=== PATIENT | male | born 1995 | race African-American/Black ===

== ENCOUNTER 2019-03-02 04:22 | Emergency (ER) | payer MEDICAID ==
[2019-03-02 04:35] VITALS: BP 138/88
== END 2019-03-02 07:02 | disposition left against medical advice (07) ==
LOC: ER 04:22
DX: Z53.21 Procedure and treatment not carried out due to patient leaving prior to being seen by health care provider (principal)

== ENCOUNTER 2019-03-05 04:46 | Emergency (ER) | payer MEDICAID ==
--- NOTE | 2019-03-05 05:30 | ER Document Report ---
ED General - General Stated Complaint: CHEST PAIN Time Seen by Provider: 03/05/19 05:11 Primary Care Provider: KAREEM MAYNARD MD [EMERITUS] - Follow up as needed Notes: 24-year-old male presents the emergency department complaining of a sudden onset of a squeezing pressure around his heart while laying on the ground outside. Patient states it started just prior to arrival and was associated with a small amount of shortness of breath and a cough. States the pain is improving since he has been here. Denies any radiation, denies any diaphoresis, denies any associated nausea or vomiting. Patient states he was laying on the ground outside because he has nowhere else to sleep. Has not had a place to sleep since the beginning of the month. Denies any history of cardiac disease himself, denies any history of cocaine use, denies any history of cardiac disease in his family members. - Related Data Allergies/Adverse Reactions: No Known Allergies Allergy (Verified 03/05/19 05:33) Past Medical History - General Information source: Patient - Social History Smoking Status: Current Every Day Smoker Frequency of alcohol use: None Drug Abuse: None Family History: Reviewed & Not Pertinent. denies: CAD Review of Systems - Review of Systems Constitutional: No symptoms reported Cardiovascular: See HPI, Chest pain Respiratory: See HPI, Cough, Short of breath -: Yes All other systems reviewed and negative Physical Exam - Vital signs Vitals: Temp Pulse Resp BP Pulse Ox 98.6 F 61 16 135/90 H 100 03/05/19 04:56 03/05/19 04:56 03/05/19 04:56 03/05/19 04:56 03/05/19 04:56 Interpretation: Normal - Notes Notes: GENERAL: Alert, interacts well. No acute distress. HEAD: Normocephalic, atraumatic EYES: Pupils equal, round and reactive to light, extraocular movements intact. ENT: Oral mucosa moist, tongue midline. NECK: Full range of motion, supple, trachea midline. LUNGS: Clear to auscultation bilaterally, no wheezes, rales or rhonchi, no respiratory distress. HEART: Regular rate and rhythm, no murmurs, gallops, rubs. Palpation of the chest does not reveal any tenderness. ABDOMEN: Soft, nontender, nondistended, bowel sounds present in all 4 quadrants. EXTREMITIES: Moves all 4 extremities spontaneously, no edema, radial and dorsalis pedis pulses 2/4 bilaterally. No cyanosis. NEUROLOGICAL: Alert and oriented x3, normal speech. PSYCH: Normal mood, normal affect. SKIN: Warm, Dry, normal turgor, no rashes or lesions noted. Course - Re-evaluation Re-evalutation: 03/05/19 06:31 CBC unremarkable, CMP unremarkable, CK mildly elevated, troponin negative, chest x-ray does not show any acute process per my interpretation. Uncertain etio logy of this patient's chest pain however it is very unlikely to be cardiac. Patient will be discharged home, recommended to try [id number] antacids. - Vital Signs Vital signs: Temp Pulse Resp BP Pulse Ox 97.9 F 63 19 123/94 H 100 03/05/19 05:19 03/05/19 05:19 03/05/19 05:19 03/05/19 05:19 03/05/19 05:19 - Laboratory Result Diagrams: 03/05/19 05:18 03/05/19 05:18 Laboratory results interpreted by me: 03/05/19 03/05/19 05:18 05:18 RDW 14.3 H Creatine Kinase 665 H - EKG Interpretation by Me Additional EKG results interpreted by me: 03/05/19 05:30 EKG shows sinus rhythm at a rate of 62, normal axis, normal intervals, no ST segment elevations or depressions, no T wave inversions, there is rapid R wave progression per my interpretation. Discharge - Discharge Clinical Impression: Chest pain with low risk for cardiac etiology Condition: Stable Disposition: HOME, SELF-CARE Instructions: Chest Pain of Unclear Cause ([facility]) Prescriptions: Ranitidine HCl 75 mg PO BID #30 tablet Referrals: KAREEM MAYNARD MD [EMERITUS] - Follow up as needed
[2019-03-05 05:57] LABS: ABSOLUTE BASOPHILS # (AUTO) 0.1 10^3/uL (0.0-0.2); ABSOLUTE EOSINOPHILS # (AUTO) 0.3 10^3/uL (0.0-0.6); ABSOLUTE LYMPHOCYTES (AUTO) 2.9 10^3/uL (0.5-4.7); ABSOLUTE MONOCYTES (AUTO) 0.5 10^3/uL (0.1-1.4); BASOPHILS % (AUTO) 0.7 % (0-2); EOSINOPHILS % (AUTO) 3.5 % (0-6); HEMOGLOBIN 14.8 g/dL (13.5-17.0); LYMPHOCYTES % (AUTO) 37.6 % (13-45); MEAN CORPUSCULAR HEMOGLOBIN 27.5 pg (27.0-33.4); MEAN CORPUSCULAR HGB CONC 33.6 g/dL (32.0-36.0); MEAN CORPUSCULAR VOLUME 82 fl (80-97); PLATELET COUNT 237 10^3/uL (150-450); RED BLOOD COUNT 5.37 10^6/uL (4.35-5.55); RED CELL DISTRIBUTION WIDTH 14.3 % (11.5-14.0); SEGMENTED NEUTROPHILS % (AUTO) 51.2 % (42-78); TOTAL CELLS COUNTED % (AUTO) 100 %; WHITE BLOOD COUNT 7.8 10^3/uL (4.0-10.5)
[2019-03-05 06:15] LABS: ALBUMIN 4.3 g/dL (3.5-5.0); ALKALINE PHOSPHATASE 50 U/L (38-126); ANION GAP 9 (5-19); ASPARTATE AMINO TRANSFERASE 25 U/L (17-59); BILIRUBIN,DIRECT 0.3 mg/dL (0.0-0.4); BILIRUBIN,TOTAL 0.5 mg/dL (0.2-1.3); BLOOD UREA NITROGEN 15 mg/dL (7-20); CALCIUM 9.6 mg/dL (8.4-10.2); CARBON DIOXIDE 28 mmol/L (22-30); CHLORIDE 103 mmol/L (98-107); CREATINE KINASE 665 U/L (55-170); GLUCOSE 94 mg/dL (75-110); POTASSIUM 4.3 mmol/L (3.6-5.0); TOTAL PROTEIN 7.2 g/dL (6.3-8.2)
[2019-03-05 06:29] LABS: CREATINE KINASE MB 3.68 ng/mL (<4.55); TROPONIN I < 0.012 ng/mL
[2019-03-05 06:43] VITALS: BP 126/80
--- NOTE | 2019-03-05 07:07 | RADIOLOGY REPORT (SQ) ---
EXAM DESCRIPTION: XR CHEST 1 VIEW COMPLETED DATE/TME: 03/05/2019 05:16 CLINICAL HISTORY: 24 years Male, left sided chest pain COMPARISON: None. NUMBER OF VIEWS/TECHNIQUE: 1/AP FINDINGS: Adequate lung volume, clear parenchyma, normal cardiac silhouette, and intact bony thorax. IMPRESSION: No acute cardiopulmonary findings.
--- NOTE | 2019-03-05 19:27 | EKG REPORT ---
SEVERITY:- NORMAL ECG - SINUS RHYTHM : Confirmed by: Janneth Hunter MD 05-Mar-2019 19:26:54
== END 2019-03-05 06:41 | disposition home or self-care (01) ==
LOC: ER 04:46
DX: R07.9 Chest pain, unspecified (principal); R05 Cough; R06.02 Shortness of breath; F17.200 Nicotine dependence, unspecified, uncomplicated
CPT/HCPCS: 36415; 71045; 80053; 82550; 82553; 83690; 84484; 85025; 93005; 93010; 99285

== ENCOUNTER 2019-03-06 21:23 | Emergency (ER) | payer MEDICAID ==
[2019-03-06] MEDS ORDERED: ONDANSETRON 4 MG TAB.RAPDIS PO ONE (21:39)
--- NOTE | 2019-03-06 21:42 | ER Document Report ---
ED Medical Screen (RME) - General Chief Complaint: Abdominal Pain Stated Complaint: NAUSEA,ABDOMINAL PAIN Time Seen by Provider: 03/06/19 21:37 TRAVEL OUTSIDE OF THE [place] IN LAST 30 DAYS: No - HPI Notes: 03/06/19 21:40 Patient is a 24-year-old male no significant past medical history presents complaining of upper and lower abdominal pain that is been present today with associated nausea. He is not vomiting or having any diarrhea. Pain is relatively constant and is described as mild. Pain does not radiate. No fever. I have treated and performed a rapid initial assessment of this patient. A [facility] prehensive ED assessment and evaluation of the patient, analysis of test results and completion of medical decision making process will be conducted by additional ED providers. PHYSICAL EXAMINATION: GENERAL: Well-appearing, well-nourished and in no acute distress. A&Ox4. Answers questions appropriately. Abdomen: Limited exam in triage, mild tenderness lower abdomen and his epigastrum. - Related Data Allergies/Adverse Reactions: No Known Allergies Allergy (Verified 03/05/19 05:33) Past Medical History Pulmonary Medical History: Reports: Hx Asthma Physical Exam - Vital signs Vitals: Temp Pulse Resp BP Pulse Ox 98.6 F 112 H 16 145/83 H 100 03/06/19 21:27 03/06/19 21:27 03/06/19 21:27 03/06/19 21:27 03/06/19 21:27 Course - Vital Signs Vital signs: Temp Pulse Resp BP Pulse Ox 98.6 F 112 H 16 145/83 H 100 03/06/19 21:27 03/06/19 21:27 03/06/19 21:27 03/06/19 21:27 03/06/19 21:27
[2019-03-06 22:08] LABS: ABSOLUTE EOSINOPHILS # (AUTO) 0.2 10^3/uL (0.0-0.6); ABSOLUTE LYMPHOCYTES (AUTO) 2.5 10^3/uL (0.5-4.7); ABSOLUTE MONOCYTES (AUTO) 0.4 10^3/uL (0.1-1.4); ABSOLUTE NEUT (AUTO) 2.9 10^3/uL (1.7-8.2); BASOPHILS % (AUTO) 0.7 % (0-2); EOSINOPHILS % (AUTO) 3.4 % (0-6); LYMPHOCYTES % (AUTO) 41.4 % (13-45); MEAN CORPUSCULAR HEMOGLOBIN 27.8 pg (27.0-33.4); MEAN CORPUSCULAR VOLUME 82 fl (80-97); PLATELET COUNT 237 10^3/uL (150-450); RED BLOOD COUNT 5.02 10^6/uL (4.35-5.55); RED CELL DISTRIBUTION WIDTH 14.2 % (11.5-14.0); SEGMENTED NEUTROPHILS % (AUTO) 47.5 % (42-78); TOTAL CELLS COUNTED % (AUTO) 100 %; WHITE BLOOD COUNT 6.1 10^3/uL (4.0-10.5)
[2019-03-06 22:19] LABS: APPEARANCE,URINE CLEAR; BILIRUBIN,URINE NEGATIVE (NEGATIVE); COLOR,URINE YELLOW; GLUCOSE, URINE NEGATIVE (NEGATIVE); KETONES,URINE NEGATIVE (NEGATIVE); PROTEIN,URINE NEGATIVE (NEGATIVE)
[2019-03-06 22:27] LABS: ALBUMIN 4.3 g/dL (3.5-5.0); ALKALINE PHOSPHATASE 54 U/L (38-126); ANION GAP 9 (5-19); ASPARTATE AMINO TRANSFERASE 30 U/L (17-59); BILIRUBIN,DIRECT 0.2 mg/dL (0.0-0.4); BILIRUBIN,TOTAL 0.5 mg/dL (0.2-1.3); BLOOD UREA NITROGEN 15 mg/dL (7-20); CALCIUM 9.5 mg/dL (8.4-10.2); CARBON DIOXIDE 27 mmol/L (22-30); CHLORIDE 104 mmol/L (98-107); GLUCOSE 110 mg/dL (75-110); POTASSIUM 3.9 mmol/L (3.6-5.0); TOTAL PROTEIN 7.3 g/dL (6.3-8.2)
[2019-03-06] MEDS ORDERED: ONDANSETRON 4 MG TAB.RAPDIS ONE (23:46)
[2019-03-07] MEDS ORDERED: ONDANSETRON ODT 4 MG TAB (6 TAB/ER DISP) PO PRN (02:09)
--- NOTE | 2019-03-07 02:20 | ER Document Report ---
ED GI/ - General Chief Complaint: Abdominal Pain Stated Complaint: NAUSEA,ABDOMINAL PAIN Time Seen by Provider: 03/06/19 21:37 Notes: Patient is a 24-year-old male that comes emergency department for chief complaint of generalized abdominal pain. He states he had pain mainly in the lower abdomen that was sharp and cramping, he felt nauseated with it as well. However after receiving Zofran in triage his symptoms completely resolved. He s tates he has not had a bowel movement in over a day which is abnormal for him but he states his previous bowel movement was normal. He denies vomiting, fever, flank pain. He has not had any abdominal surgeries, he denies any medical history or daily medications. He has no current complaints. TRAVEL OUTSIDE OF THE [place] IN LAST 30 DAYS: No - Related Data Allergies/Adverse Reactions: No Known Allergies Allergy (Verified 03/05/19 05:33) Past Medical History - General Information source: Patient - Social History Smoking Status: Current Every Day Smoker Frequency of alcohol use: None Drug Abuse: None Lives with: Family Family History: Reviewed & Not Pertinent. denies: CAD Patient has suicidal ideation: No Patient has homicidal ideation: No Pulmonary Medical History: Reports: Hx Asthma - Immunizations Immunizations up to date: Yes Hx Diphtheria, Pertussis, Tetanus Vaccination: Yes Review of Systems - Review of Systems Constitutional: No symptoms reported EENT: No symptoms reported Cardiovascular: No symptoms reported Respiratory: No symptoms reported Gastrointestinal: See HPI Genitourinary: No symptoms reported Male Genitourinary: No symptoms reported Musculoskeletal: No symptoms reported Skin: No symptoms reported Hematologic/Lymphatic: No symptoms reported Neurological/Psychological: No symptoms reported Physical Exam - Vital signs Vitals: Temp Pulse Resp BP Pulse Ox 98.6 F 112 H 16 145/83 H 100 03/06/19 21:27 03/06/19 21:27 03/06/19 21:27 03/06/19 21:27 03/06/19 21:27 - Notes Notes: GENERAL: Sleeping and easily aroused HEAD: Normocephalic, atraumatic. EYES: Pupils equal, round, and reactive to light. Extraocular movements intact. ENT: Oral mucosa moist, tongue midline. Oropharynx unremarkable. Airway patent. LUNGS: Clear to auscultation bilaterally, no wheezes, rales, or rhonchi. No respiratory distress. HEART: Regular rate and rhythm. No murmur ABDOMEN: Soft, non-tender. Non-distended. Bowel sounds present in all 4 quadrants. GENITOURINARY: Deferred EXTREMITIES: Moves all 4 extremities spontaneously. No edema, normal radial and dorsalis pedis pulses bilaterally. No cyanosis. BACK: no cervical, thoracic, lumbar midline tenderness. No saddle anesthesia, normal distal neurovascular exam. Moves all extremities in full range of motion. NEUROLOGICAL: Alert and oriented x3. Normal speech. Cranial nerves II through XII grossly intact. PSYCH: Normal affect, normal mood. SKIN: Warm, dry, normal turgor. No rashes or lesions noted. Course - Re-evaluation Re-evalutation: On my evaluation patient sleeping and easily aroused. He states that after Zofran in triage his symptoms completely resolved, he has no current complaints. His abdomen is completely nontender on my exam. I did review work-up from triage including CBC, chemistry, urinalysis, lipase. This is unremarkable other than elevated specific gravity. Discussed options with patient including rehydration with IV fluids or x-ray of the abdomen but this was declined. Patient alludes to some constipation. He will be provided with stool softeners, symptom management, nausea medication. Low suspicion of acute abdomen or concerning infection based on his presentation and evaluation. Discussed follow-up and return precautions. Patient states appreciation and agreement. Stable at time of discharge. - Vital Signs Vital signs: Temp Pulse Resp BP Pulse Ox 97.9 F 79 16 128/72 H 100 03/07/19 02:47 03/07/19 02:47 03/07/19 02:47 03/07/19 02:47 03/07/19 02:47 - Laboratory Result Diagrams: 03/06/19 21:55 03/06/19 21:55 Laboratory results interpreted by me: 03/06/19 03/06/19 21:55 21:55 RDW 14.2 H Urine Urobilinogen 4.0 H Discharge - Discharge Clinical Impression: Nausea Abdominal pain Qualifiers: Abdominal location: generalized Qualified Code(s): R10.84 - Generalized abdominal pain Condition: Stable Disposition: HOME, SELF-CARE Additional Instructions: Your evaluation and testing are reassuring. This is most likely pain coming from your bowel. I recommend that you take the Bentyl if needed for cramping, Phenergan if needed for nausea/stomach upset, and the Colace stool softener for the next several days. Drink plenty of fluids, you are somewhat dehydrated now. Return if you worsen including returned or worsening pain, vomiting, fever, or any other concerning or worsening symptoms. Prescriptions: Dicyclomine HCl [Bentyl 20 mg Tablet] 20 mg PO QID PRN #20 tablet PRN Reason: Docusate Sodium [Colace 100 mg Capsule] 100 mg PO ASDIR PRN #30 capsule PRN Reason: Promethazine HCl [Phenergan 25 mg Tablet] 25 mg PO Q6H PRN #15 tablet PRN Reason:
[2019-03-07 02:48] VITALS: BP 128/72
== END 2019-03-07 02:49 | disposition home or self-care (01) ==
LOC: ER 21:23
DX: R10.84 Generalized abdominal pain (principal); R11.0 Nausea; F17.200 Nicotine dependence, unspecified, uncomplicated
CPT/HCPCS: 99284; 36415; 83690; 85025; 80053; 81001; S0119

== ENCOUNTER 2019-03-07 23:11 | Emergency (ER) | payer SELFPAY ==
[2019-03-08 00:27] LABS: ABSOLUTE BASOPHILS # (AUTO) 0.1 10^3/uL (0.0-0.2); ABSOLUTE EOSINOPHILS # (AUTO) 0.3 10^3/uL (0.0-0.6); ABSOLUTE LYMPHOCYTES (AUTO) 2.7 10^3/uL (0.5-4.7); ABSOLUTE MONOCYTES (AUTO) 0.6 10^3/uL (0.1-1.4); ABSOLUTE NEUT (AUTO) 3.2 10^3/uL (1.7-8.2); EOSINOPHILS % (AUTO) 3.9 % (0-6); HEMATOCRIT 41.7 % (37.9-51.0); HEMOGLOBIN 14.2 g/dL (13.5-17.0); LYMPHOCYTES % (AUTO) 39.9 % (13-45); MEAN CORPUSCULAR HEMOGLOBIN 27.9 pg (27.0-33.4); MEAN CORPUSCULAR HGB CONC 34.1 g/dL (32.0-36.0); MEAN CORPUSCULAR VOLUME 82 fl (80-97); MONOCYTES % (AUTO) 8.7 % (3-13); PLATELET COUNT 241 10^3/uL (150-450); RED CELL DISTRIBUTION WIDTH 14.2 % (11.5-14.0); SEGMENTED NEUTROPHILS % (AUTO) 46.5 % (42-78); TOTAL CELLS COUNTED % (AUTO) 100 %; WHITE BLOOD COUNT 6.9 10^3/uL (4.0-10.5)
[2019-03-08 00:41] LABS: ALBUMIN 4.6 g/dL (3.5-5.0); ALKALINE PHOSPHATASE 50 U/L (38-126); ANION GAP 8 (5-19); ASPARTATE AMINO TRANSFERASE 32 U/L (17-59); BILIRUBIN,TOTAL 0.5 mg/dL (0.2-1.3); BLOOD UREA NITROGEN 15 mg/dL (7-20); CALCIUM 10.3 mg/dL (8.4-10.2); CARBON DIOXIDE 29 mmol/L (22-30); CHLORIDE 104 mmol/L (98-107); CREATINE KINASE 884 U/L (55-170); GLUCOSE 83 mg/dL (75-110); POTASSIUM 4.3 mmol/L (3.6-5.0); TOTAL PROTEIN 7.4 g/dL (6.3-8.2)
[2019-03-08 00:55] LABS: CREATINE KINASE MB 5.17 ng/mL (<4.55)
[2019-03-08 00:59] LABS: TROPONIN I < 0.012 ng/mL
[2019-03-08] MEDS ORDERED: SUCRALFATE 1 GM TABLET PO ONE (05:31)
[2019-03-08] MEDS ORDERED: FAMOTIDINE 20 MG TABLET PO ONE (05:31)
--- NOTE | 2019-03-08 05:32 | ER Document Report ---
ED General - General Chief Complaint: Chest Pain Stated Complaint: CHEST PAIN Time Seen by Provider: 03/08/19 04:35 Notes: Patient is a 24-year-old male that comes emergency department for chief complaint of an episode earlier where he felt a sharp pain in his upper abdomen and chest and felt nauseated. He states this resolved on its own after a while. He denies any current complaints on my evaluation. I saw this patient yesterday for lower abdominal pain and he was prescribed medications for this. He had a negative work-up at that time. He was also seen several days ago for chest pain and had a negative work-up then as well. Patient denies daily medications, surgeries, or any past medical history. TRAVEL OUTSIDE OF THE [place] IN LAST 30 DAYS: No - Related Data Allergies/Adverse Reactions: No Known Allergies Allergy (Verified 03/05/19 05:33) Past Medical History - General Information source: Patient - Social History Smoking Status: Current Every Day Smoker Frequency of alcohol use: None Drug Abuse: None Lives with: Alone Family History: Reviewed & Not Pertinent. denies: CAD Patient has suicidal ideation: No Patient has homicidal ideation: No Pulmonary Medical History: Reports: Hx Asthma - Immunizations Immunizations up to date: Yes Hx Diphtheria, Pertussis, Tetanus Vaccination: Yes Review of Systems - Review of Systems Constitutional: No symptoms reported EENT: No symptoms reported Cardiovascular: See HPI Respiratory: No symptoms reported Gastrointestinal: See HPI Genitourinary: No symptoms reported Male Genitourinary: No symptoms reported Musculoskeletal: No symptoms reported Skin: No symptoms reported Hematologic/Lymphatic: No symptoms reported Neurological/Psychological: No symptoms reported Physical Exam - Vital signs Vitals: Temp Pulse Resp BP Pulse Ox 98.5 F 71 22 H 136/94 H 100 03/07/19 23:56 03/07/19 23:56 03/07/19 23:56 03/07/19 23:56 03/07/19 23:56 - Notes Notes: GENERAL: sleeping but easily aroused, no signs of distress HEAD: Normocephalic, atraumatic. EYES: Pupils equal, round, and reactive to light. Extraocular movements intact. ENT: Oral mucosa moist, tongue midline. Oropharynx unremarkable. Airway patent. LUNGS: Clear to auscultation bilaterally, no wheezes, rales, or rhonchi. No respiratory distress. HEART: Regular rate and rhythm. No murmur ABDOMEN: Soft, non-tender. Non-distended. Bowel sounds present in all 4 qu adrants. GENITOURINARY: Deferred EXTREMITIES: Moves all 4 extremities spontaneously. No edema, normal radial and dorsalis pedis pulses bilaterally. No cyanosis. BACK: no cervical, thoracic, lumbar midline tenderness. No saddle anesthesia, normal distal neurovascular exam. Moves all extremities in full range of motion. NEUROLOGICAL: Alert and oriented x3. Normal speech. Cranial nerves II through XI I grossly intact. PSYCH: Normal affect, normal mood. SKIN: Warm, dry, normal turgor. No rashes or lesions noted. Course - Re-evaluation Re-evalutation: Patient was also somewhat dismissive of his symptoms and nods agreement with his work-up but does not appear to be overly concerned about his symptoms. His physical exam is completely unremarkable. His work-up again is unremarkable. Because of patient's repeated visits I had a long conversation with him. He states he just came to this town by bus after breaking up with his girlfriend, he states he is homeless, has no job, and he wants both a job and home. He denies SI or HI. He states he is just trying to get through this time. I discussed options, decision was made to place continuous pillowcase cutter consult. Patient just obtained phone and will be able to be contacted, patient states appreciation with this and states he is ready to go. Stable at time of discharge. - Vital Signs Vital signs: Temp Pulse Resp BP Pulse Ox 97.7 F 63 15 108/61 100 03/08/19 05:54 03/08/19 05:54 03/08/19 05:54 03/08/19 05:54 03/08/19 05:54 - Laboratory Result Diagrams: 03/08/19 00:10 03/08/19 00:10 Laboratory results interpreted by me: 03/08/19 03/08/19 03/08/19 00:10 00:10 00:10 RDW 14.2 H Calcium 10.3 H Creatine Kinase 884 H CK-MB (CK-2) 5.17 H Discharge - Discharge Clinical Impression: Chest pain with low risk for cardiac etiology, Homeless Condition: Stable Disposition: HOME, SELF-CARE Additional Instructions: Your workup today did not show any concerning findings. You will be contacted by phone by our continuous pillowcase cutter to see if we can assist with your current situation. Return if you worsen including fever, vomiting, severe worsening pain, or any other concerning symptoms.
[2019-03-08 05:58] VITALS: BP 108/61
--- NOTE | 2019-03-08 07:31 | EKG REPORT ---
SEVERITY:- NORMAL ECG - SINUS RHYTHM : Confirmed by: Jaden Martinez MD 08-Mar-2019 07:30:24
== END 2019-03-08 05:54 | disposition home or self-care (01) ==
LOC: ER 23:11
DX: R07.9 Chest pain, unspecified (principal); R10.10 Upper abdominal pain, unspecified; R11.0 Nausea; F17.200 Nicotine dependence, unspecified, uncomplicated; Z59.0 Homelessness
CPT/HCPCS: 36415; 80053; 82550; 82553; 84484; 85025; 93005; 93010; 99285

== ENCOUNTER 2019-03-08 22:54 | Emergency (ER) | payer SELFPAY ==
--- NOTE | 2019-03-09 00:13 | ER Document Report ---
ED Cardiac - General Chief Complaint: Chest Pain Stated Complaint: CHEST PAIN SORE THROAT Time Seen by Provider: 03/09/19 00:13 Mode of Arrival: Ambulatory Information source: Patient TRAVEL OUTSIDE OF THE [place] IN LAST 30 DAYS: No - HPI Patient complains to provider of: Chest pain Use of: Other - Denies all use Was the onset of pain: Gradual When did pain begin: Episodic Is the pain a: New problem Chest pain location: Other - Left-sided chest wall Quality of pain: Intermittent, Mild, Sharp Chest pain radiation location: None Severity now: Mild Severity at worst: Mild Pain level currently: 1 Chest pain precipitating factors: Movement of chest wall such as breathing deep or turning torso. Cardiac risk factors: None Positive cardiac history: No Associated symptoms: None Exacerbated by: Coughing, Torso movement, Other - Breathing Relieved by: Other - Patient does not have any chest pain while at rest. Similar symptoms previously: Yes Recently seen / treated by doctor: Yes Notes: Patient has been in the emergency department about 4 times this year. Similar complaints of chest pain with the same presentation as of noé. Thus far cardiac work-up is negative. No acute EKG changes normal laboratories normal troponins. - Related Data Allergies/Adverse Reactions: No Known Allergies Allergy (Verified 03/05/19 05:33) Past Medical History - Social History Smoking Status: Former Smoker Chew tobacco use (# tins/day): No Frequency of alcohol use: None Drug Abuse: None Occupation: Unemployed Lives with: Homeless Family History: Reviewed & Not Pertinent. denies: CAD Patient has suicidal ideation: No Patient has homicidal ideation: No - Medical History Medical History: Negative - Past Medical History Cardiac Medical History: Reports: None Pulmonary Medical History: Reports: Hx Asthma EENT Medical History: Reports: Other - Has glasses Neurological Medical History: Reports: None Endocrine Medical History: Reports: None Renal/ Medical History: Reports: None Malignancy Medical History: Reports None Skin Medical History: Reports None Psychiatric Medical History: Reports: None Traumatic Medical History: Reports: None Infectious Medical History: Reports: None Surgical Hx: Negative Past Surgical History: Reports: None - Immunizations Immunizations up to date: Yes Hx Diphtheria, Pertussis, Tetanus Vaccination: Yes Review of Systems - Review of Systems Constitutional: No symptoms reported EENT: No symptoms reported Cardiovascular: Chest pain Respiratory: No symptoms reported Gastrointestinal: Abdominal pain, Constipation Genitourinary: No symptoms reported Male Genitourinary: No symptoms reported Musculoskeletal: No symptoms reported Skin: No symptoms reported Hematologic/Lymphatic: No symptoms reported Neurological/Psychological: No symptoms reported Physical Exam - Vital signs Vitals: Temp Pulse Resp BP Pulse Ox 98.5 F 80 20 137/72 H 100 03/08/19 23:30 03/08/19 23:30 03/08/19 23:30 03/08/19 23:30 03/08/19 23:30 Interpretation: Normal - General General appearance: Appears well, Alert - HEENT Head: Normocephalic, Atraumatic Eyes: Normal Pupils: PERRL - Respiratory Respiratory status: No respiratory distress Chest status: Nontender Breath sounds: Normal Chest palpation: Normal - Cardiovascular Rhythm: Regular Heart sounds: Normal auscultation Murmur: No Notes: Reproducible chest wall pain palpable on left chest wall. No crepitus noted no deformity lungs are clear equal breath sounds. Symptoms are exacerbated with turning torso or taking deep breaths. - Abdominal Inspection: Normal Distension: No distension Bowel sounds: Normal Tenderness: Nontender Organomegaly: No organomegaly - Back Back: Normal, Nontender - Extremities General upper extremity: Normal inspection, Nontender, Normal color, Normal ROM, Normal temperature General lower extremity: Normal inspection, Nontender, Normal color, Normal ROM, Normal temperature, Normal weight bearing. No: Dotty's sign - Neurological Neuro grossly intact: Yes Cognition: Normal Orientation: AAOx4 [place] Coma Scale Eye Opening: Spontaneous [place] Coma Scale Verbal: Oriented [place] Coma Scale Motor: Obeys Commands [place] Coma Scale Total: 15 Speech: Normal Motor strength normal: LUE, RUE, LLE, RLE Sensory: Normal - Psychological Associated symptoms: Normal affect, Normal mood - Skin Skin Temperature: Warm Skin Moisture: Dry Skin Color: Normal Course - Re-evaluation Re-evalutation: 03/09/19 01:21 Patient is resting comfortably without any signs of distress. Sats are 100% with no tachypnea or air hunger. Heart rate is not tachycardic. Doubt that patient has pulmonary embolus - Vital Signs Vital signs: Temp Pulse Resp BP Pulse Ox 98.5 F 80 20 137/72 H 100 03/08/19 23:30 03/08/19 23:30 03/08/19 23:30 03/08/19 23:30 03/08/19 23:30 Discharge - Discharge Clinical Impression: Chest wall pain, Homeless Condition: Stable Disposition: HOME, SELF-CARE Instructions: Anti-Inflammatory Medication ([facility]), Chest Wall Pain ([facility]) Prescriptions: Ibuprofen [Ibu] 800 mg PO TID PRN #30 tablet PRN Reason: pain
[2019-03-09] MEDS ORDERED: IBUPROFEN 800 MG TABLET PO ONE (01:29)
[2019-03-09 01:55] VITALS: BP 134/61
--- NOTE | 2019-03-09 07:51 | EKG REPORT ---
SEVERITY:- NORMAL ECG - SINUS RHYTHM : Confirmed by: Jaden Martinez MD 09-Mar-2019 07:49:52
== END 2019-03-09 01:56 | disposition home or self-care (01) ==
LOC: ER 22:54
DX: R07.9 Chest pain, unspecified (principal); R10.10 Upper abdominal pain, unspecified; R11.0 Nausea; R10.30 Lower abdominal pain, unspecified; F17.200 Nicotine dependence, unspecified, uncomplicated
CPT/HCPCS: 93005; 93010; 99284

== ENCOUNTER 2019-03-10 23:14 | Emergency (ER) | payer SELFPAY ==
[2019-03-11] MEDS ORDERED: ONDANSETRON 4 MG TAB.RAPDIS PO ONE (00:25)
--- NOTE | 2019-03-11 00:25 | ER Document Report ---
ED Medical Screen (RME) - General Chief Complaint: Nausea/Vomiting Stated Complaint: NAUSEA Time Seen by Provider: 03/11/19 00:24 Notes: 24-year-old male presents with nausea/vomiting and upper abdominal pain that started this morning. Patient denies any fever or chills. Abdomen soft nontender. I have greeted and performed a rapid initial assessment of this patient. A comprehensive ED assessment and evaluation of the patient, analysis of test results and completion of the medical decision making process with be conducted by additional ED providers. TRAVEL OUTSIDE OF THE [place] IN LAST 30 DAYS: No - Related Data Allergies/Adverse Reactions: No Known Allergies Allergy (Verified 03/05/19 05:33) Past Medical History Pulmonary Medical History: Reports: Hx Asthma - Immunizations Immunizations up to date: Yes Hx Diphtheria, Pertussis, Tetanus Vaccination: Yes Physical Exam - Vital signs Vitals: Temp Pulse Resp BP Pulse Ox 98.0 F 106 H 20 149/82 H 100 03/10/19 23:18 03/10/19 23:18 03/10/19 23:18 03/10/19 23:18 03/10/19 23:18 Course - Vital Signs Vital signs: Temp Pulse Resp BP Pulse Ox 98.0 F 106 H 20 149/82 H 100 03/10/19 23:18 03/10/19 23:18 03/10/19 23:18 03/10/19 23:18 03/10/19 23:18
[2019-03-11 00:50] LABS: ABSOLUTE BASOPHILS # (AUTO) 0.1 10^3/uL (0.0-0.2); ABSOLUTE EOSINOPHILS # (AUTO) 0.2 10^3/uL (0.0-0.6); ABSOLUTE LYMPHOCYTES (AUTO) 2.7 10^3/uL (0.5-4.7); ABSOLUTE MONOCYTES (AUTO) 0.6 10^3/uL (0.1-1.4); ABSOLUTE NEUT (AUTO) 4.7 10^3/uL (1.7-8.2); BASOPHILS % (AUTO) 0.9 % (0-2); HEMATOCRIT 42.4 % (37.9-51.0); HEMOGLOBIN 14.3 g/dL (13.5-17.0); LYMPHOCYTES % (AUTO) 32.2 % (13-45); MEAN CORPUSCULAR HEMOGLOBIN 27.5 pg (27.0-33.4); MEAN CORPUSCULAR HGB CONC 33.6 g/dL (32.0-36.0); MEAN CORPUSCULAR VOLUME 82 fl (80-97); MONOCYTES % (AUTO) 6.8 % (3-13); PLATELET COUNT 249 10^3/uL (150-450); RED BLOOD COUNT 5.19 10^6/uL (4.35-5.55); RED CELL DISTRIBUTION WIDTH 14.3 % (11.5-14.0); SEGMENTED NEUTROPHILS % (AUTO) 57.1 % (42-78); TOTAL CELLS COUNTED % (AUTO) 100 %; WHITE BLOOD COUNT 8.2 10^3/uL (4.0-10.5)
[2019-03-11 01:05] LABS: APPEARANCE,URINE CLEAR; BILIRUBIN,URINE NEGATIVE (NEGATIVE); COLOR,URINE YELLOW; GLUCOSE, URINE NEGATIVE (NEGATIVE); KETONES,URINE NEGATIVE (NEGATIVE); PROTEIN,URINE NEGATIVE (NEGATIVE); URINE SPECIFIC GRAVITY 1.023; UROBILINOGEN,URINE NEGATIVE mg/dL (<2.0)
[2019-03-11 01:14] LABS: ALBUMIN 4.6 g/dL (3.5-5.0); ALKALINE PHOSPHATASE 49 U/L (38-126); ANION GAP 10 (5-19); ASPARTATE AMINO TRANSFERASE 33 U/L (17-59); BILIRUBIN,TOTAL 0.4 mg/dL (0.2-1.3); BLOOD UREA NITROGEN 14 mg/dL (7-20); CARBON DIOXIDE 27 mmol/L (22-30); CHLORIDE 104 mmol/L (98-107); GLUCOSE 98 mg/dL (75-110); POTASSIUM 4.1 mmol/L (3.6-5.0); TOTAL PROTEIN 7.4 g/dL (6.3-8.2)
[2019-03-11 01:49] LABS: URINE AMPHETAMINES SCREEN NEGATIVE; URINE BARBITURATES SCREEN NEGATIVE; URINE BENZODIAZEPINES SCREEN NEGATIVE; URINE COCAINE SCREEN NEGATIVE; URINE MARIJUANA (THC) SCREEN NEGATIVE; URINE METHADONE SCREEN NEGATIVE; URINE PHENCYCLIDINE SCREEN NEGATIVE
--- NOTE | 2019-03-11 05:51 | ER Document Report ---
ED General - General Chief Complaint: Abdominal Pain Stated Complaint: NAUSEA Time Seen by Provider: 03/11/19 00:24 TRAVEL OUTSIDE OF THE [place] IN LAST 30 DAYS: No - HPI Notes: Mr. Corrales is a 24-year-old homeless male with a chief complaint of abdominal pain when he came to triage. When I entered the room he was sleeping and told me that he basically needed somewhere to get out of the cold and that his abdomen had been hurting earlier but was no longer bothering him and he had no other specific complaint. - Related Data Allergies/Adverse Reactions: No Known Allergies Allergy (Verified 03/05/19 05:33) Past Medical History - General Information source: Patient - Social History Smoking Status: Current Every Day Smoker Family History: Reviewed & Not Pertinent. denies: CAD Patient has suicidal ideation: No Patient has homicidal ideation: No Pulmonary Medical History: Reports: Hx Asthma - Immunizations Immunizations up to date: Yes Hx Diphtheria, Pertussis, Tetanus Vaccination: Yes Review of Systems - Review of Systems Notes: Constitutional: Negative for fever. HENT: Negative for sore throat. Eyes: Negative for visual changes. Cardiovascular: Negative for chest pain. Respiratory: Negative for shortness of breath. Gastrointestinal: As per HPI. Genitourinary: Negative for dysuria. Musculoskeletal: Negative for back pain. Skin: Negative for rash. Neurological: Negative for headaches, weakness or numbness. 10 point ROS negative except as marked above and in HPI. Physical Exam - Vital signs Vitals: Temp Pulse Resp BP Pulse Ox 98.0 F 106 H 20 149/82 H 100 03/10/19 23:18 03/10/19 23:18 03/10/19 23:18 03/10/19 23:18 03/10/19 23:18 - Notes Notes: GENERAL: Slightly disheveled male approximately stated age appearing in no acute distress. SKIN: Good turgor no rashes. HEAD: Normocephalic atraumatic. EYES: PERRLA. EOMI. Conjunctivae and sclerae clear. NECK: Supple. No masses or thyromegaly. No adenopathy. Carotids 2+ without bruits. No JVD. BACK: Symmetrical without tenderness. CHEST: Respirations unlabored. Breath sounds clear and symmetrical. HEART: Regular rhythm. No murmur gallop or rub. ABDOMEN: Soft nontender without masses, organomegaly or rebound. Bowel sounds normally active. No bruits. EXTREMITIES: No edema. No calf tenderness. Cap refill less than 1.5 seconds. Dorsalis pedis and posterior tibial pulses 3+ and symmetrical. NEUROLOGICAL: Alert and oriented x3. Nonfocal. PSYCHIATRIC: Appropriate affect. Course - Re-evaluation Re-evalutation: 03/11/19 05:49 I think the patient was primarily seeking a warm place to spend the evening. I have offered him resources regarding local homeless shelters. - Vital Signs Vital signs: Temp Pulse Resp BP Pulse Ox 98.4 F 86 16 146/72 H 100 03/11/19 04:58 03/11/19 04:58 03/11/19 04:58 03/11/19 04:58 03/11/19 04:58 - Laboratory Result Diagrams: 03/11/19 00:42 03/11/19 00:42 Laboratory results interpreted by me: 03/11/19 00:42 RDW 14.3 H Discharge - Discharge Clinical Impression: Resolved abdominal pain, Undomiciled Condition: Stable Disposition: HOME, SELF-CARE Additional Instructions: Seek housing in a homeless long-term. Return here as needed for new or worsening symptoms. Clinic referral provided. Referrals: [facility] [Provider Group] - Follow up as needed
[2019-03-11 06:00] VITALS: BP 148/72
== END 2019-03-11 05:59 | disposition home or self-care (01) ==
LOC: ER 23:14
DX: R10.9 Unspecified abdominal pain (principal); Z59.0 Homelessness; F17.200 Nicotine dependence, unspecified, uncomplicated; J45.909 Unspecified asthma, uncomplicated
CPT/HCPCS: 99284; 36415; 83690; 85025; 80053; 81001; 80307; S0119

== ENCOUNTER 2019-03-11 23:25 | Emergency (ER) | payer SELFPAY ==
[2019-03-11] MEDS ORDERED: LIDOCAINE 2% VISCOUS SOLN 15 ML UDCUP PO ONE (23:41)
[2019-03-11] MEDS ORDERED: MAG HYDROX/AL HYDROX/SIMETH SUSP 30 ML UDCUP PO ONE (23:41)
[2019-03-11] MEDS ORDERED: METOCLOPRAMIDE HCL ORAL SOLN 10 MG/10 ML UDCUP PO ONE (23:41)
--- NOTE | 2019-03-11 23:42 | ER Document Report ---
ED Medical Screen (RME) - General Chief Complaint: Abdominal Pain Stated Complaint: ABDOMINAL PAIN Time Seen by Provider: 03/11/19 23:39 Mode of Arrival: Ambulatory Information source: Patient Notes: 24-year-old male presents today with complaints of epigastric pain. Reports he had vomiting and diarrhea yesterday none today. Denies fevers. Patient looks nontoxic. Respiratory rate even unlabored I have greeted and performed a rapid initial assessment of this patient. A comprehensive ED assessment and evaluation of the patient, analysis of test results and completion of the medical decision making process will be conducted by additional ED providers. TRAVEL OUTSIDE OF THE [place] IN LAST 30 DAYS: No - Related Data Allergies/Adverse Reactions: No Known Allergies Allergy (Verified 03/05/19 05:33) Past Medical History Pulmonary Medical History: Reports: Hx Asthma - Immunizations Immunizations up to date: Yes Hx Diphtheria, Pertussis, Tetanus Vaccination: Yes Physical Exam - Vital signs Vitals: Temp Pulse Resp BP Pulse Ox 98.3 F 100 20 129/73 H 99 03/11/19 23:29 03/11/19 23:29 03/11/19 23:29 03/11/19 23:29 03/11/19 23:29 Course - Vital Signs Vital signs: Temp Pulse Resp BP Pulse Ox 98.3 F 100 20 129/73 H 99 03/11/19 23:29 03/11/19 23:29 03/11/19 23:29 03/11/19 23:29 03/11/19 23:29
[2019-03-12 01:17] LABS: HEMATOCRIT 40.8 % (37.9-51.0); HEMOGLOBIN 13.5 g/dL (13.5-17.0); MEAN CORPUSCULAR HEMOGLOBIN 27.1 pg (27.0-33.4); MEAN CORPUSCULAR HGB CONC 33.2 g/dL (32.0-36.0); MEAN CORPUSCULAR VOLUME 82 fl (80-97); PLATELET COUNT 247 10^3/uL (150-450); RED BLOOD COUNT 4.99 10^6/uL (4.35-5.55); RED CELL DISTRIBUTION WIDTH 14.7 % (11.5-14.0); WHITE BLOOD COUNT 8.2 10^3/uL (4.0-10.5)
[2019-03-12 01:21] LABS: APPEARANCE,URINE CLEAR; BILIRUBIN,URINE NEGATIVE (NEGATIVE); COLOR,URINE YELLOW; GLUCOSE, URINE NEGATIVE (NEGATIVE); KETONES,URINE NEGATIVE (NEGATIVE); LEUKOCYTE ESTERASE,URINE NEGATIVE (NEGATIVE); NITRITE,URINE NEGATIVE (NEGATIVE); PROTEIN,URINE NEGATIVE (NEGATIVE); URINE SPECIFIC GRAVITY 1.024; UROBILINOGEN,URINE NEGATIVE mg/dL (<2.0)
[2019-03-12 01:35] LABS: ALBUMIN 4.4 g/dL (3.5-5.0); ALKALINE PHOSPHATASE 48 U/L (38-126); ANION GAP 10 (5-19); ASPARTATE AMINO TRANSFERASE 36 U/L (17-59); BILIRUBIN,TOTAL 0.5 mg/dL (0.2-1.3); BLOOD UREA NITROGEN 14 mg/dL (7-20); CALCIUM 10.1 mg/dL (8.4-10.2); CARBON DIOXIDE 27 mmol/L (22-30); CHLORIDE 102 mmol/L (98-107); GLUCOSE 97 mg/dL (75-110); POTASSIUM 4.4 mmol/L (3.6-5.0); TOTAL PROTEIN 7.2 g/dL (6.3-8.2)
[2019-03-12 01:39] LABS: ABSOLUTE MONOCYTES # (MANUAL) 0.7 10^3/uL (0.1-1.4); ANISOCYTOSIS 1+; BAND NEUTROPHILS % (MANUAL) 4 % (3-5); BASOPHILS % (MANUAL) 1 % (0-2); EOSINOPHILS % (MANUAL) 3 % (0-6); LYMPHOCYTES % (MANUAL) 36 % (13-45); MONOCYTES % (MANUAL) 8 % (3-13); PLATELET COMMENT ADEQUATE; POLYCHROMASIA 1+; SEGMENTED NEUTROPHILS % (MAN) 48 % (42-78); TOTAL CELLS COUNTED 100
[2019-03-12] MEDS ORDERED: FAMOTIDINE 20 MG TABLET PO ONE (05:12)
[2019-03-12] MEDS ORDERED: SUCRALFATE 1 GM TABLET PO ONE (05:12)
--- NOTE | 2019-03-12 05:16 | ER Document Report ---
HPI - HPI Time Seen by Provider: 03/11/19 23:39 Pain Level: 3 Context: Patient is a 24-year-old male that comes emergency department for chief complaint of upper abdominal pain. He has been seen almost every day this week for similar complaints. Patient denies vomiting, he has not had any fevers, he has not had any surgeries, he takes daily prescribed medications. Patient is homeless and states that his primary problem is that he is looking for a job and a place to stay. He states he has been in contact with case management after I consulted them but this has not progressed any further yet. - REPRODUCTIVE Reproductive: DENIES: : Past Medical History - General Information source: Patient - Social History Smoking Status: Current Every Day Smoker Frequency of alcohol use: None Drug Abuse: None Lives with: Alone Family History: Reviewed & Not Pertinent. denies: CAD Patient has suicidal ideation: No Patient has homicidal ideation: No Pulmonary Medical History: Reports: Hx Asthma - Immunizations Immunizations up to date: Yes Hx Diphtheria, Pertussis, Tetanus Vaccination: Yes Vertical Provider Document - CONSTITUTIONAL General Appearance: WD/WN, No Apparent Distress - Sleeping but easily aroused - INFECTION CONTROL TRAVEL OUTSIDE OF THE [place] IN LAST 30 DAYS: No - HEENT HEENT: Atraumatic, Normocephalic - NECK Neck: Normal Inspection - RESPIRATORY Respiratory: Breath Sounds Normal, No Respiratory Distress, Chest Non-Tender - CARDIOVASCULAR Cardiovascular: Regular Rate, Regular Rhythm. negative: Tachycardia - GI/ABDOMEN Gastrointestinal: Abdomen Soft, Abdomen Non-Tender. negative: Abdomen Tender - BACK Back: Normal Inspection - MUSCULOSKELETAL/EXTREMETIES Musculoskeletal/Extremeties: MAEW, FROM, Non-Tender - NEURO Level of Consciousness: Awake, Alert, Appropriate Motor/Sensory: No Motor Deficit, No Sensory Deficit - DERM Integumentary: Warm, Dry, No Rash Course - Re-evaluation Re-evalutation: Patient sleeping but easily aroused. Abdomen is unremarkable on exam. Patient has no complaints on my exam. Vital signs unremarkable, work-up unremarkable, patient has been here several days in a row. Patient admits to homelessness and needing a place to stay. He has already consulted case management and is working with them to try to find a place. No additional complaints. Patient will be discharged with return precautions. He states understanding and agreement. - Vital Signs Vital signs: Temp Pulse Resp BP Pulse Ox 98.3 F 100 20 129/73 H 99 03/11/19 23:29 03/11/19 23:29 03/11/19 23:29 03/11/19 23:29 03/11/19 23:29 - Laboratory Result Diagrams: 03/12/19 01:03 03/12/19 01:03 Laboratory results interpreted by me: 03/12/19 01:03 RDW 14.7 H Discharge - Discharge Clinical Impression: Homeless Abdominal pain Qualifiers: Abdominal location: generalized Qualified Code(s): R10.84 - Generalized abdo helena pain Condition: Stable Disposition: HOME, SELF-CARE Additional Instructions: Your evaluation is reassuring. Please follow-up with case management in your search for a good location and employment. Follow-up with the primary care referral listed below for additional management. Return for any concerning symptoms including severe pain, vomiting, fever, or any other concerning symptoms. Referrals: [facility] [Provider Group] - Follow up as needed
[2019-03-12 05:39] VITALS: BP 128/69
== END 2019-03-12 05:25 | disposition home or self-care (01) ==
LOC: ER 23:25
DX: R10.84 Generalized abdominal pain (principal); R10.10 Upper abdominal pain, unspecified; Z59.0 Homelessness; F17.200 Nicotine dependence, unspecified, uncomplicated; J45.909 Unspecified asthma, uncomplicated
CPT/HCPCS: 36415; 81001; 87070; 99284

== ENCOUNTER 2019-03-13 23:01 | Emergency (ER) | payer SELFPAY ==
--- NOTE | 2019-03-13 23:34 | ER Document Report ---
ED Medical Screen (RME) - General Chief Complaint: Rectal Bleeding Stated Complaint: RECTAL BLEEDING Time Seen by Provider: 03/13/19 23:31 Mode of Arrival: Ambulatory Information source: Patient Notes: 24-year-old male with history of asthma presents emergency department with complaints of blood in his stool for the past month. Denies fever vomiting diarrhea. Denies abdominal pain. I have greeted and performed a rapid initial assessment of this patient. A comprehensive ED assessment and evaluation of the patient, analysis of test results and completion of the medical decision making process will be conducted by additional ED providers. TRAVEL OUTSIDE OF THE [place] IN LAST 30 DAYS: No - Related Data Allergies/Adverse Reactions: No Known Allergies Allergy (Verified 03/05/19 05:33) Past Medical History Pulmonary Medical History: Reports: Hx Asthma - Immunizations Immunizations up to date: Yes Hx Diphtheria, Pertussis, Tetanus Vaccination: Yes Physical Exam - Vital signs Vitals: Temp Pulse Resp BP Pulse Ox 98.9 F 110 H 20 153/91 H 100 03/13/19 23:08 03/13/19 23:08 03/13/19 23:08 03/13/19 23:08 03/13/19 23:08 Course - Vital Signs Vital signs: Temp Pulse Resp BP Pulse Ox 98.9 F 110 H 20 153/91 H 100 03/13/19 23:08 03/13/19 23:08 03/13/19 23:08 03/13/19 23:08 03/13/19 23:08
--- NOTE | 2019-03-14 01:43 | ER Document Report ---
HPI - HPI Time Seen by Provider: 03/13/19 23:31 Pain Level: 3 Context: Patient is a 24-year-old male who presents emergency department with a chief complaint of blood in his stool. Patient states that he has had on and off for the past month. Patient is homeless. He denies any abdominal pain. - CONSTITUTIONAL Constitutional: DENIES: Fever, Chills - EENT EENT: DENIES: Sore Throat, Ear Pain - NEURO Neurology: DENIES: Headache - CARDIOVASCULAR Cardiovascular: DENIES: Chest pain - RESPIRATORY Respiratory: DENIES: Trouble Breathing, Coughing - GASTROINTESTINAL Gastrointestinal: REPORTS: Black / Bloody Stools. DENIES: Abdominal Pain, Nausea, Patient vomiting - REPRODUCTIVE Reproductive: DENIES: : - MUSCULOSKELETAL Musculoskeletal: DENIES: Extremity pain - DERM Skin Color: Normal Skin Problems: None Past Medical History - General Information source: Patient - Social History Smoking Status: Current Every Day Smoker Family History: Reviewed & Not Pertinent. denies: CAD Patient has suicidal ideation: No Patient has homicidal ideation: No Pulmonary Medical History: Reports: Hx Asthma - Immunizations Immunizations up to date: Yes Hx Diphtheria, Pertussis, Tetanus Vaccination: Yes Vertical Provider Document - CONSTITUTIONAL Agree With Documented VS: Yes Exam Limitations: No Limitations General Appearance: No Apparent Distress - INFECTION CONTROL TRAVEL OUTSIDE OF THE [place] IN LAST 30 DAYS: No - HEENT HEENT: Atraumatic, Normocephalic, PERRLA - RESPIRATORY Respiratory: Breath Sounds Normal, No Respiratory Distress - CARDIOVASCULAR Cardiovascular: Regular Rate, Regular Rhythm Pulses: Normal: Radial - GI/ABDOMEN Gastrointestinal: Abdomen Soft, Abdomen Non-Tender - MUSCULOSKELETAL/EXTREMETIES Musculoskeletal/Extremeties: FROM - NEURO Level of Consciousness: Awake, Alert, Appropriate - DERM Integumentary: Warm, Dry, No Rash Course - Re-evaluation Re-evalutation: 03/14/19 01:41 Patient was seen here on the and of this month with a stable hemoglobin hematocrit. If he truly had rectal bleeding, his hemoglobin would have been lower on those days, since he says he has had bleeding for the past month. Occult stool done by KISHOR Carlson is negative for any blood. Patient is homeless. I have advised him that he can follow-up with GI if needed. I have a very low suspicion for GI bleed, or any life-threatening etiology at this time. Follow-up precautions were given. Verbal discharge instructions were given to the patient. They verbalized understanding. They are stable for discharge. - Vital Signs Vital signs: Temp Pulse Resp BP Pulse Ox 98.9 F 110 H 20 153/91 H 100 03/13/19 23:08 03/13/19 23:08 03/13/19 23:08 03/13/19 23:08 03/13/19 23:08 Discharge - Discharge Clinical Impression: Homeless, Blood in stool Condition: Stable Disposition: HOME, SELF-CARE Additional Instructions: You were seen today in the emergency department for blood in your stool. The rectal exam done showed that you did not have blood in your stool. If you continue to have these problems, please follow-up with gastroenterology. Referrals: JR DECKER MD [ACTIVE STAFF] - Follow up as needed
[2019-03-14 01:51] VITALS: BP 131/69
== END 2019-03-14 01:50 | disposition home or self-care (01) ==
LOC: ER 23:01
DX: K92.1 Melena (principal); Z59.0 Homelessness; F17.200 Nicotine dependence, unspecified, uncomplicated; J45.909 Unspecified asthma, uncomplicated
CPT/HCPCS: 99283

== ENCOUNTER 2019-03-14 23:24 | Emergency (ER) | payer SELFPAY ==
[2019-03-15] MEDS ORDERED: ACETAMINOPHEN 325 MG TABLET PO ONE (03:28)
--- NOTE | 2019-03-15 04:14 | ER Document Report ---
ED General - General Chief Complaint: Headache Stated Complaint: HEADACHE Time Seen by Provider: 03/15/19 03:10 TRAVEL OUTSIDE OF THE [place] IN LAST 30 DAYS: No - HPI Notes: Patient is a 24-year-old male who presents to the emergency department for evaluation. He states he was at [employer], felt a sudden "pop" in the back of his head, and developed a headache. He states that his headaches improved sig nificantly. He states that after that he thinks he "passed out" but believes he may have just been sleeping. He states this is what was going on for about 2 hours. He denies any visual changes. No difficulty speaking or swallowing. Moving his arms and legs without difficulty. He comes in here for further evaluation. It was not a thunderclap onset, it is not the worst headache of his life. - Related Data Allergies/Adverse Reactions: No Known Allergies Allergy (Verified 03/05/19 05:33) Home Medications: None Past Medical History - General Information source: Patient - Social History Smoking Status: Current Every Day Smoker Family History: Reviewed & Not Pertinent. denies: CAD Patient has suicidal ideation: No Patient has homicidal ideation: No Pulmonary Medical History: Reports: Hx Asthma - Immunizations Immunizations up to date: Yes Hx Diphtheria, Pertussis, Tetanus Vaccination: Yes Review of Systems - Review of Systems Constitutional: No symptoms reported EENT: No symptoms reported Cardiovascular: No symptoms reported Respiratory: No symptoms reported Gastrointestinal: No symptoms reported Genitourinary: No symptoms reported Musculoskeletal: No symptoms reported Skin: No symptoms reported Neurological/Psychological: See HPI Physical Exam - Vital signs Vitals: Temp Pulse Resp BP Pulse Ox 98.7 F 125 H 16 140/80 H 100 03/14/19 23:27 03/14/19 23:27 03/14/19 23:27 03/14/19 23:27 03/14/19 23:27 - Notes Notes: Vital signs reviewed, please refer to chart. Head is normocephalic, atraumatic. Pupils equal round, reactive to light. Neck is supple without meningismus. He does have some tenderness to palpation at the base of the right occiput. Heart is regular rate and rhythm. Lungs are clear to auscultation bilaterally. Abdomen is soft, nontender, normoactive bowel sounds throughout. Extremities without cyanosis, clubbing. Posterior calves are nontender. Peripheral pulses are equal. Skin is warm and dry. Patient is awake, alert, oriented x3. Cranial nerves II - XII are grossly intact without focal neurological deficits. Strength is plus 5 out of 5 bilateral upper and lower extremities. Sensation is intact. Reflexes symmetrical. Intact [id number], rapid alternating movements, [id number]. Course - Re-evaluation Re-evalutation: 03/15/19 04:14 Patient presents to the emergency department for evaluation. He complains of a headache. He has a completely normal neurological exam. His pain is minimal at this time. My suspicion is that this is a muscle tension headache. Patient was given Tylenol here. He will be discharged with close follow-up. He is to return to the ED with worsening. 03/15/19 05:24 Patient remained stable, is amenable to discharge. - Vital Signs Vital signs: Temp Pulse Resp BP Pulse Ox 97.8 F 106 H 20 124/68 100 03/15/19 05:02 03/15/19 05:02 03/15/19 05:02 03/15/19 05:02 03/14/19 23:27 - EKG Interpretation by Me Additional EKG results interpreted by me: 03/15/19 05:26 Sinus mechanism with a rate of 80 bpm. Normal axis and intervals, no acute ST changes concerning for ischemia or infarction. Discharge - Discharge Clinical Impression: Homeless, Tension headache Condition: Stable Disposition: HOME, SELF-CARE Instructions: Headache ([facility]) Additional Instructions: Tylenol or ibuprofen as needed for pain. Moist heat to the painful area. Return to the emergency department with worsening or new concerning symptoms of any sort.
[2019-03-15 06:31] VITALS: BP 119/72
--- NOTE | 2019-03-15 09:51 | EKG REPORT ---
SEVERITY:- NORMAL ECG - SINUS RHYTHM : Confirmed by: Ina Min 15-Mar-2019 09:50:37
== END 2019-03-15 06:31 | disposition home or self-care (01) ==
LOC: ER 23:24
DX: G44.209 Tension-type headache, unspecified, not intractable (principal); Z59.0 Homelessness; F17.200 Nicotine dependence, unspecified, uncomplicated
CPT/HCPCS: 93005; 93010; 99284

== ENCOUNTER 2019-03-16 03:21 | Emergency (ER) | payer SELFPAY ==
[2019-03-16] MEDS ORDERED: ONDANSETRON 4 MG TAB.RAPDIS PO ONE (05:15)
--- NOTE | 2019-03-16 05:44 | ER Document Report ---
ED General - General Chief Complaint: Nausea Stated Complaint: NAUSEA Time Seen by Provider: 03/16/19 05:14 Notes: 24-year-old male presents with nausea that started a few hours ago. Patient denies any vomiting, abdominal pain, fever, chills. TRAVEL OUTSIDE OF THE [place] IN LAST 30 DAYS: No - Related Data Allergies/Adverse Reactions: No Known Allergies Allergy (Verified 03/16/19 03:29) Past Medical History - Social History Smoking Status: Current Every Day Smoker Family History: Reviewed & Not Pertinent. denies: CAD Patient has suicidal ideation: No Patient has homicidal ideation: No Pulmonary Medical History: Reports: Hx Asthma - Immunizations Immunizations up to date: Yes Hx Diphtheria, Pertussis, Tetanus Vaccination: Yes Review of Systems - Review of Systems Notes: Constitutional: Negative for fever. HENT: Negative for sore throat. Eyes: Negative for visual changes. Cardiovascular: Negative for chest pain. Respiratory: Negative for shortness of breath. Gastrointestinal: Positive for nausea. Negative for abdominal pain, vomiting or diarrhea. Genitourinary: Negative for dysuria. Musculoskeletal: Negative for back pain. Skin: Negative for rash. Neurological: Negative for headaches, weakness or numbness. 10 point ROS negative except as marked above and in HPI. Physical Exam - Vital signs Vitals: Temp Pulse Resp BP 97.6 F 96 16 133/87 H 03/16/19 03:21 03/16/19 03:21 03/16/19 03:21 03/16/19 03:21 - Notes Notes: GENERAL: Well-appearing, well-nourished and in no acute distress. HEAD: Atraumatic, normocephalic. EYES: Extraocular movements intact, sclera anicteric, conjunctiva are normal. NECK: Normal range of motion, supple without lymphadenopathy or JVD. ABDOMEN: Soft, nontender. No guarding, no rebound. No masses appreciated. EXTREMITIES: Normal range of motion, no pitting or edema. No clubbing or cyanosis. NEUROLOGICAL: Cranial nerves II through XII grossly intact. Normal speech, normal gait. PSYCH: Normal mood, normal affect. SKIN: Warm, Dry, normal turgor, no rashes or lesions noted. Course - Re-evaluation Re-evalutation: 03/16/19 nontoxic, well-appearing 24-year-old male presents with complaint of nausea without vomiting. Patient is afebrile. Patient is non-tachycardic. Zofran ordered. Patient will be p.o. challenge. 03/16/19 06:10 PO tolerant. Pt given zofran to go pack. Strict return precautions given. Pt given follow up with PCP. All questions/concerns addressed prior to discharge. - Vital Signs Vital signs: Temp Pulse Resp BP Pulse Ox 97.6 F 96 16 133/87 H 03/16/19 03:21 03/16/19 03:21 03/16/19 03:21 03/16/19 03:21 Discharge - Discharge Clinical Impression: Nausea Condition: Stable Disposition: HOME, SELF-CARE Instructions: Nausea or Vomiting, Nonspecific ([facility]) Additional Instructions: Please take medication as prescribed. Please follow-up with 1 of the clinics listed in 3 to 5 days. Return to the ER for any worsening symptoms, including vomiting not controlled by medication, abdominal pain, fever, diarrhea, constipation, or any other symptoms that are concerning to you. Prescriptions: Ondansetron [Zofran Odt 4 mg Tablet] 1 - 2 tab PO Q4H PRN #15 tab.rapdis PRN Reason: For Nausea/Vomiting Referrals: CLAYTON THOMPSON MD [COMMUNITY BASED STAFF] - Follow up in 3-5 days [facility] [Provider Group] - Follow up in 3-5 days
[2019-03-16] MEDS ORDERED: ONDANSETRON ODT 4 MG TAB (6 TAB/ER DISP) PO PRN (06:11)
[2019-03-16 06:27] VITALS: BP 123/62
== END 2019-03-16 06:31 | disposition home or self-care (01) ==
LOC: ER 03:21
DX: R11.0 Nausea (principal); F17.200 Nicotine dependence, unspecified, uncomplicated; J45.909 Unspecified asthma, uncomplicated
CPT/HCPCS: 99283; S0119

== ENCOUNTER 2019-03-17 22:39 | Emergency (ER) | payer SELFPAY ==
[2019-03-18 01:54] LABS: ABSOLUTE EOSINOPHILS # (AUTO) 0.2 10^3/uL (0.0-0.6); ABSOLUTE LYMPHOCYTES (AUTO) 3.1 10^3/uL (0.5-4.7); ABSOLUTE MONOCYTES (AUTO) 0.4 10^3/uL (0.1-1.4); ABSOLUTE NEUT (AUTO) 3.6 10^3/uL (1.7-8.2); BASOPHILS % (AUTO) 0.5 % (0-2); EOSINOPHILS % (AUTO) 3.2 % (0-6); HEMATOCRIT 45.2 % (37.9-51.0); HEMOGLOBIN 15.3 g/dL (13.5-17.0); LYMPHOCYTES % (AUTO) 42.4 % (13-45); MEAN CORPUSCULAR HEMOGLOBIN 27.9 pg (27.0-33.4); MEAN CORPUSCULAR VOLUME 82 fl (80-97); MONOCYTES % (AUTO) 5.4 % (3-13); PLATELET COUNT 265 10^3/uL (150-450); RED BLOOD COUNT 5.51 10^6/uL (4.35-5.55); RED CELL DISTRIBUTION WIDTH 14.2 % (11.5-14.0); SEGMENTED NEUTROPHILS % (AUTO) 48.5 % (42-78); TOTAL CELLS COUNTED % (AUTO) 100 %; WHITE BLOOD COUNT 7.4 10^3/uL (4.0-10.5)
[2019-03-18 02:11] LABS: ALBUMIN 4.6 g/dL (3.5-5.0); ALKALINE PHOSPHATASE 57 U/L (38-126); ANION GAP 11 (5-19); ASPARTATE AMINO TRANSFERASE 43 U/L (17-59); BILIRUBIN,DIRECT 0.1 mg/dL (0.0-0.4); BILIRUBIN,TOTAL 0.6 mg/dL (0.2-1.3); BLOOD UREA NITROGEN 12 mg/dL (7-20); CALCIUM 10.2 mg/dL (8.4-10.2); CARBON DIOXIDE 27 mmol/L (22-30); CHLORIDE 101 mmol/L (98-107); GLUCOSE 94 mg/dL (75-110); POTASSIUM 4.5 mmol/L (3.6-5.0); TOTAL PROTEIN 7.6 g/dL (6.3-8.2)
--- NOTE | 2019-03-18 05:12 | ER Document Report ---
ED General - General Chief Complaint: Bloody Stools Stated Complaint: BLOODY STOOL Time Seen by Provider: 03/18/19 04:10 TRAVEL OUTSIDE OF THE [place] IN LAST 30 DAYS: No - HPI Onset: Other - weeks Severity: None Pain Level: Denies Context: Pleasant unfortunate 24 year old male is here with reports of blood in stool. He is homeless and with it cold outside it appears this is the major issue. No abd pain when I see him. I wake him. Actually he is hungry. No fever and no nausea or vomiting. No chest pain and no sob. Blood work has already been done when I see him. Exacerbated by: Denies Relieved by: Denies - Related Data Allergies/Adverse Reactions: No Known Allergies Allergy (Verified 03/16/19 03:29) Past Medical History - Social History Smoking Status: Former Smoker Frequency of alcohol use: None Drug Abuse: None Family History: Reviewed & Not Pertinent. denies: CAD Patient has suicidal ideation: No Patient has homicidal ideation: No Pulmonary Medical History: Reports: Hx Asthma - Immunizations Immunizations up to date: Yes Hx Diphtheria, Pertussis, Tetanus Vaccination: Yes Review of Systems - Review of Systems Constitutional: No symptoms reported EENT: No symptoms reported Cardiovascular: No symptoms reported Respiratory: No symptoms reported Gastrointestinal: Blood streaked bowels Genitourinary: No symptoms reported Male Genitourinary: No symptoms reported Musculoskeletal: No symptoms reported Skin: No symptoms reported Hematologic/Lymphatic: No symptoms reported Neurological/Psychological: No symptoms reported Physical Exam - Vital signs Vitals: Temp Pulse Resp BP Pulse Ox 98.7 F 84 18 131/77 H 100 03/17/19 23:35 03/17/19 23:35 03/17/19 23:35 03/17/19 23:35 03/17/19 23:35 Interpretation: Normal - General General appearance: Appears well, Alert - HEENT Head: Normocephalic, Atraumatic Eyes: Normal Extraocular movements intact: Yes Nerve palsy: No Ears: Normal External canal: Normal Nasal: Normal Mouth/Lips: Normal - Respiratory Respiratory status: No respiratory distress Chest status: Nontender Breath sounds: Normal Chest palpation: Normal - Cardiovascular Rhythm: Regular Heart sounds: Normal auscultation Murmur: No - Abdominal Inspection: Normal Distension: No distension Bowel sounds: Normal Tenderness: Nontender Organomegaly: No organomegaly - Back Back: Normal, Nontender - Extremities General upper extremity: Normal inspection, Nontender, Normal color, Normal ROM, Normal temperature General lower extremity: Normal inspection, Nontender, Normal color, Normal ROM, Normal temperature, Normal weight bearing. No: Dotty's sign - Neurological Neuro grossly intact: Yes Cognition: Normal Orientation: AAOx4 [place] Coma Scale Eye Opening: Spontaneous [place] Coma Scale Verbal: Oriented [place] Coma Scale Motor: Obeys Commands [place] Coma Scale Total: 15 Speech: Normal Sensory: Normal - Psychological Associated symptoms: Normal affect, Normal mood - Skin Skin Temperature: Warm Skin Moisture: Dry Skin Color: Normal Course - Re-evaluation Re-evalutation: 03/18/19 05:09 MDM 24 year old with blood in stool reportedly. No fever. Soft abd with benign exam. May be malingering. Multiple recent visits for same. Inflamatory bowel disease is possible and he should follow up regarding this. May take maalox or cimetidine in the interim. - Vital Signs Vital signs: Temp Pulse Resp BP Pulse Ox 97.7 F 86 16 119/74 99 03/18/19 04:09 03/18/19 04:09 03/18/19 04:09 03/18/19 04:09 03/18/19 04:09 - Laboratory Result Diagrams: 03/18/19 01:35 03/18/19 01:35 Laboratory results interpreted by me: 03/18/19 01:35 RDW 14.2 H Discharge - Discharge Clinical Impression: Blood in stool, Homelessness Condition: Good Disposition: HOME, SELF-CARE Instructions: Family Physicians / Practices Additional Instructions: Return here for any problems or any concerns. Take your medicine as directed. You may take maalox or cimetidine - these are both over the counter at the store.
[2019-03-18 05:21] LABS: APPEARANCE,URINE SLIGHTLY-CLOUDY; BILIRUBIN,URINE NEGATIVE (NEGATIVE); COLOR,URINE YELLOW; GLUCOSE, URINE NEGATIVE (NEGATIVE); KETONES,URINE NEGATIVE (NEGATIVE); LEUKOCYTE ESTERASE,URINE NEGATIVE (NEGATIVE); NITRITE,URINE NEGATIVE (NEGATIVE); PROTEIN,URINE NEGATIVE (NEGATIVE); URINE SPECIFIC GRAVITY 1.029; UROBILINOGEN,URINE NEGATIVE mg/dL (<2.0)
[2019-03-18 09:54] VITALS: BP 135/86
== END 2019-03-18 09:56 | disposition home or self-care (01) ==
LOC: ER 22:39
DX: K92.1 Melena (principal); Z59.0 Homelessness
CPT/HCPCS: 36415; 80053; 81001; 83690; 85025; 99283

== ENCOUNTER 2019-03-18 23:41 | Emergency (ER) | payer SELFPAY ==
[2019-03-19 07:54] VITALS: BP 102/53
--- NOTE | 2019-03-19 08:14 | ER Document Report ---
HPI - HPI Time Seen by Provider: 03/19/19 08:09 Pain Level: 1 Context: Patient is a 24-year-old homeless male who presents to the emergency department with a chief complaint of vomiting x1. He was sent home with [place] the other day, but he is only taking "1 tablet a week." Patient was seen in the emergency department yesterday. He was discharged. It is cold outside and he continues to come here to the emergency department. - CONSTITUTIONAL Constitutional: DENIES: Fever, Chills - EENT EENT: DENIES: Sore Throat, Ear Pain, Nasal Drainage-Clear, Nasal Drainage- Purulent, Congestion, Eye problems - NEURO Neurology: DENIES: Headache, Weakness - GASTROINTESTINAL Gastrointestinal: REPORTS: Abdominal Pain, Nausea, Patient vomiting. DENIES: Diarrhea - REPRODUCTIVE Reproductive: DENIES: : - MUSCULOSKELETAL Musculoskeletal: DENIES: Extremity pain - DERM Skin Color: Normal Skin Problems: None Past Medical History - Social History Smoking Status: Current Some Day Smoker Frequency of alcohol use: None Drug Abuse: None Family History: Reviewed & Not Pertinent. denies: CAD Patient has suicidal ideation: No Patient has homicidal ideation: No Pulmonary Medical History: Reports: Hx Asthma - Immunizations Immunizations up to date: Yes Hx Diphtheria, Pertussis, Tetanus Vaccination: Yes Vertical Provider Document - CONSTITUTIONAL Agree With Documented VS: Yes Exam Limitations: No Limitations General Appearance: No Apparent Distress - INFECTION CONTROL TRAVEL OUTSIDE OF THE [place] IN LAST 30 DAYS: No - HEENT HEENT: Atraumatic, Normocephalic, PERRLA - NECK Neck: Normal Inspection - RESPIRATORY Respiratory: Breath Sounds Normal, No Respiratory Distress - CARDIOVASCULAR Cardiovascular: Regular Rate, Regular Rhythm Pulses: Normal: Radial - GI/ABDOMEN Gastrointestinal: Abdomen Soft, Abdomen Non-Tender - MUSCULOSKELETAL/EXTREMETIES Musculoskeletal/Extremeties: FROM - NEURO Level of Consciousness: Awake, Alert, Appropriate Motor/Sensory: No Motor Deficit, No Sensory Deficit - DERM Integumentary: Warm, Dry, No Rash Course - Re-evaluation Re-evalutation: 03/19/19 08:21 I explained to him that he can take 1 tablet every 4-6 hours. This is most likely why he continues to have nausea and vomiting. Patient was already seen by social services designee yesterday. He was given information on different clinics that he can go to. He is in agreement with this plan. I have a very low suspicion for appendicitis, bowel obstruction, or any life-threatening etiology at this time. Follow-up precautions were given. Verbal discharge instructions were given to the patient. They verbalized understanding. They are stable for discharge. - Vital Signs Vital signs: Temp Pulse Resp BP Pulse Ox 97.9 F 86 18 102/53 L 98 03/19/19 07:53 03/19/19 07:53 03/19/19 07:53 03/19/19 07:53 03/19/19 07:53 Discharge - Discharge Clinical Impression: Nausea, Homelessness Vomiting Qualifiers: Vomiting type: unspecified Vomiting Intractability: non-intractable Nausea presence: with nausea Qualified Code(s): R11.2 - Nausea with vomiting, unspecified Condition: Stable Disposition: HOME, SELF-CARE Instructions: Antinausea Medication ([facility]), Vomiting ([facility]) Additional Instructions: You are seen today in the emergency department for vomiting. You had labs drawn yesterday and they were normal. You can take your Zofran every 4-6 hours as needed for nausea and vomiting. Please follow-up with 1 of the clinics below. Referrals: [facility] [Provider Group] - Follow up in 3-5 days [facility] [Provider Group] - Follow up in 3-5 days
[2019-03-19] MEDS ORDERED: ONDANSETRON ODT 4 MG TAB (6 TAB/ER DISP) PO PRN (08:19)
== END 2019-03-19 08:32 | disposition home or self-care (01) ==
LOC: ER 23:41
DX: R11.2 Nausea with vomiting, unspecified (principal); T45.0X6A Underdosing of antiallergic and antiemetic drugs, initial encounter; Z91.14 Patient's other noncompliance with medication regimen; Z59.0 Homelessness; R10.9 Unspecified abdominal pain; F17.200 Nicotine dependence, unspecified, uncomplicated; J45.909 Unspecified asthma, uncomplicated
CPT/HCPCS: 99283

== ENCOUNTER 2019-03-24 22:32 | Emergency (ER) | payer SELFPAY ==
--- NOTE | 2019-03-25 03:03 | ER Document Report ---
Entered by CAROLINA SALCIDO SCRIBE 03/25/19 0247 Acting as scribe for:BRUNILDA HARPER IV, MD ED General - General Chief Complaint: Chest Pain Stated Complaint: CHEST PAIN Mode of Arrival: Ambulatory Information source: Patient Notes: This 24-year-old male patient presents to the emergency department today with complaints of chest pain for the last week and a half. Patient is new to the area and is homeless, he has been seen here in this emergency department x13 times in the last 3 weeks for varying complaints, multiple visits have been for chest pain. Patient has no cardiac history or cardiac family history. TRAVEL OUTSIDE OF THE [place] IN LAST 30 DAYS: No - Related Data Allergies/Adverse Reactions: No Known Allergies Allergy (Verified 03/25/19 01:25) Past Medical History - General Information source: Patient - Social History Smoking Status: Never Smoker Cigarette use (# per day): No Frequency of alcohol use: None Drug Abuse: None Lives with: Homeless Family History: Reviewed & Not Pertinent Patient has suicidal ideation: No Patient has homicidal ideation: No Pulmonary Medical History: Reports: Hx Asthma - Immunizations Immunizations up to date: Yes Hx Diphtheria, Pertussis, Tetanus Vaccination: Yes Review of Systems - Review of Systems Constitutional: No symptoms reported EENT: No symptoms reported Cardiovascular: See HPI, Chest pain Respiratory: No symptoms reported Gastrointestinal: No symptoms reported Genitourinary: No symptoms reported Male Genitourinary: No symptoms reported Musculoskeletal: No symptoms reported Skin: No symptoms reported Hematologic/Lymphatic: No symptoms reported Neurological/Psychological: No symptoms reported -: Yes All other systems reviewed and negative Physical Exam - Vital signs Vitals: Temp Pulse Resp BP Pulse Ox 99.5 F 95 18 144/78 H 97 03/24/19 22:38 03/24/19 22:38 03/24/19 22:38 03/24/19 22:38 03/24/19 22:38 - Notes Notes: Physical Exam: General: Alert, appears well. HEENT: Normocephalic. Atraumatic. PERRL. Extraocular movements intact. Oropharynx clear. Neck: Supple. Non-tender. Respiratory: No respiratory distress. Clear and equal breath sounds bilaterally. Cardiovascular: Regular rate and rhythm. Abdominal: Normal Inspection. Non-tender. No distension. Normal Bowel Sounds. Back: No gross abnormalities. Extremities: Moves all four extremities. Upper extremities: Normal inspection. Normal ROM. Lower extremities: Normal inspection. No edema. Normal ROM. Neurological: Normal cognition. AAOx4. Normal speech. Psychological: Normal affect. Normal Mood. Skin: Warm. Dry. Normal color. Course - Re-evaluation Re-evalutation: 03/25/19 03:03 Results of ED MSE discussed with patient. All questions were answered prior to discharge. Emergency signs and symptoms, reasons to return to the emergency department discussed with patient. - Vital Signs Vital signs: Temp Pulse Resp BP Pulse Ox 99.5 F 95 18 144/78 H 97 03/24/19 22:38 03/24/19 22:38 03/24/19 22:38 03/24/19 22:38 03/24/19 22:38 - EKG Interpretation by Me Additional EKG results interpreted by me: 03/25/19 03:03 EKG obtained on 03/24/2019 at 2251 hrs. was interpreted by this MD. Findings: Normal sinus rhythm, rate 89, normal axis, P waves proceed QRS complexes, QRS complexes appear narrow, there are no obvious patterns of ST segment elevation or depression present to suggest acute myocardial ischemia or infarction. Impression normal sinus rhythm with nonspecific ST segments. Discharge - Discharge Clinical Impression: Chest pain Condition: Good Disposition: HOME, SELF-CARE Instructions: Chest Pain of Unclear Cause ([facility]) Additional Instructions: Return to the Emergency Department without delay if any worse. HOME CARE INSTRUCTIONS & INFORMATION: Thank you for choosing us for your medical needs. We hope you're satisfied with the care you received. After you leave, you must properly care for your problem and, at the same time, observe its progress. Any condition can change. Some illnesses can change rapidly over hours or days. If your condition worsens, return to the Emergency Department or see your physician promptly. ABOUT YOUR X-RAYS AND EKG'S: If you had an EKG or X-rays taken, they have been read by the Emergency Physician. The X-rays and EKG's will also be read by a Radiologist or Animal Technician within 24 hours. If discrepancies are noted, you will be notified by telephone. Please be certain the ED has a correct telephone number & address where you can be reached. Also, realize that some fractures or abnormalities do not show up on initial X-rays. If your symptoms continue, see your physician. ABOUT YOUR LABORATORY TEST: If you had laboratory tests, the results have been reviewed by the Emergency Physician. Some test results (for example cultures) may not be available for several days. You will be contacted if any test result shows you need additional treatment. Please be certain the ED has a correct telephone number and address where you can be reached. ABOUT YOUR MEDICATIONS: You will receive instructions on how to take your medicine on the prescription label you receive. Additional information may be p rovided by the Pharmacy. If you have questions afterwards, call the ED for clarification or further instructions. Some prescribed medications may cause drowsiness. Do not perform tasks such as driving a car or operating machinery without consulting your Pharmacist. If you feel you need a refill of pain medication, your condition will need re-evaluation. Please do not call for a refill of any medication. ABOUT YOUR SIGNATURE: Signature of this document acknowledges to followin. Understanding that you received emergency treatment and that you may be released before al medical problems are known or treated. Please be certain the ED has a correct phone number & address where you can be reached. 2. Acknowledgement that you will arrange for follow-up care as recommended. 3. Authorization for the Emergency Physician to provide information to your follow-up Physician in order to maximize your care. AT ANY TIME, IF YOUR SYMPTOMS CHANGE SIGNIFICANTLY OR WORSEN OR YOU DEVELOP NEW SYMPTOMS, RETURN TO THE EMERGENCY DEPARTMENT IMMEDIATELY FOR RE-EVALUATION. OUR GOAL IS TO PROVIDE EXCELLENT MEDICAL CARE! WE HOPE THAT WE HAVE MET YOUR EXPECTATIONS DURING YOUR EMERGENCY DEPARTMENT VISIT AND THAT YOU FEEL YOU HAVE RECEIVED EXCELLENT CARE! I personally performed the services described in the documentation, reviewed and edited the documentation which was dictated to the scribe in my presence, and it accurately records my words and actions.
[2019-03-25 03:44] VITALS: BP 122/67
--- NOTE | 2019-03-25 14:54 | EKG REPORT ---
SEVERITY:- NORMAL ECG - SINUS RHYTHM : Confirmed by: Janneth Hunter MD 25-Mar-2019 14:52:33
== END 2019-03-25 03:42 | disposition home or self-care (01) ==
LOC: ER 22:32
DX: R07.9 Chest pain, unspecified (principal); Z59.0 Homelessness; J45.909 Unspecified asthma, uncomplicated
CPT/HCPCS: 93005; 93010; 99284

== ENCOUNTER 2019-03-26 23:58 | Emergency (ER) | payer SELFPAY ==
--- NOTE | 2019-03-27 00:33 | ER Document Report ---
ED Medical Screen (RME) - General Chief Complaint: Abdominal Pain Stated Complaint: ABDOMINAL PAIN Time Seen by Provider: 03/27/19 00:29 Mode of Arrival: Ambulatory Information source: Patient Notes: 24-year-old male presents emergency department with reports that the medicine we gave him is not working. He reports he was given Zofran. He reports he still has abdominal pain. He reports he has not been vomiting. I have greeted and performed a rapid initial assessment of this patient. A comprehensive ED assessment and evaluation of the patient, analysis of test results and completion of the medical decision making process will be conducted by additional ED providers. TRAVEL OUTSIDE OF THE [place] IN LAST 30 DAYS: No - Related Data Allergies/Adverse Reactions: No Known Allergies Allergy (Verified 03/25/19 01:25) Past Medical History - Social History Chew tobacco use (# tins/day): No Frequency of alcohol use: None Drug Abuse: None Pulmonary Medical History: Reports: Hx Asthma - Immunizations Immunizations up to date: Yes Hx Diphtheria, Pertussis, Tetanus Vaccination: Yes Physical Exam - Vital signs Vitals: Temp Pulse Resp BP Pulse Ox 98.4 F 89 18 143/85 H 100 03/27/19 00:11 03/27/19 00:11 03/27/19 00:11 03/27/19 00:11 03/27/19 00:11 Course - Vital Signs Vital signs: Temp Pulse Resp BP Pulse Ox 98.4 F 89 18 143/85 H 100 03/27/19 00:11 03/27/19 00:11 03/27/19 00:11 03/27/19 00:11 03/27/19 00:11
[2019-03-27 00:58] LABS: APPEARANCE,URINE CLEAR; BILIRUBIN,URINE NEGATIVE (NEGATIVE); COLOR,URINE YELLOW; GLUCOSE, URINE NEGATIVE (NEGATIVE); KETONES,URINE NEGATIVE (NEGATIVE); LEUKOCYTE ESTERASE,URINE NEGATIVE (NEGATIVE); NITRITE,URINE NEGATIVE (NEGATIVE); PROTEIN,URINE NEGATIVE (NEGATIVE); URINE SPECIFIC GRAVITY 1.019
[2019-03-27 01:01] LABS: ABSOLUTE BASOPHILS # (AUTO) 0.1 10^3/uL (0.0-0.2); ABSOLUTE EOSINOPHILS # (AUTO) 0.3 10^3/uL (0.0-0.6); ABSOLUTE LYMPHOCYTES (AUTO) 2.6 10^3/uL (0.5-4.7); ABSOLUTE MONOCYTES (AUTO) 0.5 10^3/uL (0.1-1.4); ABSOLUTE NEUT (AUTO) 3.5 10^3/uL (1.7-8.2); BASOPHILS % (AUTO) 1.1 % (0-2); EOSINOPHILS % (AUTO) 3.6 % (0-6); LYMPHOCYTES % (AUTO) 37.2 % (13-45); MEAN CORPUSCULAR HEMOGLOBIN 27.8 pg (27.0-33.4); MEAN CORPUSCULAR VOLUME 82 fl (80-97); MONOCYTES % (AUTO) 7.2 % (3-13); PLATELET COUNT 237 10^3/uL (150-450); RED BLOOD COUNT 5.02 10^6/uL (4.35-5.55); RED CELL DISTRIBUTION WIDTH 14.5 % (11.5-14.0); SEGMENTED NEUTROPHILS % (AUTO) 50.9 % (42-78); TOTAL CELLS COUNTED % (AUTO) 100 %; WHITE BLOOD COUNT 6.9 10^3/uL (4.0-10.5)
[2019-03-27 01:26] LABS: ALBUMIN 4.3 g/dL (3.5-5.0); ALKALINE PHOSPHATASE 54 U/L (38-126); ANION GAP 8 (5-19); ASPARTATE AMINO TRANSFERASE 46 U/L (17-59); BILIRUBIN,TOTAL 0.4 mg/dL (0.2-1.3); BLOOD UREA NITROGEN 12 mg/dL (7-20); CALCIUM 9.8 mg/dL (8.4-10.2); CARBON DIOXIDE 27 mmol/L (22-30); CHLORIDE 104 mmol/L (98-107); GLUCOSE 100 mg/dL (75-110); POTASSIUM 4.1 mmol/L (3.6-5.0); TOTAL PROTEIN 6.8 g/dL (6.3-8.2)
--- NOTE | 2019-03-27 02:44 | ER Document Report ---
ED General - General Chief Complaint: Abdominal Pain Stated Complaint: ABDOMINAL PAIN Time Seen by Provider: 03/27/19 00:29 Mode of Arrival: Ambulatory TRAVEL OUTSIDE OF THE [place] IN LAST 30 DAYS: No - HPI Notes: Patient is a 24-year-old male who is currently homeless and has had recent frequent visits emergency department presents complaining of right upper quadrant pain that began today. Patient states that on occasion food will make his symptoms worse. The pain does not radiate. He is otherwise tolerating p.o. without difficulty. He is urinating normally and having normal bowel movements. Denies drug allergies. No other concerns or complaints. No surgical history to his abdomen. Denies any headache, fever, neck pain, URI, sore throat, chest pain, palpitations, syncope, cough, shortness of breath, wheeze, dyspnea, nausea/vomiting/diarrhea, urinary retention, dysuria, hematuria, back pain, or rash. - Related Data Allergies/Adverse Reactions: No Known Allergies Allergy (Verified 03/25/19 01:25) Past Medical History - General Information source: Patient - Social History Smoking Status: Current Every Day Smoker Chew tobacco use (# tins/day): No Frequency of alcohol use: None Drug Abuse: None Family History: Reviewed & Not Pertinent Patient has suicidal ideation: No Patient has homicidal ideation: No Pulmonary Medical History: Reports: Hx Asthma - Immunizations Immunizations up to date: Yes Hx Diphtheria, Pertussis, Tetanus Vaccination: Yes Review of Systems - Review of Systems -: Yes All other systems reviewed and negative Physical Exam - Vital signs Vitals: Temp Pulse Resp BP Pulse Ox 98.4 F 89 18 143/85 H 100 03/27/19 00:11 03/27/19 00:11 03/27/19 00:11 03/27/19 00:11 03/27/19 00:11 - Notes Notes: PHYSICAL EXAMINATION: GENERAL: Well-appearing, well-nourished and in no acute distress. HEAD: Atraumatic, normocephalic. EYES: Pupils equal round and reactive to light, extraocular movements intact, sclera anicteric, conjunctiva are normal. ENT: Nares patent and without discharge. oropharynx clear without exudates. No tonsilar hypertrophy or erythema. Moist mucous membranes. NECK: Normal range of motion, supple without lymphadenopathy LUNGS: Breath sounds clear to auscultation bilaterally and equal. No wheezes rales or rhonchi. HEART: Regular rate and rhythm without murmurs, rubs, gallops. ABDOMEN: Soft, nontender, nondistended abdomen. No guarding, no rebound. Normal bowel sounds present. No CVA tenderness bilaterally. Ybarra neg. No tenderness at McBurney Poin.t Musculoskeletal: FROM to passive/active. Strength 5+/5. Extremities: No cyanosis, clubbing, or edema b/l. Peripheral pulses 2+. Capillary refill less than 3 seconds. NEUROLOGICAL: Cranial nerves grossly intact. Normal speech, normal gait. PSYCH: Normal mood, normal affect. SKIN: Warm, Dry, normal turgor, no rashes or lesions noted. Course - Re-evaluation Re-evalutation: 03/27/19 03:55 Patient is an afebrile, well-hydrated, 24-year-old male who presents to the ED with RUQ abdominal pain, suspect benign. Vitals are acceptable without any significant tachycardia, tachypnea, or hypoxia. PE is otherwise unremarkable. CBC, CMP, lipase, RUQ US unremarkable for any acute pathology. No other labs or imaging warranted at this time based on H&P. Patient is tolerating p.o. without difficulties and is nontoxic-appearing. Low suspicion/risk for acute appendicitis, bowel obstruction, acute cholecystitis, perforated diverticulitis, incarcerated hernia, pancreatitis, perforated ulcer, peritonitis, sepsis, testicular torsion, or other systemic emergent condition at this time. Patient is aware that his condition can change from initial presentation and he needs to monitor symptoms closely and seek medical attention if any acute changes. I will send him home with a prescription for omeprazole. Conservative measures otherwise for symptoms. Recheck with PCM in 2-3 days. Consider consult with a lime hide inspector. Return to the ED with any worsening/concerning symptoms otherwise as reviewed in discharge. Patient is in agreement. - Vital Signs Vital signs: Temp Pulse Resp BP Pulse Ox 98.3 F 79 20 148/77 H 99 03/27/19 02:26 03/27/19 02:26 03/27/19 02:26 03/27/19 02:26 03/27/19 02:26 - Laboratory Result Diagrams: 03/27/19 00:42 03/27/19 00:42 Laboratory results interpreted by me: 03/27/19 03/27/19 00:42 00:42 RDW 14.5 H Urine Urobilinogen 2.0 H Discharge - Discharge Clinical Impression: RUQ pain Condition: Stable Disposition: HOME, SELF-CARE Instructions: Evaluation of Upper Abdominal Pain ([facility]) Additional Instructions: Maintain adequate fluid and food intake Healthy diet tylenol if needed Monitor for any worsening symptoms Make sure you are staying hydrated enough to urinate and have normal BM's Recheck with your PCM in 2-3 days Consider consult with Gastroenterology for ongoing/worsening symptoms Return to the ED with any worsening symptoms and/or development of fever, headache, chest pain, palpitations, syncope, shortness of breath, trouble breathing, abdominal pain, n/v/d, blood in stool/urine, weakness, or other worse kirit symptoms that are concerning to you. Prescriptions: Omeprazole 20 mg PO DAILY #30 tablet.dr Forms: Elevated Blood Pressure, Smoking Cessation Education Referrals: JR DECKER MD [ACTIVE STAFF] - Follow up as needed [facility] [Provider Group] - Follow up as needed
--- NOTE | 2019-03-27 03:33 | RADIOLOGY REPORT (SQ) ---
US ABDOMEN LIMITED HISTORY: RUQ abdominal pain COMPARISON: none FINDINGS: Transabdominal sonographic images through the right upper quadrant were performed at 0310 hours on 03/27/2019 with grayscale, color and Doppler evaluation. The liver demonstrates increased echogenicity and measures 16.2 cm in length. Imaged hepatic and portal veins are patent with normal directional flow. No intrahepatic or extrahepatic biliary ductal dilatation. 3.0-mm common hepatic duct. The gallbladder is contracted despite prolonged fasting since early a.m. 03/26/2019. No shadowing calculi or pericholecystic fluid is seen. The wall thickness is normal given the contracted state. Unremarkable pancreas. The right kidney measures 9.8 cm in length. No shadowing calculi or right-sided hydronephrosis. No free fluid in Morison's pouch. The abdominal aorta is unremarkable. IMPRESSION: No cholelithiasis, evidence of acute cholecystitis, or evidence of biliary obstruction.
[2019-03-27 04:23] VITALS: BP 132/67
== END 2019-03-27 04:39 | disposition home or self-care (01) ==
LOC: ER 23:58
DX: R10.11 Right upper quadrant pain (principal); F17.200 Nicotine dependence, unspecified, uncomplicated; J45.909 Unspecified asthma, uncomplicated
CPT/HCPCS: 36415; 76705; 80053; 81001; 83690; 85025; 99284

== ENCOUNTER 2019-04-01 00:25 | Emergency (ER) | payer SELFPAY ==
[2019-04-01] MEDS ORDERED: DEXAMETHASONE SOD PHOS INJ 10 MG/1 ML VIAL IM ONE (09:42)
[2019-04-01] MEDS ORDERED: KETOROLAC TROMETHAMINE 60 MG/2 ML SDV IM ONE (09:42)
--- NOTE | 2019-04-01 09:42 | ER Document Report ---
HPI - HPI Time Seen by Provider: 04/01/19 08:50 Pain Level: 3 Context: Patient is a 24-year-old homeless male who presents emergency department with a chief complaint of right upper back pain medial to his right shoulder blade. Patient states that he has had these symptoms for the past 3 weeks. Patient has not taken any medications to help with the pain. Denies any past medical history. States it hurts when he takes a good deep breath in. Denies any history of asthma. - CONSTITUTIONAL Constitutional: DENIES: Fever, Chills - EENT EENT: DENIES: Sore Throat, Ear Pain, Nasal Drainage-Clear - NEURO Neurology: DENIES: Headache, Weakness - CARDIOVASCULAR Cardiovascular: DENIES: Chest pain - RESPIRATORY Respiratory: DENIES: Trouble Breathing, Coughing - GASTROINTESTINAL Gastrointestinal: DENIES: Abdominal Pain, Nausea, Patient vomiting - REPRODUCTIVE Reproductive: DENIES: : - MUSCULOSKELETAL Musculoskeletal: REPORTS: Back Pain - Right upper. DENIES: Swelling - DERM Skin Color: Normal Skin Problems: None Past Medical History - General Information source: Patient - Social History Smoking Status: Current Every Day Smoker Frequency of alcohol use: None Drug Abuse: None Family History: Reviewed & Not Pertinent Patient has suicidal ideation: No Patient has homicidal ideation: No Pulmonary Medical History: Reports: Hx Asthma - Immunizations Immunizations up to date: Yes Hx Diphtheria, Pertussis, Tetanus Vaccination: Yes Vertical Provider Document - CONSTITUTIONAL Agree With Documented VS: Yes Exam Limitations: No Limitations General Appearance: No Apparent Distress - INFECTION CONTROL TRAVEL OUTSIDE OF THE [place] IN LAST 30 DAYS: No - HEENT HEENT: Atraumatic, Normocephalic, PERRLA - NECK Neck: Normal Inspection, Supple - RESPIRATORY Respiratory: No Respiratory Distress - CARDIOVASCULAR Cardiovascular: Regular Rate, Regular Rhythm Pulses: Normal: Radial - MUSCULOSKELETAL/EXTREMETIES Musculoskeletal/Extremeties: FROM, Tender - Right upper back - NEURO Level of Consciousness: Awake, Alert, Appropriate Motor/Sensory: No Motor Deficit, No Sensory Deficit - DERM Integumentary: Warm, Dry, No Rash Course - Re-evaluation Re-evalutation: 04/01/19 09:46 Physical exam reveals that patient has tenderness upon palpation to the paraspinal muscles of his right upper back between his spine and his shoulder blades. A very low suspicion for epidural hematoma, or any life-threatening etiology at this time. Vital signs are stable. Patient is resting comfortably in bed. He will be sent with Robaxin and he will follow-up with his primary care provider. He is in agreement with this plan. Follow-up precautions were given. Verbal discharge instructions were given to the patient. They verbalized understanding. They are stable for discharge. - Vital Signs Vital signs: Temp Pulse Resp BP Pulse Ox 97.3 F 80 18 132/74 H 98 04/01/19 08:26 04/01/19 08:26 04/01/19 08:26 04/01/19 08:26 04/01/19 08:26 Discharge - Discharge Clinical Impression: Back pain Qualifiers: Back pain location: thoracic back pain Chronicity: acute Back pain laterality: right Qualified Code(s): M54.6 - Pain in thoracic spine Condition: Stable Disposition: HOME, SELF-CARE Additional Instructions: You are seen today in the emergency department for back pain. Your pain is due to tender back muscles. Please follow-up with a primary care provider regards to this visit. You are being prescribed a muscle relaxer to help with the pain. Please take this at night, as it may make you sleepy. Prescriptions: Methocarbamol [Robaxin 500 mg Tablet] 500 mg PO QHS PRN #12 tablet PRN Reason:
[2019-04-01 09:51] VITALS: BP 126/68
== END 2019-04-01 09:52 | disposition home or self-care (01) ==
LOC: ER 00:25
DX: M54.6 Pain in thoracic spine (principal); F17.200 Nicotine dependence, unspecified, uncomplicated; Z59.0 Homelessness
CPT/HCPCS: 99284; 96372; J1885; J1100

== ENCOUNTER 2019-04-03 00:51 | Emergency (ER) | payer SELFPAY ==
[2019-04-03 02:13] LABS: ABSOLUTE BASOPHILS # (AUTO) 0.1 10^3/uL (0.0-0.2); ABSOLUTE EOSINOPHILS # (AUTO) 0.1 10^3/uL (0.0-0.6); ABSOLUTE MONOCYTES (AUTO) 0.6 10^3/uL (0.1-1.4); ABSOLUTE NEUT (AUTO) 4.3 10^3/uL (1.7-8.2); BASOPHILS % (AUTO) 0.8 % (0-2); EOSINOPHILS % (AUTO) 1.2 % (0-6); HEMATOCRIT 40.8 % (37.9-51.0); HEMOGLOBIN 13.6 g/dL (13.5-17.0); LYMPHOCYTES % (AUTO) 44.4 % (13-45); MEAN CORPUSCULAR HEMOGLOBIN 27.6 pg (27.0-33.4); MEAN CORPUSCULAR HGB CONC 33.4 g/dL (32.0-36.0); MEAN CORPUSCULAR VOLUME 82 fl (80-97); MONOCYTES % (AUTO) 6.1 % (3-13); PLATELET COUNT 223 10^3/uL (150-450); RED BLOOD COUNT 4.95 10^6/uL (4.35-5.55); RED CELL DISTRIBUTION WIDTH 14.7 % (11.5-14.0); SEGMENTED NEUTROPHILS % (AUTO) 47.5 % (42-78); TOTAL CELLS COUNTED % (AUTO) 100 %
[2019-04-03 02:29] LABS: ALBUMIN 4.1 g/dL (3.5-5.0); ALKALINE PHOSPHATASE 48 U/L (38-126); ANION GAP 7 (5-19); ASPARTATE AMINO TRANSFERASE 51 U/L (17-59); BILIRUBIN,DIRECT 0.3 mg/dL (0.0-0.4); BILIRUBIN,TOTAL 0.4 mg/dL (0.2-1.3); BLOOD UREA NITROGEN 16 mg/dL (7-20); CARBON DIOXIDE 28 mmol/L (22-30); CHLORIDE 107 mmol/L (98-107); GLUCOSE 85 mg/dL (75-110); POTASSIUM 3.8 mmol/L (3.6-5.0); TOTAL PROTEIN 7.1 g/dL (6.3-8.2)
[2019-04-03] MEDS ORDERED: KETOROLAC TROMETHAMINE INJ/PF 30 MG/1 ML SDV IV ONE (04:22)
[2019-04-03] MEDS ORDERED: NORMAL SALINE 1000 ML 1,000 ML IV ONE (04:22)
[2019-04-03] MEDS ORDERED: ONDANSETRON HCL INJ/PF 4 MG/2 ML SDV IV ONE (04:22)
--- NOTE | 2019-04-03 04:45 | ER Document Report ---
Entered by MASSIEL RUSHING SCRIBE 04/03/19 0412 Acting as scribe for:BRUNILDA HARPER IV, MD ED Headache - General Chief Complaint: Headache Stated Complaint: SEVERE HEADACHE Time Seen by Provider: 04/03/19 04:08 Primary Care Provider: MALI REED MD [HONORARY] - Follow up as needed Mode of Arrival: Ambulatory Information source: Patient Notes: This 24 year old male patient presents to the ED today with complaints of left- sided headache for the past x2-3 days. 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 Patient denies injury or trauma. Patient had a couple of boxes from [employer] at bedside. TRAVEL OUTSIDE OF THE [place] IN LAST 30 DAYS: No - Related Data Allergies/Adverse Reactions: No Known Allergies Allergy (Verified 03/25/19 01:25) Past Medical History - General Information source: Patient, [facility] Records - Social History Smoking Status: Current Every Day Smoker Cigarette use (# per day): Yes Chew tobacco use (# tins/day): No Smoking Education Provided: No Frequency of alcohol use: None Drug Abuse: None Family History: Reviewed & Not Pertinent Patient has suicidal ideation: No Patient has homicidal ideation: No Pulmonary Medical History: Reports: Hx Asthma - Immunizations Immunizations up to date: Yes Hx Diphtheria, Pertussis, Tetanus Vaccination: Yes Review of Systems - Review of Systems Constitutional: No symptoms reported EENT: No symptoms reported Cardiovascular: See HPI, Dizziness, Lightheaded Respiratory: No symptoms reported Gastrointestinal: No symptoms reported Genitourinary: No symptoms reported Male Genitourinary: No symptoms reported Musculoskeletal: No symptoms reported Skin: No symptoms reported Hematologic/Lymphatic: No symptoms reported Neurological/Psychological: See HPI, Headaches -: Yes All other systems reviewed and negative Physical Exam - Vital signs Vitals: Temp Pulse Resp BP Pulse Ox 98.1 F 92 18 148/89 H 99 04/03/19 01:16 04/03/19 01:16 04/03/19 01:16 04/03/19 01:16 04/03/19 01:16 - General General appearance: Alert - HEENT Head: Normocephalic, Atraumatic Eyes: Normal Pupils: PERRL - Respiratory Respiratory status: No respiratory distress Chest status: Nontender Breath sounds: Normal Chest palpation: Normal - Cardiovascular Rhythm: Regular Heart sounds: Normal auscultation Murmur: No - Abdominal Inspection: Normal Distension: No distension Bowel sounds: Normal Tenderness: Nontender Organomegaly: No organomegaly - Back Back: Normal, Nontender - Extremities General upper extremity: Normal inspection General lower extremity: Normal inspection - Neurological Neuro grossly intact: Yes - Psychological Associated symptoms: Normal affect, Normal mood - Skin Skin Temperature: Warm Skin Moisture: Dry Skin Color: Normal Course - Re-evaluation Re-evalutation: 04/03/19 05:28 Patient states he is feeling better after fluids and medications. Results of ED MSE discussed with patient. All questions were answered prior to discharge. Emergency signs and symptoms, reasons to return to the emergency department discussed with patient. - Vital Signs Vital signs: Temp Pulse Resp BP Pulse Ox 98.0 F 86 16 115/58 L 95 04/03/19 05:11 04/03/19 05:11 04/03/19 05:11 04/03/19 05:11 04/03/19 05:11 - Laboratory Result Diagrams: 04/03/19 02:02 04/03/19 02:02 Laboratory results interpreted by me: 04/03/19 04/03/19 02:02 02:02 RDW 14.7 H Creatinine 1.33 H Discharge - Discharge Clinical Impression: Acute headache Qualifiers: Headache type: unspecified Intractability: not intractable Qualified Code(s): R51 - Headache Condition: Good Disposition: HOME, SELF-CARE Instructions: Headache ([facility]) Additional Instructions: Return to the Emergency Department without delay if any worse. HOME CARE INSTRUCTIONS & INFORMATION: Thank you for choosing us for your medical needs. We hope you're satisfied with the care you received. After you leave, you must properly care for your problem and, at the same time, observe its progress. Any condition can change. Some illnesses can change rapidly over hours or days. If your condition worsens, return to the Emergency Department or see your physician promptly. ABOUT YOUR X-RAYS AND EKG'S: If you had an EKG or X-rays taken, they have been read by the Emergency Physician. The X-rays and EKG's will also be read by a Radiologist or [employer] Design Engineer within 24 hours. If discrepancies are noted, you will be notified by telephone. Please be certain the ED has a correct telephone number & address where you can be reached. Also, realize that some fractures or abnormalities do not show up on initial X-rays. If your symptoms continue, see your physician. ABOUT YOUR LABORATORY TEST: If you had laboratory tests, the results have been reviewed by the Emergency Physician. Some test results (for example cultures) may not be available for several days. You will be contacted if any test result shows you need additional treatment. Please be certain the ED has a correct telephone number and address where you can be reached. ABOUT YOUR MEDICATIONS: You will receive instructions on how to take your medicine on the prescription label you receive. Additional information may be provided by the Pharmacy. If you have questions afterwards, call the ED for clarification or further instructions. Some prescribed medications may cause drowsiness. Do not perform tasks such as driving a car or operating machinery without consulting your Pharmacist. If you feel you need a refill of pain medication, your condition will need re-evaluation. Please do not call for a refill of any medication. ABOUT YOUR SIGNATURE: Signature of this document acknowledges to followin. Understanding that you received emergency treatment and that you may be released before al medical problems are known or treated. Please be certain the ED has a correct phone number & address where you can be reached. 2. Acknowledgement that you will arrange for follow-up care as recommended. 3. Authorization for the Emergency Physician to provide information to your follow-up Physician in order to maximize your care. AT ANY TIME, IF YOUR SYMPTOMS CHANGE SIGNIFICANTLY OR WORSEN OR YOU DEVELOP NEW SYMPTOMS, RETURN TO THE EMERGENCY DEPARTMENT IMMEDIATELY FOR RE-EVALUATION. OUR GOAL IS TO PROVIDE EXCELLENT MEDICAL CARE! WE HOPE THAT WE HAVE MET YOUR EXPECTATIONS DURING YOUR EMERGENCY DEPARTMENT VISIT AND THAT YOU FEEL YOU HAVE RECEIVED EXCELLENT CARE! Referrals: MALI REED MD [HONORARY] - Follow up as needed I personally performed the services described in the documentation, reviewed and edited the documentation which was dictated to the scribe in my presence, and it accurately records my words and actions.
[2019-04-03 05:49] VITALS: BP 114/53
== END 2019-04-03 05:53 | disposition home or self-care (01) ==
LOC: ER 00:51
DX: R51 Headache (principal); R42 Dizziness and giddiness; F17.210 Nicotine dependence, cigarettes, uncomplicated
CPT/HCPCS: 99284; 96361; 96374; 96375; 36415; 85025; 80053; J1885; J2405; J7030

== ENCOUNTER 2019-04-03 22:37 | Emergency (ER) | payer SELFPAY ==
[2019-04-03] MEDS ORDERED: BUTALB/ACETAMINOPHEN/CAFFEINE 1 TAB EACH PO ONE (22:52)
--- NOTE | 2019-04-03 22:55 | ER Document Report ---
ED Medical Screen (RME) - General Stated Complaint: HEADACHE Notes: Patient is a 24-year-old -Fij[place] male who was seen here earlier today for complaints of headache. He states he was told that the headache returned to return to the emergency department. He states he is never had any imaging of his head. He states his headaches are unusual. He reports on his previous visit it was a very severe headache and he states it started to come back and does not want to get to that point again. He does not take any medications outpatient. He denies any fever, visual disturbances, dizziness, neck pain or vomiting. Admits to some mild nausea. I have treated and performed a rapid initial assessment of this patient. A comprehensive ED assessment and evaluation of the patient, analysis of test results and completion of medical decision making process will be conducted by additional ED providers. PHYSICAL EXAMINATION: GENERAL: Well-appearing, well-nourished and in no acute distress. A&Ox4. Answers questions appropriately. TRAVEL OUTSIDE OF THE [place] IN LAST 30 DAYS: No - Related Data Allergies/Adverse Reactions: No Known Allergies Allergy (Verified 03/25/19 01:25) Past Medical History Pulmonary Medical History: Reports: Hx Asthma - Immunizations Immunizations up to date: Yes Hx Diphtheria, Pertussis, Tetanus Vaccination: Yes Physical Exam - Vital signs Vitals: Temp Pulse Resp BP Pulse Ox 98.4 F 76 16 135/85 H 100 04/03/19 22:41 04/03/19 22:41 04/03/19 22:41 04/03/19 22:41 04/03/19 22:41 Course - Vital Signs Vital signs: Temp Pulse Resp BP Pulse Ox 98.4 F 76 16 135/85 H 100 04/03/19 22:41 04/03/19 22:41 04/03/19 22:41 04/03/19 22:41 04/03/19 22:41
--- NOTE | 2019-04-03 23:21 | ER Document Report ---
Entered by MASSIEL RUSHING SCRIBE 04/03/19 2308 Acting as scribe for:BRUNILDA HARPER IV, MD ED Headache - General Chief Complaint: Headache Stated Complaint: HEADACHE Time Seen by Provider: 04/03/19 23:00 Mode of Arrival: Ambulatory Information source: Patient Notes: This 24 year old male patient with a history of homelessness presents to the ED today with complaints of a headache with associated mild nausea. Patient was seen here earlier today for the same symptoms, but states that they were more severe earlier. Patient states that he returned to the ED tonight because he didn't want to wait for the headache to increase in severity. Patient states that the medications he received for his headache provided mild relief. Patient denies fever, dizziness, neck pain, or vomiting. TRAVEL OUTSIDE OF THE [place] IN LAST 30 DAYS: No - Related Data Allergies/Adverse Reactions: No Known Allergies Allergy (Verified 03/25/19 01:25) Past Medical History - General Information source: Patient - Social History Smoking Status: Unknown if Ever Smoked Cigarette use (# per day): No Chew tobacco use (# tins/day): No Smoking Education Provided: No Family History: Reviewed & Not Pertinent Patient has suicidal ideation: No Patient has homicidal ideation: No Pulmonary Medical History: Reports: Hx Asthma - Immunizations Immunizations up to date: Yes Hx Diphtheria, Pertussis, Tetanus Vaccination: Yes Review of Systems - Review of Systems Constitutional: See HPI. denies: Fever EENT: No symptoms reported Cardiovascular: See HPI. denies: Dizziness Respiratory: No symptoms reported Gastrointestinal: See HPI, Nausea. denies: Vomiting Genitourinary: No symptoms reported Male Genitourinary: No symptoms reported Musculoskeletal: See HPI. denies: Neck pain Skin: No symptoms reported Hematologic/Lymphatic: No symptoms reported Neurological/Psychological: See HPI, Headaches -: Yes All other systems reviewed and negative Physical Exam - Vital signs Vitals: Temp Pulse Resp BP Pulse Ox 98.4 F 76 16 135/85 H 100 04/03/19 22:41 04/03/19 22:41 04/03/19 22:41 04/03/19 22:41 04/03/19 22:41 - General General appearance: Alert - HEENT Head: Normocephalic, Atraumatic Eyes: Normal Pupils: PERRL - Respiratory Respiratory status: No respiratory distress Chest status: Nontender Breath sounds: Normal Chest palpation: Normal - Cardiovascular Rhythm: Regular Heart sounds: Normal auscultation Murmur: No Friction rub: No Gallop: None auscultated - Abdominal Inspection: Normal Distension: No distension Bowel sounds: Normal Tenderness: Nontender - Abdomen soft Organomegaly: No organomegaly - Back Back: Normal, Nontender - Extremities General upper extremity: Normal inspection General lower extremity: Normal inspection - Neurological Neuro grossly intact: Yes - Psychological Associated symptoms: Normal affect, Normal mood - Skin Skin Temperature: Warm Skin Moisture: Dry Skin Color: Normal Course - Re-evaluation Re-evalutation: 04/04/19 00:17 Patient states his head is feeling better after the Fioricet. Results of ED MSE discussed with the patient. All questions were answered prior to discharge. Emergency signs and symptoms, reasons to return to the emergency department discussed with patient. - Vital Signs Vital signs: Temp Pulse Resp BP Pulse Ox 98.4 F 76 16 135/85 H 100 04/03/19 22:41 04/03/19 22:41 04/03/19 22:41 04/03/19 22:41 04/03/19 22:41 - Diagnostic Test Radiology reviewed: Reports reviewed Discharge - Discharge Clinical Impression: Acute headache Qualifiers: Headache type: unspecified Intractability: not intractable Qualified Code(s): R51 - Headache Condition: Good Disposition: HOME, SELF-CARE Instructions: Headache ([facility]) Additional Instructions: Return to the Emergency Department without delay if any worse. HOME CARE INSTRUCTIONS & INFORMATION: Thank you for choosing us for your medical needs. We hope you're satisfied with the care you received. After you leave, you must properly care for your problem and, at the same time, observe its progress. Any condition can change. Some illnesses can change rapidly over hours or days. If your condition worsens, return to the Emergency Department or see your physician promptly. ABOUT YOUR X-RAYS AND EKG'S: If you had an EKG or X-rays taken, they have been read by the Emergency Physician. The X-rays and EKG's will also be read by a Radiologist or Hydrology Professor within 24 hours. If discrepancies are noted, you will be notified by telephone. Please be certain the ED has a correct telephone number & address where you can be reached. Also, realize that some fractures or abnormalities do not show up on initial X-rays. If your symptoms continue, see your physician. ABOUT YOUR LABORATORY TEST: If you had laboratory tests, the results have been reviewed by the Emergency Physician. Some test results (for example cultures) may not be available for several days. You will be contacted if any test result shows you need additional treatment. Please be certain the ED has a correct telephone number and address where you can be reached. ABOUT YOUR MEDICATIONS: You will receive instructions on how to take your medicine on the prescription label you receive. Additional information may be provided by the Pharmacy. If you have questions afterwards, call the ED for clarification or further instructions. Some prescribed medications may cause drowsiness. Do not perform tasks such as driving a car or operating machinery without consulting your Pharmacist. If you feel you need a refill of pain medication, your condition will need re-evaluation. Please do not call for a refill of any medication. ABOUT YOUR SIGNATURE: Signature of this document acknowledges to followin. Understanding that you received emergency treatment and that you may be released before al medical problems are known or treated. Please be certain the ED has a correct phone number & address where you can be reached. 2. Acknowledgement that you will arrange for follow-up care as recommended. 3. Authorization for the Emergency Physician to provide information to your follow-up Physician in order to maximize your care. AT ANY TIME, IF YOUR SYMPTOMS CHANGE SIGNIFICANTLY OR WORSEN OR YOU DEVELOP NEW SYMPTOMS, RETURN TO THE EMERGENCY DEPARTMENT IMMEDIATELY FOR RE-EVALUATION. OUR GOAL IS TO PROVIDE EXCELLENT MEDICAL CARE! WE HOPE THAT WE HAVE MET YOUR EXPECTATIONS DURING YOUR EMERGENCY DEPARTMENT VISIT AND THAT YOU FEEL YOU HAVE RECEIVED EXCELLENT CARE! Prescriptions: Butalb/Acetaminophen/Caffeine [Fioricet (50-325-40 mg) Tablet] 1 tab PO Q4HP PRN #10 tab PRN Reason: Referrals: MALI REED MD [HONORARY] - Follow up as needed I personally performed the services described in the documentation, reviewed and edited the documentation which was dictated to the scribe in my presence, and it accurately records my words and actions.
--- NOTE | 2019-04-03 23:34 | RADIOLOGY REPORT (SQ) ---
EXAM DESCRIPTION: CT HEAD WITHOUT IV CONTRAST COMPLETED DATE/TME: 04/03/2019 22:52 CLINICAL HISTORY: 24 years, Male, pain COMPARISON: None. TECHNIQUE: Images stored on PACS. All CT scanners at this facility use dose modulation, iterative reconstruction, and/or weight based dosing when appropriate to reduce radiation dose to as low as reasonably achievable (ALARA). [facility]: Dose Right [facility]: CareDose [facility]: Dose Right [facility]: Teradose 4D [facility]: [employer] LIMITATIONS: None. FINDINGS: Taveras-white differentiation is normal. No evidence of mass lesion, positive mass effect or intracranial hemorrhage. Paranasal sinuses are clear. Mastoid air cells are clear. Orbits and eyeballs are unremarkable. IMPRESSION: No acute intracranial process is identified TECHNICAL DOCUMENTATION: Quality ID # [id number]: Final reports with documentation of one or more dose reduction techniques (e.g., Automated exposure control, adjustment of the mA and/or kV according to patient size, use of iterative reconstruction technique) copyright 2011 [employer]- All Rights Reserved
[2019-04-04 00:32] VITALS: BP 155/87
== END 2019-04-04 00:31 | disposition home or self-care (01) ==
LOC: ER 22:37
DX: R51 Headache (principal); R11.0 Nausea; Z59.0 Homelessness
CPT/HCPCS: 70450; J3490; 99283

== ENCOUNTER 2019-04-06 22:46 | Emergency (ER) | payer SELFPAY ==
[2019-04-07] MEDS ORDERED: ONDANSETRON 4 MG TAB.RAPDIS PO ONE (05:58)
--- NOTE | 2019-04-07 05:59 | ER Document Report ---
ED General - General Chief Complaint: Nausea Stated Complaint: NAUSEA Time Seen by Provider: 04/07/19 05:58 Notes: 24-year-old male presents with slated nausea. No vomiting no diarrhea no fever no belly pain. No viral symptoms. Patient is homeless. He is asking for something for nausea. TRAVEL OUTSIDE OF THE [place] IN LAST 30 DAYS: No - Related Data Allergies/Adverse Reactions: No Known Allergies Allergy (Verified 03/25/19 01:25) Past Medical History - Social History Smoking Status: Current Some Day Smoker Family History: Reviewed & Not Pertinent Patient has suicidal ideation: No Patient has homicidal ideation: No Pulmonary Medical History: Reports: Hx Asthma - Immunizations Immunizations up to date: Yes Hx Diphtheria, Pertussis, Tetanus Vaccination: Yes Review of Systems - Review of Systems Notes: REVIEW OF SYSTEMS GEN: Denies fever, chills, weight loss ENT: Denies sore throat, nasal discharge, ear pain EYES: Denies blurry vision, eye pain, discharge CV: Denies chest pain, palpitations, edema RESP: Denies cough, shortness of breath, wheezing GI: Nausea only MSK: Denies joint pain/swelling, edema, SKIN: Denies rash, skin lesions LYMPH: Denies swollen glands/lymph nodes NEURO: Denies headache, focal weakness or numbness, dizziness PSYCH: Denies depression, suicidal or homicidal ideation PHYSICAL EXAMINATION General: No acute distress, well-nourished Head: Atraumatic, normocephalic ENT: Mouth normal, oropharynx moist, no exudates or tonsillar enlargement Eyes: Conjunctiva normal, pupils equal, lids normal Neck: No JVD, supple, no guarding CVS: Normal rate, regular rhythm, no murmurs Resp: No resp distress, equal and normal breath sounds bilaterally GI: Nondistended, soft, no tenderness to palpation, no rebound or guarding Ext: No deformities, no edema, normal range of motion in upper and lower ext Back: No CVA or midline TTP Skin: No rash, warm Lymphatic: No lymphadeopathy noted Neuro: Awake, alert. Face symmetric. GCS 15. Physical Exam - Vital signs Vitals: Temp Pulse Resp BP Pulse Ox 98.1 F 79 18 140/84 H 100 04/06/19 23:14 04/06/19 23:14 04/06/19 23:14 04/06/19 23:14 04/06/19 23:14 Course - Re-evaluation Re-evalutation: 04/07/19 09:17 Isolated nausea, normal vital signs no belly tenderness or pain Given Zofrantolerated p.o. Viral versus food poisoning. No work-up indicated. Stable for discharge to self-care I have discussed with the patient there likely diagnosis, aftercare plan, follow-up plans and my usual and customary return precautions. They verbalized understanding of this. - Vital Signs Vital signs: Temp Pulse Resp BP Pulse Ox 98.1 F 80 18 132/80 H 100 04/07/19 06:08 04/07/19 06:08 04/07/19 06:08 04/07/19 06:08 04/07/19 06:08 Discharge - Discharge Clinical Impression: Nausea alone Condition: Good Disposition: HOME, SELF-CARE Instructions: Nausea or Vomiting, Nonspecific ([facility])
[2019-04-07 06:09] VITALS: BP 132/80
== END 2019-04-07 06:08 | disposition home or self-care (01) ==
LOC: ER 22:46
DX: R11.0 Nausea (principal); F17.200 Nicotine dependence, unspecified, uncomplicated; J45.909 Unspecified asthma, uncomplicated; Z59.0 Homelessness
CPT/HCPCS: S0119

== ENCOUNTER 2019-04-07 23:42 | Emergency (ER) | payer MEDICAID | END 2019-04-08 02:23 | disposition other institution (70) | LOC: ER 23:42 | DX: Z53.21 Procedure and treatment not carried out due to patient leaving prior to being seen by health care provider (principal); R07.9 Chest pain, unspecified ==

== ENCOUNTER 2019-04-14 01:38 | Emergency (ER) | payer SELFPAY ==
--- NOTE | 2019-04-14 03:29 | RADIOLOGY REPORT (SQ) ---
EXAM DESCRIPTION: XR FOOT 3 OR MORE VIEWS COMPLETED DATE/TME: 04/14/2019 00:00 CLINICAL HISTORY: 24 years, Male, pain COMPARISON: None. NUMBER OF VIEWS: 3 TECHNIQUE: Right LIMITATIONS: None. FINDINGS: No acute displaced foot fracture is identified. Alignment is anatomic. Mild soft tissue swelling. Joint space is unremarkable. Presumed calcification within the interosseous ligament of the distal leg IMPRESSION: No acute bony injury is seen to the foot copyright 2011 [employer]- All Rights Reserved
--- NOTE | 2019-04-14 08:12 | ER Document Report ---
HPI - HPI Patient complains to provider of: Right foot pain Time Seen by Provider: 04/14/19 08:00 Onset: Other - Days Onset/Duration: Persistent Pain Level: 5 Context: 24-year-old male presents emergency department with complaints of right foot pain for the past 4 days. Denies trauma. Denies past medical history of injury to the foot. Reports the bottom of his right foot started hurting. Patient is wearing wet shoes. He is homeless. No other complaints such as fever vomiting diarrhea. Associated Symptoms: None Exacerbated by: Walking Relieved by: Denies Similar symptoms previously: No Recently seen / treated by doctor: No - CONSTITUTIONAL Constitutional: DENIES: Fever, Chills - REPRODUCTIVE Reproductive: DENIES: : - MUSCULOSKELETAL Musculoskeletal: REPORTS: Extremity pain - DERM Skin Color: Normal Past Medical History - General Information source: Patient - Social History Smoking Status: Never Smoker Frequency of alcohol use: None Drug Abuse: None Lives with: Homeless Family History: Reviewed & Not Pertinent Patient has suicidal ideation: No Patient has homicidal ideation: No Pulmonary Medical History: Reports: Hx Asthma Surgical Hx: Negative - Immunizations Immunizations up to date: Yes Hx Diphtheria, Pertussis, Tetanus Vaccination: Yes Vertical Provider Document - CONSTITUTIONAL Agree With Documented VS: Yes Exam Limitations: No Limitations General Appearance: WD/WN, No Apparent Distress - Patient sleeping arouses easily - INFECTION CONTROL TRAVEL OUTSIDE OF THE [place] IN LAST 30 DAYS: No - HEENT HEENT: Atraumatic, Normocephalic - NECK Neck: Supple - RESPIRATORY Respiratory: No Respiratory Distress - CARDIOVASCULAR Cardiovascular: Regular Rate - MUSCULOSKELETAL/EXTREMETIES Musculoskeletal/Extremeties: MAEW, FROM, Non-Tender - Bilateral feet nontender to touch no obvious deformities, no open wounds no vesicles no blisters. trench feet bilateral noted, good pedal pulse - NEURO Level of Consciousness: Awake, Alert, Appropriate Course - Re-evaluation Re-evalutation: 04/14/19 17:26 Patient presents with complaints of right foot pain. X-ray negative for acute fracture. Patient's shoes were removed which were very wet with wet socks. Bilateral trench feet noted. Patient was instructed on the importance of drying his shoes out. He was provided with dry socks and flip-flops. We also contacted security see if any size 13 shoes were in the loss been found without success. Patient was instructed to keep his feet dry. Upon discharge I noticed patient putting his wet shoes back on. Maddy IVERSON reports patient did put on the dry socks. She reports he left his flip-flops here and she chased him down and gave them to him.. 04/14/19 17:30 Foot X-Ray 04/14/19 00:00 IMPRESSION: No acute bony injury is seen to the foot copyright 2011 [employer]- All Rights Reserved - Vital Signs Vital signs: Temp Pulse Resp BP Pulse Ox 98 F 88 20 139/72 H 99 04/14/19 06:45 04/14/19 06:45 04/14/19 06:45 04/14/19 06:45 04/14/19 06:45 - Diagnostic Test Radiology reviewed: Reports reviewed Discharge - Discharge Clinical Impression: Right foot pain Condition: Stable Disposition: HOME, SELF-CARE Instructions: [facility], Exercises for the Foot Muscles ([facility]), Use of [id number] Ibuprofen ([facility]) Additional Instructions: *You have been evaluated for right foot pain *wear good supporting dry shoes *Rest/Ice packs as indicated, foot exercises *Follow up with the [facility] *Take ibuprofen as indicated *Return to ED for worsening condition, changes, needs Monitor your blood pressure. Your blood pressure was elevated today. This may be because you were anxious, in pain or because you need medication. It is important to follow up with your primary care provider for full evaluation. Forms: Elevated Blood Pressure
[2019-04-14 08:33] VITALS: BP 126/75
== END 2019-04-14 08:25 | disposition home or self-care (01) ==
LOC: ER 01:38
DX: T69.022A Immersion foot, left foot, initial encounter (principal); T69.021A Immersion foot, right foot, initial encounter; X58.XXXA Exposure to other specified factors, initial encounter; M79.671 Pain in right foot; J45.909 Unspecified asthma, uncomplicated; Z59.0 Homelessness
CPT/HCPCS: 99283

== ENCOUNTER 2019-04-15 00:30 | Emergency (ER) | payer SELFPAY ==
[2019-04-15] MEDS ORDERED: ACETAMINOPHEN 325 MG TABLET PO ONE (03:40)
--- NOTE | 2019-04-15 03:42 | ER Document Report ---
HPI - HPI Patient complains to provider of: Injury Time Seen by Provider: 04/15/19 03:26 Onset: Yesterday Onset/Duration: Sudden Quality of pain: Achy Pain Level: 2 Context: Patient states that he was walking, tripped and fell hitting his head on the ground. Patient denies any loss of consciousness nausea or vomiting. Patient complains of headache pain this evening. Patient has not taken anything [id number] for his headache. Associated Symptoms: Headache. denies: Vomiting Exacerbated by: Denies Relieved by: Denies Similar symptoms previously: Yes Recently seen / treated by doctor: Yes - ROS ROS below otherwise negative: Yes Systems Reviewed and Negative: Yes All other systems reviewed and negative - CONSTITUTIONAL Constitutional: DENIES: Fever, Chills - NEURO Neurology: REPORTS: Headache. DENIES: Weakness, Dizzinesss / Vertigo - GASTROINTESTINAL Gastrointestinal: DENIES: Nausea, Patient vomiting - MUSCULOSKELETAL Musculoskeletal: DENIES: Extremity pain, Back Pain, Neck Pain - DERM Skin Color: Normal Skin Problems: None Past Medical History - General Information source: Patient - Social History Smoking Status: Current Some Day Smoker Chew tobacco use (# tins/day): No Frequency of alcohol use: None Drug Abuse: None Lives with: Homeless Family History: Reviewed & Not Pertinent Patient has suicidal ideation: No Patient has homicidal ideation: No Pulmonary Medical History: Reports: Hx Asthma Surgical Hx: Negative - Immunizations Immunizations up to date: Yes Hx Diphtheria, Pertussis, Tetanus Vaccination: Yes Vertical Provider Document - CONSTITUTIONAL Agree With Documented VS: Yes Exam Limitations: No Limitations General Appearance: WD/WN, No Apparent Distress - INFECTION CONTROL TRAVEL OUTSIDE OF THE [place] IN LAST 30 DAYS: No - HEENT HEENT: Atraumatic, Normal ENT Exam, Normocephalic, PERRLA - NECK Neck: Normal Inspection, Supple. negative: Lymphadenopathy-Left, Lymphadenopathy-Right - RESPIRATORY Respiratory: Breath Sounds Normal, No Respiratory Distress - CARDIOVASCULAR Cardiovascular: Regular Rate, Regular Rhythm, No Murmur - GI/ABDOMEN Gastrointestinal: Abdomen Soft - BACK Back: Normal Inspection. negative: Abnormal Inspection Notes: No spinal midline tenderness step-off or deformity - MUSCULOSKELETAL/EXTREMETIES Musculoskeletal/Extremeties: MAEW, FROM - NEURO Level of Consciousness: Awake, Alert, Appropriate Motor/Sensory: No Motor Deficit, No Sensory Deficit - DERM Integumentary: Warm, Dry, No Rash Course - Re-evaluation Re-evalutation: 04/15/19 06:05 Patient well-known to the emergency department as he is homeless and will have frequent visits when weather turns cold. Patient without any objective evidence of injury. The patient presents with headache without signs of [employer] bleed, stroke, infection, or other serious etiology. The patient is neurologically intact. Given the extremely low risk of these diagnoses further testing and evaluation for these possibilities does not appear to be indicated at this time. The patient has been instructed to return if the symptoms worsen or change in any way. 04/15/19 07:43 - Vital Signs Vital signs: Temp Pulse Resp BP Pulse Ox 98.1 F 80 20 131/78 H 98 04/15/19 01:46 04/15/19 01:46 04/15/19 01:46 04/15/19 01:46 04/15/19 01:46 Discharge - Discharge Clinical Impression: Head injury Qualifiers: Encounter type: initial encounter Qualified Code(s): S09.90XA - Unspecified injury of head, initial encounter Condition: Stable Disposition: HOME, SELF-CARE Instructions: Acetaminophen, Head Injury Precautions ([facility]) Additional Instructions: Return immediately for any new or worsening symptoms Followup with your primary care provider, call tomorrow to make a followup appointment Take Tylenol [id number] as needed for pain relief Referrals: [facility] [Provider Group] - Follow up as needed
[2019-04-15 07:40] VITALS: BP 151/70
== END 2019-04-15 07:41 | disposition home or self-care (01) ==
LOC: ER 00:30
DX: S09.90XA Unspecified injury of head, initial encounter (principal); F17.200 Nicotine dependence, unspecified, uncomplicated; W01.0XXA Fall on same level from slipping, tripping and stumbling without subsequent striking against object, initial encounter; Z59.0 Homelessness
CPT/HCPCS: 99283

== ENCOUNTER 2019-04-16 01:25 | Emergency (ER) | payer SELFPAY ==
--- NOTE | 2019-04-16 09:50 | ER Document Report ---
ED General - General Chief Complaint: Passed Out Prior to Arrival Stated Complaint: PASSED OUT/DIZZINESS Time Seen by Provider: 04/16/19 08:13 Notes: 24 y/o male presents for dizziness and syncope that occurred while at work. 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 States he still feels dizzy. It is worse when he stands and moves head. Pt denies any chest pain or dyspnea. TRAVEL OUTSIDE OF THE [place] IN LAST 30 DAYS: No - Related Data Allergies/Adverse Reactions: No Known Allergies Allergy (Verified 03/25/19 01:25) Past Medical History - Social History Smoking Status: Never Smoker Family History: Reviewed & Not Pertinent Patient has suicidal ideation: No Patient has homicidal ideation: No Pulmonary Medical History: Reports: Hx Asthma - Immunizations Immunizations up to date: Yes Hx Diphtheria, Pertussis, Tetanus Vaccination: Yes Review of Systems - Review of Systems Notes: Constitutional: Negative for fever. HENT: Negative for sore throat. Eyes: Negative for visual changes. Cardiovascular: Negative for chest pain. Respiratory: Negative for shortness of breath. Gastrointestinal: Negative for abdominal pain, vomiting or diarrhea. Genitourinary: Negative for dysuria. Musculoskeletal: Negative for back pain. Skin: Negative for rash. Neurological: Positive for dizziness and syncope. Negative for headaches, weakness or numbness. 10 point ROS negative except as marked above and in HPI. Physical Exam - Vital signs Vitals: Temp Pulse Resp BP Pulse Ox 98 F 97 16 148/81 H 100 04/16/19 01:53 04/16/19 01:53 04/16/19 01:53 04/16/19 01:53 04/16/19 01:53 - Notes Notes: GENERAL: Well-appearing, well-nourished and in no acute distress. HEAD: Atraumatic, normocephalic. EYES: Pupils equal round and reactive to light, extraocular movements intact, sclera anicteric, conjunctiva are normal. NECK: Normal range of motion, supple without lymphadenopathy or JVD. EXTREMITIES: Normal range of motion, no pitting or edema. No clubbing or cyanos is. NEUROLOGICAL: Cranial nerves II through XII grossly intact. Normal speech, normal gait. PSYCH: Normal mood, normal affect. SKIN: Warm, Dry, normal turgor, no rashes or lesions noted. Course - Re-evaluation Re-evalutation: 04/16/19 Nontoxic well appearing 24 y/o male presents for syncope and dizziness. 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 States he still feels dizzy and states it is worse with movement and standing. Neuro grossly intact. PE is otherwise unremarkable. EKG is unremarkable and shows no ST elevation. Orthostatic vitals ordered. 04/16/19 10:06 Pt is nonhypoxic. 04/16/19 10:20 Pt is mildly orthostatic +. Lying down 120/74, HR 93. Sitting 132/67 and HR 94. Standing 125/66 and HR 118. 04/16/19 11:11 Pt feeling better. Resting comfortably. Pt given strict return precautions. Pt given close follow up with PCP. All questions/concerns addressed prior to discharge. - Vital Signs Vital signs: Temp Pulse Resp BP Pulse Ox 98 F 118 H 16 125/66 100 04/16/19 01:53 04/16/19 10:13 04/16/19 01:53 04/16/19 10:13 04/16/19 01:53 Discharge - Discharge Clinical Impression: Vasovagal syncope Condition: Stable Disposition: HOME, SELF-CARE Instructions: Vasovagal Symptoms ([facility]) Additional Instructions: Please drink fluids. Please follow up with your primary care doctor or any of the other clinics listed in 2-3 days. Return immediately to ER for any worsening symptoms, including passing out, feeling like you're going to pass out, confusion, weakness, numbness, chest pain, shortness of breath, fever, nausea/vomiting, or any other symptoms that are concerning to you. Forms: Return to Work Referrals: JOANNE CALZADA MD [COMMUNITY BASED STAFF] - Follow up in 3-[address] [facility] [Provider Group] - Follow up in 3-5 days
[2019-04-16 10:13] VITALS: BP 125/66
--- NOTE | 2019-04-16 17:33 | EKG REPORT ---
SEVERITY:- NORMAL ECG - SINUS RHYTHM : Confirmed by: Janneth Hunter MD 16-Apr-2019 17:32:16
== END 2019-04-16 12:13 | disposition home or self-care (01) ==
LOC: ER 01:25
DX: R55 Syncope and collapse (principal); R42 Dizziness and giddiness; J45.909 Unspecified asthma, uncomplicated
CPT/HCPCS: 93005; 93010; 99284

== ENCOUNTER 2019-04-17 00:12 | Emergency (ER) | payer SELFPAY ==
[2019-04-17] MEDS ORDERED: ONDANSETRON 4 MG TAB.RAPDIS PO ONE (01:01)
--- NOTE | 2019-04-17 04:11 | ER Document Report ---
HPI - HPI Patient complains to provider of: nausea, vomiting Time Seen by Provider: 04/17/19 03:30 Onset: Yesterday Quality of pain: No pain Pain Level: Denies Context: Patient states that he ate at [employer] for lunch yesterday and shortly thereafter vomited x1 episode. Patient states he did not have any additional emesis throughout the day. Patient later went to [facility] around 11 PM and was able to eat without any emesis. Patient without any diarrhea or fever. Associated Symptoms: Vomiting. denies: Fever Exacerbated by: Denies Relieved by: Denies Similar symptoms previously: Yes Recently seen / treated by doctor: Yes - ROS ROS below otherwise negative: Yes Systems Reviewed and Negative: Yes All other systems reviewed and negative - CONSTITUTIONAL Constitutional: DENIES: Fever, Chills - GASTROINTESTINAL Gastrointestinal: REPORTS: Patient vomiting. DENIES: Abdominal Pain, Diarrhea - DERM Skin Color: Normal Skin Problems: None Past Medical History - General Information source: Patient - Social History Smoking Status: Current Every Day Smoker Frequency of alcohol use: None Drug Abuse: None Lives with: Homeless Family History: Reviewed & Not Pertinent Patient has suicidal ideation: No Patient has homicidal ideation: No Pulmonary Medical History: Reports: Hx Asthma Surgical Hx: Negative - Immunizations Immunizations up to date: Yes Hx Diphtheria, Pertussis, Tetanus Vaccination: Yes Vertical Provider Document - CONSTITUTIONAL Agree With Documented VS: Yes Exam Limitations: No Limitations General Appearance: WD/WN, No Apparent Distress Notes: Patient sleeping, arouses easily to voice and tactile stimulation - INFECTION CONTROL TRAVEL OUTSIDE OF THE [place] IN LAST 30 DAYS: No - HEENT HEENT: Atraumatic, Normocephalic - NECK Neck: Normal Inspection, Supple - RESPIRATORY Respiratory: Breath Sounds Normal, No Respiratory Distress - CARDIOVASCULAR Cardiovascular: Regular Rate, Regular Rhythm - GI/ABDOMEN Gastrointestinal: Abdomen Soft, Abdomen Non-Tender - BACK Back: Normal Inspection - MUSCULOSKELETAL/EXTREMETIES Musculoskeletal/Extremeties: MAEW - NEURO Level of Consciousness: Alert, Appropriate - DERM Integumentary: Warm, Dry Course - Re-evaluation Re-evalutation: 04/17/19 04:18 Patient's abdomen soft, no guarding. No additional emesis. Patient has tolerat ed food since vomiting around lunchtime yesterday. Patient very well-known to the emergency department and frequently will present when the weather is adverse due to his homelessness. - Vital Signs Vital signs: Temp Pulse Resp BP Pulse Ox 98.6 F 98 16 142/86 H 98 04/17/19 00:33 04/17/19 00:33 04/17/19 00:33 04/17/19 00:33 04/17/19 00:33 Discharge - Discharge Clinical Impression: Nausea and vomiting Qualifiers: Vomiting type: unspecified Vomiting Intractability: non-intractable Qualified Code(s): R11.2 - Nausea with vomiting, unspecified Condition: Stable Disposition: HOME, SELF-CARE Instructions: Antinausea Medication ([facility]), Vomiting ([facility]) Additional Instructions: Return immediately for any new or worsening symptoms Followup with your primary care provider, call tomorrow to make a followup appointment Prescriptions: Ondansetron [Zofran Odt 4 mg Tablet] 1 tab PO Q6H #15 tab.rapdis Referrals: [facility] [Provider Group] - Follow up as needed
[2019-04-17 04:30] VITALS: BP 129/70
== END 2019-04-17 04:29 | disposition home or self-care (01) ==
LOC: ER 00:12
DX: R11.2 Nausea with vomiting, unspecified (principal); F17.200 Nicotine dependence, unspecified, uncomplicated; J45.909 Unspecified asthma, uncomplicated
CPT/HCPCS: 99283; S0119

== ENCOUNTER 2019-04-17 23:13 | Emergency (ER) | payer SELFPAY ==
[2019-04-18] MEDS ORDERED: IPRATROPIUM/ALBUTEROL 0.5-2.5 MG/3 ML AMPUL NEB ONE (02:49)
--- NOTE | 2019-04-18 02:52 | ER Document Report ---
ED General - General Chief Complaint: Congestion Stated Complaint: SHORTNESS OF BREATH Time Seen by Provider: 04/18/19 02:45 Mode of Arrival: Ambulatory Information source: Patient TRAVEL OUTSIDE OF THE [place] IN LAST 30 DAYS: No - HPI Onset: Yesterday Onset/Duration: Gradual Quality of pain: No pain Severity: Mild Pain Level: Denies Associated symptoms: Nonproductive cough, Other - wheezing, congestion Exacerbated by: Denies Relieved by: Denies Similar symptoms previously: Yes - patient has asthma and he smokes Recently seen / treated by doctor: Yes - patient was see on 04/17/19 in the ER for nonemergent issues Notes: 24 year old homeless male smoker here for congestion and wheezing. The patient was sleeping on my arrival to his ER bed. WHen asked why he was in the ER he did not respond right away. When I asked him if it was for congestion and wheezing like the triage note said, he said "yeah for that." The patient is a high utilizer of this ER and he is in his normal state of health per nursing staff. The patient denies fevers, chills, sweats, nausea, vomiting, chest pain, trouble breathing. - Related Data Allergies/Adverse Reactions: No Known Allergies Allergy (Verified 03/25/19 01:25) Past Medical History - Social History Smoking Status: Current Every Day Smoker Frequency of alcohol use: Occasional Drug Abuse: None Lives with: Alone Family History: Reviewed & Not Pertinent Patient has suicidal ideation: No Patient has homicidal ideation: No Pulmonary Medical History: Reports: Hx Asthma - Immunizations Immunizations up to date: Yes Hx Diphtheria, Pertussis, Tetanus Vaccination: Yes Review of Systems - Review of Systems Constitutional: No symptoms reported EENT: No symptoms reported Cardiovascular: No symptoms reported Respiratory: Cough, Wheezing Gastrointestinal: No symptoms reported Genitourinary: No symptoms reported Male Genitourinary: No symptoms reported Musculoskeletal: No symptoms reported Skin: No symptoms reported Hematologic/Lymphatic: No symptoms reported Neurological/Psychological: No symptoms reported -: Yes All other systems reviewed and negative Physical Exam - Vital signs Vitals: Temp Pulse Resp BP Pulse Ox 98.4 F 104 H 18 152/83 H 100 04/17/19 23:18 04/17/19 23:18 04/17/19 23:18 04/17/19 23:18 03/01/20 23:18 - Notes Notes: GENERAL: Poorly groomed and smells but overall well-appearing, well-nourished and in no acute distress. HEAD: Atraumatic, normocephalic. EYES: Pupils equal round and reactive to light, extraocular movements intact, sclera anicteric, conjunctiva are normal. ENT: Nares patent, oropharynx clear without exudates. Moist mucous membranes. NECK: Normal range of motion, supple without lymphadenopathy or JVD. LUNGS: Breath sounds clear to auscultation bilaterally and equal with very mild end expiratory wheezing. HEART: Regular rate and rhythm without murmurs, rubs or gallops. ABDOMEN: Soft, nontender, normoactive bowel sounds. No guarding, no rebound. No masses appreciated. EXTREMITIES: Normal range of motion, no pitting or edema. No clubbing or cyanosis. NEUROLOGICAL: Cranial nerves II through XII grossly intact. Normal speech, normal gait. PSYCH: Normal mood, normal affect. SKIN: Warm, Dry, normal turgor, no rashes or lesions noted. Course - Re-evaluation Re-evalutation: 04/18/19 02:55 The patient is homeless and likely looking for a place to sleep. The patient was sleeping on my arrival to his ER room. The patient had no real complaints when I woke him up. When I told him the nursing triage note said he had congestion he said "oh yeah, I have that." Patient has mild wheezing on exam and he is an active smoke. He was given one neb in the ER and discharged with an albuterol inhaler. Patient told to stop smoking. - Vital Signs Vital signs: Temp Pulse Resp BP Pulse Ox 98.4 F 104 H 18 152/83 H 100 04/17/19 23:18 04/17/19 23:18 04/17/19 23:18 04/17/19 23:18 04/17/19 23:18 Discharge - Discharge Clinical Impression: Cough, Wheezing Condition: Stable Disposition: HOME, SELF-CARE Instructions: Bronchitis With Bronchospasm (Wheezing) ([facility]) Additional Instructions: Use the prescribed albuterol inhaler as needed for for wheezing and shortness of breath. Stop smoking as this will only make your respiratorty symptoms worse. Follow up with one of the primary care clinics listed in your discharge paperwork. Prescriptions: Albuterol Sulfate [Proair HFA Inhalation Aerosol 8.5 gm MDI] 2 puff IH Q4H PRN #1 mdi PRN Reason:
[2019-04-18 03:21] VITALS: BP 112/68
== END 2019-04-18 03:20 | disposition home or self-care (01) ==
LOC: ER 23:13
DX: J45.909 Unspecified asthma, uncomplicated (principal); R05 Cough; F17.200 Nicotine dependence, unspecified, uncomplicated; Z59.0 Homelessness
CPT/HCPCS: 94640; 99284; J7620

== ENCOUNTER 2019-04-18 23:12 | Emergency (ER) | payer SELFPAY ==
[2019-04-19] MEDS ORDERED: METOCLOPRAMIDE HCL ORAL SOLN 10 MG/10 ML UDCUP PO ONE (00:32)
[2019-04-19] MEDS ORDERED: MAG HYDROX/AL HYDROX/SIMETH SUSP 30 ML UDCUP PO ONE (00:32)
[2019-04-19] MEDS ORDERED: LIDOCAINE 2% VISCOUS SOLN 15 ML UDCUP PO ONE (00:32)
--- NOTE | 2019-04-19 00:36 | ER Document Report ---
ED Medical Screen (RME) - General Chief Complaint: Chest Pain Stated Complaint: CHEST PAIN Time Seen by Provider: 04/19/19 00:30 Mode of Arrival: Ambulatory Information source: Patient Notes: Patient is an otherwise healthy 24-year-old male presenting to the emergency department chief complaint of chest pain. Patient reports chest pain started at approximately 7 PM. He states that she felt like a sharp stabbing pain that radiated up into his esophagus. He has no cardiac history. He has been seen at this facility multiple times of late and has had normal work-ups for various complaints. His EKG was reviewed by me, shows in sinus tachycardia, normal axis, no ectopy, no ST segment elevations or depressions to suggest ischemia. Patient will be given a GI cocktail and seen in the back. He did have a heart rate of 112 on his EKG however upon review of patient's numerous visits patient's heart rate typically runs between 90 and 120. I have greeted and performed a rapid initial assessment of this patient. A comprehensive ED assessment and evaluation of the patient, analysis of test results and completion of the medical decision making process will be conducted by additional ED providers. I have specifically instructed the patient or family members with the patient to immediately return to any nursing staff should anything change in the patient's condition or with their chief complaint. TRAVEL OUTSIDE OF THE [place] IN LAST 30 DAYS: No - Related Data Allergies/Adverse Reactions: No Known Allergies Allergy (Verified 04/19/19 00:26) Past Medical History - Social History Chew tobacco use (# tins/day): No Frequency of alcohol use: None Drug Abuse: None Pulmonary Medical History: Reports: Hx Asthma - Immunizations Immunizations up to date: Yes Hx Diphtheria, Pertussis, Tetanus Vaccination: Yes Physical Exam - Vital signs Vitals: Temp Pulse Resp BP Pulse Ox 99.0 F 121 H 20 150/80 H 98 04/18/19 23:17 04/18/19 23:17 04/18/19 23:17 04/18/19 23:17 04/18/19 23:17 Course - Vital Signs Vital signs: Temp Pulse Resp BP Pulse Ox 99.0 F 121 H 20 150/80 H 98 04/18/19 23:17 04/18/19 23:17 04/18/19 23:17 04/18/19 23:17 04/18/19 23:17
--- NOTE | 2019-04-19 01:55 | ER Document Report ---
Entered by MATTY DUVALL SCRIBE 04/19/19 0119 Acting as scribe for:BHAVYA SMITH DO ED General - General Chief Complaint: Chest Pain Stated Complaint: CHEST PAIN Time Seen by Provider: 04/19/19 00:30 Mode of Arrival: Ambulatory Information source: Patient Notes: 24-year-old homeless male presents to the emergency department via EMS complaining of chest pain that began today on the bus. Patient reports that he is feeling better now. Patient states that he spent 3 months in the retirement and has to wait four month to go back. Patient has plan to return to retirement this July. TRAVEL OUTSIDE OF THE [place] IN LAST 30 DAYS: No - Related Data Allergies/Adverse Reactions: No Known Allergies Allergy (Verified 04/19/19 00:26) Past Medical History - General Information source: Patient - Social History Smoking Status: Current Some Day Smoker Cigarette use (# per day): Yes Chew tobacco use (# tins/day): No Frequency of alcohol use: None Drug Abuse: None Lives with: Homeless Family History: Reviewed & Not Pertinent Patient has suicidal ideation: No Patient has homicidal ideation: No Pulmonary Medical History: Reports: Hx Asthma Surgical Hx: Negative - Immunizations Immunizations up to date: Yes Hx Diphtheria, Pertussis, Tetanus Vaccination: Yes Review of Systems - Review of Systems Constitutional: No symptoms reported EENT: No symptoms reported Cardiovascular: See HPI, Chest pain Respiratory: No symptoms reported Gastrointestinal: No symptoms reported Genitourinary: No symptoms reported Male Genitourinary: No symptoms reported Musculoskeletal: No symptoms reported Skin: No symptoms reported Hematologic/Lymphatic: No symptoms reported Neurological/Psychological: denies: Suicidal ideation -: Yes All other systems reviewed and negative Physical Exam - Vital signs Vitals: Temp Pulse Resp BP Pulse Ox 99.0 F 121 H 20 150/80 H 98 04/18/19 23:17 04/18/19 23:17 04/18/19 23:17 04/18/19 23:17 04/18/19 23:17 - Notes Notes: General: Alert, appears unkempt and disheveled. HEENT: Normocephalic. Atraumatic. PERRL. Extraocular movements intact. Oropharynx clear. Neck: Supple. Non-tender. Respiratory: No respiratory distress. Clear and equal breath sounds bilaterally. Cardiovascular: Regular rate and rhythm. Abdominal: Normal Inspection. Non-tender. No distension. Normal Bowel Sounds. Back: No gross abnormalities. Extremities: Moves all four extremities. Upper extremities: Normal inspection. Normal ROM. Lower extremities: Normal inspection. No edema. Normal ROM. Neurological: Normal cognition. AAOx4. Normal speech. Psychological: Normal affect. Normal Mood. Skin: Warm. Dry. Normal color. Course - Re-evaluation Re-evalutation: 04/19/19 01:51 MDM 24 year old male arrives via EMS due to chest pain. Sleeping when I see him and heart rate in 80's when I see him. Nontoxic. No pain. Ancillary studies here are unremarkable. - Vital Signs Vital signs: Temp Pulse Resp BP Pulse Ox 99.0 F 121 H 20 150/80 H 98 04/18/19 23:17 04/18/19 23:17 04/18/19 23:17 04/18/19 23:17 04/18/19 23:17 - EKG Interpretation by Me EKG shows normal: Sinus rhythm Rate: Tachycardia Rhythm: NSR - Sinus Tachy 128 BPM normal axis nl st elevation or depression my interpretation. Discharge - Discharge Clinical Impression: Chest pain Qualifiers: Chest pain type: unspecified Qualified Code(s): R07.9 - Chest pain, unspecified Condition: Good Disposition: HOME, SELF-CARE Instructions: Chest Pain of Unclear Cause ([facility]) Additional Instructions: Stop smoking. Please return here for chest pain, shortness of breath or other problems or concerns. Forms: Smoking Cessation Education I personally performed the services described in the documentation, reviewed and edited the documentation which was dictated to the scribe in my presence, and it accurately records my words and actions.
--- NOTE | 2019-04-19 02:30 | RADIOLOGY REPORT (SQ) ---
CLINICAL HISTORY: chest pain COMPARISON: 03/05/2019. 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 Lungs are clear without consolidation, atelectasis, mass or edema. There is no pleural effusion. There is no pneumothorax. There are no acute osseous findings. IMPRESSION: Clear lungs.
[2019-04-19 04:46] VITALS: BP 114/82
--- NOTE | 2019-04-19 06:54 | EKG REPORT ---
SEVERITY:- OTHERWISE NORMAL ECG - SINUS TACHYCARDIA : Confirmed by: Jaden Martinez MD 19-Apr-2019 06:53:26
== END 2019-04-19 04:53 | disposition home or self-care (01) ==
LOC: ER 23:12
DX: R07.9 Chest pain, unspecified (principal); F17.210 Nicotine dependence, cigarettes, uncomplicated
CPT/HCPCS: 93005; 99285; 71045; 93010; J3490

== ENCOUNTER 2019-04-19 23:49 | Emergency (ER) | payer SELFPAY ==
[2019-04-20] MEDS ORDERED: IBUPROFEN 600 MG TABLET PO ONE (00:20)
--- NOTE | 2019-04-20 00:22 | ER Document Report ---
ED Medical Screen (RME) - General Chief Complaint: Leg Pain Stated Complaint: RIGHT LEG PAIN Time Seen by Provider: 04/20/19 00:18 Notes: Patient is a 24-year-old male, well-known to this emergency department who presents with right foot pain. Patient was working and had a trash can fall on his foot. Patient states it hurts to walk. Exam: Tenderness noted to mid dorsal foot. I have greeted and performed a rapid initial assessment of this patient. A comprehensive ED assessment and evaluation of the patient, analysis of test results and completion of medical decision making process will be conducted by an additional ED providers. TRAVEL OUTSIDE OF THE [place] IN LAST 30 DAYS: No - Related Data Allergies/Adverse Reactions: No Known Allergies Allergy (Verified 04/20/19 00:10) Past Medical History - Social History Frequency of alcohol use: None Drug Abuse: None Pulmonary Medical History: Reports: Hx Asthma - Immunizations Immunizations up to date: Yes Hx Diphtheria, Pertussis, Tetanus Vaccination: Yes Physical Exam - Vital signs Vitals: Temp Pulse BP Pulse Ox 97.4 F 99 145/79 H 98 04/20/19 00:09 04/20/19 00:09 04/20/19 00:09 04/20/19 00:09 Course - Vital Signs Vital signs: Temp Pulse Resp BP Pulse Ox 97.4 F 99 145/79 H 98 04/20/19 00:09 04/20/19 00:09 04/20/19 00:09 04/20/19 00:09
--- NOTE | 2019-04-20 01:32 | ER Document Report ---
HPI - HPI Patient complains to provider of: right foot pain Time Seen by Provider: 04/20/19 00:18 Onset: This morning Onset/Duration: Sudden Quality of pain: Achy Pain Level: 3 Context: This 24-year-old male frequent visitor to the emergency department presents today with complaints of right foot pain. Reports a trash can landed on his foot. Denies other symptoms such as fever vomiting diarrhea. Patient is wearing a pair of wet saturated tennis shoes. Socks are soaking wet. Patient has bilateral trench foot. No open wounds or sores. He denies fever vomiting diarrhea. Associated Symptoms: None Exacerbated by: Walking Relieved by: Denies Similar symptoms previously: Yes Recently seen / treated by doctor: Yes - REPRODUCTIVE Reproductive: DENIES: : Past Medical History - General Information source: Patient - Social History Smoking Status: Former Smoker Frequency of alcohol use: None Drug Abuse: None Lives with: Homeless Family History: Reviewed & Not Pertinent Patient has suicidal ideation: No Patient has homicidal ideation: No Pulmonary Medical History: Reports: Hx Asthma Surgical Hx: Negative - Immunizations Immunizations up to date: Yes Hx Diphtheria, Pertussis, Tetanus Vaccination: Yes Vertical Provider Document - CONSTITUTIONAL Agree With Documented VS: Yes Exam Limitations: No Limitations General Appearance: WD/WN, No Apparent Distress - sleeping, arouses easily - INFECTION CONTROL TRAVEL OUTSIDE OF THE [place] IN LAST 30 DAYS: No - HEENT HEENT: Atraumatic, Normocephalic - RESPIRATORY Respiratory: No Respiratory Distress - CARDIOVASCULAR Cardiovascular: Regular Rate - MUSCULOSKELETAL/EXTREMETIES Musculoskeletal/Extremeties: MAEW, FROM, Tender - bilateral trench feet, +3 pedal pulse - NEURO Level of Consciousness: Awake, Alert, Appropriate Motor/Sensory: No Motor Deficit - DERM Integumentary: Warm, Dry Course - Re-evaluation Re-evalutation: 04/20/19 02:29 Patient has bilateral trench feet. His shoes are soaking wet with a foul odor. His socks are soaking wet. Patient reports he has no other shoes. He was provided with a pair of flip-flops a few days ago here in the emergency department but does not wear them. He was also provided with several pairs of dry socks. His shoes were placed up on the counter to hopefully dry out. Foot x-ray is negative Foot X-Ray 04/20/19 00:20 IMPRESSION: Soft tissue swelling. No fracture. - Vital Signs Vital signs: Temp Pulse Resp BP Pulse Ox 97.4 F 99 145/79 H 98 04/20/19 00:09 04/20/19 00:09 04/20/19 00:09 04/20/19 00:09 - Diagnostic Test Radiology reviewed: Image reviewed, Reports reviewed Discharge - Discharge Clinical Impression: Right foot pain Trench feet Qualifiers: Encounter type: subsequent encounter Laterality: unspecified laterality Qualified Code(s): T69.029D - Immersion foot, unspecified foot, subsequent encounter Condition: Stable Disposition: HOME, SELF-CARE Instructions: [facility] Additional Instructions: *You have been evaluated for right foot pain, trench feet *Your xray was negative for an acute injury *Wear dry good supporting shoes with dry socks, monitor your feet for signs of open wounds or infection (such as redness, warmth, discharge) *Follow up with the [facility] within a week for recheck *Take Tylenol as indicated for pain *Return to ED for worsening condition, changes, needs Monitor your blood pressure. Your blood pressure was elevated today. This may be because you were anxious, in pain or because you need medication. It is important to follow up with your primary care provider for full evaluation. Forms: Elevated Blood Pressure
--- NOTE | 2019-04-20 01:57 | RADIOLOGY REPORT (SQ) ---
EXAM DESCRIPTION: Three views of the right foot CLINICAL HISTORY: 24 years Male, right foot pain; trash can fell on foot COMPARISON: None. FINDINGS: Soft tissue swelling is identified. Alignment of the foot is anatomic. Bone mineralization is normal. No erosions or periostitis. No fracture is seen. There appears to be heterotopic ossification at the interosseous area between the distal tibia and fibula. IMPRESSION: Soft tissue swelling. No fracture.
[2019-04-20 03:34] VITALS: BP 133/65
== END 2019-04-20 03:34 | disposition home or self-care (01) ==
LOC: ER 23:49
DX: T69.022A Immersion foot, left foot, initial encounter (principal); T69.021A Immersion foot, right foot, initial encounter; X31.XXXA Exposure to excessive natural cold, initial encounter; M79.604 Pain in right leg; Z59.0 Homelessness
CPT/HCPCS: 99283

== ENCOUNTER 2019-04-21 23:42 | Emergency (ER) | payer SELFPAY ==
[2019-04-22] MEDS ORDERED: CEPHALEXIN 500 MG CAPSULE PO ONE (00:02)
--- NOTE | 2019-04-22 00:08 | ER Document Report ---
HPI - HPI Time Seen by Provider: 04/21/19 23:54 Pain Level: 3 Notes: Patient is a 24-year-old male well-known emergency department, currently homeless, who presents complaining of continued bilateral feet pain. Patient was seen a couple days ago diagnosed with trench feet. Patient states that he has not been able to stay out of water and his socks and shoes are still soaking wet. Denies drug allergies. He has not noticed any purulent discharge or redness. Denies any headache, fever, neck pain, changes in vision/speech/mentation/hearing, URI, sore throat, chest pain, palpitations, syncope, cough, shortness of breath, wheeze, dyspnea, abdominal pain, nausea/ vomiting/diarrhea, urinary retention, dysuria, hematuria, loss of control of bowel or bladder, numbness/tingling, saddle anesthesia, muscle paralysis/weakness, or rash. - ROS Systems Reviewed and Negative: Yes All other systems reviewed and negative - REPRODUCTIVE Reproductive: DENIES: : Past Medical History - Social History Smoking Status: Former Smoker Frequency of alcohol use: None Drug Abuse: None Family History: Reviewed & Not Pertinent Patient has suicidal ideation: No Patient has homicidal ideation: No Pulmonary Medical History: Reports: Hx Asthma - Immunizations Immunizations up to date: Yes Hx Diphtheria, Pertussis, Tetanus Vaccination: Yes Vertical Provider Document - CONSTITUTIONAL Agree With Documented VS: Yes Notes: PHYSICAL EXAMINATION: GENERAL: Well-appearing, well-nourished and in no acute distress. LUNGS: Breath sounds clear to auscultation bilaterally and equal. No wheezes rales or rhonchi. HEART: Regular rate and rhythm without murmurs, rubs, gallops. Musculoskeletal: Lt/Rt feet: + wrinkles white appearing feet primarily to the plantar surfaces consistent with trench feet. No sloughing of tissue. No erythema/warmth/purulence. No ecchymosis or deformity. FROM to passive/active. Strength 5+/5. N/V intact distal. No bony tenderness of the foot. Achilles intact. Lis Franc maneuver neg. Anterior drawer neg. Extremities: No cyanosis, clubbing, or edema b/l. Peripheral pulses 2+. Capillary refill less than 3 seconds. NEUROLOGICAL: Normal speech, normal gait. Normal sensory, motor exams PSYCH: Normal mood, normal affect. SKIN: see above - INFECTION CONTROL TRAVEL OUTSIDE OF THE [place] IN LAST 30 DAYS: No Course - Re-evaluation Re-evalutation: 04/22/19 00:[address] Yuan. Patient is an afebrile, well-hydrated 24-year-old male who presents with trench feet bilaterally. Vitals acceptable. PE is otherwise unremarkable. Patient was given supplies 2 days ago. His socks and shoes are soaked today. Patient needs to stay out of the water. New socks given today. I feel the patient needs to stay for a social consult in the morning. Dose of Keflex given today. I will write a prescription for Keflex as well. Precautions reviewed. Information for wound clinic provided. Low suspicion for any other systemic or emergent condition at this time. Patient is nontoxic-appearing and is tolerating p.o. without difficulty. Patient to return to the ED with any other worsening/concerning symptoms. Patient is in agreement. - Vital Signs Vital signs: Temp Pulse Resp BP Pulse Ox 98.8 F 94 20 137/85 H 100 04/21/19 23:49 04/21/19 23:49 04/21/19 23:49 04/21/19 23:49 04/21/19 23:49 Discharge - Discharge Clinical Impression: Trench feet Qualifiers: Encounter type: subsequent encounter Laterality: unspecified laterality Qualified Code(s): T69.029D - Immersion foot, unspecified foot, subsequent encounter Condition: Stable Disposition: OTHER Additional Instructions: If you are able to stay in our waiting room until morning to speak with mental health social worker that would be most beneficial for you. Keep the skin clean and dry Wash with soap and water Tylenol/ibuprofen if needed Take medication as directed Monitor for any worsening symptoms Recheck with your PCM in 2-3 days Return to the ED with any worsening symptoms and/or development of fever, headache, chest pain, palpitations, syncope, shortness of breath, trouble breathing, abdominal pain, n/v/d, abscess, purulent discharge, red streaks, worsening swelling, or other worsening symptoms that are concerning to you. Prescriptions: Cephalexin Monohydrate [Keflex 500 mg Capsule] 500 mg PO QID #40 capsule Forms: Elevated Blood Pressure Referrals: Wound Care [Provider Group] - Follow up in 3-5 days
[2019-04-22 08:58] VITALS: BP 136/78
== END 2019-04-22 08:59 | disposition other institution (70) ==
LOC: ER 23:42
DX: T69.022A Immersion foot, left foot, initial encounter (principal); T69.021A Immersion foot, right foot, initial encounter; X58.XXXA Exposure to other specified factors, initial encounter; J45.909 Unspecified asthma, uncomplicated; Z59.0 Homelessness; Z87.891 Personal history of nicotine dependence
CPT/HCPCS: 99283

== ENCOUNTER 2019-04-23 00:53 | Emergency (ER) | payer SELFPAY ==
[2019-04-23 03:51] VITALS: BP 141/80
--- NOTE | 2019-04-25 05:54 | ER Document Report ---
Entered by CAROLINA SALCIDO SCRIBE 04/23/19 0330 Acting as scribe for:BRUNILDA HARPER IV, MD ED General - General Chief Complaint: Dizziness Stated Complaint: DIZZINESS Primary Care Provider: MALI REED MD [HONORARY] - 04/25/19 Mode of Arrival: Ambulatory Information source: Patient, [facility] Records Cannot obtain history due to: Uncooperative Notes: This homeless 24 year old male patient presents to the emergency department today for the 26th time in less than two months with multiple complaints according to nursing notes from triage. Patient is sleeping comfortably and does not wake up for exam. Patient was told he was going to be discharged and he replied "okay", but does not say anything else during the entire interaction. Patient reported to the triage nurse that he was here for dizziness, sore throat, abdominal pain, and nausea. TRAVEL OUTSIDE OF THE [place] IN LAST 30 DAYS: No - Related Data Allergies/Adverse Reactions: No Known Allergies Allergy (Verified 04/22/19 00:00) Past Medical History - General Information source: [facility] Records Cannot obtain history due to: Uncooperative - Social History Smoking Status: Never Smoker Cigarette use (# per day): No Occupation: [employer] Lives with: [employer] Family History: Reviewed & Not Pertinent Patient has suicidal ideation: No Patient has homicidal ideation: No Pulmonary Medical History: Reports: Hx Asthma - Immunizations Immunizations up to date: Yes Hx Diphtheria, Pertussis, Tetanus Vaccination: Yes Review of Systems - Review of Systems -: Yes ROS unobtainable due to patient's medical condition - sleeping, uncooperative Physical Exam - Vital signs Vitals: Temp Pulse Resp BP Pulse Ox 97.6 F 98 15 151/91 H 100 04/23/19 01:05 04/23/19 01:05 04/23/19 01:05 04/23/19 01:05 04/23/19 01:05 - Notes Notes: Physical Exam: General: Sleeping soundly, snoring, does not wake up for exam, disheveled, malodorous. HEENT: Normocephalic. Atraumatic. PERRL. Extraocular movements intact. Oropharynx clear. Neck: Supple. Non-tender. Respiratory: No respiratory distress. Clear and equal breath sounds bilaterally. Cardiovascular: Regular rate and rhythm. Abdominal: Normal Inspection. Non-tender. No distension. Normal Bowel Sounds. Back: No gross abnormalities. Extremities: Moves all four extremities Skin: Warm. Dry. Normal color. Course - Vital Signs Vital signs: Temp Pulse Resp BP Pulse Ox 98.1 F 78 20 141/80 H 98 04/23/19 03:48 04/23/19 03:48 04/23/19 03:48 04/23/19 03:48 04/23/19 03:48 Discharge - Discharge Clinical Impression: Encounter for general adult medical examination w/o abnormal findings Disposition: HOME, SELF-CARE Additional Instructions: Return to the Emergency Department without delay if any worse. HOME CARE INSTRUCTIONS & INFORMATION: Thank you for choosing us for your medical needs. We hope you're satisfied with the care you received. After you leave, you must properly care for your problem and, at the same time, observe its progress. Any condition can change. Some illnesses can change rapidly over hours or days. If your condition worsens, return to the Emergency Department or see your physician promptly. ABOUT YOUR X-RAYS AND EKG'S: If you had an EKG or X-rays taken, they have been read by the Emergency Physician. The X-rays and EKG's will also be read by a Radiologist or Member Of [employer] within 24 hours. If discrepancies are noted, you will be notified by telephone. Please be certain the ED has a correct telephone number & address where you can be reached. Also, realize that some fractures or abnormalities do not show up on initial X-rays. If your symptoms continue, see your physician. ABOUT YOUR LABORATORY TEST: If you had laboratory tests, the results have been reviewed by the Emergency Physician. Some test results (for example cultures) may not be available for several days. You will be contacted if any test result shows you need additional treatment. Please be certain the ED has a correct telephone number and address where you can be reached. ABOUT YOUR MEDICATIONS: You will receive instructions on how to take your medi cine on the prescription label you receive. Additional information may be provided by the Pharmacy. If you have questions afterwards, call the ED for clarification or further instructions. Some prescribed medications may cause drowsiness. Do not perform tasks such as driving a car or operating machinery without consulting your Pharmacist. If you feel you need a refill of pain medication, your condition will need re-evaluation. Please do not call for a refill of any medication. ABOUT YOUR SIGNATURE: Signature of this document acknowledges to followin. Understanding that you received emergency treatment and that you may be released before al medical problems are known or treated. Please be certain the ED has a correct phone number & address where you can be reached. 2. Acknowledgement that you will arrange for follow-up care as recommended. 3. Authorization for the Emergency Physician to provide information to your follow-up Physician in order to maximize your care. AT ANY TIME, IF YOUR SYMPTOMS CHANGE SIGNIFICANTLY OR WORSEN OR YOU DEVELOP NEW SYMPTOMS, RETURN TO THE EMERGENCY DEPARTMENT IMMEDIATELY FOR RE-EVALUATION. OUR GOAL IS TO PROVIDE EXCELLENT MEDICAL CARE! WE HOPE THAT WE HAVE MET YOUR EXPECTATIONS DURING YOUR EMERGENCY DEPARTMENT VISIT AND THAT YOU FEEL YOU HAVE RECEIVED EXCELLENT CARE! Referrals: MALI REED MD [HONORARY] - 04/25/19 I personally performed the services described in the documentation, reviewed and edited the documentation which was dictated to the scribe in my presence, and it accurately records my words and actions.
== END 2019-04-23 03:48 | disposition home or self-care (01) ==
LOC: ER 00:53
DX: Z00.00 Encounter for general adult medical examination without abnormal findings (principal); R42 Dizziness and giddiness; J02.9 Acute pharyngitis, unspecified; R10.9 Unspecified abdominal pain; R11.0 Nausea
CPT/HCPCS: 99283

== ENCOUNTER 2019-04-23 23:50 | Emergency (ER) | payer SELFPAY ==
[2019-04-24] MEDS ORDERED: IBUPROFEN 600 MG TABLET PO ONE (00:20)
[2019-04-24] MEDS ORDERED: ACETAMINOPHEN 325 MG TABLET PO ONE (00:21)
[2019-04-24 00:22] VITALS: BP 147/78
--- NOTE | 2019-04-24 00:22 | ER Document Report ---
HPI - HPI Time Seen by Provider: 04/24/19 00:17 Pain Level: 3 Notes: Otherwise healthy 24-year-old male presents to the emergency department chief complaint of headache. Patient reports frontal headache that has been intermittent over the last week. He denies any associated symptoms. Denies history of headaches. Denies any trauma to his head or loss of consciousness. - REPRODUCTIVE Reproductive: DENIES: : Past Medical History - General Information source: Patient - Social History Smoking Status: Unknown if Ever Smoked Frequency of alcohol use: None Drug Abuse: None Family History: Reviewed & Not Pertinent Patient has suicidal ideation: No Patient has homicidal ideation: No Pulmonary Medical History: Reports: Hx Asthma - Immunizations Immunizations up to date: Yes Hx Diphtheria, Pertussis, Tetanus Vaccination: Yes Vertical Provider Document - CONSTITUTIONAL Notes: PHYSICAL EXAMINATION: GENERAL: Well-appearing, well-nourished and in no acute distress. HEAD: Atraumatic, normocephalic. EYES: Pupils equal round extraocular movements intact, conjunctiva are normal. ENT: Nares patent NECK: Normal range of motion LUNGS: No respiratory distress Musculoskeletal: Normal range of motion NEUROLOGICAL: Face symmetric. Tongue protrudes midline. Extraocular motions intact. Pupils are 2 mm and equally reactive. Normal speech, normal gait. 5 out of 5 strength in both the distal and proximal upper and lower extremities bilaterally. Sensation is grossly intact throughout. Finger to nose testing normal. Pronator drift normal.. PSYCH: Normal mood, normal affect. SKIN: Warm, Dry, normal turgor, no rashes or lesions noted. - INFECTION CONTROL TRAVEL OUTSIDE OF THE [place] IN LAST 30 DAYS: No Course - Re-evaluation Re-evalutation: Patient appears well, nontoxic, no neurological deficits noted. He will be medicated with Tylenol and ibuprofen for his headache and discharged home. Patient is in agreements with this plan. Discharge - Discharge Clinical Impression: Headache Qualifiers: Headache type: unspecified Headache chronicity pattern: unspecified pattern Intractability: not intractable Qualified Code(s): R51 - Headache Condition: Stable Disposition: HOME, SELF-CARE Additional Instructions: I do not believe your headache is being caused by anything life-threatening at this time. You were given a dose of Tylenol and ibuprofen here in the emergency department. Please try to keep hydrated as this should help with any headaches.
== END 2019-04-24 00:27 | disposition home or self-care (01) ==
LOC: ER 23:50
DX: R51 Headache (principal); J45.909 Unspecified asthma, uncomplicated
CPT/HCPCS: 99283

== ENCOUNTER 2019-05-01 23:37 | Emergency (ER) | payer SELFPAY ==
--- NOTE | 2019-05-01 23:47 | ER Document Report ---
ED Medical Screen (RME) - General Chief Complaint: Chest Pain Stated Complaint: CHEST PAIN Notes: Patient is a 24-year-old -[place] male with no significant past medical history who is well-known to this department who presents to the emergency department today with a chief complaint of chest pain that began earlier today. 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 States the pain has eased off some but he still has some mild underlying pain. He denies any known history of cardiovascular disease or lung disease. Denies any recent travel, recent surgery, hemoptysis, lower extremity pain or swelling, hormone replacement therapies, history of cancer, recent immobilization or history of DVT or PE. States he does have a mild associated cough as well. Denies any fever chills or night sweats. I have treated and performed a rapid initial assessment of this patient. A comprehensive ED assessment and evaluation of the patient, analysis of test results and completion of medical decision making process will be conducted by additional ED providers. PHYSICAL EXAMINATION: GENERAL: Well-appearing, well-nourished and in no acute distress. A&Ox4. Answers questions appropriately. Tachycardic on intake. TRAVEL OUTSIDE OF THE [place] IN LAST 30 DAYS: No - Related Data Allergies/Adverse Reactions: No Known Allergies Allergy (Verified 04/22/19 00:00) Past Medical History Pulmonary Medical History: Reports: Hx Asthma - Immunizations Immunizations up to date: Yes Hx Diphtheria, Pertussis, Tetanus Vaccination: Yes
[2019-05-02] MEDS ORDERED: IBUPROFEN 600 MG TABLET PO ONE (00:01)
--- NOTE | 2019-05-02 00:16 | ER Document Report ---
Entered by MATTY DUVALL SCRIBE 05/02/19 0001 Acting as scribe for:BHAVYA SMITH DO ED General - General Chief Complaint: Cough Stated Complaint: CHEST PAIN Time Seen by Provider: 05/01/19 23:52 Information source: Patient Notes: This 24-year-old homeless male presents to the emergency department complaining of left-sided chest pain that began today at work. Patient says "my heart hurts" when asked about the pain in his chest. Patient reports a mild cough and a headache. Patient states that he has had a headache for the past two days. Patient denies shortness of breath, fever, chills and diaphoresis. TRAVEL OUTSIDE OF THE [place] IN LAST 30 DAYS: No - Related Data Allergies/Adverse Reactions: No Known Allergies Allergy (Verified 04/22/19 00:00) Past Medical History - General Information source: Patient - Social History Smoking Status: Current Some Day Smoker Cigarette use (# per day): Yes Chew tobacco use (# tins/day): No Lives with: Homeless Family History: Reviewed & Not Pertinent Patient has suicidal ideation: No Patient has homicidal ideation: No Pulmonary Medical History: Reports: Hx Asthma Surgical Hx: Negative - Immunizations Immunizations up to date: Yes Hx Diphtheria, Pertussis, Tetanus Vaccination: Yes Review of Systems - Review of Systems Constitutional: See HPI. denies: Chills, Diaphoresis, Fever EENT: No symptoms reported Cardiovascular: See HPI, Chest pain Respiratory: See HPI, Cough. denies: Short of breath Gastrointestinal: No symptoms reported Genitourinary: No symptoms reported Male Genitourinary: No symptoms reported Musculoskeletal: No symptoms reported Skin: No symptoms reported Hematologic/Lymphatic: No symptoms reported Neurological/Psychological: See HPI, Headaches -: Yes All other systems reviewed and negative Physical Exam - Vital signs Vitals: Temp Pulse Resp BP Pulse Ox 98.8 F 111 H 20 129/80 H 100 05/02/19 00:12 05/02/19 00:12 05/02/19 00:12 05/02/19 00:12 05/02/19 00:12 - Notes Notes: Physical Exam: General: Alert, appears well. HEENT: Normocephalic. Atraumatic. PERRL. Extraocular movements intact. O ropharynx clear. Neck: Supple. Non-tender. Respiratory: No respiratory distress. Clear and equal breath sounds bilaterally. Reproducible sternum and left-sided chest wall tenderness to palpation. Cardiovascular: Regular rate and rhythm. Abdominal: Non-tender. No distension. Normal Bowel Sounds. Obese. Back: No gross abnormalities. Extremities: Moves all four extremities. Upper extremities: Normal inspection. Normal ROM. Lower extremities: Normal inspection. No edema. Normal ROM. Neurological: Normal cognition. AAOx4. Normal speech. Psychological: Normal affect. Normal Mood. Skin: Warm. Dry. Normal color. Course - Re-evaluation Re-evalutation: 05/02/19 00:39 MDM 24 year old male with chest wall pain. No fever and no illness. EKG is reassuring and cxr is normal. Feel the likelihood of infectious disease is low. Will dc with symptomatic treatment for chest wall pain. It is noted he is mildly tachycardic here, however when I auscultate his heart rate is approximately 90. He understands follow up. - Vital Signs Vital signs: Temp Pulse Resp BP Pulse Ox 98.8 F 111 H 20 129/80 H 100 05/02/19 00:12 05/02/19 00:12 05/02/19 00:12 05/02/19 00:12 05/02/19 00:12 - Diagnostic Test Radiology reviewed: Image reviewed, Reports reviewed - EKG Interpretation by Me EKG shows normal: Sinus rhythm - NSR Nl [place] [address] elevation or depression my interpretation. Rate: Normal Rhythm: NSR Discharge - Discharge Clinical Impression: Chest wall pain Condition: Good Disposition: HOME, SELF-CARE Instructions: Chest Wall Pain ([facility]), Family Physicians / Practices Additional Instructions: Take the medicine as directed. See your doctor or the referral doctor in follow up. Please return here for any problems or any concerns. Prescriptions: Ibuprofen [Motrin 600 mg Tablet] 600 mg PO TID #30 tablet Forms: Elevated Blood Pressure I personally performed the services described in the documentation, reviewed and edited the documentation which was dictated to the scribe in my presence, and it accurately records my words and actions.
--- NOTE | 2019-05-02 00:25 | RADIOLOGY REPORT (SQ) ---
EXAM DESCRIPTION: XR CHEST 2 VIEWS COMPLETED DATE/TME: 05/01/2019 23:45 CLINICAL HISTORY: 24 years, Male, cp COMPARISON: April 19, 2019 NUMBER OF VIEWS: 2 TECHNIQUE: LIMITATIONS: None. FINDINGS: Cardiomediastinal silhouette is normal. The lungs are clear. No effusion. No pneumothorax IMPRESSION: No active intrathoracic disease copyright 2011 [employer]- All Rights Reserved
[2019-05-02 01:31] VITALS: BP 128/78
--- NOTE | 2019-05-02 15:38 | EKG REPORT ---
SEVERITY:- NORMAL ECG - SINUS RHYTHM : Confirmed by: Janneth Hunter MD 02-May-2019 15:38:05
== END 2019-05-02 00:55 | disposition home or self-care (01) ==
LOC: ER 23:37
DX: R07.89 Other chest pain (principal); R05 Cough; R51 Headache; F17.210 Nicotine dependence, cigarettes, uncomplicated
CPT/HCPCS: 71046; 93005; 93010; 99284

== ENCOUNTER 2019-05-02 20:00 | Emergency (ER) | payer SELFPAY | END 2019-05-02 20:18 | disposition left against medical advice (07) | LOC: ER 20:00 | DX: Z53.21 Procedure and treatment not carried out due to patient leaving prior to being seen by health care provider (principal); M79.671 Pain in right foot; M79.672 Pain in left foot ==

== ENCOUNTER 2019-05-02 20:55 | Emergency (ER) | payer SELFPAY ==
--- NOTE | 2019-05-02 21:34 | ER Document Report ---
ED Medical Screen (RME) - General Chief Complaint: Foot Pain Stated Complaint: FEET PAIN Notes: Patient is a 24-year-old -[place] male who was seen here recently for trench feet given Keflex and instructed how to care for his feet. Patient arrives with boots and no socks. He was given socks and Keflex on his last visit. States he did not take the antibiotics and does not know what happened to the socks. States the feet burn have a foul odor and drainage. Denies any fever chills or night sweats. TRAVEL OUTSIDE OF THE [place] IN LAST 30 DAYS: No - Related Data Allergies/Adverse Reactions: No Known Allergies Allergy (Verified 05/02/19 21:28) Past Medical History Pulmonary Medical History: Reports: Hx Asthma - Immunizations Immunizations up to date: Yes Hx Diphtheria, Pertussis, Tetanus Vaccination: Yes Physical Exam - Vital signs Vitals: Temp Pulse Resp BP Pulse Ox 98.8 F 113 H 20 142/75 H 99 05/02/19 21:05/02/19 21:05/02/19 21:05/02/19 21:05/02/19 21:09 Course - Vital Signs Vital signs: Temp Pulse Resp BP Pulse Ox 98.8 F 113 H 20 142/75 H 99 05/02/19 21:05/02/19 21:05/02/19 21:09 05/02/19 21:05/02/19 21:09
[2019-05-02 22:20] LABS: ABSOLUTE EOSINOPHILS # (AUTO) 0.2 10^3/uL (0.0-0.6); ABSOLUTE LYMPHOCYTES (AUTO) 2.2 10^3/uL (0.5-4.7); ABSOLUTE MONOCYTES (AUTO) 0.6 10^3/uL (0.1-1.4); ABSOLUTE NEUT (AUTO) 3.2 10^3/uL (1.7-8.2); BASOPHILS % (AUTO) 0.7 % (0-2); EOSINOPHILS % (AUTO) 3.3 % (0-6); HEMATOCRIT 43.1 % (37.9-51.0); HEMOGLOBIN 14.2 g/dL (13.5-17.0); LYMPHOCYTES % (AUTO) 35.8 % (13-45); MEAN CORPUSCULAR HEMOGLOBIN 27.2 pg (27.0-33.4); MEAN CORPUSCULAR VOLUME 82 fl (80-97); MONOCYTES % (AUTO) 9.1 % (3-13); PLATELET COUNT 214 10^3/uL (150-450); RED BLOOD COUNT 5.24 10^6/uL (4.35-5.55); RED CELL DISTRIBUTION WIDTH 14.5 % (11.5-14.0); SEGMENTED NEUTROPHILS % (AUTO) 51.1 % (42-78); TOTAL CELLS COUNTED % (AUTO) 100 %; WHITE BLOOD COUNT 6.2 10^3/uL (4.0-10.5)
[2019-05-02] MEDS ORDERED: IBUPROFEN 800 MG TABLET PO ONE (23:38)
--- NOTE | 2019-05-03 00:02 | ER Document Report ---
Entered by MATTY DUVALL SCRIBE 05/02/19 [id number] Acting as scribe for:BHAVYA SMITH DO ED General - General Chief Complaint: Feet Swelling Stated Complaint: FEET PAIN Time Seen by Provider: 05/02/19 23:11 Information source: Patient Notes: This 24-year-old male presents to the emergency department complaining of bilateral feet swelling. Patient is homeless and was seen for [facility] feet recently. Patient states that he works at [employer]. No fever or chills or respiratory complaints. No recent injury. TRAVEL OUTSIDE OF THE [place] IN LAST 30 DAYS: No - Related Data Allergies/Adverse Reactions: No Known Allergies Allergy (Verified 05/02/19 21:28) Home Medications: DOES NOT KNOW WHERE MEDS ARE Past Medical History - General Information source: Patient - Social History Smoking Status: Current Every Day Smoker Cigarette use (# per day): Yes Chew tobacco use (# tins/day): No Family History: Reviewed & Not Pertinent Patient has suicidal ideation: No Patient has homicidal ideation: No Pulmonary Medical History: Reports: Hx Asthma Surgical Hx: Negative - Immunizations Immunizations up to date: Yes Hx Diphtheria, Pertussis, Tetanus Vaccination: Yes Review of Systems - Review of Systems Constitutional: No symptoms reported EENT: No symptoms reported Cardiovascular: No symptoms reported Respiratory: No symptoms reported Gastrointestinal: No symptoms reported Genitourinary: No symptoms reported Male Genitourinary: No symptoms reported Musculoskeletal: See HPI, Other - Feet swelling Skin: Change in color Hematologic/Lymphatic: No symptoms reported Neurological/Psychological: No symptoms reported -: Yes All other systems reviewed and negative Physical Exam - Vital signs Vitals: Temp Pulse Resp BP Pulse Ox 98.8 F 113 H 20 142/75 H 99 05/02/19 21:09 05/02/19 21:09 05/02/19 21:09 05/02/19 21:09 05/02/19 21:09 - Notes Notes: Physical Exam: General: Alert, appears well. HEENT: Normocephalic. Atraumatic. PERRL. Extraocular movements intact. Orop harynx clear. Neck: Supple. Non-tender. Respiratory: No respiratory distress. Clear and equal breath sounds bilaterally. Cardiovascular: Regular rate and rhythm. Abdominal: Normal Inspection. Non-tender. No distension. Normal Bowel Sounds. Back: No gross abnormalities. Extremities: Moves all four extremities. Upper extremities: Normal inspection. Normal ROM. Lower extremities: No edema. Normal ROM. Right and Left foot have blistering on the tarsal phalangeal joints. Janice change of all digits with left foot worse than right. Neurological: Normal cognition. AAOx4. Normal speech. Psychological: Normal affect. Normal Mood. Skin: Warm. Dry. Normal color. Course - Re-evaluation Re-evalutation: 05/03/19 00:03 MDM unfortunate 24 year old homeless male has chronic wet feet and janice infection. I have discussed with him previously and again today the importance of keeping the feet dry. He expressed understanding regarding this. - Vital Signs Vital signs: Temp Pulse Resp BP Pulse Ox 98.8 F 113 H 20 142/75 H 99 05/02/19 21:09 05/02/19 21:09 05/02/19 21:09 05/02/19 21:09 05/02/19 21:09 - Laboratory Result Diagrams: 05/02/19 22:00 Laboratory results interpreted by me: 05/02/19 22:00 RDW 14.5 H Discharge - Discharge Clinical Impression: Tinea pedis, recurrent, Medically noncompliant, Foot pain, bilateral Condition: Good Disposition: HOME, SELF-CARE Instructions: Ringworm (Tinea Corporis) ([facility]), Athletes Foot ([facility]), Family Physicians / Practices Additional Instructions: You must keep your feet dry. Take tylenol or motrin as needed for pain. Use 1 % clotrimazole cream twice a day. Please return here for increasing pain or redness or other problems or other concerns. Forms: Elevated Blood Pressure I personally performed the services described in the documentation, reviewed and edited the documentation which was dictated to the scribe in my presence, and it accurately records my words and actions.
[2019-05-03 00:51] VITALS: BP 122/58
== END 2019-05-03 00:50 | disposition home or self-care (01) ==
LOC: ER 20:55
DX: B35.3 Tinea pedis (principal); M79.671 Pain in right foot; M79.672 Pain in left foot; Z91.14 Patient's other noncompliance with medication regimen; M79.89 Other specified soft tissue disorders; F17.210 Nicotine dependence, cigarettes, uncomplicated; Z79.899 Other long term (current) drug therapy
CPT/HCPCS: 36415; 85025; 99283

== ENCOUNTER 2019-05-03 19:39 | Emergency (ER) | payer SELFPAY ==
[2019-05-03] MEDS ORDERED: ONDANSETRON 4 MG TAB.RAPDIS PO ONE (20:16)
--- NOTE | 2019-05-03 20:16 | ER Document Report ---
ED Medical Screen (RME) - General Chief Complaint: Vomiting Stated Complaint: VOMITING Time Seen by Provider: 05/03/19 20:14 Mode of Arrival: Ambulatory Information source: Patient Notes: 24-year-old male presented to ED for complaint of abdominal pain nausea vomiting and diarrhea. He states he went to eat [employer] earlier and then about an hour later he became nauseated and vomited and has had diarrhea. Patient states he ate [employer] and then about an hour later he started having nausea vomiting diarrhea and abdominal pain. He states he has vomited twice. He is alert oriented respirations regular nonlabored speaking in full sentences. I have greeted and performed a rapid initial assessment of this patient. A comprehensive ED assessment and evaluation of the patient, analysis of test results and completion of medical decision making process will be conducted by an additional ED providers. TRAVEL OUTSIDE OF THE [place] IN LAST 30 DAYS: No - Related Data Allergies/Adverse Reactions: No Known Allergies Allergy (Verified 05/02/19 21:28) Past Medical History Pulmonary Medical History: Reports: Hx Asthma - Immunizations Immunizations up to date: Yes Hx Diphtheria, Pertussis, Tetanus Vaccination: Yes Physical Exam - Vital signs Vitals: Temp Pulse Resp BP Pulse Ox 98.3 F 89 18 147/77 H 98 05/03/19 19:57 05/03/19 19:57 05/03/19 19:57 05/03/19 19:57 05/03/19 19:57 Course - Vital Signs Vital signs: Temp Pulse Resp BP Pulse Ox 98.3 F 89 18 147/77 H 98 05/03/19 19:57 05/03/19 19:57 05/03/19 19:57 05/03/19 19:57 05/03/19 19:57
[2019-05-03 20:55] LABS: APPEARANCE,URINE CLEAR; BILIRUBIN,URINE NEGATIVE (NEGATIVE); COLOR,URINE YELLOW; GLUCOSE, URINE NEGATIVE (NEGATIVE); KETONES,URINE NEGATIVE (NEGATIVE); PROTEIN,URINE NEGATIVE (NEGATIVE); URINE SPECIFIC GRAVITY 1.021; UROBILINOGEN,URINE NEGATIVE mg/dL (<2.0)
[2019-05-03 21:03] LABS: ALBUMIN 4.4 g/dL (3.5-5.0); ALKALINE PHOSPHATASE 45 U/L (38-126); ANION GAP 8 (5-19); ASPARTATE AMINO TRANSFERASE 45 U/L (17-59); BILIRUBIN,DIRECT 0.3 mg/dL (0.0-0.4); BILIRUBIN,TOTAL 0.8 mg/dL (0.2-1.3); BLOOD UREA NITROGEN 16 mg/dL (7-20); CALCIUM 9.7 mg/dL (8.4-10.2); CARBON DIOXIDE 29 mmol/L (22-30); CHLORIDE 102 mmol/L (98-107); GLUCOSE 86 mg/dL (75-110); POTASSIUM 4.2 mmol/L (3.6-5.0); TOTAL PROTEIN 7.7 g/dL (6.3-8.2)
[2019-05-03 21:05] LABS: ABSOLUTE EOSINOPHILS # (AUTO) 0.2 10^3/uL (0.0-0.6); ABSOLUTE LYMPHOCYTES (AUTO) 2.8 10^3/uL (0.5-4.7); ABSOLUTE MONOCYTES (AUTO) 0.6 10^3/uL (0.1-1.4); ABSOLUTE NEUT (AUTO) 2.6 10^3/uL (1.7-8.2); BASOPHILS % (AUTO) 0.6 % (0-2); EOSINOPHILS % (AUTO) 3.8 % (0-6); HEMATOCRIT 43.5 % (37.9-51.0); HEMOGLOBIN 14.4 g/dL (13.5-17.0); LYMPHOCYTES % (AUTO) 45.4 % (13-45); MEAN CORPUSCULAR HEMOGLOBIN 27.3 pg (27.0-33.4); MEAN CORPUSCULAR VOLUME 83 fl (80-97); MONOCYTES % (AUTO) 8.9 % (3-13); PLATELET COUNT 224 10^3/uL (150-450); RED BLOOD COUNT 5.26 10^6/uL (4.35-5.55); RED CELL DISTRIBUTION WIDTH 14.3 % (11.5-14.0); SEGMENTED NEUTROPHILS % (AUTO) 41.3 % (42-78); TOTAL CELLS COUNTED % (AUTO) 100 %; WHITE BLOOD COUNT 6.3 10^3/uL (4.0-10.5)
[2019-05-03 21:13] LABS: URINE AMPHETAMINES SCREEN NEGATIVE; URINE BARBITURATES SCREEN NEGATIVE; URINE BENZODIAZEPINES SCREEN NEGATIVE; URINE COCAINE SCREEN NEGATIVE; URINE MARIJUANA (THC) SCREEN NEGATIVE; URINE METHADONE SCREEN NEGATIVE; URINE PHENCYCLIDINE SCREEN NEGATIVE
[2019-05-03] MEDS ORDERED: ONDANSETRON ODT 4 MG TAB (6 TAB/ER DISP) PO PRN (22:26)
--- NOTE | 2019-05-03 22:32 | ER Document Report ---
ED General - General Chief Complaint: Abdominal Pain Stated Complaint: VOMITING Time Seen by Provider: 05/03/19 20:14 Primary Care Provider: JR DECKER MD [ACTIVE STAFF] - Follow up as needed Mode of Arrival: Ambulatory TRAVEL OUTSIDE OF THE [place] IN LAST 30 DAYS: No - HPI Notes: Patient is a 24-year-old male well-known emergency department who presents complaining of nauseous, vomiting, and diarrhea after eating [employer] this afternoon. He does have occasional cramping. There has not been any hematemesis, melena, or hematochezia. Patient states that the pain does not radiate. He is urinating normally. No recent illness. Denies drug allergies. Patient states that he did receive medicine at triage and is feeling better. Denies any headache, fever, neck pain, URI, sore throat, chest pain, palpitations, syncope, cough, shortness of breath, wheeze, dyspnea, abdominal pain, urinary retention, dysuria, hematuria, or rash. - Related Data Allergies/Adverse Reactions: No Known Allergies Allergy (Verified 05/02/19 21:28) Past Medical History - General Information source: Patient - Social History Smoking Status: Never Smoker Family History: Reviewed & Not Pertinent Patient has suicidal ideation: No Patient has homicidal ideation: No Pulmonary Medical History: Reports: Hx Asthma - Immunizations Immunizations up to date: Yes Hx Diphtheria, Pertussis, Tetanus Vaccination: Yes Review of Systems - Review of Systems -: Yes All other systems reviewed and negative Physical Exam - Vital signs Vitals: Temp Pulse Resp BP Pulse Ox 98.3 F 89 18 147/77 H 98 05/03/19 19:57 05/03/19 19:57 05/03/19 19:57 05/03/19 19:57 05/03/19 19:57 - Notes Notes: PHYSICAL EXAMINATION: GENERAL: Well-appearing, well-nourished and in no acute distress. HEAD: Atraumatic, normocephalic. EYES: Pupils equal round and reactive to light, extraocular movements intact, sclera anicteric, conjunctiva are normal. ENT: Nares patent and without discharge. oropharynx clear without exudates. No tonsilar hypertrophy or erythema. Moist mucous membranes. NECK: Normal range of motion, supple without lymphadenopathy LUNGS: Breath sounds clear to auscultation bilaterally and equal. No wheezes rales or rhonchi. HEART: Regular rate and rhythm without murmurs, rubs, gallops. ABDOMEN: Soft, nontender, nondistended abdomen. No guarding, no rebound. Normal bowel sounds present. No CVA tenderness bilaterally. Ybarra negative. No tenderness at McBurney point. Musculoskeletal: FROM to passive/active. Strength 5+/5. Extremities: No cyanosis, clubbing, or edema b/l. Peripheral pulses 2+. Capillary refill less than 3 seconds. NEUROLOGICAL: Cranial nerves grossly intact. Normal speech, normal gait. PSYCH: Normal mood, normal affect. SKIN: Warm, Dry, normal turgor, no rashes or lesions noted. Course - Re-evaluation Re-evalutation: 05/03/19 Patient is an afebrile, well-hydrated, 24-year-old male who presents to the ED with nausea, vomiting, diarrhea, suspect viral. Vitals are acceptable without any significant tachycardia, tachypnea, or hypoxia. PE is otherwise unremarkable. CBC, CMP, lipase, UA, drug screen unremarkable for any acute pathology. No other labs or imaging warranted at this time based on H&P. Patient is tolerating p.o. without difficulties and is nontoxic-appearing. Dispensed zofran for him. Low suspicion/risk for acute appendicitis, bowel obstruction, acute cholecystitis, perforated diverticulitis, incarcerated hernia, pancreatitis, perforated ulcer, peritonitis, sepsis, testicular torsion, or other systemic emergent condition at this time. Patient is aware that his condition can change from initial presentation and he needs to monitor symptoms closely and seek medical attention if any acute changes. Conservative measures otherwise for symptoms. Recheck with PCM in 2-3 days. Consider consult with a felt hat pouncing operator hand. Return to the ED with any worsening/concerning symptoms otherwise as reviewed in discharge. Patient is in agreement. - Vital Signs Vital signs: Temp Pulse Resp BP Pulse Ox 98.3 F 89 18 147/77 H 98 05/03/19 19:57 05/03/19 19:57 05/03/19 19:57 05/03/19 19:57 05/03/19 19:57 - Laboratory Result Diagrams: 05/03/19 20:25 05/03/19 20:25 Laboratory results interpreted by me: 05/03/19 05/03/19 20:25 20:25 RDW 14.3 H Lymph % (Auto) 45.4 H Seg Neutrophils % 41.3 L ALT 54 H Discharge - Discharge Clinical Impression: Nausea vomiting and diarrhea Condition: Stable Disposition: HOME, SELF-CARE Additional Instructions: Maintain adequate fluid and food intake [place] diet ([employer] Bananas, rice, apples, toast, etc Zofran as needed tylenol if needed Monitor for any worsening symptoms Make sure you are staying hydrated enough to urinate and have normal BM's Recheck with your PCM in 2-3 days Consider consult with Gastroenterology for ongoing/worsening symptoms Return to the ED with any worsening symptoms and/or development of fever, headache, chest pain, palpitations, syncope, shortness of breath, trouble breathing, abdominal pain, n/v/d, blood in stool/urine, weakness, or other worsening symptoms that are concerning to you. Forms: Elevated Blood Pressure, Return to Work Referrals: JR DECKER MD [ACTIVE STAFF] - Follow up as needed
[2019-05-03 23:33] VITALS: BP 142/72
== END 2019-05-03 23:33 | disposition home or self-care (01) ==
LOC: ER 19:39
DX: R11.2 Nausea with vomiting, unspecified (principal); R19.7 Diarrhea, unspecified; R10.9 Unspecified abdominal pain; J45.909 Unspecified asthma, uncomplicated
CPT/HCPCS: 99284; 36415; 83690; 85025; 80053; 81001; 80307; S0119

== ENCOUNTER 2019-05-05 00:15 | Emergency (ER) | payer SELFPAY ==
--- NOTE | 2019-05-05 00:27 | ER Document Report ---
ED General - General Chief Complaint: Chest Pain Stated Complaint: CHEST PAIN/ANKLE PAIN Notes: 24-year-old male history of homelessness multiple ED visits for chest pain and extremity complaints complains of right ankle pain worse than usual in the setting of being on his feet outside homeless. No injuries minimal swelling able to ambulate. Sharp chest pain intermittent same as prior no history of coronary disease multiple rule outs TRAVEL OUTSIDE OF THE [place] IN LAST 30 DAYS: No - Related Data Allergies/Adverse Reactions: No Known Allergies Allergy (Verified 05/02/19 21:28) Past Medical History - Social History Smoking Status: Former Smoker Family History: Reviewed & Not Pertinent Pulmonary Medical History: Reports: Hx Asthma - Immunizations Immunizations up to date: Yes Hx Diphtheria, Pertussis, Tetanus Vaccination: Yes Review of Systems - Review of Systems Notes: REVIEW OF SYSTEMS GEN: Denies fever, chills, weight loss ENT: Denies sore throat, nasal discharge, ear pain EYES: Denies blurry vision, eye pain, discharge CV: Chest pain RESP: Denies cough, shortness of breath, wheezing GI: Denies abdominal pain, nausea, vomiting, diarrhea MSK: Denies joint pain/swelling, edema, SKIN: Denies rash, skin lesions LYMPH: Denies swollen glands/lymph nodes NEURO: Denies headache, focal weakness or numbness, dizziness PSYCH: Denies depression, suicidal or homicidal ideation PHYSICAL EXAMINATION General: No acute distress, well-nourished Head: Atraumatic, normocephalic ENT: Mouth normal, oropharynx moist, no exudates or tonsillar enlargement Eyes: Conjunctiva normal, pupils equal, lids normal Neck: No JVD, supple, no guarding CVS: Normal rate, regular rhythm, no murmurs Resp: No resp distress, equal and normal breath sounds bilaterally GI: Nondistended, soft, no tenderness to palpation, no rebound or guarding Ext: No deformities, no edema, normal range of motion in upper and lower ext Back: No CVA or midline TTP Skin: No rash, warm Lymphatic: No lymphadeopathy noted Neuro: Awake, alert. Face symmetric. GCS 15. Course - Re-evaluation Re-evalutation: 05/05/19 00:30 No evidence of injury no indication for imaging no signs of infection Atypical chest pain normal EKG multiple negative work-ups Stable for discharge Please note that clinical decision making for this patient was made during the 2019 pandemic of novel coronavirus which caused a significant strain on the healthcare system including at this particular facility. Criteria for admissio n, discharge and level of care decisions as well as treatment decisions have necessarily changed. Discharge - Discharge Clinical Impression: Chest wall pain Condition: Good Disposition: HOME, SELF-CARE Instructions: Chest Wall Pain ([facility])
[2019-05-05 00:41] VITALS: BP 156/78
== END 2019-05-05 00:38 | disposition home or self-care (01) ==
LOC: ER 00:15
DX: R07.89 Other chest pain (principal); R07.9 Chest pain, unspecified; M25.571 Pain in right ankle and joints of right foot; Z59.0 Homelessness; Z87.891 Personal history of nicotine dependence; J45.909 Unspecified asthma, uncomplicated
CPT/HCPCS: 99284

== ENCOUNTER 2019-05-05 07:00 | Emergency (ER) | payer SELFPAY ==
--- NOTE | 2019-05-05 09:19 | ER Document Report ---
HPI - HPI Time Seen by Provider: 05/05/19 08:15 Pain Level: 2 Context: Patient is a 24-year-old homeless male who presents the emergency department with bilateral feet pain and itchiness. Patient states that he wears socks and changes out his socks. States that he has been walking a lot. - CONSTITUTIONAL Constitutional: DENIES: Fever, Chills - EENT EENT: DENIES: Sore Throat - NEURO Neurology: DENIES: Headache, Weakness - RESPIRATORY Respiratory: DENIES: Trouble Breathing, Coughing - REPRODUCTIVE Reproductive: DENIES: : - MUSCULOSKELETAL Musculoskeletal: REPORTS: Extremity pain - Bilateral feet - DERM Skin Color: Normal Past Medical History - Social History Smoking Status: Never Smoker Family History: Reviewed & Not Pertinent Patient has suicidal ideation: No Patient has homicidal ideation: No Pulmonary Medical History: Reports: Hx Asthma - Immunizations Immunizations up to date: Yes Hx Diphtheria, Pertussis, Tetanus Vaccination: Yes Vertical Provider Document - CONSTITUTIONAL Agree With Documented VS: Yes Exam Limitations: No Limitations General Appearance: No Apparent Distress - INFECTION CONTROL TRAVEL OUTSIDE OF THE [place] IN LAST 30 DAYS: No - HEENT HEENT: Atraumatic, Normocephalic, PERRLA - NECK Neck: Normal Inspection - RESPIRATORY Respiratory: No Respiratory Distress - CARDIOVASCULAR Cardiovascular: Regular Rhythm Pulses: Normal: Posterior tibial, Dorsalis pedis - MUSCULOSKELETAL/EXTREMETIES Musculoskeletal/Extremeties: FROM Notes: Foul odor coming from patient's bilateral feet. - NEURO Level of Consciousness: Awake, Alert, Appropriate Motor/Sensory: No Motor Deficit, No Sensory Deficit - DERM Integumentary: Warm, Dry, No Rash Course - Re-evaluation Re-evalutation: 05/05/19 09:45 Patient has recurrent tinea he does. Patient will be given a prescription for Lotrimin and instructed to buy [id number] [employer]. He is in agreement with this plan. Follow-up precautions were given. Verbal discharge instructions were given to the patient. They verbalized understanding. They are stable for discharge. - Vital Signs Vital signs: Temp Pulse Resp BP Pulse Ox 97.3 F 73 16 132/86 H 100 05/05/19 07:17 05/05/19 07:17 05/05/19 07:17 05/05/19 07:17 05/05/19 07:17 Discharge - Discharge Clinical Impression: Foot pain, bilateral, Tinea pedis, recurrent Condition: Stable Disposition: HOME, SELF-CARE Additional Instructions: You are seen today in the emergency department for bilateral feet pain in itchiness. Please use the medicated powder and [id number] [employer]. Prescriptions: Miconazole Nitrate [Lotrimin Af] 133 gm TP ASDIR PRN #1 aero.powd PRN Reason:
[2019-05-05 11:34] VITALS: BP 105/78
== END 2019-05-05 11:34 | disposition home or self-care (01) ==
LOC: ER 07:00
DX: B35.3 Tinea pedis (principal); M79.671 Pain in right foot; M79.672 Pain in left foot; J45.909 Unspecified asthma, uncomplicated
CPT/HCPCS: 99283

== ENCOUNTER 2019-05-05 23:38 | Emergency (ER) | payer SELFPAY ==
[2019-05-05 23:45] VITALS: BP 141/79
--- NOTE | 2019-05-06 00:07 | ER Document Report ---
ED Respiratory Problem - General Chief Complaint: Shortness Of Breath Stated Complaint: DIFFICULTY BREATHING Time Seen by Provider: 05/06/19 00:03 Notes: CHIEF COMPLAINT: Hyperventilating HPI: 24-year-old male presenting to the emergency department stating that he believes he hyperventilated earlier today. Patient states that his symptoms have resolved at this time but he wanted to come get evaluated. ROS: See HPI - all other systems were reviewed and are otherwise negative Constitutional: no fever Eyes: no drainage, no blurred vision ENT: no runny nose, no sore throat Cardiovascular: no chest pain Resp: no SOB currently, no cough GI: no vomiting, no diarrhea, no abdominal pain : no dysuria Integumentary: no rash Allergy: no hives Musculoskeletal: no extremity pain or swelling Neurological: no numbness/tingling, no weakness MEDICATIONS: I agree with the patient medications as charted by the RN. ALLERGIES: I agree with the allergies as charted by the RN. PAST MEDICAL HISTORY/PAST SURGICAL HISTORY: Reviewed and agree as charted by RN. SOCIAL HISTORY: Reviewed and agree as charted by RN. FAMILY HISTORY: No significant familial comorbid conditions directly related to patient complaint EXAM: Reviewed vital signs as charted by RN. CONSTITUTIONAL: Alert and oriented and responds appropriately to questions. Well-appearing; well-nourished HEAD: Normocephalic; atraumatic EYES: PERRL; Conjunctivae clear, sclerae non-icteric ENT: normal nose; no rhinorrhea; moist mucous membranes; pharynx without lesions noted, no uvula edema or deviation, no tonsillar hypertrophy, phonation normal NECK: Supple without meningismus; non-tender; no cervical lymphadenopathy, no masses CARD: RRR; no murmurs, no clicks, no rubs, no gallops; symmetric distal pulses RESP: Normal chest excursion without splinting or tachypnea; breath sounds clear and equal bilaterally; no wheezes, no rhonchi, no rales, pulse oximetry 100% on room air not hypoxic. Patient is not hyperventilating ABD/GI: Normal bowel sounds; non-distended; soft, non-tender, no rebound, no guarding; no palpable organomegaly or masses. BACK: The back appears normal and is non-tender to palpation, there is no CVA tenderness EXT: Normal ROM in all joints; non-tender to palpation; no cyanosis, no effusions, no edema SKIN: Normal color for age and race; warm; dry; good turgor; no acute lesions noted NEURO: Moves all extremities equally; Motor and sensory function intact PSYCH: The patient's mood and manner are appropriate. Grooming and personal hygiene are appropriate. MDM: 24-year-old homeless male presenting for evaluation of hyperventilation that occurred earlier today. He is not hyperventilating currently. He is playing on a phone. This is his third visit today to the emergency department for evaluation of a complaint. Chest x-ray was done 4 days ago on this patient and was normal. Do not feel that patient needs further work-up or evaluation of this at this time. Will discharge home I will refer him to the health department for further evaluation and management TRAVEL OUTSIDE OF THE [place] IN LAST 30 DAYS: No - Related Data Allergies/Adverse Reactions: No Known Allergies Allergy (Verified 05/02/19 21:28) Past Medical History - Social History Smoking Status: Never Smoker Family History: Reviewed & Not Pertinent Patient has suicidal ideation: No Patient has homicidal ideation: No Pulmonary Medical History: Reports: Hx Asthma - Immunizations Immunizations up to date: Yes Hx Diphtheria, Pertussis, Tetanus Vaccination: Yes Physical Exam - Vital signs Vitals: Temp Pulse Resp BP Pulse Ox 98.7 F 91 20 141/79 H 100 05/05/19 23:43 05/05/19 23:43 05/05/19 23:43 05/05/19 23:43 05/05/19 23:43 Course - Vital Signs Vital signs: Temp Pulse Resp BP Pulse Ox 98.7 F 91 20 141/79 H 100 05/05/19 23:43 05/05/19 23:43 05/05/19 23:43 05/05/19 23:43 05/05/19 23:43 Discharge - Discharge Clinical Impression: Hyperventilation Condition: Stable Disposition: HOME, SELF-CARE Additional Instructions: Follow-up with a primary care provider for further evaluation of your symptoms Referrals: BERT GUTIERRES MD [ACTIVE STAFF] - Follow up as needed
== END 2019-05-06 00:10 | disposition home or self-care (01) ==
LOC: ER 23:38
DX: R06.4 Hyperventilation (principal); R06.02 Shortness of breath; J45.909 Unspecified asthma, uncomplicated
CPT/HCPCS: 99283

== ENCOUNTER 2019-05-13 00:38 | Emergency (ER) | payer SELFPAY ==
[2019-05-13] MEDS ORDERED: KETOROLAC TROMETHAMINE 60 MG/2 ML SDV IM ONE (02:07)
--- NOTE | 2019-05-13 02:17 | ER Document Report ---
HPI - HPI Time Seen by Provider: 05/13/19 02:00 Pain Level: 4 Context: Patient is a 24-year-old male that comes emergency department for chief complaint of pain across his chest, this starts in the center and goes towards the left side of his chest. 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 He denies shortness of breath, dizziness, cough, fever, body aches, abdominal pain, nausea, vomiting, or any other complaints. He denies any daily medications or diagnosed medical history. He denies smoking, alcohol, recreational drugs, or family history other than diabetes. - REPRODUCTIVE Reproductive: DENIES: : Past Medical History - General Information source: Patient - Social History Smoking Status: Former Smoker Frequency of alcohol use: None Drug Abuse: None Lives with: Alone Family History: Reviewed & Not Pertinent Patient has suicidal ideation: No Patient has homicidal ideation: No Pulmonary Medical History: Reports: Hx Asthma Surgical Hx: Negative - Immunizations Immunizations up to date: Yes Hx Diphtheria, Pertussis, Tetanus Vaccination: Yes Vertical Provider Document - CONSTITUTIONAL General Appearance: WD/WN, No Apparent Distress - INFECTION CONTROL TRAVEL OUTSIDE OF THE [place] IN LAST 30 DAYS: No - HEENT HEENT: Atraumatic, Normal ENT Exam, Normocephalic - RESPIRATORY Respiratory: Breath Sounds Normal, No Respiratory Distress. negative: Chest Non-Tender - There is very specific tenderness over the mid chest along the sternal border especially on the left and extending into the pectoral muscle. There is no severe tenderness, erythema, swelling, crepitus, or signs of trauma. Clear lungs, unremarkable chest exam otherwise. - CARDIOVASCULAR Cardiovascular: Regular Rate, Regular Rhythm - GI/ABDOMEN Gastrointestinal: Abdomen Soft, Abdomen Non-Tender. negative: Abdomen Tender - BACK Back: Normal Inspection - MUSCULOSKELETAL/EXTREMETIES Musculoskeletal/Extremeties: MAEW, FROM, Non-Tender - NEURO Level of Consciousness: Awake, Alert, Appropriate Motor/Sensory: No Motor Deficit, No Sensory Deficit - DERM Integumentary: Warm, Dry, No Rash Course - Re-evaluation Re-evalutation: Patient is conversational, alert, well-appearing. He has respiratory chest wall tenderness which developed while he was washing dishes at work. No signs of trauma, no severe tenderness, clear lungs, unremarkable vital signs. EKG is normal, chest x-ray is normal. Very low suspicion of any acute intrathoracic etiology. Patient denies IV drug abuse. Patient will be treated for chest wall pain, provided with Toradol here, afterwards symptoms resolved, patient comfortable and with no complaints. Patient declines a work note. Treating with muscle relaxer. Discussed follow-up and return precautions. Patient states appreciation and agreement. Stable and well-appearing at time of discharge. - Vital Signs Vital signs: Temp Pulse Resp BP Pulse Ox 98.2 F 84 20 131/74 H 99 05/13/19 00:44 05/13/19 00:44 05/13/19 00:44 05/13/19 00:44 05/13/19 00:44 - EKG Interpretation by Me Additional EKG results interpreted by me: EKG shows sinus rhythm at a rate of 81, QTC of 423, normal axis, no T wave inversions or ST segment changes in consecutive leads. Discharge - Discharge Clinical Impression: Chest wall pain Condition: Stable Disposition: HOME, SELF-CARE Additional Instructions: Your chest x-ray and EKG are normal. Your exam indicates pain across her chest wall in the muscles. This should resolve with time. Apply heat to the area, rest the muscles, take the muscle relaxer especially at night to help you sleep, continue your ibuprofen during the day. Follow-up with primary care. Return for any concerning symptoms including spiking fever, difficulty breathing, passing out, severe worsening pain, or any other concerning for symptoms. Prescriptions: Cyclobenzaprine HCl 1 - 2 tab PO Q8H PRN #15 tablet PRN Reason:
--- NOTE | 2019-05-13 03:09 | RADIOLOGY REPORT (SQ) ---
EXAM CLINICAL INDICATION: chest pain. TECHNIQUE: A single portable AP view was obtained of the chest at 0231 hours. COMPARISON: April 19, 2019. FINDINGS: The cardiomediastinal silhouette is normal. The lungs are grossly clear. No evidence of effusion or pneumothorax. The visualized bones are unremarkable. IMPRESSION: No evidence of active intrathoracic disease.
[2019-05-13 03:59] VITALS: BP 140/65
--- NOTE | 2019-05-13 11:30 | EKG REPORT ---
SEVERITY:- NORMAL ECG - SINUS RHYTHM : Confirmed by: Jaden Martniez MD 13-May-2019 11:29:14
== END 2019-05-13 03:40 | disposition home or self-care (01) ==
LOC: ER 00:38
DX: R07.89 Other chest pain (principal)
CPT/HCPCS: 93005; 99284; 96372; 71045; 93010; J1885

== ENCOUNTER 2019-05-16 18:53 | Emergency (ER) | payer SELFPAY ==
--- NOTE | 2019-05-16 19:12 | ER Document Report ---
ED Medical Screen (RME) - General Chief Complaint: Headache Stated Complaint: HEADACHE Time Seen by Provider: 05/16/19 19:05 Mode of Arrival: Ambulatory Information source: Patient Notes: Patient presents reporting headache that resolved and chest pain that had initially resolved. During interview patient states that chest pain is starting to return. Patient denies any cough cold symptoms or shortness of breath. Patient denies any significant medical history. Patient well-known to the emergency department as he is homeless. I have greeted and performed a rapid initial assessment of this patient. A comprehensive ED assessment and evaluation of the patient, analysis of test results and completion of the medical decision making process will be conducted by additional ED providers. TRAVEL OUTSIDE OF THE [place] IN LAST 30 DAYS: No - Related Data Allergies/Adverse Reactions: No Known Allergies Allergy (Verified 05/13/19 00:43) Past Medical History Pulmonary Medical History: Reports: Hx Asthma - Immunizations Immunizations up to date: Yes Hx Diphtheria, Pertussis, Tetanus Vaccination: Yes Physical Exam - Vital signs Vitals: Temp Pulse Resp BP Pulse Ox 98.9 F 102 H 19 148/80 H 97 05/16/19 18:57 05/16/19 18:57 05/16/19 18:57 05/16/19 18:57 05/16/19 18:57 - Respiratory Respiratory status: No respiratory distress Breath sounds: Normal - Cardiovascular Rhythm: Regular Heart sounds: S1 appreciated, S2 appreciated Course - Vital Signs Vital signs: Temp Pulse Resp BP Pulse Ox 98.9 F 102 H 19 148/80 H 97 05/16/19 18:57 05/16/19 18:57 05/16/19 18:57 05/16/19 18:57 05/16/19 18:57
--- NOTE | 2019-05-16 20:12 | ER Document Report ---
ED General - General Chief Complaint: Headache Stated Complaint: HEADACHE Time Seen by Provider: 05/16/19 19:05 Mode of Arrival: Ambulatory TRAVEL OUTSIDE OF THE [place] IN LAST 30 DAYS: No - HPI Notes: Chief complaint: Headache 24-year-old male well-known to this ED and to me personally from numerous prior encounters now presenting with a headache. He describes it as a dull bifrontal headache not associated with trauma, fever chills or rash. Is not taking anything for his pain. This is similar to multiple headaches he has had in the past. Patient is homeless. 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 He is not on any regular medications and has no known allergies. Denies smoking cigarettes. Currently denies abuse of drugs or alcohol. - Related Data Allergies/Adverse Reactions: No Known Allergies Allergy (Verified 05/13/19 00:43) Past Medical History - General Information source: Patient - Social History Smoking Status: Never Smoker Family History: Reviewed & Not Pertinent Patient has suicidal ideation: No Patient has homicidal ideation: No Pulmonary Medical History: Reports: Hx Asthma - Immunizations Immunizations up to date: Yes Hx Diphtheria, Pertussis, Tetanus Vaccination: Yes Review of Systems - Review of Systems Notes: Constitutional: Negative for fever. HENT: Negative for sore throat. Eyes: Negative for visual changes. Cardiovascular: Patient says he "sometimes has chest pain" but denies any active chest pain at this time. Respiratory: Negative for shortness of breath. Gastrointestinal: Negative for abdominal pain, vomiting or diarrhea. Genitourinary: Negative for dysuria. Musculoskeletal: Negative for back pain. Skin: Negative for rash. Neurological: As per HPI. No focal weakness or numbness. 10 point ROS negative except as marked above and in HPI. Physical Exam - Vital signs Vitals: Temp Pulse Resp BP Pulse Ox 98.9 F 102 H 19 148/80 H 97 05/16/19 18:57 05/16/19 18:57 05/16/19 18:57 05/16/19 18:57 05/16/19 18:57 - Notes Notes: GENERAL: Well-developed well-nourished appearing in no acute distress. Very poor personal hygiene. SKIN: Good turgor no rashes. HEAD: Normocephalic atraumatic. EYES: PERRLA. EOMI. Conjunctivae and sclerae clear. EARS: CANALS AND TMS CLEAR. NOSE: CLEAR. MOUTH: Moist mucosa. Good dentition. No stridor or edema. No drooling. NECK: Supple. No masses or thyromegaly. No adenopathy. Carotids 2+ without bruits. No JVD. BACK: Symmetrical without tenderness. CHEST: Respirations unlabored. Breath sounds clear and symmetrical. HEART: Regular rhythm. No murmur gallop or rub. ABDOMEN: Soft nontender without masses, organomegaly or rebound. Bowel sounds normally active. No bruits. GENITALIA: Deferred. EXTREMITIES: No edema. No calf tenderness. Cap refill less than 1.5 seconds. Dorsalis pedis and posterior tibial pulses 3+ and symmetrical. NEUROLOGICAL: GCS 15. Alert and oriented x3. Normal gait. Fluent speech. Cranial nerves II through XII intact. Sensorimotor and cerebellar normal. Normal tone. PSYCHIATRIC: Appropriate affect. Course - Re-evaluation Re-evalutation: 05/16/19 20:11 There are no red flag findings. I am going to treat him symptomatically with naproxen and refer him to a community clinic for follow-up. - Vital Signs Vital signs: Temp Pulse Resp BP Pulse Ox 98.9 F 102 H 19 148/80 H 97 05/16/19 18:57 05/16/19 18:57 05/16/19 18:57 05/16/19 18:57 05/16/19 18:57 Discharge - Discharge Clinical Impression: Headache Condition: Stable Disposition: HOME, SELF-CARE Instructions: Headache ([facility]) Prescriptions: Naproxen 500 mg PO BID PRN 7 Days #14 tablet PRN Reason: Referrals: [facility] [Provider Group] - Follow up as needed
[2019-05-16 20:32] VITALS: BP 139/86
--- NOTE | 2019-05-17 09:26 | EKG REPORT ---
SEVERITY:- OTHERWISE NORMAL ECG - SINUS ARRHYTHMIA, RATE 61-97 : Confirmed by: Ina Min 17-May-2019 09:25:52
== END 2019-05-16 20:32 | disposition home or self-care (01) ==
LOC: ER 18:53
DX: R51 Headache (principal); R07.9 Chest pain, unspecified
CPT/HCPCS: 93005; 93010; 99284

== ENCOUNTER 2019-05-19 02:53 | Emergency (ER) | payer SELFPAY ==
--- NOTE | 2019-05-19 03:25 | ER Document Report ---
HPI - HPI Time Seen by Provider: 05/19/19 03:08 Pain Level: Denies Context: Patient is a 24-year-old male that comes emergency department with chief complaints of intermittent sore throat and a developing cough over the past several days. No reported fevers. He denies chest pain but states sometimes he feels a "tightening" in the chest. He denies nausea or vomiting, abdominal pain, headaches, or any other complaints at this time. He denies any diagnosed medical history. He denies smoking cigarettes or recreational drugs. - REPRODUCTIVE Reproductive: DENIES: : Past Medical History - Social History Smoking Status: Current Every Day Smoker Chew tobacco use (# tins/day): No Frequency of alcohol use: None Family History: Reviewed & Not Pertinent Patient has suicidal ideation: No Patient has homicidal ideation: No Pulmonary Medical History: Reports: Hx Asthma - Immunizations Immunizations up to date: Yes Hx Diphtheria, Pertussis, Tetanus Vaccination: Yes Vertical Provider Document - CONSTITUTIONAL General Appearance: WD/WN, No Apparent Distress - Somewhat disheveled but in no distress - INFECTION CONTROL TRAVEL OUTSIDE OF THE [place] IN LAST 30 DAYS: No - HEENT HEENT: Atraumatic, Normal ENT Exam - Unremarkable oral pharyngeal exam, ear exam, eye exam, Normocephalic - NECK Neck: Normal Inspection - RESPIRATORY Respiratory: Breath Sounds Normal, No Respiratory Distress, Chest Non-Tender. negative: Wheezing - Occasional nonproductive coughing episodes, otherwise unremarkable, no respiratory distress, clear lung sounds - CARDIOVASCULAR Cardiovascular: Regular Rate, Regular Rhythm - GI/ABDOMEN Gastrointestinal: Abdomen Soft, Abdomen Non-Tender. negative: Abdomen Tender - BACK Back: Normal Inspection - MUSCULOSKELETAL/EXTREMETIES Musculoskeletal/Extremeties: MAEW, FROM, Non-Tender - NEURO Level of Consciousness: Awake, Alert, Appropriate Motor/Sensory: No Motor Deficit, No Sensory Deficit - DERM Integumentary: Warm, Dry, No Rash Course - Re-evaluation Re-evalutation: Patient does report he has employment but he also has a history of homelessness and visits to this emergency department frequently. Patient with coughing episodes, reported sore throat, otherwise unremarkable evaluation. Chest x-ray is negative. Initial pulse ox was documented incorrectly, this was rechecked and was 100%. Because patient is homeless and because he visits his department frequently I do feel there is utility in testing him for the coronavirus which he is asking about. This was performed, given isolation precautions/recommendations, discussed return precautions. Patient states understanding and agreement. Stable and well-appearing at time of discharge. - Vital Signs Vital signs: Temp Pulse Resp BP Pulse Ox 98.4 F 77 18 149/85 H 77 L 05/19/19 03:13 05/19/19 03:13 05/19/19 03:13 05/19/19 03:13 05/19/19 03:13 Discharge - Discharge Clinical Impression: Cough, Sore throat Condition: Stable Disposition: HOME, SELF-CARE Additional Instructions: Your influenza test is negative, your chest x-ray does not show any concerning findings, your evaluation is reassuring. You have been tested for the coronavirus, you will be contacted with the results of this. It is important that you isolate from other people while this is pending, if it is positive you need to complete 2 weeks of isolation to avoid spreading this to other people. Return if you worsen including spiking fever, developing severe pain, difficulty breathing, or any other concerning symptoms.
[2019-05-19 04:17] LABS: A TYPE INFLUENZA AG NEGATIVE (NEGATIVE); B INFLUENZA AG NEGATIVE (NEGATIVE)
--- NOTE | 2019-05-19 05:49 | RADIOLOGY REPORT (SQ) ---
EXAM DESCRIPTION: XR CHEST 1 VIEW COMPLETED DATE/TME: 05/19/2019, 3:53 AM CLINICAL HISTORY: 24 years, Male, chest tightness sob COMPARISON: 05/13/2019 chest NUMBER OF VIEWS: 1 TECHNIQUE: Portable chest LIMITATIONS: None. FINDINGS: The heart size is normal. Lungs are clear. No pneumothorax IMPRESSION: Negative chest copyright 2011 [employer]- All Rights Reserved
[2019-05-19 06:08] VITALS: BP 117/70
== END 2019-05-19 06:17 | disposition home or self-care (01) ==
LOC: ER 02:53
DX: J02.9 Acute pharyngitis, unspecified (principal); R05 Cough; R07.89 Other chest pain; J45.909 Unspecified asthma, uncomplicated; F17.200 Nicotine dependence, unspecified, uncomplicated; Z59.0 Homelessness
CPT/HCPCS: 71045; 87635; 87804; 99283

== ENCOUNTER 2019-05-19 23:50 | Emergency (ER) | payer SELFPAY ==
--- NOTE | 2019-05-20 00:26 | ER Document Report ---
HPI - HPI Time Seen by Provider: 05/20/19 00:13 Pain Level: 4 Context: Patient is a 24-year-old male that comes emergency department for chief complaint of coughing. He states the cough that started over the past couple of days worsened today so he came in for recheck. He was seen yesterday by me, because he is in this emergency department frequently and because he is frequently homeless, decision was made to do testing for the coronavirus, this is still pending. He was negative for influenza and had a negative chest x-ray. He denies any fevers, he denies having a sore throat at this time. He states he was an asthmatic as a child, has not had any trouble in a long time. He takes no daily medications. He denies medical history otherwise. He denies any other complaints. - CARDIOVASCULAR Cardiovascular: REPORTS: Chest pain - RESPIRATORY Respiratory: REPORTS: Coughing - REPRODUCTIVE Reproductive: DENIES: : Past Medical History - General Information source: Patient - Social History Smoking Status: Never Smoker Frequency of alcohol use: None Drug Abuse: None Lives with: Family Family History: Reviewed & Not Pertinent Patient has suicidal ideation: No Patient has homicidal ideation: No Pulmonary Medical History: Reports: Hx Asthma Surgical Hx: Negative - Immunizations Immunizations up to date: Yes Hx Diphtheria, Pertussis, Tetanus Vaccination: Yes Vertical Provider Document - CONSTITUTIONAL General Appearance: WD/WN, No Apparent Distress - Sleeping but easily aroused - INFECTION CONTROL TRAVEL OUTSIDE OF THE [place] IN LAST 30 DAYS: No - HEENT HEENT: Atraumatic, Normal ENT Exam - Unremarkable oropharyngeal exam, ear exam, ENT exam otherwise, Normocephalic - NECK Neck: Normal Inspection - RESPIRATORY Respiratory: Breath Sounds Normal, No Respiratory Distress. negative: Wheezing - No wheezing, tachypnea, cough, or signs of distress. Normal exam - CARDIOVASCULAR Cardiovascular: Regular Rate, Regular Rhythm. negative: Tachycardia - GI/ABDOMEN Gastrointestinal: Abdomen Soft, Abdomen Non-Tender. negative: Abdomen Tender - BACK Back: Normal Inspection - MUSCULOSKELETAL/EXTREMETIES Musculoskeletal/Extremeties: MAEW, FROM, Non-Tender - NEURO Level of Consciousness: Awake, Alert, Appropriate Motor/Sensory: No Motor Deficit, No Sensory Deficit - DERM Integumentary: Warm, Dry, No Rash Course - Re-evaluation Re-evalutation: Patient is cooperative, polite, well-appearing. No coughing on my exam. Clear lungs. No hypoxia, no fever. Unremarkable ENT exam. Negative work-up yesterday, pending coronavirus testing. Discussed exam, recommendations, social isolation, and how this is very likely allergic symptoms. Discussed return precautions. Patient states understanding and agreement. I asked patient about his homelessness and current status in general and he states that he is doing well and he is getting a place tomorrow. - Vital Signs Vital signs: Temp Pulse Resp BP Pulse Ox 98.2 F 88 16 143/73 H 100 05/19/19 23:58 05/19/19 23:58 05/19/19 23:58 05/19/19 23:58 05/19/19 23:58 Discharge - Discharge Clinical Impression: Cough Condition: Stable Disposition: HOME, SELF-CARE Additional Instructions: Your evaluation at this time is reassuring. You have been tested for the coronavirus, you will be contacted with the results of this but this can take around a week. It is important that you isolate from other people while this is pending, if it is positive you need to complete 2 weeks of isolation to avoid spreading this to other people. It is quite possible that your symptoms are from environmental allergies, [id number] medications such as cetirizine daily can help reduce this. Return if you worsen including spiking fever, developing severe pain, difficulty breathing, or any other concerning symptoms.
[2019-05-20 00:41] VITALS: BP 121/65
== END 2019-05-20 00:41 | disposition home or self-care (01) ==
LOC: ER 23:50
DX: R05 Cough (principal); R07.9 Chest pain, unspecified; J45.909 Unspecified asthma, uncomplicated
CPT/HCPCS: 99283

== ENCOUNTER 2019-05-28 00:07 | Emergency (ER) | payer SELFPAY ==
[2019-05-28 01:44] LABS: APPEARANCE,URINE CLEAR; BILIRUBIN,URINE NEGATIVE (NEGATIVE); COLOR,URINE YELLOW; GLUCOSE, URINE NEGATIVE (NEGATIVE); KETONES,URINE NEGATIVE (NEGATIVE); LEUKOCYTE ESTERASE,URINE NEGATIVE (NEGATIVE); NITRITE,URINE NEGATIVE (NEGATIVE); PROTEIN,URINE NEGATIVE (NEGATIVE); URINE SPECIFIC GRAVITY 1.028
[2019-05-28] MEDS ORDERED: FAMOTIDINE 20 MG TABLET PO ONE (03:37)
[2019-05-28] MEDS ORDERED: ONDANSETRON ODT 4 MG TAB (6 TAB/ER DISP) PO PRN (03:37)
[2019-05-28] MEDS ORDERED: SUCRALFATE 1 GM TABLET PO ONE (03:37)
[2019-05-28] MEDS ORDERED: ONDANSETRON 4 MG TAB.RAPDIS PO ONE (03:37)
--- NOTE | 2019-05-28 03:38 | ER Document Report ---
ED GI/ - General Chief Complaint: Vomiting Stated Complaint: VOMITING,STOMACH PAIN Time Seen by Provider: 05/28/19 01:25 Primary Care Provider: [facility] [Provider Group] - Follow up as needed [facility] [place] [Provider Group] - Follow up as needed Notes: Patient is a 24-year-old male, well-known to this emergency department who presents emergency department with abdominal pain and one episode of vomiting. Patient ended up having abdominal pain yesterday that has gone on today. He states that it is not severe and it only hurts a little bit. He has not tried to take any medication to help with his symptoms. TRAVEL OUTSIDE OF THE [place] IN LAST 30 DAYS: No - Related Data Allergies/Adverse Reactions: No Known Allergies Allergy (Verified 05/28/19 00:13) Past Medical History - Social History Smoking Status: Current Every Day Smoker Frequency of alcohol use: None Drug Abuse: None Family History: Reviewed & Not Pertinent Patient has suicidal ideation: No Patient has homicidal ideation: No Pulmonary Medical History: Reports: Hx Asthma - Immunizations Immunizations up to date: Yes Hx Diphtheria, Pertussis, Tetanus Vaccination: Yes Review of Systems - Review of Systems Notes: REVIEW OF SYSTEMS: CONSTITUTIONAL : Denies recent illness. Denies recent unintentional weight loss. Denies fever, chills, or sweats. EENT: Denies eye, ear, throat, or mouth pain, discharge, or symptoms. Denies nasal or sinus congestion. CARDIOVASCULAR: Denies chest pain. RESPIRATORY: Denies shortness of breath, cough, congestion, difficulty breathing, or wheezing. GASTROINTESTINAL: See HPI. GENITOURINARY: Denies difficulty urinating, burning, blood in urine, urgency or frequency. MUSCULOSKELETAL: Denies neck and back pain. Denies joint pain or swelling. SKIN: Denies rash, itchiness, or lesions HEMATOLOGIC : Denies easy bruising or bleeding. LYMPHATIC: Denies swollen, painful, enlarged glands. NEUROLOGICAL: Denies no numbness or tingling denies weakness. Denies headache. Denies altered mental status. Denies alteration in speech. PSYCHIATRIC: Denies stress, anxiety, alteration in sleep patterns, or depression. All other systems reviewed and negative. Physical Exam - Vital signs Vitals: Temp Pulse Resp BP Pulse Ox 98.2 F 88 16 143/89 H 100 05/28/19 00:12 05/28/19 00:12 05/28/19 00:12 05/28/19 00:12 05/28/19 00:12 - Notes Notes: PHYSICAL EXAMINATION: GENERAL: Appears well, healthy, well-nourished, no acute distress. Resting peacefully and snoring. HEAD: Normocephalic, atraumatic. EYES: PERRL, conjunctiva normal, all extraocular movements intact, sclera nonicteric ENT: Moist mucous membranes. ABDOMEN: Normoactive bowel sounds. Soft, mildly tender left upper abdomen, no guarding, no rebound tenderness, and no masses palpated. EXTREMITIES: Normal strength and range of motion, no pitting or edema. No cyanosis. NEUROLOGICAL: Moves all extremities upon command. Strength 5/5 in all extremities. PSYCH: Normal mood, normal affect. SKIN: Warm, dry. No rash, lesions, ulcerations noted. Normal skin turgor. Course - Re-evaluation Re-evalutation: 05/28/19 03:51 Patient's abdominal pain is consistent with gastritis. He will be sent home with Zofran. States that he feels better after receiving Zofran, Pepcid, and Carafate. 05/28/19 04:53 I have reevaluated the patient. Patient states that he feels better after receiving Zofran, Pepcid, and Carafate. I have very low suspicion for acute appendicitis, mesenteric ischemia, bowel obstruction, or any life-threatening etiology at this time. Follow-up precautions were given. Verbal discharge instructions were given to the patient. They verbalized understanding. They are stable for discharge. - Vital Signs Vital signs: Temp Pulse Resp BP Pulse Ox 98.2 F 88 16 143/89 H 100 05/28/19 00:12 05/28/19 00:12 05/28/19 00:12 05/28/19 00:12 05/28/19 00:12 - Laboratory Laboratory results interpreted by me: 05/28/19 00:20 Urine Urobilinogen 4.0 H Discharge - Discharge Clinical Impression: Abdominal pain Qualifiers: Abdominal location: left upper quadrant Qualified Code(s): R10.12 - Left upper quadrant pain Vomiting Qualifiers: Vomiting type: unspecified Vomiting Intractability: unspecified Nausea presence: with nausea Qualified Code(s): R11.2 - Nausea with vomiting, unspecified Condition: Stable Disposition: HOME, SELF-CARE Instructions: Antinausea Medication ([facility]), Vomiting ([facility]) Additional Instructions: You were seen today in the emergency department for abdominal pain and vomiting. Take [id number] Pepcid daily to help with your symptoms. You are being sent home with Zofran, medication to help with nausea. Follow-up with 1 of the clinics below. Referrals: [facility] [Provider Group] - Follow up as needed [facility] [Provider Group] - Follow up as needed
[2019-05-28 05:04] VITALS: BP 140/73
== END 2019-05-28 05:00 | disposition home or self-care (01) ==
LOC: ER 00:07
DX: R11.2 Nausea with vomiting, unspecified (principal); R10.12 Left upper quadrant pain; J45.909 Unspecified asthma, uncomplicated; F17.200 Nicotine dependence, unspecified, uncomplicated
CPT/HCPCS: 99284; 81001; S0119

== ENCOUNTER 2019-05-29 01:36 | Emergency (ER) | payer SELFPAY ==
[2019-05-29] MEDS ORDERED: IBUPROFEN 600 MG TABLET PO ONE (03:50)
--- NOTE | 2019-05-29 04:46 | ER Document Report ---
ED General - General Chief Complaint: Chest Pain Stated Complaint: BACK PAIN Time Seen by Provider: 05/29/19 03:18 Primary Care Provider: [facility] [Provider Group] - Follow up as needed [facility] [Provider Group] - Follow up as needed Notes: Patient is a 24-year-old male, well-known to this emergency department who presents the emergency department with a chief complaint of back pain and chest pain. Patient states that the pain is in the left side of his chest. Patient works that [employer]. 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 He does lots of bending, lifting, and arm movements, which exacerbate the pain. Denies any past medical history. He does not take any medications on a normal basis. He has a history of GERD. Patient is currently homeless. TRAVEL OUTSIDE OF THE [place] IN LAST 30 DAYS: No - Related Data Allergies/Adverse Reactions: No Known Allergies Allergy (Verified 05/28/19 00:13) Past Medical History - Social History Smoking Status: Current Every Day Smoker Chew tobacco use (# tins/day): No Frequency of alcohol use: None Drug Abuse: None Family History: Reviewed & Not Pertinent Patient has suicidal ideation: No Patient has homicidal ideation: No Pulmonary Medical History: Reports: Hx Asthma - Immunizations Immunizations up to date: Yes Hx Diphtheria, Pertussis, Tetanus Vaccination: Yes Review of Systems - Review of Systems Notes: REVIEW OF SYSTEMS: CONSTITUTIONAL : Denies recent illness. Denies recent unintentional weight loss. Denies fever, chills, or sweats. EENT: Denies eye, ear, throat, or mouth pain, discharge, or symptoms. Denies nasal or sinus congestion. CARDIOVASCULAR: See HPI. RESPIRATORY: Denies shortness of breath, cough, congestion, difficulty breathing, or wheezing. GASTROINTESTINAL: See HPI. GENITOURINARY: Denies difficulty urinating, burning, blood in urine, urgency or frequency. MUSCULOSKELETAL: See HPI. Denies joint pain or swelling. SKIN: Denies rash, itchiness, or lesions HEMATOLOGIC : Denies easy bruising or bleeding. LYMPHATIC: Denies swollen, painful, enlarged glands. NEUROLOGICAL: Denies no numbness or tingling denies weakness. Denies headache. Denies altered mental status. Denies alteration in speech. PSYCHIATRIC: Denies stress, anxiety, alteration in sleep patterns, or depression. All other systems reviewed and negative. Physical Exam - Vital signs Vitals: Temp Pulse Resp BP Pulse Ox 98.9 F 86 16 153/89 H 99 05/29/19 01:41 05/29/19 01:41 05/29/19 01:41 05/29/19 01:41 05/29/19 01:41 - Notes Notes: PHYSICAL EXAMINATION: GENERAL: Appears well, healthy, well-nourished, no acute distress. HEAD: Normocephalic, atraumatic. EYES: PERRL, conjunctiva normal, all extraocular movements intact, sclera nonicteric ENT: Moist mucous membranes. NECK: Supple, no noticeable swelling, redness, rash. Normal range of motion. LUNGS: Equal breath sounds bilaterally and clear to auscultation. No wheezes rales or rhonchi. CARDIOVASCULAR: S1-S2, regular rate, regular rhythm. Radial pulses 2+, normal. ABDOMEN: Normoactive bowel sounds. Soft, nontender, no guarding, no rebound tenderness, and no masses palpated. EXTREMITIES: Normal strength and range of motion, no pitting or edema. No cyanosis. NEUROLOGICAL: Moves all extremities upon command. Strength 5/5 in all extremities. PSYCH: Normal mood, normal affect. SKIN: Warm, dry. No rash, lesions, ulcerations noted. Normal skin turgor. CHEST: Tenderness upon palpation of left anterior chest. Course - Re-evaluation Re-evalutation: 05/29/19 04:56 Patient's chest pain is present upon palpation. He was given ibuprofen to help with the pain, but he states that it made the pain worse. Patient will be given Pepcid and Carafate, as he most likely also has gastritis. He was seen in the emergency department by myself with abdominal pain. Yesterday when I gave him Pepcid and Carafate, his symptoms went away. Will reassess. 05/29/19 06:03 Patient states he feels better after receiving pepcid and carafate. Will write him a prescription for pepcid. He will follow up with the [facility] or [facility] in regards to this visit. Follow-up precautions were given. Verbal discharge instructions were given to the patient. They verbalized understanding. They are stable for discharge. - Vital Signs Vital signs: Temp Pulse Resp BP Pulse Ox 97.3 F 89 16 122/74 99 05/29/19 06:15 05/29/19 06:15 05/29/19 06:15 05/29/19 06:15 05/29/19 06:15 Discharge - Discharge Clinical Impression: Costochondritis, Chest wall pain Back pain Qualifiers: Back pain location: thoracic back pain Chronicity: acute Back pain laterality: left Qualified Code(s): M54.6 - Pain in thoracic spine Gastritis Qualifiers: Gastritis type: unspecified gastritis Chronicity: unspecified Gastritis bleeding: without bleeding Qualified Code(s): K29.70 - Gastritis, unspecified, without bleeding Condition: Stable Disposition: HOME, SELF-CARE Additional Instructions: You are seen today in the emergency department for chest pain and back pain. Your pain is caused by gastritis. Please take pepcid daily to help with your symptoms. You can use the prescription or buy it over the counter. Prescriptions: Famotidine [Pepcid 20 mg Tablet] 20 mg PO BID #60 tablet Referrals: [facility] [Provider Group] - Follow up as needed [facility] [Provider Group] - Follow up as needed
[2019-05-29] MEDS ORDERED: FAMOTIDINE 20 MG TABLET PO ONE (04:50)
[2019-05-29] MEDS ORDERED: SUCRALFATE 1 GM TABLET PO ONE (04:50)
[2019-05-29 06:21] VITALS: BP 122/74
--- NOTE | 2019-05-29 09:09 | EKG REPORT ---
SEVERITY:- NORMAL ECG - SINUS RHYTHM : Confirmed by: Janneth Hunter MD 29-May-2019 09:08:01
== END 2019-05-29 06:15 | disposition home or self-care (01) ==
LOC: ER 01:36
DX: M94.0 Chondrocostal junction syndrome [Tietze] (principal); K29.70 Gastritis, unspecified, without bleeding; R07.89 Other chest pain; M54.6 Pain in thoracic spine; F17.200 Nicotine dependence, unspecified, uncomplicated; J45.909 Unspecified asthma, uncomplicated; Z59.0 Homelessness
CPT/HCPCS: 93005; 93010; 99284

== ENCOUNTER 2019-05-29 22:53 | Emergency (ER) | payer SELFPAY ==
[2019-05-29 23:02] VITALS: BP 140/80
[2019-05-29] MEDS ORDERED: IBUPROFEN 600 MG TABLET PO ONE (23:30)
--- NOTE | 2019-05-29 23:31 | ER Document Report ---
HPI - HPI Time Seen by Provider: 05/29/19 23:30 Pain Level: Denies Notes: CHIEF COMPLAINT: Continuing chest pain HPI: 24-year-old male presenting again to the emergency department for chest pain he states is been ongoing for 4 days. Pain is in the left chest, hurts to move hurts to palpate. He has taken no medications for his symptoms. Patient was here less than 24 hours ago for same complaint. Patient states it has not changed. He denies fever. He denies cough. He denies shortness of breath. He denies drug use including methamphetamine and cocaine. He denies alcohol use. ROS: See HPI - all other systems were reviewed and are otherwise negative Constitutional: no fever Eyes: no drainage, no blurred vision ENT: no runny nose, no sore throat Cardiovascular: + chest wall pain Resp: no SOB, no cough GI: no vomiting, no diarrhea, no abdominal pain : no dysuria Integumentary: no rash Allergy: no hives Musculoskeletal: no extremity pain or swelling Neurological: no numbness/tingling, no weakness MEDICATIONS: I agree with the patient medications as charted by the RN. ALLERGIES: I agree with the allergies as charted by the RN. PAST MEDICAL HISTORY/PAST SURGICAL HISTORY: Reviewed and agree as charted by RN. SOCIAL HISTORY: Reviewed and agree as charted by RN. FAMILY HISTORY: No significant familial comorbid conditions directly related to patient complaint EXAM: Reviewed vital signs as charted by RN. CONSTITUTIONAL: Alert and oriented and responds appropriately to questions. Well-appearing; well-nourished, no acute distress. Patient is playing on his phone and eating during his evaluation HEAD: Normocephalic; atraumatic EYES: PERRL; Conjunctivae clear, sclerae non-icteric ENT: normal nose; no rhinorrhea; moist mucous membranes; pharynx without lesions noted, no uvula edema or deviation, no tonsillar hypertrophy, phonation normal NECK: Supple without meningismus; non-tender; no cervical lymphadenopathy, no masses CARD: RRR; no murmurs, no clicks, no rubs, no gallops; symmetric distal pulses. There is reproducible discomfort on palpation of the left anterior chest wall RESP: Normal chest excursion without splinting or tachypnea; breath sounds clear and equal bilaterally; no wheezes, no rhonchi, no rales, pulse oximetry 98% on room air not hypoxic ABD/GI: Normal bowel sounds; non-distended; soft, non-tender, no rebound, no guarding; no palpable organomegaly or masses. BACK: The back appears normal and is non-tender to palpation, there is no CVA tenderness EXT: Normal ROM in all joints; non-tender to palpation; no cyanosis, no effusions, no edema SKIN: Normal color for age and race; warm; dry; good turgor; no acute lesions noted NEURO: Moves all extremities equally; Motor and sensory function intact PSYCH: The patient's mood and manner are appropriate. Grooming and personal hygiene are appropriate. MDM: 24-year-old male who is homeless presenting for chest wall pain. States it is been going on for 4 days. He has 43 visits to the emergency department in 3 months. Was seen here less than 24 hours for same complaint. On review of his records all of his drug screens have been negative in the past and he denies cocaine or amphetamine use. He has otherwise no known risk factors for ACS. As his pain is completely reproducible and has been ongoing and constant for 4 days I suspect this is malingering and chest wall pain. Will give patient Motrin here he was given strict instruction to follow-up with a primary care provider for evaluation and management. - REPRODUCTIVE Reproductive: DENIES: : Past Medical History - Social History Smoking Status: Current Some Day Smoker Chew tobacco use (# tins/day): No Frequency of alcohol use: None Drug Abuse: None Family History: Reviewed & Not Pertinent Patient has suicidal ideation: No Patient has homicidal ideation: No Pulmonary Medical History: Reports: Hx Asthma - Immunizations Immunizations up to date: Yes Hx Diphtheria, Pertussis, Tetanus Vaccination: Yes Vertical Provider Document - INFECTION CONTROL TRAVEL OUTSIDE OF THE [place] IN LAST 30 DAYS: No Course - Vital Signs Vital signs: Temp Pulse Resp BP Pulse Ox 98.9 F 103 H 16 140/80 H 100 05/29/19 23:01 05/29/19 23:01 05/29/19 23:01 05/29/19 23:01 05/29/19 23:01 Discharge - Discharge Clinical Impression: Chest wall pain, Malingering Condition: Stable Disposition: HOME, SELF-CARE Additional Instructions: Your pain is reproducible in nature, you have indicated you do not do drugs like cocaine and methamphetamines which would put you at risk for a heart issue. You have no known history of heart disease. You need to follow this complaint up with a primary care provider for further evaluation and management. You need to take ibuprofen or Tylenol consistently for the discomfort. It is very important that you obtain a primary care provider as you have had 43 visits to the emergency department within a 3-month span.
--- NOTE | 2019-05-30 01:59 | EKG REPORT ---
SEVERITY:- OTHERWISE NORMAL ECG - SINUS TACHYCARDIA : Confirmed by: Janneth Hunter MD 30-May-2019 01:59:09
== END 2019-05-29 23:37 | disposition home or self-care (01) ==
LOC: ER 22:53
DX: R07.89 Other chest pain (principal); F17.200 Nicotine dependence, unspecified, uncomplicated; J45.909 Unspecified asthma, uncomplicated; Z76.5 Malingerer [conscious simulation]
CPT/HCPCS: 93005; 93010; 99284

== ENCOUNTER 2019-06-02 23:55 | Emergency (ER) | payer SELFPAY ==
--- NOTE | 2019-06-03 00:10 | ER Document Report ---
ED Medical Screen (RME) - General Chief Complaint: Shortness Of Breath Stated Complaint: SHORTNESS OF BREATH AND WHEEZING Notes: Patient is a 24-year-old -[place]ish male with a reported past medical history of pneumonia who presents emergency department today with a chief complaint of suspected pneumonia. States that for the past 2 days he has had shortness of breath, dry cough and pain in the left anterior lateral chest with deep inspiration. Denies any fever or recent travel. Works 2 jobs at a [employer] and has had multiple close contacts, no known sick contacts however. Denies any vomiting or diarrhea. No chest pain at rest. No sore throat, chills or night sweats. No abdominal pain. I have treated and performed a rapid initial assessment of this patient. A comprehensive ED assessment and evaluation of the patient, analysis of test results and completion of medical decision making process will be conducted by additional ED providers. PHYSICAL EXAMINATION: GENERAL: Well-appearing, well-nourished and in no acute distress. A&Ox4. Answers questions appropriately. TRAVEL OUTSIDE OF THE [place] IN LAST 30 DAYS: No - Related Data Allergies/Adverse Reactions: No Known Allergies Allergy (Verified 05/28/19 00:13) Past Medical History Pulmonary Medical History: Reports: Hx Asthma - Immunizations Immunizations up to date: Yes Hx Diphtheria, Pertussis, Tetanus Vaccination: Yes Physical Exam - Vital signs Vitals: Pulse Resp BP Pulse Ox 89 16 139/96 H 100 06/03/19 00:01 06/03/19 00:01 06/03/19 00:01 06/03/19 00:01 Course - Vital Signs Vital signs: Temp Pulse Resp BP Pulse Ox 89 16 139/96 H 100 06/03/19 00:01 06/03/19 00:01 06/03/19 00:01 06/03/19 00:01
--- NOTE | 2019-06-03 01:33 | ER Document Report ---
ED General - General Chief Complaint: Shortness Of Breath Stated Complaint: SHORTNESS OF BREATH AND WHEEZING Time Seen by Provider: 06/03/19 01:31 Mode of Arrival: Ambulatory Information source: Patient Notes: [place] Patient is a 24-year-old -[place] male with a reported past medical history of pneumonia who presents emergency department today with a chief complaint of suspected pneumonia. States that for the past 2 days he has had shortness of breath, dry cough and pain in the left anterior lateral chest with deep inspiration. Denies any fever or recent travel. Works 2 jobs at a [employer] and has had multiple close contacts, no known sick contacts however. Denies any vomiting or diarrhea. No chest pain at rest. No sore throat, chills or night sweats. No abdominal pain. my notes; 25-year-old black male arrives with chief complaint of 2-day history of nonproductive cough and wheezing and pain in his left chest upon deep breathing. Patient has been seen here recently and had a negative COVID 19 test as well as screening for other diseases. His chest x-ray today was interstitial pattern but no pneumonia. Patient has a history of being homeless and we suspect secondary gain from coming to the ER so frequently. TRAVEL OUTSIDE OF THE [place] IN LAST 30 DAYS: No - Related Data Allergies/Adverse Reactions: No Known Allergies Allergy (Verified 05/28/19 00:13) Past Medical History - General Information source: Patient - Social History Smoking Status: Current Some Day Smoker Cigarette use (# per day): Yes Chew tobacco use (# tins/day): No Smoking Education Provided: Yes Frequency of alcohol use: Occasional Drug Abuse: Other - pt denies Lives with: Homeless Family History: Reviewed & Not Pertinent Patient has suicidal ideation: No Patient has homicidal ideation: No Pulmonary Medical History: Reports: Hx Asthma - Immunizations Immunizations up to date: Yes Hx Diphtheria, Pertussis, Tetanus Vaccination: Yes Review of Systems - Review of Systems Constitutional: See HPI, Recent illness EENT: No symptoms reported Cardiovascular: See HPI, Chest pain Respiratory: See HPI, Cough, Wheezing Gastrointestinal: No symptoms reported Genitourinary: No symptoms reported Male Genitourinary: No symptoms reported Musculoskeletal: No symptoms reported Skin: No symptoms reported Hematologic/Lymphatic: No symptoms reported Neurological/Psychological: No symptoms reported Physical Exam - Vital signs Vitals: Pulse Resp BP Pulse Ox 89 16 139/96 H 100 06/03/19 00:01 06/03/19 00:01 06/03/19 00:01 06/03/19 00:01 Interpretation: Normal - General General appearance: Alert - HEENT Head: Normocephalic, Atraumatic Eyes: Normal Conjunctiva: Normal Pupils: PERRL Sinus: Normal Nasal: Normal Pharynx: Normal Neck: Normal - Respiratory Respiratory status: No respiratory distress Chest status: Nontender Breath sounds: Normal Chest palpation: Normal - Cardiovascular Rhythm: Regular Heart sounds: Normal auscultation Murmur: No - Abdominal Inspection: Normal Distension: No distension Bowel sounds: Normal Tenderness: Nontender Organomegaly: No organomegaly - Back Back: Normal - Extremities General upper extremity: Normal inspection General lower extremity: Normal inspection - Neurological Neuro grossly intact: Yes Cognition: Normal Lucy Coma Scale Eye Opening: Spontaneous Theresa Coma Scale Verbal: Oriented Theresa Coma Scale Motor: Obeys Commands Lucy Coma Scale Total: 15 Speech: Normal Cranial nerves: Normal Cerebellar coordination: Normal Motor strength normal: LUE, RUE, LLE, RLE - Psychological Associated symptoms: Normal affect - Skin Skin Temperature: Warm Skin Moisture: Dry Course - Vital Signs Vital signs: Temp Pulse Resp BP Pulse Ox 98.4 F 82 20 136/89 H 99 06/03/19 02:00 06/03/19 02:00 06/03/19 02:00 06/03/19 02:00 06/03/19 02:00 - Diagnostic Test Radiology reviewed: Reports reviewed Critical Care Note - Critical Care Note Total time excluding time spent on procedures (mins): 60 Discharge - Discharge Clinical Impression: Bronchitis Disposition: HOME, SELF-CARE Additional Instructions: follow with personal doctor this week; return to er as needed ;take medicines as directed Prescriptions: Doxycycline Monohydrate 100 mg PO BID #14 capsule Benzonatate [Tessalon Perles 100 mg Capsule] 100 mg PO BID #20 capsule
[2019-06-03 02:05] VITALS: BP 136/89
--- NOTE | 2019-06-03 02:19 | RADIOLOGY REPORT (SQ) ---
CLINICAL HISTORY: sob, cough COMPARISON: 05/19/2019 TECHNIQUE: XR CHEST 2 VIEWS 06/03/2019 12:08 AM CDT FINDINGS: Cardiac silhouette is normal in size. Lungs are clear without consolidation, atelectasis, mass or edema. There is no pleural effusion. There is no pneumothorax. There are no acute osseous findings. IMPRESSION: Clear lungs.
[2019-06-03] MEDS ORDERED: DEXAMETHASONE 4 MG TABLET PO ONE (02:21)
[2019-06-03] MEDS ORDERED: AZITHROMYCIN 250 MG TABLET PO ONE (02:21)
== END 2019-06-03 02:53 | disposition home or self-care (01) ==
LOC: ER 23:55
DX: J40 Bronchitis, not specified as acute or chronic (principal); R06.02 Shortness of breath; R05 Cough; R07.9 Chest pain, unspecified; R06.2 Wheezing; F17.210 Nicotine dependence, cigarettes, uncomplicated
CPT/HCPCS: 99285; 71046; J8540

== ENCOUNTER 2019-06-09 03:51 | Emergency (ER) | payer SELFPAY ==
[2019-06-09] MEDS ORDERED: IBUPROFEN 600 MG TABLET PO ONE (04:45)
[2019-06-09] MEDS ORDERED: ACETAMINOPHEN 325 MG TABLET PO ONE (04:45)
--- NOTE | 2019-06-09 04:49 | ER Document Report ---
HPI - HPI Patient complains to provider of: head injury Time Seen by Provider: 06/09/19 04:33 Context: Well-appearing 24-year-old male presents to the emergency department for evaluation. Patient states he was walking, tripped, and fell backwards and hit his head on the sidewalk. No loss of consciousness, no vomiting, no altered mental status. Patient does complain of some mild photophobia and some dizziness. Patient is not on anticoagulation. - REPRODUCTIVE Reproductive: DENIES: : Past Medical History - Social History Smoking Status: Unknown if Ever Smoked Family History: Reviewed & Not Pertinent Pulmonary Medical History: Reports: Hx Asthma - Immunizations Immunizations up to date: Yes Hx Diphtheria, Pertussis, Tetanus Vaccination: Yes Vertical Provider Document - CONSTITUTIONAL Notes: PHYSICAL EXAMINATION: Reviewed vital signs and charting by RN GENERAL: Alert, interacts well. No acute distress. HEAD: Normocephalic, atraumatic. No evidence of hematoma or abrasions on the occiput EYES: Pupils equal and round. Extraocular movements intact. ENT: Oral mucosa moist, tongue midline. NECK: Full range of motion. Trachea midline. LUNGS: Clear to auscultation bilaterally, no wheezes, rales, or rhonchi. No respiratory distress. HEART: Regular rate and rhythm. No murmur ABDOMEN: soft, non-tender. No distention. Bowel sounds present EXTREMITIES: Moves all 4 extremities spontaneously. No edema, No cyanosis. NEURO: A &O X 3, normal speech, PERRL, EOMI, SILT, follows commands in all 4 extremities, no gross abnormalities of cranial nerves, no focal neuro deficits, no pronator drift, [id number] testing normal, rapid alternating hand movements normal, [id number] normal, loom setter fourdrinier strength 5/5 bilateral, 5/5 strength in both proximal and distal upper and lower extremities PSYCH: Normal affect, normal mood. SKIN: Warm, dry, normal turgor. No rashes or lesions noted. - INFECTION CONTROL TRAVEL OUTSIDE OF THE [place] IN LAST 30 DAYS: No Course - Re-evaluation Re-evalutation: 06/09/19 04:50 Presentation of head trauma in an otherwise well-appearing patient. No focal neurologic deficits on exam, no evidence of basilar skull fracture on exam without evidence of hemotympanum, raccoon eyes, or periauricular hematoma. Patient is not on anticoagulation. GCS is 15. No loss of consciousness. No episodes of vomiting. Patient is therefore negative via [place] head CT criteria and CT imaging will not be obtained at this time. Patient was given ibuprofen and Tylenol for headache. Patient most likely suffered a mild TBI and is otherwise neurologically intact. At this time a period of observation is not necessary and patient can be safely discharged home with strict return precautions. - Vital Signs Vital signs: Temp Pulse Resp BP Pulse Ox 97.4 F 84 20 139/85 H 100 06/09/19 03:55 06/09/19 03:55 06/09/19 03:55 06/09/19 03:55 06/09/19 03:55 Discharge - Discharge Clinical Impression: Mild TBI Qualifiers: Encounter type: initial encounter Loss of consciousness presence/duration: without LOC Qualified Code(s): S06.9X0A - Unspecified intracranial injury without loss of consciousness, initial encounter Condition: Good Disposition: HOME, SELF-CARE Additional Instructions: You have likely sustained a mild TBI, also known as a concussion, to your head. Symptoms to expect from a concussion include nausea, mild to moderate headache, difficulty concentrating or sleeping, and mild lightheadedness. These symptoms should improve over the next few days to weeks. Return to the emergency department or follow-up with your primary care doctor if your symptoms are not improving over this time. Signs of a more serious head injury include vomiting, severe headache, excessive sleepiness or confusion, and weakness or numbness in your face, arms or legs. Return immediately to the Emergency Department if you experience any of these more concerning symptoms. Rest, avoid strenuous physical or mental activity, and avoid activities that could potentially result in another head injury until all your symptoms from this head injury are completely resolved for at least 2-3 weeks. If you participate in sports, get cleared by your doctor or marine animal trainer before returning to play. You may take ibuprofen or acetaminophen over the counter according to label instructions for mild headache or scalp soreness.
[2019-06-09 05:27] VITALS: BP 130/77
== END 2019-06-09 05:31 | disposition home or self-care (01) ==
LOC: ER 03:51
DX: S06.9X0A Unspecified intracranial injury without loss of consciousness, initial encounter (principal); H53.149 Visual discomfort, unspecified; R42 Dizziness and giddiness; W01.0XXA Fall on same level from slipping, tripping and stumbling without subsequent striking against object, initial encounter
CPT/HCPCS: 99283

== ENCOUNTER 2019-06-10 00:47 | Emergency (ER) | payer SELFPAY ==
--- NOTE | 2019-06-10 02:15 | ER Document Report ---
ED General - General Chief Complaint: Nausea Stated Complaint: STOMACH PAIN Time Seen by Provider: 06/10/19 02:08 Mode of Arrival: Ambulatory Information source: Patient Notes: staff notes pt reports "i think i may have food poisoning because after i ate i felt nauseous." Pt reports eating "a few days old" chicken sandwich from [employer] at 1900, feel nauseous, vomiting x1 and reports abd pain. pt aox4, breathes e/u, appear comfortable in assessment room my notes 24-year-old black male arrives by POV with chief complaint of having vomiting and diarrhea around 1 hour after eating some [employer] chicken; patient works at [employer] and has his work shirt on at this time. Patient advises that his chicken was actually a few days old. 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 He does say needs a day or 2 off from work. I suspect secondary gain but I will take him at his word. Patient is sleeping comfortably on his abdomen. He denies any dysuria back pain abdominal pain sore throat cephalgia nuchal rigidity skin rash TRAVEL OUTSIDE OF THE [place] IN LAST 30 DAYS: No - HPI Onset: Just prior to arrival - Related Data Allergies/Adverse Reactions: No Known Allergies Allergy (Verified 06/10/19 01:11) Past Medical History - General Information source: Patient - Social History Smoking Status: Current Every Day Smoker Cigarette use (# per day): Yes Chew tobacco use (# tins/day): No Smoking Education Provided: Yes Frequency of alcohol use: None Drug Abuse: None Lives with: Family Family History: Reviewed & Not Pertinent Patient has suicidal ideation: No Patient has homicidal ideation: No Pulmonary Medical History: Reports: Hx Asthma - Immunizations Immunizations up to date: Yes Hx Diphtheria, Pertussis, Tetanus Vaccination: Yes Review of Systems - Review of Systems Constitutional: See HPI, Weakness, Recent illness EENT: No symptoms reported Cardiovascular: No symptoms reported Respiratory: No symptoms reported Gastrointestinal: See HPI, Diarrhea, Nausea, Vomiting Genitourinary: No symptoms reported Male Genitourinary: No symptoms reported Musculoskeletal: No symptoms reported Skin: No symptoms reported Hematologic/Lymphatic: No symptoms reported Neurological/Psychological: No symptoms reported Physical Exam - Vital signs Vitals: Temp Pulse Resp BP Pulse Ox 97.9 F 85 20 147/83 H 100 06/10/19 00:50 06/10/19 00:50 06/10/19 00:50 06/10/19 00:50 06/10/19 00:50 Interpretation: Normal - General General appearance: Appears well, Alert - HEENT Head: Normocephalic, Atraumatic Eyes: Normal Pupils: PERRL - Respiratory Respiratory status: No respiratory distress Chest status: Nontender Breath sounds: Normal Chest palpation: Normal - Cardiovascular Rhythm: Regular Heart sounds: Normal auscultation Murmur: No - Abdominal Inspection: Normal Distension: No distension Bowel sounds: Hyperactive Tenderness: Nontender Organomegaly: No organomegaly - Genitourinary Tenderness: Other - deferred - Back Back: Normal, Nontender - Extremities General upper extremity: Normal inspection, Nontender, Normal color, Normal ROM, Normal temperature General lower extremity: Normal inspection, Nontender, Normal color, Normal ROM, Normal temperature, Normal weight bearing. No: Dotty's sign - Neurological Neuro grossly intact: Yes Cognition: Normal Orientation: AAOx4 Talmage Coma Scale Eye Opening: Spontaneous Lucy Coma Scale Verbal: Oriented Lucy Coma Scale Motor: Obeys Commands Lucy Coma Scale Total: 15 Speech: Normal Motor strength normal: LUE, RUE, LLE, RLE Sensory: Normal - Psychological Associated symptoms: Normal affect, Normal mood - Skin Skin Temperature: Warm Skin Moisture: Dry Skin Color: Normal Course - Vital Signs Vital signs: Temp Pulse Resp BP Pulse Ox 97.9 F 85 20 147/83 H 100 06/10/19 01:11 06/10/19 00:50 06/10/19 00:50 06/10/19 00:50 06/10/19 00:50 - Diagnostic Test Radiology reviewed: Reports reviewed Critical Care Note - Critical Care Note Total time excluding time spent on procedures (mins): 60 Discharge - Discharge Clinical Impression: Food poisoning Vomiting Qualifiers: Vomiting type: unspecified Vomiting Intractability: unspecified Nausea presence: with nausea Qualified Code(s): R11.2 - Nausea with vomiting, unspecified Condition: Good Disposition: HOME, SELF-CARE Additional Instructions: Off work as directed avoid eating any milk or meat products for 2 days and encourage liquids like Gatorade or diluted tea. Advance to brat diet that is bananas rice applesauce toast as tolerated and avoid any [employer] chicken for least 2 days Prescriptions: Ondansetron [Zofran Odt 4 mg Tablet] 1 tab PO Q4H PRN #10 tab.rapdis PRN Reason: For Nausea/Vomiting Forms: Return to Work
[2019-06-10] MEDS ORDERED: ONDANSETRON 4 MG TAB.RAPDIS PO ONE (02:29)
--- NOTE | 2019-06-10 03:09 | RADIOLOGY REPORT (SQ) ---
EXAM DESCRIPTION: XR ABDOMEN 1 VIEW (KUB) COMPLETED DATE/TME: 06/10/2019 02:16 CLINICAL HISTORY: 24 years Male, abd pain COMPARISON: None. NUMBER OF VIEWS/TECHNIQUE: 2 FINDINGS: Intestinal gas pattern is within normal limits. Paucity of bowel gas. Colonic stool retention. No suspicious calcification. Grossly intact skeletal structures. IMPRESSION: No acute findings.
[2019-06-10 03:12] VITALS: BP 127/72
== END 2019-06-10 03:18 | disposition home or self-care (01) ==
LOC: ER 00:47
DX: A05.9 Bacterial foodborne intoxication, unspecified (principal); R10.9 Unspecified abdominal pain; R11.2 Nausea with vomiting, unspecified; R19.7 Diarrhea, unspecified; R53.1 Weakness; F17.210 Nicotine dependence, cigarettes, uncomplicated; J45.909 Unspecified asthma, uncomplicated
CPT/HCPCS: 99284; 74018; S0119

== ENCOUNTER 2019-06-11 02:04 | Emergency (ER) | payer SELFPAY ==
[2019-06-11 02:54] VITALS: BP 140/80
[2019-06-11] MEDS ORDERED: ONDANSETRON ODT 4 MG TAB (6 TAB/ER DISP) PO PRN (02:59)
[2019-06-11] MEDS ORDERED: LIDOCAINE 2% VISCOUS SOLN 15 ML UDCUP PO ONE (03:00)
[2019-06-11] MEDS ORDERED: METOCLOPRAMIDE HCL ORAL SOLN 10 MG/10 ML UDCUP PO ONE (03:00)
[2019-06-11] MEDS ORDERED: MAG HYDROX/AL HYDROX/SIMETH SUSP 30 ML UDCUP PO ONE (03:00)
--- NOTE | 2019-06-11 03:22 | ER Document Report ---
HPI - HPI Patient complains to provider of: nausea Time Seen by Provider: 06/11/19 02:29 Pain Level: 4 Context: 24-year-old male well-known to this emergency department presents to the emergency department with chief complaint of nausea and vomiting 3 times. Patient was seen here overnight for the same issue but forgot his prescription of Zofran. Patient did receive a dose of Zofran here at 3:00 in the morning from prior visit and did feel better up until about 5 PM. No significant interval changes in patient's condition other than the redevelopment of nausea. Patient states that he is wishing to recover his prescription. No fevers or chills, no current nausea or vomiting, no diarrhea. No other complaints - CONSTITUTIONAL Constitutional: DENIES: Fever, Chills - CARDIOVASCULAR Cardiovascular: DENIES: Chest pain - RESPIRATORY Respiratory: DENIES: Trouble Breathing, Coughing - GASTROINTESTINAL Gastrointestinal: REPORTS: Abdominal Pain - REPRODUCTIVE Reproductive: DENIES: : Past Medical History - Social History Smoking Status: Current Some Day Smoker Frequency of alcohol use: None Drug Abuse: None Family History: Reviewed & Not Pertinent Patient has suicidal ideation: No Patient has homicidal ideation: No Pulmonary Medical History: Reports: Hx Asthma - Immunizations Immunizations up to date: Yes Hx Diphtheria, Pertussis, Tetanus Vaccination: Yes Vertical Provider Document - CONSTITUTIONAL Notes: PHYSICAL EXAMINATION: Reviewed vital signs and charting by RN GENERAL: Alert, interacts well. No acute distress. HEAD: Normocephalic, atraumatic. EYES: Pupils equal and round. Extraocular movements intact. ENT: Oral mucosa moist, tongue midline. NECK: Full range of motion. Trachea midline. LUNGS: Clear to auscultation bilaterally, no wheezes, rales, or rhonchi. No respiratory distress. HEART: Regular rate and rhythm. No murmur ABDOMEN: soft, non-tender. No distention. Bowel sounds present EXTREMITIES: Moves all 4 extremities spontaneously. No edema, No cyanosis. PSYCH: Normal affect, normal mood. SKIN: Warm, dry, normal turgor. No rashes or lesions noted. - INFECTION CONTROL TRAVEL OUTSIDE OF THE [place] IN LAST 30 DAYS: No Course - Re-evaluation Re-evalutation: 06/11/19 04:00 Patient is well-appearing no acute distress, vital signs stable, nursing notes reviewed. Patient is complaining of nausea but did forget his prescription for Zofran. I have given him a dose of Zofran 4 mg sublingual once and p.o. challenged him. He tolerated food and crackers without any difficulty. Patient's recovered his prescription for Zofran and I am still going to send him home with a Zofran Dosepak. At this time patient is stable for discharge. - Vital Signs Vital signs: Temp Pulse Resp BP Pulse Ox 99 F 74 17 140/80 H 100 06/11/19 02:49 06/11/19 02:49 06/11/19 02:49 06/11/19 02:49 06/11/19 02:49 Discharge - Discharge Clinical Impression: Nausea and vomiting Qualifiers: Vomiting type: unspecified Vomiting Intractability: non-intractable Qualified Code(s): R11.2 - Nausea with vomiting, unspecified Diarrhea Qualifiers: Diarrhea type: unspecified type Qualified Code(s): R19.7 - Diarrhea, unspecified Condition: Good Disposition: HOME, SELF-CARE Instructions: Diarrhea, Nonspecific ([facility]), Antinausea Medication ([facility]), Vomiting ([facility]) Additional Instructions: You have been seen in the Emergency Department (ED) today for nausea and vomiting. Your work up today has not shown a clear cause for your symptoms. You have been prescribed Zofran; please use as prescribed as needed for your nausea. Follow up with your doctor as soon as possible regarding today's emergent visit and your symptoms of nausea. Return to the Emergency Department (ED) if you develop abdominal pain, bloody vomiting, bloody diarrhea, if you are unable to tolerate fluids due to vomiting, or if you develop other symptoms that concern you.
== END 2019-06-11 03:07 | disposition home or self-care (01) ==
LOC: ER 02:04
DX: R11.2 Nausea with vomiting, unspecified (principal); R10.9 Unspecified abdominal pain; R19.7 Diarrhea, unspecified; F17.200 Nicotine dependence, unspecified, uncomplicated; J45.909 Unspecified asthma, uncomplicated
CPT/HCPCS: 99283; J3490

== ENCOUNTER 2019-06-12 23:24 | Emergency (ER) | payer SELFPAY ==
--- NOTE | 2019-06-13 00:38 | ER Document Report ---
ED General - General Chief Complaint: Nausea/Vomiting Stated Complaint: VOMITING,STOMACH PAIN Time Seen by Provider: 06/12/19 23:49 Notes: 24-year-old male well-known to this emergency department with no medical presents to the emergency department with persistent left lower quadrant abdominal pain, nausea, and vomiting. Patient states that he has had symptoms for the last 3 days. Patient states that the pain is "solid" and aching in the left lower quadrant but does not radiate, and states that the pain is constant. Patient has taken Zofran with out any resolution of his symptoms. Patient states that he has loss of appetite but is now able to tolerate p.o. Last bowel movement yesterday. Patient states he has not passed gas. No fevers or chills, no chest pain or shortness of breath, no urinary symptoms, no flank pain. TRAVEL OUTSIDE OF THE [place] IN LAST 30 DAYS: No - Related Data Allergies/Adverse Reactions: No Known Allergies Allergy (Verified 06/11/19 02:49) Home Medications: zofran prn Past Medical History - Social History Smoking Status: Current Every Day Smoker Family History: Reviewed & Not Pertinent Patient has suicidal ideation: No Patient has homicidal ideation: No Pulmonary Medical History: Reports: Hx Asthma - Immunizations Immunizations up to date: Yes Hx Diphtheria, Pertussis, Tetanus Vaccination: Yes Review of Systems - Review of Systems Constitutional: See HPI EENT: No symptoms reported Cardiovascular: See HPI Respiratory: See HPI Gastrointestinal: See HPI Genitourinary: See HPI Male Genitourinary: No symptoms reported Musculoskeletal: No symptoms reported Skin: No symptoms reported Hematologic/Lymphatic: No symptoms reported Neurological/Psychological: No symptoms reported Physical Exam - Vital signs Vitals: Temp Pulse Resp BP Pulse Ox 99.1 F 95 16 144/72 H 100 06/12/19 23:49 06/12/19 23:49 06/12/19 23:49 06/12/19 23:49 06/12/19 23:49 - Notes Notes: PHYSICAL EXAMINATION: Reviewed vital signs and charting by RN GENERAL: Alert, interacts well. No acute distress. HEAD: Normocephalic, atraumatic. EYES: Pupils equal and round. Extraocular movements intact. ENT: Oral mucosa moist, tongue midline. NECK: Full range of motion. Trachea midline. LUNGS: Clear to auscultation bilaterally, no wheezes, rales, or rhonchi. No respiratory distress. HEART: Regular rate and rhythm. No murmur ABDOMEN: soft, epigastric and left lower quadrant tenderness to deep palpation, no rebound tenderness. No distention. Bowel sounds present EXTREMITIES: Moves all 4 extremities spontaneously. No edema, No cyanosis. PSYCH: Normal affect, normal mood. SKIN: Warm, dry, normal turgor. No rashes or lesions noted. Course - Re-evaluation Re-evalutation: 06/13/19 00:37 Patient is in his emergency department very frequently and has returned for the same chief complaint several times in the last 3 days. Patient's last lab work was in mid April. I am going to get basic labs, a lipase, and a KUB. 06/13/19 02:37 Lab work all within normal limits. KUB showed a paucity of gas and a large amount of stool with no fluid air levels to be concerned for an SBO. Abdomen is soft so I have low concern for surgical abdomen. Patient is stable for discharge. - Vital Signs Vital signs: Temp Pulse Resp BP Pulse Ox 99.1 F 95 16 144/72 H 100 06/12/19 23:52 06/12/19 23:49 06/12/19 23:49 06/12/19 23:49 06/12/19 23:49 - Laboratory Result Diagrams: 06/13/19 01:25 06/13/19 01:25 Laboratory results interpreted by me: 06/13/19 06/13/19 06/13/19 01:25 01:25 01:25 RDW 14.4 H Lymph % (Auto) 47.3 H Seg Neutrophils % 39.4 L Creatinine 1.27 H Urine Urobilinogen 4.0 H Discharge - Discharge Clinical Impression: Nausea & vomiting Qualifiers: Vomiting type: unspecified Vomiting Intractability: non-intractable Qualified Code(s): R11.2 - Nausea with vomiting, unspecified Abdominal pain Qualifiers: Abdominal location: left lower quadrant Qualified Code(s): R10.32 - Left lower quadrant pain Condition: Good Disposition: HOME, SELF-CARE Additional Instructions: You have been seen in the Emergency Department (ED) today for nausea and vomiting. Your work up today has not shown a clear cause for your symptoms, but the x-ray did show a large stool burden so the pain could be related to constipation. Your lab work was all normal. If you still have Zofran please use as prescribed as needed for your nausea. Follow up with your doctor as soon as possible regarding today's emergent visit and your symptoms of nausea. Return to the Emergency Department (ED) if you develop abdominal pain, bloody vomiting, bloody diarrhea, if you are unable to tolerate fluids due to vomiting, or if you develop other symptoms that concern you.
--- NOTE | 2019-06-13 01:33 | RADIOLOGY REPORT (SQ) ---
EXAM DESCRIPTION: XR ABDOMEN 1 VIEW (KUB) COMPLETED DATE/TME: 06/13/2019 00:38 CLINICAL HISTORY: 24 years Male, LLQ abd pain, not passing gas COMPARISON: Three days prior. NUMBER OF VIEWS/TECHNIQUE: 1 FINDINGS: Intestinal gas pattern is within normal limits. Paucity of bowel gas. Right and some transverse colonic stool. Interval resolution of most left and most sigmoid colonic stool. No suspicious calcification. Grossly intact skeletal structures. IMPRESSION: No acute findings.
[2019-06-13 01:37] LABS: ABSOLUTE BASOPHILS # (AUTO) 0.1 10^3/uL (0.0-0.2); ABSOLUTE EOSINOPHILS # (AUTO) 0.2 10^3/uL (0.0-0.6); ABSOLUTE MONOCYTES (AUTO) 0.5 10^3/uL (0.1-1.4); ABSOLUTE NEUT (AUTO) 2.4 10^3/uL (1.7-8.2); HEMOGLOBIN 14.9 g/dL (13.5-17.0); RED CELL DISTRIBUTION WIDTH 14.4 % (11.5-14.0); TOTAL CELLS COUNTED % (AUTO) 100 %
[2019-06-13 01:45] LABS: APPEARANCE,URINE CLEAR; BILIRUBIN,URINE NEGATIVE (NEGATIVE); COLOR,URINE YELLOW; GLUCOSE, URINE NEGATIVE (NEGATIVE); KETONES,URINE NEGATIVE (NEGATIVE); LEUKOCYTE ESTERASE,URINE NEGATIVE (NEGATIVE); NITRITE,URINE NEGATIVE (NEGATIVE); PROTEIN,URINE NEGATIVE (NEGATIVE); URINE SPECIFIC GRAVITY 1.021
[2019-06-13 01:53] LABS: ABSOLUTE LYMPHOCYTES (AUTO) 2.9 10^3/uL (0.5-4.7); BASOPHILS % (AUTO) 1.1 % (0-2); EOSINOPHILS % (AUTO) 3.9 % (0-6); HEMATOCRIT 42.5 % (37.9-51.0); LYMPHOCYTES % (AUTO) 47.3 % (13-45); MEAN CORPUSCULAR HEMOGLOBIN 28.5 pg (27.0-33.4); MEAN CORPUSCULAR VOLUME 81 fl (80-97); MONOCYTES % (AUTO) 8.3 % (3-13); PLATELET COUNT 247 10^3/uL (150-450); RED BLOOD COUNT 5.22 10^6/uL (4.35-5.55); SEGMENTED NEUTROPHILS % (AUTO) 39.4 % (42-78); WHITE BLOOD COUNT 6.1 10^3/uL (4.0-10.5)
[2019-06-13 02:30] LABS: ALBUMIN 4.2 g/dL (3.5-5.0); ALKALINE PHOSPHATASE 46 U/L (38-126); ANION GAP 8 (5-19); ASPARTATE AMINO TRANSFERASE 29 U/L (17-59); BILIRUBIN,TOTAL 0.8 mg/dL (0.2-1.3); BLOOD UREA NITROGEN 17 mg/dL (7-20); CALCIUM 9.6 mg/dL (8.4-10.2); CARBON DIOXIDE 26 mmol/L (22-30); CHLORIDE 104 mmol/L (98-107); GLUCOSE 91 mg/dL (75-110); POTASSIUM 4.3 mmol/L (3.6-5.0); TOTAL PROTEIN 6.6 g/dL (6.3-8.2)
[2019-06-13 02:52] VITALS: BP 137/80
== END 2019-06-13 02:56 | disposition home or self-care (01) ==
LOC: ER 23:24
DX: R11.2 Nausea with vomiting, unspecified (principal); R10.32 Left lower quadrant pain; F17.200 Nicotine dependence, unspecified, uncomplicated
CPT/HCPCS: 36415; 74018; 80053; 81001; 83690; 85025; 99283

== ENCOUNTER 2019-07-17 16:05 | Emergency (ER) | payer SELFPAY ==
--- NOTE | 2019-07-17 16:59 | ER Document Report ---
ED General - General Chief Complaint: Dizziness Stated Complaint: HEADACHE,SHORT OF BREATH,NAUSEA Time Seen by Provider: 07/17/19 16:25 Mode of Arrival: Ambulatory Information source: Patient Notes: Patient is a 24-year-old male comes to emergency room complaining of having passed out on the bus. Patient states that he was asleep on the bus and had moment where he passed out while asleep. Patient states she often takes the bus and falls asleep on it but he must of passed out because he was out longer than usual. He does state that he had a mild headache prior to this event happening but it went away. He has a history of headaches and this felt similar to his previous ones. Patient states he has been worked up extensively for his headaches and they have not found a cause. Patient also states that he has some nausea along with this. And he has some mild shortness of breath. Patient denies any injuries since he was asleep while the episode occurred. TRAVEL OUTSIDE OF THE [place] IN LAST 30 DAYS: No - HPI Onset: Just prior to arrival Onset/Duration: Sudden Quality of pain: Achy Severity: Mild Pain Level: 0 Associated symptoms: Nausea Exacerbated by: Denies Relieved by: Denies Similar symptoms previously: Yes Recently seen / treated by doctor: No - Related Data Allergies/Adverse Reactions: No Known Allergies Allergy (Verified 06/11/19 02:49) Past Medical History - General Information source: Patient - Social History Smoking Status: Current Every Day Smoker Cigarette use (# per day): Yes - 1 to 2 cigarettes a day. Chew tobacco use (# tins/day): No Smoking Education Provided: Yes Frequency of alcohol use: None Drug Abuse: None Family History: Reviewed & Not Pertinent Patient has homicidal ideation: No Pulmonary Medical History: Reports: Hx Asthma - Immunizations Immunizations up to date: Yes Hx Diphtheria, Pertussis, Tetanus Vaccination: Yes Review of Systems - Review of Systems Constitutional: No symptoms reported EENT: No symptoms reported Cardiovascular: No symptoms reported Respiratory: See HPI, Short of breath Gastrointestinal: No symptoms reported Genitourinary: No symptoms reported Male Genitourinary: No symptoms reported Musculoskeletal: No symptoms reported Skin: No symptoms reported Hematologic/Lymphatic: No symptoms reported Neurological/Psychological: Lost consciousness -: Yes All other systems reviewed and negative Physical Exam - Vital signs Vitals: Temp Pulse Resp BP Pulse Ox 99.2 F 92 18 150/73 H 97 07/17/19 16:15 07/17/19 16:15 07/17/19 16:15 07/17/19 16:15 07/17/19 16:15 Interpretation: Hypertensive - Notes Notes: PHYSICAL EXAMINATION: GENERAL: Patient is a well-nourished well-developed 24-year-old male who is in no apparent distress on physical exam this afternoon. Patient is awake alert and oriented x4. Does not appear to be in any discomfort or pain. HEAD: Atraumatic, normocephalic. EYES: Pupils equal round and reactive to light, extraocular movements intact, sclera anicteric, conjunctiva are normal. ENT: Nares patent, oropharynx clear without exudates. Moist mucous membranes. NECK: Normal range of motion, supple without lymphadenopathy LUNGS: Auscultation patient's lungs shows bilateral breath sounds with breath sounds increasing clear auscultation throughout. HEART: Regular rate and rhythm without murmurs ABDOMEN: Soft, nontender, nondistended abdomen. No guarding, no rebound. No masses appreciated. Musculoskeletal: Normal range of motion, no pitting or edema. No cyanosis. NEUROLOGICAL: Normal speech, normal gait. Normal sensory, motor exams PSYCH: Normal mood, flat affect SKIN: Warm, Dry, normal turgor, no rashes or lesions noted. Course - Re-evaluation Re-evalutation: 07/17/19 16:59 Patient is well-known to the emergency room seen multiple times for similar presentations. Patient openly admits that he was asleep when he passed out. Denies any injuries or falls he was leaning against the bus wall. Patient does report smoking only 1 to 2 cigarettes a day though. 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 States that he is been up since 6 AM and was slightly tired today. He has had some nausea with this but states that the headache is similar to all his other headaches. Patient's neurologic exam was intact there were no signs of any HAND BOOKBINDER presentation patient showed no signs of a stroke or cerebral bleeds. At this time I felt not necessary to do any radiologic intervention with exception of a chest x-ray. We will do some labs to make sure his chemistries are good. Patient came wearing a very heavy hoodie sweatshirt and his temp was 99.2 we will recheck attempts I believe this was due to her extreme heat and humidity outside by wearing a very heavy sweatshirt. 07/17/19 18:34 Patient's labs all came back normal. At this time I do not see any further reason to evaluate radiologically. As stated patient's been here before with the same similar complaint at this time we will discharge him home. - Vital Signs Vital signs: Temp Pulse Resp BP Pulse Ox 98.1 F 60 18 134/81 H 99 07/17/19 18:50 07/17/19 18:50 07/17/19 18:50 07/17/19 18:50 07/17/19 18:50 - Laboratory Result Diagrams: 07/17/19 17:19 07/17/19 17:19 Laboratory results interpreted by me: 07/17/19 07/17/19 17:19 17:28 RDW 14.2 H Urine Urobilinogen 2.0 H Discharge - Discharge Clinical Impression: URI (upper respiratory infection) Qualifiers: URI type: unspecified viral URI Qualified Code(s): J06.9 - Acute upper respiratory infection, unspecified Disposition: HOME, SELF-CARE Instructions: Acetaminophen Additional Instructions: UPPER RESPIRATORY ILLNESS: You have a viral infection of the respiratory passages -- a "cold." This common infection causes nasal congestion, drainage, and often sore throat and cough. It is highly contagious. The disease usually lasts about 10 to 14 days. There is no "cure" for the viral infection -- it must run its course. If there is a complication, such as bacterial infection in the nose, sinuses, middle ear, or bronchial tubes, antibiotics may be required. The antibiotics won't affect the virus. Drink plenty of fluids. A humidifier may help. An expectorant medication or decongestant may make you more comfortable. Use acetaminophen or ibuprofen for fever or aches. See the doctor if fever persists over two days, if there is any significant worsening of your symptoms, or if you simply fail to improve as expected. SMOKING: If you smoke, you should stop smoking. The tar and chemicals in cigarette smoke are harmful. Smoking has been shown to cause: emphysema chronic bronchitis lung cancer mouth and throat cancer stomach and pancreas cancer premature aging defects In addition, smoking increases ear and lung infections in children of smokers. FOLLOW-UP CARE: If you have been referred to a physician for follow-up care, call the physicians office for an appointment as you were instructed or within the next two days. If you experience worsening or a significant change in your symptoms, notify the physician immediately or return to the Emergency Department at any time for re-evaluation. Forms: Elevated Blood Pressure, Smoking Cessation Education, Return to Work
--- NOTE | 2019-07-17 17:24 | RADIOLOGY REPORT (SQ) ---
EXAM DESCRIPTION: CHEST 2 VIEWS IMAGES COMPLETED DATE/TIME: 07/17/2019 4:00 pm REASON FOR STUDY: SOB. COMPARISON: 06/03/2019 EXAM PARAMETERS: NUMBER OF VIEWS: two views TECHNIQUE: Digital Frontal and Lateral radiographic views of the chest acquired. RADIATION DOSE: NA LIMITATIONS: none FINDINGS: LUNGS AND PLEURA: No opacities, masses or pneumothorax. No pleural effusion. MEDIASTINUM AND HILAR STRUCTURES: No masses or contour abnormalities. HEART AND VASCULAR STRUCTURES: Heart normal size. No evidence for failure. BONES: No acute findings. HARDWARE: None in the chest. OTHER: No other significant finding. IMPRESSION: NO ACUTE RADIOGRAPHIC FINDING IN THE CHEST. TECHNICAL DOCUMENTATION: JOB ID: [id number] 2010 [employer]- All Rights Reserved Reading location - IP/workstation name: [email or web address]
[2019-07-17 17:30] LABS: ABSOLUTE BASOPHILS # (AUTO) 0.1 10^3/uL (0.0-0.2); ABSOLUTE EOSINOPHILS # (AUTO) 0.3 10^3/uL (0.0-0.6); ABSOLUTE LYMPHOCYTES (AUTO) 2.6 10^3/uL (0.5-4.7); ABSOLUTE MONOCYTES (AUTO) 0.4 10^3/uL (0.1-1.4); ABSOLUTE NEUT (AUTO) 2.7 10^3/uL (1.7-8.2); EOSINOPHILS % (AUTO) 5.5 % (0-6); HEMATOCRIT 42.1 % (37.9-51.0); HEMOGLOBIN 14.3 g/dL (13.5-17.0); LYMPHOCYTES % (AUTO) 42.8 % (13-45); MEAN CORPUSCULAR HEMOGLOBIN 27.7 pg (27.0-33.4); MEAN CORPUSCULAR VOLUME 82 fl (80-97); MONOCYTES % (AUTO) 6.5 % (3-13); PLATELET COUNT 217 10^3/uL (150-450); RED BLOOD COUNT 5.17 10^6/uL (4.35-5.55); RED CELL DISTRIBUTION WIDTH 14.2 % (11.5-14.0); SEGMENTED NEUTROPHILS % (AUTO) 44.2 % (42-78); TOTAL CELLS COUNTED % (AUTO) 100 %; WHITE BLOOD COUNT 6.1 10^3/uL (4.0-10.5)
[2019-07-17 17:48] LABS: ALBUMIN 4.1 g/dL (3.5-5.0); ALKALINE PHOSPHATASE 39 U/L (38-126); ANION GAP 6 (5-19); ASPARTATE AMINO TRANSFERASE 29 U/L (17-59); BILIRUBIN,TOTAL 0.6 mg/dL (0.2-1.3); BLOOD UREA NITROGEN 11 mg/dL (7-20); CALCIUM 9.5 mg/dL (8.4-10.2); CARBON DIOXIDE 26 mmol/L (22-30); CHLORIDE 107 mmol/L (98-107); GLUCOSE 86 mg/dL (75-110); POTASSIUM 4.2 mmol/L (3.6-5.0); TOTAL PROTEIN 6.8 g/dL (6.3-8.2)
[2019-07-17 17:50] LABS: APPEARANCE,URINE CLEAR; BILIRUBIN,URINE NEGATIVE (NEGATIVE); COLOR,URINE YELLOW; GLUCOSE, URINE NEGATIVE (NEGATIVE); KETONES,URINE NEGATIVE (NEGATIVE); PROTEIN,URINE NEGATIVE (NEGATIVE); URINE SPECIFIC GRAVITY 1.027
[2019-07-17 17:58] LABS: URINE AMPHETAMINES SCREEN NEGATIVE; URINE BARBITURATES SCREEN NEGATIVE; URINE BENZODIAZEPINES SCREEN NEGATIVE; URINE COCAINE SCREEN NEGATIVE; URINE METHADONE SCREEN NEGATIVE; URINE PHENCYCLIDINE SCREEN NEGATIVE
[2019-07-17 18:01] LABS: URINE MARIJUANA (THC) SCREEN UNCONFIRMED POSITIVE
[2019-07-17 18:51] VITALS: BP 134/81
== END 2019-07-17 18:51 | disposition home or self-care (01) ==
LOC: ER 16:05
DX: J06.9 Acute upper respiratory infection, unspecified (principal); R42 Dizziness and giddiness; R51 Headache; R06.02 Shortness of breath; R11.0 Nausea; F17.210 Nicotine dependence, cigarettes, uncomplicated
CPT/HCPCS: 36415; 71046; 80053; 80307; 81001; 85025; 99284

== ENCOUNTER 2019-08-06 22:20 | Emergency (ER) | payer SELFPAY ==
[2019-08-07] MEDS ORDERED: FAMOTIDINE 20 MG TABLET PO ONE (00:42)
[2019-08-07] MEDS ORDERED: ONDANSETRON 4 MG TAB.RAPDIS PO ONE (00:42)
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
[2019-08-07 00:58] VITALS: BP 145/95
== END 2019-08-07 00:58 | disposition home or self-care (01) ==
LOC: ER 22:20
DX: R10.84 Generalized abdominal pain (principal); R50.9 Fever, unspecified
CPT/HCPCS: 99283; S0119

== ENCOUNTER 2019-08-11 22:10 | Emergency (ER) | payer OTHER ==
[2019-08-12] MEDS ORDERED: DIPH/PERTUSS(ACELL)/TETANUS VAC/PF 0.5 ML SYR (>=10YO) IM ONE (08:28)
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
[2019-08-12 08:52] VITALS: BP 146/72
== END 2019-08-12 08:52 | disposition home or self-care (01) ==
LOC: ER 22:10
DX: T22.012A Burn of unspecified degree of left forearm, initial encounter (principal); T31.0 Burns involving less than 10% of body surface; R11.2 Nausea with vomiting, unspecified; R19.7 Diarrhea, unspecified; X10.2XXA Contact with fats and cooking oils, initial encounter; F17.200 Nicotine dependence, unspecified, uncomplicated
CPT/HCPCS: 90471; 90715; 99283

== ENCOUNTER 2019-08-17 01:02 | Emergency (ER) | payer SELFPAY ==
[2019-08-17 02:53] VITALS: BP 177/80
== END 2019-08-17 03:10 | disposition left against medical advice (07) ==
LOC: ER 01:02
DX: Z53.21 Procedure and treatment not carried out due to patient leaving prior to being seen by health care provider (principal)

== ENCOUNTER 2019-08-17 23:33 | Emergency (ER) | payer SELFPAY ==
--- NOTE | 2019-08-18 05:35 | ER Document Report ---
ED General - General Stated Complaint: FEVER/NAUSEA/VOMITING Time Seen by Provider: 08/18/19 04:53 Notes: 24-year-old male presents emergency department complaining of nausea and left upper quadrant abdominal pain for the past week associated with 2 episodes of nonbloody and nonbilious emesis in the past day. Denies any fevers or chills. Also notes that he thinks he has had diarrhea 3 times in the past 3 weeks. Describes it as soft and easy to push out but not liquid. Denies any blood in his stool. TRAVEL OUTSIDE OF THE [place] IN LAST 30 DAYS: No - Related Data Allergies/Adverse Reactions: No Known Allergies Allergy (Verified 08/06/19 22:44) Past Medical History - General Information source: Patient - Social History Smoking Status: Current Every Day Smoker Frequency of alcohol use: None Drug Abuse: None Family History: Reviewed & Not Pertinent Pulmonary Medical History: Reports: Hx Asthma - Immunizations Immunizations up to date: Yes Hx Diphtheria, Pertussis, Tetanus Vaccination: Yes Review of Systems - Review of Systems Constitutional: No symptoms reported Gastrointestinal: See HPI, Abdominal pain, Diarrhea, Nausea, Vomiting -: Yes All other systems reviewed and negative Physical Exam - Vital signs Vitals: Temp Pulse Resp BP Pulse Ox 98.6 F 104 H 18 146/79 H 99 08/17/19 23:54 08/17/19 23:54 08/17/19 23:54 08/17/19 23:54 08/17/19 23:54 Interpretation: Hypertensive, Tachycardic - Notes Notes: GENERAL: Alert, interacts well. No acute distress. HEAD: Normocephalic, atraumatic EYES: Pupils equal, round and reactive to light, extraocular movements intact. ENT: Oral mucosa moist, tongue midline. NECK: Full range of motion, supple, trachea midline. LUNGS: Clear to auscultation bilaterally, no wheezes, rales or rhonchi, no respi ratory distress. HEART: Regular rate and rhythm, no murmurs, gallops, rubs. ABDOMEN: Soft, nontender, nondistended, bowel sounds present in all 4 quadrants. EXTREMITIES: Moves all 4 extremities spontaneously, no edema, radial and dorsalis pedis pulses 2/4 bilaterally. No cyanosis. NEUROLOGICAL: Alert and oriented x3, normal speech. PSYCH: Normal mood, normal affect. SKIN: Warm, Dry, normal turgor, no rashes or lesions noted. Course - Re-evaluation Re-evalutation: 08/18/19 06:45 CBC unremarkable, CMP grossly unremarkable, lipase normal. No further abnormal stools here in the emergency department. What patient describes as diarrhea is not actually diarrhea. He is describing 3 soft bowel movements once a week for the past 3 weeks. Discussed with patient that this is not diarrhea. Patient's abdominal exam is benign, discussed that there is likely no benefit to doing a CT scan at this point. Given the fact that the patient has some epigastric abdominal pain but no tenderness to palpation I do suggest that the patient start taking a daily antacid such as Pepcid and keep a food diary, return to the emergency department for fevers, persistent vomiting or any new or concerning symptoms. - Vital Signs Vital signs: Temp Pulse Resp BP Pulse Ox 97.6 F 83 18 149/84 H 99 08/18/19 04:30 08/18/19 04:30 08/18/19 04:30 08/18/19 04:30 08/18/19 04:30 - Laboratory Result Diagrams: 08/18/19 05:40 08/18/19 05:40 Laboratory results interpreted by me: 08/18/19 08/18/19 05:40 05:40 RDW 14.5 H Sodium 136.8 L Glucose 113 H Discharge - Discharge Clinical Impression: Nausea vomiting and diarrhea, Epigastric abdominal pain Condition: Stable Disposition: HOME, SELF-CARE Additional Instructions: Abdominal Pain There are many causes of abdominal pain. Pain can mean a serious problem requiring surgery (such as appendicitis). It can also be an innocent problem that goes away on its own (such as a viral infection). Often, time must pass to determine the cause of pain. The physician does not feel that hospitalization is necessary, at present. Things may change within the next 24 hours. Call the doctor or come back for re- examination if any problems occur, such as: (1) Pain that becomes more severe, steady, or becomes concentrated in one specific area. Also, pain that is more severe with movement or coughing. (2) Vomiting that persists or becomes more frequent. (3) Blood in the vomitus, urine, or bowel movements. Blood in the stool may have a tarry or black appearance. (4) Shaking chills or fever greater than 100 degrees F. (5) The abdomen becomes more distended or swollen. (6) Bowel movements cease. (7) Failure to improve as expected. There is no evidence of infection or any problem with your pancreas. You do not have any signs of dehydration. Please take Pepcid 20 mg twice a day available [id number] to help reduce some of the upper abdominal pain that you are having. This will help with any of the pain is coming from gastritis or increased acid in your stomach. The bowel movements that you describe as diarrhea or not actually diarrhea. Your stool is supposed to be soft. Unless your stool is liquid it is not diarrhea. Do not be concerned by soft stools. Referrals: GINNA THAKUR MD [ACTIVE STAFF] - Follow up as needed
[2019-08-18 06:21] LABS: ABSOLUTE BASOPHILS # (AUTO) 0.1 10^3/uL (0.0-0.2); ABSOLUTE EOSINOPHILS # (AUTO) 0.3 10^3/uL (0.0-0.6); ABSOLUTE LYMPHOCYTES (AUTO) 2.6 10^3/uL (0.5-4.7); ABSOLUTE MONOCYTES (AUTO) 0.5 10^3/uL (0.1-1.4); ABSOLUTE NEUT (AUTO) 2.8 10^3/uL (1.7-8.2); BASOPHILS % (AUTO) 0.8 % (0-2); EOSINOPHILS % (AUTO) 5.3 % (0-6); HEMATOCRIT 42.2 % (37.9-51.0); HEMOGLOBIN 14.3 g/dL (13.5-17.0); LYMPHOCYTES % (AUTO) 41.8 % (13-45); MEAN CORPUSCULAR HEMOGLOBIN 27.8 pg (27.0-33.4); MEAN CORPUSCULAR HGB CONC 33.9 g/dL (32.0-36.0); MEAN CORPUSCULAR VOLUME 82 fl (80-97); MONOCYTES % (AUTO) 7.8 % (3-13); PLATELET COUNT 213 10^3/uL (150-450); RED BLOOD COUNT 5.14 10^6/uL (4.35-5.55); RED CELL DISTRIBUTION WIDTH 14.5 % (11.5-14.0); SEGMENTED NEUTROPHILS % (AUTO) 44.3 % (42-78); TOTAL CELLS COUNTED % (AUTO) 100 %; WHITE BLOOD COUNT 6.3 10^3/uL (4.0-10.5)
[2019-08-18 06:37] LABS: ALKALINE PHOSPHATASE 47 U/L (38-126); ANION GAP 5 (5-19); ASPARTATE AMINO TRANSFERASE 39 U/L (17-59); BILIRUBIN,TOTAL 0.5 mg/dL (0.2-1.3); BLOOD UREA NITROGEN 18 mg/dL (7-20); CALCIUM 9.3 mg/dL (8.4-10.2); CARBON DIOXIDE 27 mmol/L (22-30); CHLORIDE 105 mmol/L (98-107); GLUCOSE 113 mg/dL (75-110); TOTAL PROTEIN 6.7 g/dL (6.3-8.2)
[2019-08-18 07:20] VITALS: BP 126/85
== END 2019-08-18 07:40 | disposition home or self-care (01) ==
LOC: ER 23:33
DX: R50.9 Fever, unspecified (principal); R11.2 Nausea with vomiting, unspecified; R10.13 Epigastric pain; R10.12 Left upper quadrant pain; R19.7 Diarrhea, unspecified; F17.200 Nicotine dependence, unspecified, uncomplicated; Z20.828 Contact with and (suspected) exposure to other viral communicable diseases
CPT/HCPCS: 99283; 36415; 83690; 85025; 87635; 80053; C9803

== ENCOUNTER 2019-08-18 21:34 | Emergency (ER) | payer SELFPAY ==
[2019-08-18 22:20] VITALS: BP 144/72
[2019-08-18] MEDS ORDERED: ONDANSETRON 4 MG TAB.RAPDIS PO ONE (23:59)
[2019-08-18] MEDS ORDERED: ONDANSETRON ODT 4 MG TAB (6 TAB/ER DISP) PO PRN (23:59)
--- NOTE | 2019-08-18 23:59 | ER Document Report ---
HPI - HPI Time Seen by Provider: 08/18/19 22:45 Pain Level: Denies Context: Patient is a 24-year-old male who presents to the emergency department with a chief complaint of nausea, slight shortness of breath, and loss of taste. Patient is currently under investigation for COVID-19. Patient ended up going to work today. Patient states that he still feels nauseous, but denies any vomiting. Denies any diarrhea. Patient is currently homeless. - ROS Systems Reviewed and Negative: Yes All other systems reviewed and negative - CONSTITUTIONAL Constitutional: DENIES: Fever, Chills - EENT Notes: Loss of taste - RESPIRATORY Respiratory: REPORTS: Trouble Breathing. DENIES: Coughing - GASTROINTESTINAL Gastrointestinal: REPORTS: Nausea. DENIES: Abdominal Pain, Patient vomiting - REPRODUCTIVE Reproductive: DENIES: : - MUSCULOSKELETAL Musculoskeletal: DENIES: Extremity pain - DERM Skin Color: Normal Skin Problems: None Past Medical History - Social History Smoking Status: Current Every Day Smoker Family History: Reviewed & Not Pertinent Patient has homicidal ideation: No Pulmonary Medical History: Reports: Hx Asthma - Immunizations Immunizations up to date: Yes Hx Diphtheria, Pertussis, Tetanus Vaccination: Yes Vertical Provider Document - CONSTITUTIONAL Agree With Documented VS: Yes Exam Limitations: No Limitations General Appearance: No Apparent Distress - INFECTION CONTROL TRAVEL OUTSIDE OF THE [place] IN LAST 30 DAYS: No - HEENT HEENT: Atraumatic, Normocephalic, PERRLA - NECK Neck: Normal Inspection - RESPIRATORY Respiratory: Breath Sounds Normal, No Respiratory Distress - CARDIOVASCULAR Cardiovascular: Regular Rate, Regular Rhythm Pulses: Normal: Radial - GI/ABDOMEN Gastrointestinal: Abdomen Soft, Abdomen Non-Tender - MUSCULOSKELETAL/EXTREMETIES Musculoskeletal/Extremeties: FROM - NEURO Level of Consciousness: Awake, Alert, Appropriate Motor/Sensory: No Motor Deficit, No Sensory Deficit - DERM Integumentary: Warm, Dry, No Rash Course - Re-evaluation Re-evalutation: 08/19/19 00:10 Patient had a complete work-up yesterday. No indication for labs at this time, as the patient has not vomited. We will give the patient Zofran. I specifically told the patient to not go to work, as this will potentially spread the coronavirus. We will give him Zofran. He is in agreement with this plan. Patient is nontoxic in appearance. Lung sounds are clear bilaterally. No indication for chest x-ray. Have a low suspicion for pneumonia. I have a low suspicion for any life-threatening etiology at this time. Follow-up precautions were given. Verbal discharge instructions were given to the patient. They verbalized understanding. They are stable for discharge. - Vital Signs Vital signs: Temp Pulse Resp BP Pulse Ox 98.7 F 108 H 18 144/72 H 95 08/18/19 22:13 08/18/19 22:13 08/18/19 22:13 08/18/19 22:13 08/18/19 22:13 Discharge - Discharge Clinical Impression: Nausea, Suspected COVID-19 virus infection Condition: Stable Disposition: HOME, SELF-CARE Additional Instructions: You were seen today in the emergency department for nausea and loss of taste. Please do not go to work, as you are under investigation for the coronavirus. Take the Zofran, 1 tablet every 4-6 hours as needed for nausea or vomiting.
== END 2019-08-19 00:20 | disposition home or self-care (01) ==
LOC: ER 21:34
DX: R11.0 Nausea (principal); R06.02 Shortness of breath; R43.9 Unspecified disturbances of smell and taste; R06.00 Dyspnea, unspecified; F17.200 Nicotine dependence, unspecified, uncomplicated; Z20.828 Contact with and (suspected) exposure to other viral communicable diseases
CPT/HCPCS: 99283; S0119

== ENCOUNTER 2019-08-20 01:11 | Emergency (ER) | payer SELFPAY ==
--- NOTE | 2019-08-20 09:09 | ER Document Report ---
Entered by SILVIA JAMES SCRIBE 08/20/19 0855 Acting as scribe for:EDUARDO SERNA MD ED General - General Chief Complaint: Headache Stated Complaint: FLU LIKE SYMPTOMS Time Seen by Provider: 08/20/19 07:49 Information source: Patient Notes: This 24 year old male patient presents to the emergency department today with complaints of a headache. Patient states this lasted x5 minutes and is fine now. Patient states this is the only reason for his visit today to the ED. Patient states this is his x4 visit to the ED the past x3 days. Patient states any symptoms he reported from past visits are now relieved. TRAVEL OUTSIDE OF THE [place] IN LAST 30 DAYS: No - Related Data Allergies/Adverse Reactions: No Known Allergies Allergy (Verified 08/06/19 22:44) Past Medical History - General Information source: Patient - Social History Smoking Status: Current Every Day Smoker Cigarette use (# per day): Yes Family History: Reviewed & Not Pertinent Pulmonary Medical History: Reports: Hx Asthma Past Surgical History: Reports: None - Immunizations Immunizations up to date: Yes Hx Diphtheria, Pertussis, Tetanus Vaccination: Yes Review of Systems - Review of Systems Constitutional: No symptoms reported EENT: No symptoms reported Cardiovascular: No symptoms reported Respiratory: No symptoms reported Gastrointestinal: No symptoms reported Genitourinary: No symptoms reported Male Genitourinary: No symptoms reported Musculoskeletal: No symptoms reported Skin: No symptoms reported Hematologic/Lymphatic: No symptoms reported Neurological/Psychological: See HPI, Headaches -: Yes All other systems reviewed and negative Physical Exam - Vital signs Vitals: Temp Pulse Resp BP Pulse Ox 98.7 F 86 16 134/72 H 100 08/20/19 01:33 08/20/19 01:33 08/20/19 01:33 08/20/19 01:33 08/20/19 01:33 - General General appearance: Appears well, Alert - HEENT Head: Normocephalic, Atraumatic Eyes: Normal Pupils: PERRL Pharynx: Normal Neck: Normal, Supple - Respiratory Respiratory status: No respiratory distress Chest status: Nontender Breath sounds: Normal Chest palpation: Normal - Cardiovascular Rhythm: Regular Heart sounds: Normal auscultation Murmur: No - Abdominal Inspection: Normal - Soft, Obese Distension: No distension Bowel sounds: Normal Tenderness: Nontender - Extremities General upper extremity: Normal inspection. No: Edema General lower extremity: Normal inspection. No: Edema - Neurological Neuro grossly intact: Yes Cognition: Normal Orientation: AAOx4 Speech: Normal - Psychological Associated symptoms: Normal affect, Normal mood - Skin Skin Temperature: Warm Skin Moisture: Dry Skin Color: Normal Course - Re-evaluation Re-evalutation: 08/20/19 09:07 Patient is resting comfortably not showing any signs of distress. States his headache has resolved without medications and that he is ready to be discharged - Vital Signs Vital signs: Temp Pulse Resp BP Pulse Ox 97.3 F 64 12 168/65 H 97 08/20/19 06:38 08/20/19 06:38 08/20/19 06:38 08/20/19 06:38 08/20/19 06:38 08/20/19 09:08 Vital signs stable no acute process. Discharge - Discharge Clinical Impression: Headache Condition: Stable Disposition: HOME, SELF-CARE Additional Instructions: Headache The physician does not feel that the headache you are experiencing has a serious underlying cause. Most headaches are due to emotional stress, with resultant muscle tension (tension headache). Occasionally, headaches are secondary to changes in the blood vessels of the scalp (vascular headache and migraine headache). Sometimes, a headache is the first symptom of another developing illness, such as a viral infection. You have no evidence of stroke, bleeding, meningitis, or other serious cause of your headache. The treatment of headaches varies with the severity and cause of the pain. Not all headaches need pain shots. In fact, there is evidence that using narcotics for headaches may make them worse in the long run. The physician will determine the therapy that's in your best interest. If you develop a fever, if the headache is different from any you've previously experienced, or if the headache progressively worsens, then call your physician at once or go to the emergency room. I personally performed the services described in the documentation, reviewed and edited the documentation which was dictated to the scribe in my presence, and it accurately records my words and actions.
[2019-08-20 09:31] VITALS: BP 133/65
== END 2019-08-20 09:31 | disposition home or self-care (01) ==
LOC: ER 01:11
DX: R51 Headache (principal); F17.210 Nicotine dependence, cigarettes, uncomplicated; E66.9 Obesity, unspecified
CPT/HCPCS: 99283

== ENCOUNTER 2019-08-20 23:29 | Emergency (ER) | payer SELFPAY ==
--- NOTE | 2019-08-21 03:03 | ER Document Report ---
ED GI/ - General Chief Complaint: Abdominal Pain Stated Complaint: FEELS LIKE BODY IS SHUTTING DOWN Time Seen by Provider: 08/21/19 02:12 Mode of Arrival: Ambulatory Information source: Patient Notes: Patient is a 24-year-old male frequently known to our facility presenting with complaints of abdominal pain and "feeling like my body is shutting down". He has been here multiple times in the last 3 days. He has had normal labs each time. He denies any fever or chills. He denies any vomiting or diarrhea but reports nausea. He has not taken any medications for his symptoms. TRAVEL OUTSIDE OF THE [place] IN LAST 30 DAYS: No - Related Data Allergies/Adverse Reactions: No Known Allergies Allergy (Verified 08/06/19 22:44) Past Medical History - General Information source: Patient - Social History Smoking Status: Never Smoker Chew tobacco use (# tins/day): No Frequency of alcohol use: None Drug Abuse: None Family History: Reviewed & Not Pertinent Patient has homicidal ideation: No Pulmonary Medical History: Reports: Hx Asthma Surgical Hx: Negative - Immunizations Immunizations up to date: Yes Hx Diphtheria, Pertussis, Tetanus Vaccination: Yes Review of Systems - Review of Systems Gastrointestinal: Abdominal pain, Nausea -: Yes All other systems reviewed and negative Physical Exam - Vital signs Vitals: Temp Pulse Resp BP Pulse Ox 99.3 F 102 H 18 143/82 H 99 08/20/19 23:44 08/20/19 23:44 08/20/19 23:44 08/20/19 23:44 08/20/19 23:44 - Notes Notes: PHYSICAL EXAMINATION: GENERAL: Disheveled, unkempt, malodorous. HEAD: Atraumatic, normocephalic. EYES: Pupils equal round and reactive to light, extraocular movements intact, sclera anicteric, conjunctiva are normal. ENT: Nares patent, oropharynx clear without exudates. Moist mucous membranes. NECK: Normal range of motion, supple without lymphadenopathy LUNGS: Breath sounds clear to auscultation bilaterally and equal. No wheezes rales or rhonchi. HEART: Regular rate and rhythm without murmurs ABDOMEN: Soft, nontender, nondistended abdomen. No guarding, no rebound. No masses appreciated. Musculoskeletal: Normal range of motion, no pitting or edema. No cyanosis. NEUROLOGICAL: Cranial nerves grossly intact. Normal speech, normal gait. Normal sensory, motor exams PSYCH: Normal mood, normal affect. SKIN: Warm, Dry, normal turgor, no rashes or lesions noted. Course - Re-evaluation Re-evalutation: Patient appears well, nontoxic. Vital signs reviewed. Obtained basic labs, CBC, CMP, lipase and urinalysis. All of these are within normal limits. Patient's abdomen soft and nontender. No indication for further work-up at this time. Patient will be discharged home with a dispense pack of Zofran. Patient verbalizes understanding and agreement with this plan. - Vital Signs Vital signs: Temp Pulse Resp BP Pulse Ox 98.2 F 80 18 113/62 100 08/21/19 06:05 08/21/19 06:05 08/21/19 06:05 08/21/19 06:05 08/21/19 06:05 - Laboratory Result Diagrams: 08/21/19 02:50 08/21/19 02:50 Laboratory results interpreted by me: 08/21/19 08/21/19 08/21/19 02:50 02:50 03:40 RDW 14.4 H Monocytes % (Manual) 2 L Chloride 108 H Urine Urobilinogen 2.0 H Discharge - Discharge Clinical Impression: Nausea Abdominal pain Qualifiers: Abdominal location: generalized Qualified Code(s): R10.84 - Generalized abdominal pain Condition: Stable Disposition: HOME, SELF-CARE Additional Instructions: Your work-up today was reassuring. Your lab work was normal. Please use the antinausea medication as prescribed. Please follow-up with your primary care provider return to the emergency department for any new or worsening complaints.
[2019-08-21 03:08] LABS: HEMATOCRIT 40.5 % (37.9-51.0); HEMOGLOBIN 13.7 g/dL (13.5-17.0); MEAN CORPUSCULAR HEMOGLOBIN 27.9 pg (27.0-33.4); MEAN CORPUSCULAR VOLUME 82 fl (80-97); PLATELET COUNT 211 10^3/uL (150-450); RED BLOOD COUNT 4.93 10^6/uL (4.35-5.55); RED CELL DISTRIBUTION WIDTH 14.4 % (11.5-14.0); WHITE BLOOD COUNT 6.7 10^3/uL (4.0-10.5)
[2019-08-21 03:18] LABS: ALBUMIN 3.9 g/dL (3.5-5.0); ALKALINE PHOSPHATASE 43 U/L (38-126); ANION GAP 5 (5-19); ASPARTATE AMINO TRANSFERASE 43 U/L (17-59); BILIRUBIN,TOTAL 0.6 mg/dL (0.2-1.3); BLOOD UREA NITROGEN 18 mg/dL (7-20); CALCIUM 9.2 mg/dL (8.4-10.2); CARBON DIOXIDE 24 mmol/L (22-30); CHLORIDE 108 mmol/L (98-107); GLUCOSE 89 mg/dL (75-110); POTASSIUM 4.1 mmol/L (3.6-5.0); TOTAL PROTEIN 6.6 g/dL (6.3-8.2)
[2019-08-21 03:21] LABS: ABSOLUTE LYMPHOCYTES# (MANUAL) 2.9 10^3/uL (0.5-4.7); ABSOLUTE MONOCYTES # (MANUAL) 0.1 10^3/uL (0.1-1.4); BASOPHILS % (MANUAL) 0 % (0-2); EOSINOPHILS % (MANUAL) 1 % (0-6); LYMPHOCYTES % (MANUAL) 39 % (13-45); MONOCYTES % (MANUAL) 2 % (3-13); SEGMENTED NEUTROPHILS % (MAN) 54 % (42-78); TOTAL CELLS COUNTED 100
[2019-08-21 03:22] LABS: PLATELET COMMENT ADEQUATE; RBC MORPHOLOGY COMMENT NORMO-CYTIC/CHROMIC
[2019-08-21 03:54] LABS: APPEARANCE,URINE CLEAR; BILIRUBIN,URINE NEGATIVE (NEGATIVE); COLOR,URINE YELLOW; GLUCOSE, URINE NEGATIVE (NEGATIVE); KETONES,URINE NEGATIVE (NEGATIVE); LEUKOCYTE ESTERASE,URINE NEGATIVE (NEGATIVE); NITRITE,URINE NEGATIVE (NEGATIVE); PROTEIN,URINE NEGATIVE (NEGATIVE); URINE SPECIFIC GRAVITY 1.024
[2019-08-21] MEDS ORDERED: ONDANSETRON ODT 4 MG TAB (6 TAB/ER DISP) PO PRN (06:01)
[2019-08-21 06:11] VITALS: BP 113/62
== END 2019-08-21 06:12 | disposition home or self-care (01) ==
LOC: ER 23:29
DX: R10.84 Generalized abdominal pain (principal); R11.0 Nausea
CPT/HCPCS: 36415; 80053; 81001; 83690; 85025; 99284

== ENCOUNTER 2019-08-21 22:54 | Emergency (ER) | payer SELFPAY ==
[2019-08-22] MEDS ORDERED: PROMETHAZINE HCL 25 MG TABLET PO ONE (02:07)
--- NOTE | 2019-08-22 02:27 | ER Document Report ---
HPI - HPI Time Seen by Provider: 08/22/19 01:19 Pain Level: 3 Context: Patient is a 24-year-old male who comes emergency department for chief complaint of nausea, vomiting, generalized abdominal pain, and generalized weakness. He states he has had symptoms intermittently for the past 2 months and he vomited twice earlier today. He denies fever. He denies any current abdominal pain. He denies any daily medications. He denies alcohol or recreational drugs, he smokes occasionally. He recently tested negative for COVID-19. - REPRODUCTIVE Reproductive: DENIES: : Past Medical History - General Information source: Patient - Social History Smoking Status: Current Every Day Smoker Smoking Education Provided: Yes - <3 min Frequency of alcohol use: None Drug Abuse: None Lives with: Alone Family History: Reviewed & Not Pertinent Patient has homicidal ideation: No Pulmonary Medical History: Reports: Hx Asthma - Immunizations Immunizations up to date: Yes Hx Diphtheria, Pertussis, Tetanus Vaccination: Yes Vertical Provider Document - CONSTITUTIONAL General Appearance: WD/WN, No Apparent Distress - Sleeping and easily aroused, somewhat disheveled in appearance - INFECTION CONTROL TRAVEL OUTSIDE OF THE [place] IN LAST 30 DAYS: No - HEENT HEENT: Atraumatic, Normal ENT Exam, Normocephalic - NECK Neck: Normal Inspection - RESPIRATORY Respiratory: Breath Sounds Normal, No Respiratory Distress. negative: Wheezing - CARDIOVASCULAR Cardiovascular: Regular Rate, Regular Rhythm - GI/ABDOMEN Gastrointestinal: Abdomen Soft, Abdomen Non-Tender. negative: Abdomen Tender, Abdominal Guarding, Abdominal Rebound - BACK Back: Normal Inspection - MUSCULOSKELETAL/EXTREMETIES Musculoskeletal/Extremeties: MAEW, FROM, Non-Tender - NEURO Level of Consciousness: Awake, Alert, Appropriate Motor/Sensory: No Motor Deficit, No Sensory Deficit - DERM Integumentary: Warm, Dry, No Rash Course - Re-evaluation Re-evalutation: Patient sleeping soundly on my evaluation, easily arousable, calm and pleasant. He is not tachycardic on my exam, he is alert, well-appearing, has a soft benign abdomen, clear lungs, unremarkable exam other than apparent homelessness based on his disheveled appearance and his belongings with him at bedside. Patient was asked evaluated for this yesterday and has been here several days this week. He has had 2 separate normal laboratory work-up within the past week including a normal and yesterday. Based on this and his evaluation of a very low suspicion of any acute emergent abnormality. Patient was given Phenergan instead of Zofran, tolerated p.o. without any difficulty, patient will be discharged with Phenergan and return precautions. Patient states understanding and agreement. - Vital Signs Vital signs: Temp Pulse Resp BP Pulse Ox 98.8 F 113 H 16 164/85 H 98 08/21/19 23:59 08/21/19 23:08 08/21/19 23:08 08/21/19 23:08 08/21/19 23:08 Discharge - Discharge Clinical Impression: Nausea and vomiting Qualifiers: Vomiting type: unspecified Vomiting Intractability: non-intractable Qualified Code(s): R11.2 - Nausea with vomiting, unspecified Condition: Stable Disposition: HOME, SELF-CARE Additional Instructions: Your evaluation tonight and yesterday did not show any concerning findings. Your recent COVID-19 (coronavirus) test was negative. Take Phenergan if needed for nausea, drink plenty of fluids, start with bland food and slowly progress. Symptoms should simply resolve with time. Follow-up with primary care. Return if you worsen including uncontrolled vomiting, severe worsening pain, spiking fever, difficulty breathing, or any other concerning symptoms. Prescriptions: Promethazine HCl [Phenergan 25 mg Tablet] 25 mg PO Q6H PRN #15 tablet PRN Reason:
[2019-08-22 03:29] VITALS: BP 151/79
== END 2019-08-22 03:14 | disposition home or self-care (01) ==
LOC: ER 22:54
DX: R07.2 Precordial pain (principal); R11.2 Nausea with vomiting, unspecified; T45.0X6A Underdosing of antiallergic and antiemetic drugs, initial encounter; Z91.14 Patient's other noncompliance with medication regimen; F17.200 Nicotine dependence, unspecified, uncomplicated; J45.909 Unspecified asthma, uncomplicated
CPT/HCPCS: 99283

== ENCOUNTER 2019-08-22 23:25 | Emergency (ER) | payer SELFPAY ==
[2019-08-22 23:40] VITALS: BP 148/52
--- NOTE | 2019-08-23 00:42 | RADIOLOGY REPORT (SQ) ---
EXAM DESCRIPTION: XR ABDOMEN SUPINE AND ERECT WITH CHEST (ABD ACUTE SERIES) COMPLETED DATE/TME: 08/22/2019 23:59 CLINICAL HISTORY: 24 years Male ,abd pain COMPARISON: 06/13/2019. TECHNIQUE: Frontal view chest x-ray and two views of the abdomen. FINDINGS: The cardiomediastinal silhouette appears unremarkable. No consolidating infiltrates or pleural effusions. No free air is identified beneath the hemidiaphragms. No dilated loops of bowel to suggest obstruction. IMPRESSION: No acute plain film abnormality is identified.
--- NOTE | 2019-08-23 00:51 | ER Document Report ---
HPI - HPI Time Seen by Provider: 08/22/19 23:56 Pain Level: Denies Notes: 24-year-old male patient presenting to the emergency department generalized abdominal pain and vomiting. Patient reports he vomited 1 time today. He denies any blood in his vomit. He denies any diarrhea. He reports he has normal bowel movements. - REPRODUCTIVE Reproductive: DENIES: : Past Medical History - General Information source: Patient - Social History Smoking Status: Never Smoker Frequency of alcohol use: None Drug Abuse: None Family History: Reviewed & Not Pertinent Patient has homicidal ideation: No Pulmonary Medical History: Reports: Hx Asthma - Immunizations Immunizations up to date: Yes Hx Diphtheria, Pertussis, Tetanus Vaccination: Yes Vertical Provider Document - CONSTITUTIONAL Notes: PHYSICAL EXAMINATION: GENERAL: Well-appearing, well-nourished and in no acute distress. HEAD: Atraumatic, normocephalic. EYES: Pupils equal round extraocular movements intact, conjunctiva are normal. ENT: Nares patent NECK: Normal range of motion LUNGS: No respiratory distress Abdomen: Abdomen soft, nontender. No guarding no rebound. Musculoskeletal: Normal range of motion NEUROLOGICAL: Normal speech, normal gait. PSYCH: Normal mood, normal affect. SKIN: Warm, Dry, normal turgor, no rashes or lesions noted. - INFECTION CONTROL TRAVEL OUTSIDE OF THE [place] IN LAST 30 DAYS: No Course - Re-evaluation Re-evalutation: 08/23/19 00:49 He has been seen in this emergency department several times over the last few days for similar symptoms. He has had normal labs on 2 of the very recent visits. We will obtain plain films today. If films are negative for obstruction or free air patient will be discharged home. He has a Zofran dispense pack from 2 nights ago that he states he has not used. - Vital Signs Vital signs: Temp Pulse Resp BP Pulse Ox 98.5 F 106 H 20 148/52 H 100 08/22/19 23:38 08/22/19 23:38 08/22/19 23:38 08/22/19 23:38 08/22/19 23:38 Discharge - Discharge Clinical Impression: Abdominal pain Qualifiers: Abdominal location: unspecified location Qualified Code(s): R10.9 - Unspecified abdominal pain Nausea and vomiting Qualifiers: Vomiting type: unspecified Vomiting Intractability: unspecified Qualified Code(s): R11.2 - Nausea with vomiting, unspecified Condition: Stable Disposition: HOME, SELF-CARE Additional Instructions: Please use the Zofran that we sent home with you. You may take 1 or 2 tablets every 6 hours if needed for nausea and vomiting. You should not go to work while you are having symptoms of nausea or vomiting. 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 Please return to the emergency department with new or worsening symptoms. Forms: Return to Work
== END 2019-08-23 01:05 | disposition home or self-care (01) ==
LOC: ER 23:25
DX: R10.9 Unspecified abdominal pain (principal); R11.2 Nausea with vomiting, unspecified; R10.84 Generalized abdominal pain; J45.909 Unspecified asthma, uncomplicated
CPT/HCPCS: 74022; 99283

== ENCOUNTER 2019-08-24 00:50 | Emergency (ER) | payer SELFPAY ==
--- NOTE | 2019-08-24 04:15 | ER Document Report ---
ED General - General Chief Complaint: Chest Pain Stated Complaint: CHEST PAINS, SHORTNESS OF BREATH Time Seen by Provider: 08/24/19 04:14 Notes: 24-year-old male presents emergency department stating that he has been having "heart attack type pain" for the past 3 weeks. Discussed with patient that he has been seen here on multiple occasions in the past 3 weeks and has not been diagnosed with any heart disease. Patient states that it feels like "something is drilling into his heart" whenever this happens. Patient states that it comes on when he laughs or tries to breathe heavy, it is a drilling pain into the left side of his chest that will last 1 to 4 seconds and then resolved without any intervention. It is not associated with any shortness of breath. Patient also notes that he tends to vomit once to twice a day, it is nonbloody and nonbilious, denies any abdominal pain. He has been prescribed Zofran but has not had this filled. He has not had any fevers. Has had a recent COVID test. 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 He has not made phone calls to arrange these follow-up appointments. Denies any change in his pain over the past several weeks. Denies any fevers or cough. Denies any worsening with exertion. TRAVEL OUTSIDE OF THE [place] IN LAST 30 DAYS: No - Related Data Allergies/Adverse Reactions: No Known Allergies Allergy (Verified 08/06/19 22:44) Past Medical History - General Information source: Patient - Social History Smoking Status: Current Every Day Smoker Frequency of alcohol use: None Drug Abuse: None Family History: Reviewed & Not Pertinent. denies: CAD - Specifically no family history of coronary artery disease particularly prior to 50 years old. Pulmonary Medical History: Reports: Hx Asthma - Immunizations Immunizations up to date: Yes Hx Diphtheria, Pertussis, Tetanus Vaccination: Yes Review of Systems - Review of Systems Constitutional: No symptoms reported Cardiovascular: See HPI Gastrointestinal: See HPI, Vomiting - Vomiting daily once twice a day. -: Yes All other systems reviewed and negative Physical Exam - Vital signs Vitals: Temp Pulse Resp BP Pulse Ox 99.0 F 98 20 143/84 H 99 08/24/19 01:16 08/24/19 01:16 08/24/19 01:16 08/24/19 01:16 08/24/19 01:16 Interpretation: Hypertensive - Notes Notes: GENERAL: Alert, interacts well. No acute distress. HEAD: Normocephalic, atraumatic EYES: Pupils equal, round and reactive to light, extraocular movements intact. ENT: Oral mucosa moist, tongue midline. NECK: Full range of motion, supple, trachea midline. LUNGS: Clear to auscultation bilaterally, no wheezes, rales or rhonchi, no respiratory distress. HEART: Regular rate and rhythm, no murmurs, gallops, rubs. Mild tenderness to palpation when you push on the sternum, does not exactly reproduce the pain. ABDOMEN: Soft, nontender, nondistended, bowel sounds present in all 4 quadrants. EXTREMITIES: Moves all 4 extremities spontaneously, no edema. No cyanosis. NEUROLOGICAL: Alert and oriented x3, normal speech. PSYCH: Normal mood, normal affect. SKIN: Warm, Dry, normal turgor. Course - Re-evaluation Re-evalutation: 08/24/19 04:30 EKG is nonischemic. There are no changes. Patient had acute abdominal series including a chest x-ray within the past 24 hours which was negative, no indication to repeat imaging at this time. Discussed with patient that I will c heck CBC, chemistries, troponin and lipase to ensure that none of these have changed. Discussed with patient that he has had multiple extensive work-ups in the emergency department and we find no evidence that this is coming from ischemic cardiac disease however if he continues to be concerned he really needs to follow-up with a school supervisor as an outpatient. I also discussed the possibility of precordial catch syndrome which does better explain why he is having this intermittent pain that only lasts between 1 and 4 seconds and has not changed with exertion. Discussed with patient that if his vomiting is truly concerning to him even though it only happens once to twice a day he should phiilp lly consider getting the Zofran filled. I also discussed that if he is having problems with finances where he cannot get it filled I will give him a dispense pack to go home with so he can try it and see if it makes any difference. Reinforced the importance of follow-up after an emergency department visit as there is only so much work-up that we can do here. Also question the patient as to whether or not there were other issues going on in his life at this time that were making it difficult for him to access care or if he wanted a referral to our social scientist. Patient declined this at this time. Also discussed the possibility that if the patient is only vomiting once to twice a day it may actually be coming from increased acid in his stomach and he would benefit from trying an antacid such as Pepcid 20 mg once to twice a day. Patient is agreeable to trying this at home. 08/24/19 05:07 CBC unremarkable, CMP unremarkable, troponin negative, lipase normal. Discharged home. - Vital Signs Vital signs: Temp Pulse Resp BP Pulse Ox 99.0 F 98 20 143/84 H 99 08/24/19 01:16 08/24/19 01:16 08/24/19 01:16 08/24/19 01:16 08/24/19 01:16 - Laboratory Result Diagrams: 08/24/19 04:15 08/24/19 04:15 Laboratory results interpreted by me: 08/24/19 08/24/19 04:15 04:15 RDW 14.3 H ALT 53 H - EKG Interpretation by Me Additional EKG results interpreted by me: 08/24/19 04:15 EKG shows sinus rhythm rate of 99, normal axis, normal intervals, no ST segment elevations or depressions, no T wave inversions per my interpretation. Discharge - Discharge Clinical Impression: Precordial chest pain Nausea and vomiting Qualifiers: Vomiting type: unspecified Vomiting Intractability: non-intractable Qualified Code(s): R11.2 - Nausea with vomiting, unspecified Condition: Stable Disposition: HOME, SELF-CARE Additional Instructions: Chest Pain of Unclear Cause The exact cause of your chest pain isn't clear. Fortunately, there is no evidence of a dangerous medical condition. Further testing may be required to find the source of the pain. Most often, we find that this pain is coming from the chest wall -- the muscles or rib joints in the chest. But chest pain can come from the lung and lung lining, the esophagus, the heart valves or heart lining, and even the stomach or gallbladder. Rest. Eat lightly until the pain is gone. We may prescribe medicine for pain and inflammation. You should call the physician immediately if the pain radiates to the shoulder, jaw or arms; if you start to run a fever or develop a cough; or if you develop shortness of breath, or other new or alarming symptoms. We have checked you multiple times to see if this is coming from a heart attack or other life-threatening condition and we have found no signs of this. If you are still concerned that this may be coming from a life-threatening cardiac condition I strongly encourage you to follow-up with a school supervisor as an outpatient. I have given you the name of a school supervisor that you can follow-up with. For your intermittent vomiting I have given you a packet of Zofran from the emergency department so you will have it so you can try it as you have not fi lled the prescriptions that we have given you. You may also wish to try taking a daily antacid such as Pepcid 20 mg twice a day to decrease the amount of acid you produce as this may be a cause of your vomiting but only happens once to twice a day. Referrals: YAHAIRA LESLIE MD [ACTIVE STAFF] - Follow up as needed
[2019-08-24 04:24] LABS: ABSOLUTE BASOPHILS # (AUTO) 0.1 10^3/uL (0.0-0.2); ABSOLUTE EOSINOPHILS # (AUTO) 0.3 10^3/uL (0.0-0.6); ABSOLUTE LYMPHOCYTES (AUTO) 2.8 10^3/uL (0.5-4.7); ABSOLUTE MONOCYTES (AUTO) 0.5 10^3/uL (0.1-1.4); ABSOLUTE NEUT (AUTO) 3.4 10^3/uL (1.7-8.2); BASOPHILS % (AUTO) 0.9 % (0-2); EOSINOPHILS % (AUTO) 4.4 % (0-6); HEMATOCRIT 44.5 % (37.9-51.0); HEMOGLOBIN 15.1 g/dL (13.5-17.0); LYMPHOCYTES % (AUTO) 39.4 % (13-45); MEAN CORPUSCULAR HEMOGLOBIN 27.7 pg (27.0-33.4); MEAN CORPUSCULAR HGB CONC 33.9 g/dL (32.0-36.0); MEAN CORPUSCULAR VOLUME 82 fl (80-97); MONOCYTES % (AUTO) 7.3 % (3-13); PLATELET COUNT 245 10^3/uL (150-450); RED BLOOD COUNT 5.44 10^6/uL (4.35-5.55); RED CELL DISTRIBUTION WIDTH 14.3 % (11.5-14.0); TOTAL CELLS COUNTED % (AUTO) 100 %
[2019-08-24] MEDS ORDERED: ONDANSETRON ODT 4 MG TAB (6 TAB/ER DISP) PO PRN (04:26)
[2019-08-24 04:38] LABS: ALBUMIN 4.5 g/dL (3.5-5.0); ALKALINE PHOSPHATASE 46 U/L (38-126); ANION GAP 7 (5-19); ASPARTATE AMINO TRANSFERASE 44 U/L (17-59); BILIRUBIN,TOTAL 0.9 mg/dL (0.2-1.3); BLOOD UREA NITROGEN 13 mg/dL (7-20); CALCIUM 9.7 mg/dL (8.4-10.2); CARBON DIOXIDE 25 mmol/L (22-30); CHLORIDE 106 mmol/L (98-107); GLUCOSE 98 mg/dL (75-110); POTASSIUM 4.1 mmol/L (3.6-5.0); TOTAL PROTEIN 7.5 g/dL (6.3-8.2)
[2019-08-24 06:00] VITALS: BP 120/78
--- NOTE | 2019-08-24 07:42 | EKG REPORT ---
SEVERITY:- NORMAL ECG - SINUS RHYTHM : Confirmed by: Jaden Martinez MD 24-Aug-2019 07:41:50
== END 2019-08-24 06:27 | disposition home or self-care (01) ==
LOC: ER 00:50
DX: R07.2 Precordial pain (principal); R11.2 Nausea with vomiting, unspecified; R07.9 Chest pain, unspecified; R06.02 Shortness of breath; F17.200 Nicotine dependence, unspecified, uncomplicated
CPT/HCPCS: 36415; 80053; 83690; 84484; 85025; 93005; 93010; 99285

== ENCOUNTER 2019-08-29 22:39 | Emergency (ER) | payer SELFPAY ==
[2019-08-30] MEDS ORDERED: SUCRALFATE 1 GM TABLET PO ONE (00:52)
[2019-08-30] MEDS ORDERED: FAMOTIDINE 20 MG TABLET PO ONE (00:52)
[2019-08-30] MEDS ORDERED: ONDANSETRON 4 MG TAB.RAPDIS PO ONE (00:52)
--- NOTE | 2019-08-30 01:01 | ER Document Report ---
ED GI/ - General Chief Complaint: Nausea/Vomiting Stated Complaint: NAUSEA/VOMITING/HEADACHE Time Seen by Provider: 08/30/19 00:09 Primary Care Provider: [facility] [Provider Group] - Follow up as needed [facility] [Provider Group] - Follow up as needed Notes: Patient is a 24-year-old male, homeless, and well-known to this emergency department who presents to the emergency department with a chief complaint of nausea, vomiting, and a headache. Patient states that he has had his symptoms for the past month. Patient does have a history of GERD and does not currently take any medications for it. Patient denies any hematemesis. States that he is having normal bowel movements. TRAVEL OUTSIDE OF THE [place] IN LAST 30 DAYS: No - Related Data Allergies/Adverse Reactions: No Known Allergies Allergy (Verified 08/06/19 22:44) Past Medical History - General Information source: Patient - Social History Smoking Status: Never Smoker Frequency of alcohol use: None Family History: Reviewed & Not Pertinent. denies: CAD - Specifically no family history of coronary artery disease particularly prior to 50 years old. Patient has homicidal ideation: No Pulmonary Medical History: Reports: Hx Asthma - Immunizations Immunizations up to date: Yes Hx Diphtheria, Pertussis, Tetanus Vaccination: Yes Review of Systems - Review of Systems Notes: REVIEW OF SYSTEMS: CONSTITUTIONAL : Denies recent illness. Denies recent unintentional weight loss. Denies fever, chills, or sweats. EENT: Denies eye, ear, throat, or mouth pain, discharge, or symptoms. Denies nasal or sinus congestion. CARDIOVASCULAR: Denies chest pain. RESPIRATORY: Denies shortness of breath, cough, congestion, difficulty breathing, or wheezing. GASTROINTESTINAL: Denies nausea, vomiting, and diarrhea. Denies abdominal pain. Denies constipation. GENITOURINARY: See HPI. MUSCULOSKELETAL: Denies neck and back pain. Denies joint pain or swelling. SKIN: Denies rash, itchiness, or lesions HEMATOLOGIC : Denies easy bruising or bleeding. LYMPHATIC: Denies swollen, painful, enlarged glands. NEUROLOGICAL: Denies no numbness or tingling denies weakness. Denies altered mental status. Denies alteration in speech. PSYCHIATRIC: Denies stress, anxiety, alteration in sleep patterns, or depression. All other systems reviewed and negative. Physical Exam - Vital signs Vitals: Temp Pulse Resp BP Pulse Ox 98.5 F 98 16 132/78 H 99 08/29/19 22:50 08/29/19 22:50 08/29/19 22:50 08/29/19 22:50 08/29/19 22:50 - Notes Notes: PHYSICAL EXAMINATION: GENERAL: Appears well, healthy, well-nourished, no acute distress. HEAD: Normocephalic, atraumatic. EYES: PERRL, conjunctiva normal, all extraocular movements intact, sclera nonicteric ENT: Moist mucous membranes. NECK: Supple, no noticeable swelling, redness, rash. Normal range of motion. LUNGS: Equal breath sounds bilaterally and clear to auscultation. No wheezes rales or rhonchi. CARDIOVASCULAR: S1-S2, regular rate, regular rhythm. Radial pulses 2+, normal. ABDOMEN: Normoactive bowel sounds. Soft, nontender, no guarding, no rebound tenderness, and no masses palpated. EXTREMITIES: Normal strength and range of motion, no pitting or edema. No cyanosis. NEUROLOGICAL: Moves all extremities upon command. Strength 5/5 in all extremities. PSYCH: Normal mood, normal affect. SKIN: Warm, dry. No rash, lesions, ulcerations noted. Normal skin turgor. Course - Re-evaluation Re-evalutation: 08/30/19 02:23 Patient states that he feels better after receiving Pepcid and Carafate. I have a low suspicion for any life-threatening abdominal etiology at this time. I will put a referral for social work to help the patient possibly find a place to live. He is in agreement with this plan. Follow-up precautions were given. Verbal discharge instructions were given to the patient. They verbalized understanding. They are stable for discharge. - Vital Signs Vital signs: Temp Pulse Resp BP Pulse Ox 98.4 F 92 18 152/89 H 98 08/30/19 00:09 08/30/19 00:09 08/30/19 00:09 08/30/19 00:09 08/30/19 00:09 Discharge - Discharge Clinical Impression: Gastritis Qualifiers: Gastritis type: unspecified gastritis Chronicity: acute Gastritis bleeding: without bleeding Qualified Code(s): K29.00 - Acute gastritis without bleeding Condition: Stable Disposition: HOME, SELF-CARE Additional Instructions: You were seen today in the emergency department for nausea, vomiting, and a headache. Please take Pepcid 40 mg twice a day. You can buy this [id number], or you can use the prescription. Follow-up with 1 of the primary care provider as below. Prescriptions: Famotidine [Pepcid 20 mg Tablet] 40 mg PO BID #60 tablet Ondansetron [Zofran Odt 4 mg Tablet] 1 - 2 tab PO Q4H PRN #15 tab.rapdis PRN Reason: For Nausea/Vomiting Referrals: [facility] [Provider Group] - Follow up as needed [facility] [Provider Group] - Follow up as needed
[2019-08-30 02:46] VITALS: BP 133/81
== END 2019-08-30 02:46 | disposition home or self-care (01) ==
LOC: ER 22:39
DX: K29.00 Acute gastritis without bleeding (principal); R11.2 Nausea with vomiting, unspecified; R51 Headache
CPT/HCPCS: 99283; S0119

== ENCOUNTER 2019-08-30 22:09 | Emergency (ER) | payer SELFPAY ==
[2019-08-31 05:19] VITALS: BP 112/73
[2019-08-31] MEDS ORDERED: LIDOCAINE 2% VISCOUS SOLN 15 ML UDCUP PO ONE (05:58)
[2019-08-31] MEDS ORDERED: METOCLOPRAMIDE HCL ORAL SOLN 10 MG/10 ML UDCUP PO ONE (05:58)
[2019-08-31] MEDS ORDERED: MAG HYDROX/AL HYDROX/SIMETH SUSP 30 ML UDCUP PO ONE (05:58)
--- NOTE | 2019-08-31 07:20 | ER Document Report ---
HPI - HPI Time Seen by Provider: 08/31/19 05:57 Pain Level: 3 Notes: 24-year-old male patient very well-known to our facility presenting with complaints of vomiting x1 and acid reflux burning sensation in his throat. He states he is not taking his acid reflux medications. He reports he is also not taken any of the medications he has recently been prescribed for nausea. He denies any fevers or chills. - ROS Systems Reviewed and Negative: Yes All other systems reviewed and negative - RESPIRATORY Respiratory: REPORTS: Coughing - GASTROINTESTINAL Gastrointestinal: REPORTS: Patient vomiting - x1 [employer] WORK[employer] - REPRODUCTIVE Reproductive: DENIES: : Past Medical History - General Information source: Patient - Social History Smoking Status: Never Smoker Frequency of alcohol use: None Drug Abuse: None Family History: Reviewed & Not Pertinent. denies: CAD - Specifically no family history of coronary artery disease particularly prior to 50 years old. Patient has homicidal ideation: No Pulmonary Medical History: Reports: Hx Asthma - Immunizations Immunizations up to date: Yes Hx Diphtheria, Pertussis, Tetanus Vaccination: Yes Vertical Provider Document - CONSTITUTIONAL Notes: PHYSICAL EXAMINATION: GENERAL: Disheveled HEAD: Atraumatic, normocephalic. EYES: Pupils equal round and reactive to light, extraocular movements intact, sclera anicteric, conjunctiva are normal. ENT: Nares patent, oropharynx clear without exudates. Moist mucous membranes. NECK: Normal range of motion, supple without lymphadenopathy LUNGS: Breath sounds clear to auscultation bilaterally and equal. No wheezes rales or rhonchi. HEART: Regular rate and rhythm without murmurs ABDOMEN: Soft, nontender, nondistended abdomen. No guarding, no rebound. No m asses appreciated. Musculoskeletal: Normal range of motion, no pitting or edema. No cyanosis. NEUROLOGICAL: Cranial nerves grossly intact. Normal speech, normal gait. Normal sensory, motor exams PSYCH: Normal mood, normal affect. SKIN: Warm, Dry, normal turgor, no rashes or lesions noted. - INFECTION CONTROL TRAVEL OUTSIDE OF THE [place] IN LAST 30 DAYS: No Course - Re-evaluation Re-evalutation: Patient given a GI cocktail. He states he feels much better. He reports that he has work later today and does not need a work note as he feels well enough to be discharged and go to work today. - Vital Signs Vital signs: Temp Pulse Resp BP Pulse Ox 97.8 F 67 16 112/73 100 08/31/19 05:11 08/31/19 05:11 08/31/19 05:11 08/31/19 05:11 08/31/19 05:11 Discharge - Discharge Clinical Impression: GERD (gastroesophageal reflux disease) Qualifiers: Esophagitis presence: esophagitis presence not specified Qualified Code(s): K21.9 - Gastro-esophageal reflux disease without esophagitis Condition: Stable Disposition: HOME, SELF-CARE Additional Instructions: Please take medication as prescribed. Follow-up with the [facility] to establish care with a primary care provider. Prescriptions: Metoclopramide HCl [Reglan 10 mg Tablet] 1 - 2 tab PO ASDIR PRN #25 tablet PRN Reason:
== END 2019-08-31 07:36 | disposition home or self-care (01) ==
LOC: ER 22:09
DX: K21.9 Gastro-esophageal reflux disease without esophagitis (principal); R11.10 Vomiting, unspecified
CPT/HCPCS: 99283; J3490

== ENCOUNTER 2019-09-01 01:01 | Emergency (ER) | payer SELFPAY ==
[2019-09-01 01:32] VITALS: BP 140/83
--- NOTE | 2019-09-01 02:34 | ER Document Report ---
HPI - HPI Time Seen by Provider: 09/01/19 01:37 Pain Level: Denies Notes: 24-year-old male patient presents emergency department chief complaint of shortness of breath and vomiting. Patient reports symptoms have been ongoing for 1 month. This patient is well-known to our facility. He was here less than 24 hours ago. At that time he was complaining of vomiting. He was seen in the emergency department and had no episodes of vomiting. He was given a GI cocktail and reported relief of his acid reflux symptoms. At the time of provider evaluation patient is found laying in the bed snoring. When he is awoken he denies any complaints. He states he has not had any vomiting or shortness of breath. - ROS Systems Reviewed and Negative: Yes All other systems reviewed and negative - RESPIRATORY Notes: shortness of breath - GASTROINTESTINAL Gastrointestinal: REPORTS: Patient vomiting - not since this morning - REPRODUCTIVE Reproductive: DENIES: : Past Medical History - General Information source: Patient - Social History Smoking Status: Current Every Day Smoker Chew tobacco use (# tins/day): No Frequency of alcohol use: None Drug Abuse: None Family History: Reviewed & Not Pertinent. denies: CAD - Specifically no family history of coronary artery disease particularly prior to 50 years old. Patient has homicidal ideation: No Pulmonary Medical History: Reports: Hx Asthma - Immunizations Immunizations up to date: Yes Hx Diphtheria, Pertussis, Tetanus Vaccination: Yes Vertical Provider Document - CONSTITUTIONAL Notes: PHYSICAL EXAMINATION: GENERAL: Malodorous, well-nourished and in no acute distress. HEAD: Atraumatic, normocephalic. EYES: Pupils equal round extraocular movements intact, conjunctiva are normal. ENT: Nares patent NECK: Normal range of motion LUNGS: No respiratory distress, lungs clear and equal bilaterally. Musculoskeletal: Normal range of motion NEUROLOGICAL: Normal speech, normal gait. PSYCH: Normal mood, normal affect. SKIN: Warm, Dry, normal turgor, no rashes or lesions noted. - INFECTION CONTROL TRAVEL OUTSIDE OF THE [place] IN LAST 30 DAYS: No Course - Re-evaluation Re-evalutation: Patient appears well, nontoxic. He has no acute complaints today. I suspect he is using the emergency department as a place to sleep as he is homeless. He will be discharged at this time. - Vital Signs Vital signs: Temp Pulse Resp BP Pulse Ox 98.8 F 90 16 140/83 H 97 09/01/19 01:28 09/01/19 01:28 09/01/19 01:28 09/01/19 01:28 09/01/19 01:28 Discharge - Discharge Clinical Impression: Homelessness Condition: Stable Disposition: HOME, SELF-CARE Additional Instructions: You were seen and evaluated in the emergency department tonight. Please return with any new or life-threatening complaints.
== END 2019-09-01 02:58 | disposition home or self-care (01) ==
LOC: ER 01:01
DX: R06.02 Shortness of breath (principal); R11.10 Vomiting, unspecified; F17.200 Nicotine dependence, unspecified, uncomplicated; Z59.0 Homelessness
CPT/HCPCS: 99283

== ENCOUNTER 2019-09-01 23:22 | Emergency (ER) | payer SELFPAY ==
[2019-09-02 06:37] VITALS: BP 111/67
--- NOTE | 2019-09-02 08:45 | ER Document Report ---
ED General - General Chief Complaint: Nausea/Vomiting Stated Complaint: COUGH, SORE THROAT, NAUSEA Time Seen by Provider: 09/02/19 08:04 Notes: Patient is a 24-year-old male who presents to the emergency department with a chief complaint of nausea, cough, and sore throat. She states that he feels better and does not feel any of his symptoms anymore. Patient does have a history of GERD. He is not currently taking the Pepcid and Carafate prescribed to him the other day by myself. Patient is currently homeless. Denies any fever, body aches, or chills. TRAVEL OUTSIDE OF THE [place] IN LAST 30 DAYS: No - Related Data Allergies/Adverse Reactions: No Known Allergies Allergy (Verified 08/06/19 22:44) Past Medical History - General Information source: Patient - Social History Smoking Status: Never Smoker Frequency of alcohol use: None Family History: Reviewed & Not Pertinent. denies: CAD - Specifically no family history of coronary artery disease particularly prior to 50 years old. Patient has homicidal ideation: No Pulmonary Medical History: Reports: Hx Asthma - Immunizations Immunizations up to date: Yes Hx Diphtheria, Pertussis, Tetanus Vaccination: Yes Review of Systems - Review of Systems Notes: REVIEW OF SYSTEMS: CONSTITUTIONAL : Denies recent illness. Denies recent unintentional weight loss. Denies fever, chills, or sweats. EENT: See HPI. CARDIOVASCULAR: Denies chest pain. RESPIRATORY: See HPI. GASTROINTESTINAL: Denies nausea, vomiting, and diarrhea. Denies abdominal pain. Denies constipation. GENITOURINARY: Denies difficulty urinating, burning, blood in urine, urgency or frequency. MUSCULOSKELETAL: Denies neck and back pain. Denies joint pain or swelling. SKIN: Denies rash, itchiness, or lesions HEMATOLOGIC : Denies easy bruising or bleeding. LYMPHATIC: Denies swollen, painful, enlarged glands. NEUROLOGICAL: Denies no numbness or tingling denies weakness. Denies headache. Denies altered mental status. Denies alteration in speech. PSYCHIATRIC: Denies stress, anxiety, alteration in sleep patterns, or depression. All other systems reviewed and negative. Physical Exam - Vital signs Vitals: Temp Pulse Resp BP Pulse Ox 98.7 F 104 H 16 154/86 H 97 09/01/19 23:51 09/01/19 23:51 09/01/19 23:51 09/01/19 23:51 09/01/19 23:51 - Notes Notes: PHYSICAL EXAMINATION: GENERAL: Appears well, healthy, well-nourished, no acute distress. HEAD: Normocephalic, atraumatic. EYES: PERRL, conjunctiva normal, all extraocular movements intact, sclera marlena cteric ENT: Moist mucous membranes. Nares are patent. No erythema noted. Oropharynx normal. NECK: Supple, no noticeable swelling, redness, rash. Normal range of motion. LUNGS: Equal breath sounds bilaterally and clear to auscultation. No wheezes rales or rhonchi. CARDIOVASCULAR: S1-S2, regular rate, regular rhythm. Radial pulses 2+, normal. ABDOMEN: Normoactive bowel sounds. Soft, nontender, no guarding, no rebound tenderness, and no masses palpated. EXTREMITIES: Normal strength and range of motion, no pitting or edema. No cyanosis. NEUROLOGICAL: Moves all extremities upon command. Strength 5/5 in all extremities. PSYCH: Normal mood, normal affect. SKIN: Warm, dry. No rash, lesions, ulcerations noted. Normal skin turgor. Course - Vital Signs Vital signs: Temp Pulse Resp BP Pulse Ox 97.4 F 63 16 111/67 99 09/02/19 06:31 09/02/19 06:31 09/02/19 06:31 09/02/19 06:31 09/02/19 06:31 Discharge - Discharge Clinical Impression: Homelessness GERD (gastroesophageal reflux disease) Qualifiers: Esophagitis presence: esophagitis presence not specified Qualified Code(s): K21.9 - Gastro-esophageal reflux disease without esophagitis Condition: Stable Disposition: HOME, SELF-CARE Additional Instructions: You were seen today in the emergency department for nausea and a sore throat. Your acid reflux is causing your symptoms. Please take the medications prescribed to you from the other day.
== END 2019-09-02 09:30 | disposition home or self-care (01) ==
LOC: ER 23:22
DX: J02.9 Acute pharyngitis, unspecified (principal); K21.9 Gastro-esophageal reflux disease without esophagitis; R11.2 Nausea with vomiting, unspecified; R05 Cough; Z59.0 Homelessness
CPT/HCPCS: 99283

== ENCOUNTER 2019-09-02 22:25 | Emergency (ER) | payer SELFPAY ==
[2019-09-02 22:57] VITALS: BP 166/96
--- NOTE | 2019-09-02 23:00 | ER Document Report ---
HPI - HPI Patient complains to provider of: Nausea Time Seen by Provider: 09/02/19 22:56 Onset: Other - This is a 24-year-old male who is very well-known to the facility he was here yesterday as well as the day before he had a COVID test done for cough and congestion states that he has a sore throat and some nausea. Associated Symptoms: None Exacerbated by: Denies Relieved by: Denies - REPRODUCTIVE Reproductive: DENIES: : Past Medical History - General Information source: Patient - Social History Smoking Status: Current Every Day Smoker Cigarette use (# per day): Yes - 20 Chew tobacco use (# tins/day): No Smoking Education Provided: No Frequency of alcohol use: Rare Drug Abuse: None Lives with: Alone Family History: Reviewed & Not Pertinent. denies: CAD - Specifically no family history of coronary artery disease particularly prior to 50 years old. Pulmonary Medical History: Reports: Hx Asthma - Immunizations Immunizations up to date: Yes Hx Diphtheria, Pertussis, Tetanus Vaccination: Yes Vertical Provider Document - CONSTITUTIONAL Agree With Documented VS: Yes - INFECTION CONTROL TRAVEL OUTSIDE OF THE [place] IN LAST 30 DAYS: No - HEENT HEENT: Atraumatic, Normocephalic, PERRLA - NECK Neck: Normal Inspection - RESPIRATORY Respiratory: Breath Sounds Normal, No Respiratory Distress - CARDIOVASCULAR Cardiovascular: Regular Rate, Regular Rhythm - GI/ABDOMEN Gastrointestinal: Abdomen Soft, Abdomen Non-Tender - BACK Back: Normal Inspection Course - Re-evaluation Re-evalutation: 09/02/19 23:03 Lungs are clear to auscultation he has no chest pain no shortness of breath no exertional chest pain no exertional shortness of breath posterior pharynx is pink no exudate no trismus no oral floor induration patient is able to take nourishment and manages own saliva well we are still pending a COVID test he has no fever at this point in time. He has nausea with no vomitus last ate 2 hours ago. 09/02/19 23:04 - Vital Signs Vital signs: Temp Pulse Resp BP Pulse Ox 98.1 F 97 16 166/96 H 97 09/02/19 22:55 09/02/19 22:55 09/02/19 22:55 09/02/19 22:55 09/02/19 22:55 Discharge - Discharge Clinical Impression: Nausea, Homelessness Condition: Good Disposition: HOME, SELF-CARE Additional Instructions: Nausea or Vomiting, Nonspecific Vomiting (or nausea without vomiting) can be caused by many different problems. Of course, it can mean that something's wrong with the stomach, such as "stomach flu," ulcers, or inflammation. But it can also be a symptom of a problem that has nothing to do with the stomach or intestines. Vomiting is common with severe headaches, earaches, and tonsillitis. We see it with pneumonia or heart attacks. Drugs can cause nausea. Many abdominal problems cause vomiting; for example, gallstones, kidney stones, pancreatitis, and intestinal obstruction (blocked bowels). In most cases, curing the vomiting depends on fixing the problem that caused it. For temporary relief, we may use an anti-nausea medicine. For home use, we can prescribe suppositories, chewable pills, pills that dissolve in the mouth, or liquid anti-nausea drugs. If the vomiting seems to be caused by a problem in the stomach, acid-suppressing drugs may be prescribed as well. It's important to avoid dehydration. Sip clear liquids. Take increasing amounts of fluid over the first 24 hours. Then start small amounts of bland foods (such as dry toast, applesauce, mashed potato). Avoid aspirin, tobacco, and alcohol. Gradually resume your usual diet. If the vomiting worsens, if the problem that's making you vomit worsens, or if there's evidence of bleeding in the stomach (such as black, tarry stool, bloody or black vomit, or lightheadedness), you should return immediately. Call your doctor if you aren't improved in 24 to 36 hours. Prescriptions: Metoclopramide HCl [Reglan] 10 mg PO TID PRN #20 tablet PRN Reason: konstantin [facility]: [facility] [NO LOCAL MD] - Follow up as needed
[2019-09-02] MEDS ORDERED: METOCLOPRAMIDE HCL 10 MG TABLET PO ONE (23:08)
== END 2019-09-02 23:15 | disposition home or self-care (01) ==
LOC: ER 22:25
DX: R11.0 Nausea (principal); F17.210 Nicotine dependence, cigarettes, uncomplicated; Z59.0 Homelessness
CPT/HCPCS: 99283

== ENCOUNTER 2019-09-03 03:15 | Emergency (ER) | payer SELFPAY ==
[2019-09-03 07:39] VITALS: BP 122/76
--- NOTE | 2019-09-03 16:02 | ER Document Report ---
Entered by CRAOLINA SALCIDO SCRIBE 09/03/19 0714 Acting as scribe for:ANIKA DIOP MD ED General - General Chief Complaint: Near Syncope Stated Complaint: PASSED OUT/VOMITING Time Seen by Provider: 09/03/19 07:07 Mode of Arrival: Ambulatory Information source: Patient, [facility] Records Notes: This 24-year-old homeless male comes to the emergency room for place to sleep and eat. He has been to the emergency room 14 times in the last 18 days. He always complains of sore throat and cough and congestion. When I entered the room the patient was snoring. TRAVEL OUTSIDE OF THE [place] IN LAST 30 DAYS: No - Related Data Allergies/Adverse Reactions: No Known Allergies Allergy (Verified 08/06/19 22:44) Past Medical History - General Information source: Patient - Social History Smoking Status: Current Every Day Smoker Cigarette use (# per day): Yes Chew tobacco use (# tins/day): No Frequency of alcohol use: None Drug Abuse: None Lives with: Homeless Family History: Reviewed & Not Pertinent Patient has homicidal ideation: No Pulmonary Medical History: Reports: Hx Asthma Surgical Hx: Negative - Immunizations Immunizations up to date: Yes Hx Diphtheria, Pertussis, Tetanus Vaccination: Yes Review of Systems - Review of Systems Constitutional: See HPI, Other - homeless EENT: No symptoms reported Cardiovascular: No symptoms reported Respiratory: No symptoms reported Gastrointestinal: No symptoms reported Genitourinary: No symptoms reported Male Genitourinary: No symptoms reported Musculoskeletal: No symptoms reported Skin: No symptoms reported Hematologic/Lymphatic: No symptoms reported Neurological/Psychological: No symptoms reported -: Yes All other systems reviewed and negative Physical Exam - Vital signs Vitals: Temp Pulse Resp BP Pulse Ox 98.5 F 93 14 139/75 H 97 09/03/19 03:27 09/03/19 03:27 09/03/19 03:27 09/03/19 03:27 09/03/19 03:27 - Notes Notes: Physical Exam: General: Alert, appears well. HEENT: Normocephalic. Atraumatic. PERRLA. Extraocular movements intact. Oropharynx clear. Neck: Supple. Respiratory: No respiratory distress. Abdominal: Normal Inspection. No distension. Extremities: Moves all four extremities. Neurological: Normal cognition. AAOx4. Normal speech. Psychological: Normal affect. Normal Mood. Skin: Warm. Dry. Normal color. Course - Vital Signs Vital signs: Temp Pulse Resp BP Pulse Ox 97.5 F 71 16 122/76 100 09/03/19 07:28 09/03/19 07:28 09/03/19 07:28 09/03/19 07:28 09/03/19 07:28 Discharge - Discharge Clinical Impression: Homeless single person Condition: Stable Disposition: HOME, SELF-CARE Additional Instructions: You have come into this emergency room 14 times in the last 18 days. Please stop coming to the emergency room every day for place to sleep and eat. You are diverting valuable resources that are needed to treat other members of the community who have acute illnesses. [facility]. I personally performed the services described in the documentation, reviewed and edited the documentation which was dictated to the scribe in my presence, and it accurately records my words and actions.
== END 2019-09-03 07:28 | disposition home or self-care (01) ==
LOC: ER 03:15
DX: Z59.0 Homelessness (principal); R55 Syncope and collapse; J02.9 Acute pharyngitis, unspecified; R05 Cough; R09.81 Nasal congestion; F17.210 Nicotine dependence, cigarettes, uncomplicated; J45.909 Unspecified asthma, uncomplicated
CPT/HCPCS: 99283

== ENCOUNTER 2019-09-04 03:10 | Emergency (ER) | payer SELFPAY ==
[2019-09-04] MEDS ORDERED: ONDANSETRON 4 MG TAB.RAPDIS PO ONE (04:50)
[2019-09-04 05:03] VITALS: BP 116/65
--- NOTE | 2019-09-06 12:34 | ER Document Report ---
Entered by MASSIEL RUSHING SCRIBE 09/04/19 0451 Acting as scribe for:BRUNILDA HARPER IV, MD ED GI/ - General Chief Complaint: Nausea/Vomiting Stated Complaint: VOMITING Time Seen by Provider: 09/04/19 04:42 Primary Care Provider: MALI REED MD [HONORARY] - Follow up as needed Mode of Arrival: Ambulatory Information source: Patient Notes: This 24 year old male patient who is homeless and well-known to the ED presents to the ED today with complaints of intermittent nausea and vomiting for x1 month. Denies fever or diarrhea. This is the patient's 15th visit in the last x19 days, last visit was yesterday morning. TRAVEL OUTSIDE OF THE [place] IN LAST 30 DAYS: No - Related Data Allergies/Adverse Reactions: No Known Allergies Allergy (Verified 09/04/19 03:38) Past Medical History - General Information source: Patient, [facility] Records - Social History Smoking Status: Current Every Day Smoker Cigarette use (# per day): Yes Chew tobacco use (# tins/day): No Smoking Education Provided: No Frequency of alcohol use: None Drug Abuse: None Lives with: Homeless Family History: Reviewed & Not Pertinent Patient has suicidal ideation: No Patient has homicidal ideation: No Pulmonary Medical History: Reports: Hx Asthma - Immunizations Immunizations up to date: Yes Hx Diphtheria, Pertussis, Tetanus Vaccination: Yes Review of Systems - Review of Systems Constitutional: See HPI. denies: Fever EENT: No symptoms reported Cardiovascular: No symptoms reported Respiratory: No symptoms reported Gastrointestinal: No symptoms reported, Nausea, Vomiting. denies: Diarrhea Genitourinary: No symptoms reported Male Genitourinary: No symptoms reported Musculoskeletal: No symptoms reported Skin: No symptoms reported Hematologic/Lymphatic: No symptoms reported Neurological/Psychological: No symptoms reported -: Yes All other systems reviewed and negative Physical Exam - Vital signs Vitals: Temp Pulse Resp BP Pulse Ox 98.1 F 92 16 130/78 H 99 09/04/19 03:22 09/04/19 03:22 09/04/19 03:22 09/04/19 03:22 09/04/19 03:22 Interpretation: Normal - General General appearance: Appears well, Alert In distress: None - HEENT Head: Normocephalic, Atraumatic Eyes: Normal Pupils: PERRL - Respiratory Respiratory status: No respiratory distress Chest status: Nontender Breath sounds: Normal Chest palpation: Normal - Cardiovascular Rhythm: Regular Heart sounds: Normal auscultation Murmur: No Friction rub: No Gallop: None auscultated - Abdominal Inspection: Normal Distension: No distension Bowel sounds: Normal Tenderness: Nontender - Abdomen soft Organomegaly: No organomegaly - Back Back: Normal, Nontender - Extremities General upper extremity: Normal inspection General lower extremity: Normal inspection - Neurological Neuro grossly intact: Yes Orientation: AAOx4 [place] Coma Scale Eye Opening: Spontaneous Lucy Coma Scale Verbal: Oriented [place] Coma Scale Motor: Obeys Commands Lucy Coma Scale Total: 15 - Psychological Associated symptoms: Normal affect, Normal mood - Skin Skin Temperature: Warm Skin Moisture: Dry Skin Color: Normal Course - Re-evaluation Re-evalutation: 09/04/19 04:51 Diagnosis and plan of care discussed with patient. - Vital Signs Vital signs: Temp Pulse Resp BP Pulse Ox 98.1 F 92 16 130/78 H 99 09/04/19 03:39 09/04/19 03:22 09/04/19 03:22 09/04/19 03:22 09/04/19 03:22 Discharge - Discharge Clinical Impression: Nausea and vomiting Qualifiers: Vomiting type: unspecified Vomiting Intractability: unspecified Qualified Code(s): R11.2 - Nausea with vomiting, unspecified Disposition: HOME, SELF-CARE Instructions: Vomiting ([facility]) Additional Instructions: Return to the Emergency Department without delay if any worse. Referrals: MALI REED MD [HONORARY] - Follow up as needed I personally performed the services described in the documentation, reviewed and edited the documentation which was dictated to the scribe in my presence, and it accurately records my words and actions.
== END 2019-09-04 05:03 | disposition home or self-care (01) ==
LOC: ER 03:10
DX: R11.2 Nausea with vomiting, unspecified (principal); F17.210 Nicotine dependence, cigarettes, uncomplicated; J45.909 Unspecified asthma, uncomplicated; Z59.0 Homelessness
CPT/HCPCS: 99281; S0119

== ENCOUNTER 2019-09-05 22:11 | Emergency (ER) | payer SELFPAY ==
[2019-09-05] MEDS ORDERED: ONDANSETRON 4 MG TAB.RAPDIS PO ONE (23:28)
--- NOTE | 2019-09-05 23:33 | ER Document Report ---
Entered by MASSIEL RUSHING SCRIBE 09/05/19 3923 Acting as scribe for:BHAVYA SMITH DO ED GI/ - General Chief Complaint: Nausea/Vomiting Stated Complaint: VOMITING Time Seen by Provider: 09/05/19 23:18 Mode of Arrival: Ambulatory Information source: Patient Notes: This 24 year old homeless male patient presents to the ED today with complaints of nausea/vomiting for the past x2 months. This is the patient's 16th visit in the last x20 days, last visit was last night. Denies any other complaints. TRAVEL OUTSIDE OF THE [place] IN LAST 30 DAYS: No - Related Data Allergies/Adverse Reactions: No Known Allergies Allergy (Verified 09/04/19 03:38) Past Medical History - General Information source: Patient - Social History Smoking Status: Unknown if Ever Smoked Smoking Education Provided: No Occupation: [employer] Lives with: Homeless Family History: Reviewed & Not Pertinent Patient has suicidal ideation: No Patient has homicidal ideation: No Pulmonary Medical History: Reports: Hx Asthma - Immunizations Immunizations up to date: Yes Hx Diphtheria, Pertussis, Tetanus Vaccination: Yes Review of Systems - Review of Systems Constitutional: No symptoms reported EENT: No symptoms reported Cardiovascular: No symptoms reported Respiratory: No symptoms reported Gastrointestinal: See HPI, Nausea, Vomiting Genitourinary: No symptoms reported Male Genitourinary: No symptoms reported Musculoskeletal: No symptoms reported Skin: No symptoms reported Hematologic/Lymphatic: No symptoms reported Neurological/Psychological: No symptoms reported -: Yes All other systems reviewed and negative Physical Exam - Vital signs Vitals: Temp Pulse Resp BP Pulse Ox 99.1 F 93 20 136/81 H 99 09/05/19 22:22 09/05/19 22:22 09/05/19 22:22 09/05/19 22:22 09/05/19 22:22 - General General appearance: Alert In distress: None - HEENT Head: Normocephalic, Atraumatic Eyes: Normal Pupils: PERRL - Respiratory Respiratory status: No respiratory distress Chest status: Nontender Breath sounds: Normal Chest palpation: Normal - Cardiovascular Rhythm: Regular Heart sounds: Normal auscultation Murmur: No Friction rub: No Gallop: None auscultated - Abdominal Inspection: Obese Distension: No distension Bowel sounds: Normal Tenderness: Nontender Organomegaly: No organomegaly - Back Back: Normal, Nontender - Extremities General upper extremity: Normal inspection General lower extremity: Normal inspection. No: Edema - Neurological Neuro grossly intact: Yes Orientation: AAOx4 [place] Coma Scale Eye Opening: Spontaneous [place] Coma Scale Verbal: Oriented [place] Coma Scale Motor: Obeys Commands Lucy Coma Scale Total: 15 - Psychological Associated symptoms: Normal affect, Normal mood - Skin Skin Temperature: Warm Skin Moisture: Dry Skin Color: Normal Course - Re-evaluation Re-evalutation: 09/05/19 23:33 MDM 24 year old male arrives with complaints of nausea for perhaps 2 months. No fever or chills. Lives outside at this time. No SI or HI. Works at local [employer]. No other complaints. - Vital Signs Vital signs: Temp Pulse Resp BP Pulse Ox 99.1 F 93 20 136/81 H 99 09/05/19 22:22 09/05/19 22:22 09/05/19 22:22 09/05/19 22:22 09/05/19 22:22 Discharge - Discharge Clinical Impression: Nausea Condition: Stable Disposition: HOME, SELF-CARE Instructions: Clear Liquid Diet ([facility]) Additional Instructions: Rest, clear liquids, please return here for chest pain, shortness of breath or other problems or other concerns. I personally performed the services described in the documentation, reviewed and edited the documentation which was dictated to the scribe in my presence, and it accurately records my words and actions.
[2019-09-05 23:52] VITALS: BP 141/75
== END 2019-09-05 23:52 | disposition home or self-care (01) ==
LOC: ER 22:11
DX: R11.2 Nausea with vomiting, unspecified (principal); Z59.0 Homelessness
CPT/HCPCS: 99283; S0119

== ENCOUNTER 2019-09-08 00:27 | Emergency (ER) | payer SELFPAY ==
[2019-09-08] MEDS ORDERED: FAMOTIDINE 20 MG TABLET PO ONE (04:24)
[2019-09-08] MEDS ORDERED: ONDANSETRON ODT 4 MG TAB (6 TAB/ER DISP) PO PRN (04:24)
[2019-09-08] MEDS ORDERED: SUCRALFATE 1 GM TABLET PO ONE (04:24)
--- NOTE | 2019-09-08 04:27 | ER Document Report ---
ED GI/ - General Chief Complaint: Nausea Stated Complaint: NAUSEA/VOMITING Time Seen by Provider: 09/08/19 03:15 Notes: Patient is a 24-year-old male with a history of homelessness that comes emergency department for chief complaint of upper abdominal pain and vomiting. He states that on frequent mornings he will suddenly get nauseated, discomfort, and vomit. This is been going on for several months. He has been evaluated here previously and had x-rays, ultrasound, and laboratory work-up for this on multiple occasions. He denies any daily medications. He denies recreational drugs other than occasional marijuana, denies smoking or alcohol, denies medical history otherwise. He does report intermittent heartburn, denies chest pain, denies shortness of breath, denies fever, denies any other complaints. He denies any current complaints. TRAVEL OUTSIDE OF THE [place] IN LAST 30 DAYS: No - Related Data Allergies/Adverse Reactions: No Known Allergies Allergy (Verified 09/04/19 03:38) Past Medical History - General Information source: Patient - Social History Smoking Status: Current Some Day Smoker Frequency of alcohol use: None Drug Abuse: Marijuana Lives with: Alone Family History: Reviewed & Not Pertinent Pulmonary Medical History: Reports: Hx Asthma Surgical Hx: Negative - Immunizations Immunizations up to date: Yes Hx Diphtheria, Pertussis, Tetanus Vaccination: Yes Review of Systems - Review of Systems Constitutional: No symptoms reported EENT: No symptoms reported Cardiovascular: No symptoms reported Respiratory: No symptoms reported Gastrointestinal: See HPI Genitourinary: No symptoms reported Male Genitourinary: No symptoms reported Musculoskeletal: No symptoms reported Skin: No symptoms reported Hematologic/Lymphatic: No symptoms reported Neurological/Psychological: No symptoms reported Physical Exam - Vital signs Vitals: Temp Pulse Resp BP Pulse Ox 97.9 F 76 18 122/67 100 09/08/19 04:00 09/08/19 04:00 09/08/19 04:00 09/08/19 04:00 09/08/19 04:00 - Notes Notes: GENERAL: Sleeping soundly. Easily aroused. Somewhat unkempt in appearance HEAD: Normocephalic, atraumatic. EYES: Pupils equal, round, and reactive to light. Extraocular movements intact. ENT: Oral mucosa moist, tongue midline. Oropharynx unremarkable. Airway patent. NECK: Full range of motion. Supple. Trachea midline. No lymphadenopathy. LUNGS: Clear to auscultation bilaterally, no wheezes, rales, or rhonchi. No respiratory distress. Non-tender chest wall. HEART: Regular rate and rhythm. No murmur ABDOMEN: Soft, non-tender. Non-distended. Bowel sounds present in all 4 quadrants. EXTREMITIES: Moves all 4 extremities spontaneously. No edema, normal radial and dorsalis pedis pulses bilaterally. No cyanosis. BACK: no cervical, thoracic, lumbar midline tenderness. No saddle anesthesia, normal distal neurovascular exam. Moves all extremities in full range of motion. NEUROLOGICAL: Alert and oriented x3. Normal speech. Cranial nerves II through XII grossly intact. Strength 5/5 in all extremities. PSYCH: Normal affect, normal mood. SKIN: Warm, dry, normal turgor. No rashes or lesions noted. Course - Re-evaluation Re-evalutation: Patient sleeping soundly on my evaluation, he awakened without difficulty, he has a soft benign abdomen, unremarkable physical exam, unremarkable vital signs. Patient without any complaints on my exam. He had to be prompted to get details about his reported nausea and vomiting, he has had this complaint repeatedly while visiting here frequently over the past couple of months. He has had work-up including x-rays, ultrasound, laboratory work-up on repeated occasions including laboratory work-up a couple of days ago. He is tolerating p.o. without any difficulty, very low suspicion of acute abdomen, patient was given p.o. medications here, patient has no additional complaints. I did provide him with Carafate and Pepcid prescriptions for what I suspect is gastritis if patient is vomiting at all, on my evaluations for this particular complaint patient has never had any actual vomiting or abdominal pain on exam. Patient does state understanding and agreement, he has no complaints at time of discharge, stable and well-appearing at time of discharge. - Vital Signs Vital signs: Temp Pulse Resp BP Pulse Ox 98.0 F 72 17 120/64 100 09/08/19 04:49 09/08/19 04:49 09/08/19 04:49 09/08/19 04:49 09/08/19 04:49 Discharge - Discharge Clinical Impression: Homelessness, Upper abdominal pain Nausea and vomiting Qualifiers: Vomiting type: unspecified Vomiting Intractability: non-intractable Qualified Code(s): R11.2 - Nausea with vomiting, unspecified Condition: Stable Disposition: HOME, SELF-CARE Additional Instructions: Based on your evaluation, previous work-ups, and symptoms I suspect your problem is coming from inflammation of the upper gastrointestinal tract as we discussed. Take Carafate and Pepcid as prescribed to help treat this, you can take additional Rolaids, Tums, Maalox, etc. if needed. You can take Tylenol for pain. Avoid NSAIDs, alcohol, smoking, caffeine, spicy food. Start with clear fluids, progress to bland diet. Follow-up with primary care for additional evaluation and treatment including possible H. pylori testing. Return if you worsen including uncontrolled vomiting, vomiting blood, black stools, severe pain, fever of 100.4 or greater, or any other concerning or worsening symptoms. Prescriptions: Sucralfate [Carafate 1 gm Tablet] 1 gm PO QID #20 tablet Famotidine [Pepcid 20 mg Tablet] 20 mg PO BID #14 tablet
[2019-09-08 04:50] VITALS: BP 120/64
== END 2019-09-08 04:53 | disposition home or self-care (01) ==
LOC: ER 00:27
DX: R11.2 Nausea with vomiting, unspecified (principal); R10.10 Upper abdominal pain, unspecified; F17.200 Nicotine dependence, unspecified, uncomplicated; Z59.0 Homelessness
CPT/HCPCS: 99283

== ENCOUNTER 2019-09-12 23:23 | Emergency (ER) | payer SELFPAY ==
[2019-09-12 23:57] VITALS: BP 127/81
== END 2019-09-13 08:45 | disposition left against medical advice (07) ==
LOC: ER 23:23
DX: Z53.21 Procedure and treatment not carried out due to patient leaving prior to being seen by health care provider (principal)

== ENCOUNTER 2019-09-18 01:03 | Emergency (ER) | payer SELFPAY ==
--- NOTE | 2019-09-18 02:39 | ER Document Report ---
HPI - HPI Time Seen by Provider: 09/18/19 02:33 Pain Level: Denies Notes: 24-year-old patient well-known to our facility presents with nausea, vomiting and intermittent abdominal cramping that has been is been present for greater than 1 month. Patient reports he has been vomiting 1-2 times per day. He reports intermittent abdominal cramping. He has not had a fever or chills. He denies any diarrhea. He denies any known exposure to any COVID-19 positive persons. He has been prescribed antinausea medications in this emergency department several times, patient states he does not recall getting any of them filled. - ROS Systems Reviewed and Negative: Yes All other systems reviewed and negative - GASTROINTESTINAL Gastrointestinal: REPORTS: Abdominal Pain, Nausea. DENIES: Black / Bloody Stools Past Medical History - Social History Smoking Status: Current Every Day Smoker Chew tobacco use (# tins/day): No Frequency of alcohol use: None Drug Abuse: None Family History: Reviewed & Not Pertinent Patient has homicidal ideation: No Pulmonary Medical History: Reports: Hx Asthma - Immunizations Immunizations up to date: Yes Hx Diphtheria, Pertussis, Tetanus Vaccination: Yes Vertical Provider Document - CONSTITUTIONAL Notes: PHYSICAL EXAMINATION: GENERAL: Well-nourished, unkempt and in no acute distress. HEAD: Atraumatic, normocephalic. EYES: Pupils equal round and reactive to light, extraocular movements intact, sclera anicteric, conjunctiva are normal. ENT: Nares patent, oropharynx clear without exudates. Moist mucous membranes. NECK: Normal range of motion, supple without lymphadenopathy LUNGS: Breath sounds clear to auscultation bilaterally and equal. No wheezes rales or rhonchi. HEART: Regular rate and rhythm without murmurs ABDOMEN: Soft, nontender, nondistended abdomen. No guarding, no rebound. No masses appreciated. Musculoskeletal: Normal range of motion, no pitting or edema. No cyanosis. NEUROLOGICAL: Cranial nerves grossly intact. Normal speech, normal gait. Normal sensory, motor exams PSYCH: Normal mood, normal affect. SKIN: Warm, Dry, normal turgor, no rashes or lesions noted. - INFECTION CONTROL TRAVEL OUTSIDE OF THE [place] IN LAST 30 DAYS: No Course - Re-evaluation Re-evalutation: Patient appears well, nontoxic, vital signs reviewed and are within normal limits. Patient's physical exam is unremarkable, abdomen soft, nontender. Patient does not have a primary care provider. I discussed with him following up with the [facility] so that he can be worked up for things that are nonemergent such as irritable bowel disease. Patient verbalized understanding and agreement with this plan. - Vital Signs Vital signs: Temp Pulse Resp BP Pulse Ox 97.7 F 09/18/19 02:30 Discharge - Discharge Clinical Impression: Chronic abdominal pain Nausea & vomiting Qualifiers: Vomiting type: unspecified Vomiting Intractability: unspecified Qualified Code(s): R11.2 - Nausea with vomiting, unspecified Condition: Stable Disposition: HOME, SELF-CARE Additional Instructions: You are seen in the emergency department today for abdominal pain with intermittent nausea vomiting that has been going on for the last month. Please take the Zofran that I prescribed. See page 2 of your discharge packet it has information regarding the [facility], you will need to follow-up with them so that you can establish care with a primary care provider. Return to the emergency department for any new or life-threatening concerns. Prescriptions: Ondansetron [Zofran Odt 4 mg Tablet] 1 - 2 tab PO Q4H PRN #15 tab.rapdis PRN Reason: For Nausea/Vomiting
== END 2019-09-18 02:37 | disposition home or self-care (01) ==
LOC: ER 01:03
DX: R11.2 Nausea with vomiting, unspecified (principal); R10.9 Unspecified abdominal pain; G89.29 Other chronic pain; F17.200 Nicotine dependence, unspecified, uncomplicated; J45.909 Unspecified asthma, uncomplicated
CPT/HCPCS: 99283

== ENCOUNTER 2019-09-19 23:58 | Emergency (ER) | payer SELFPAY ==
[2019-09-20 00:52] VITALS: BP 135/85
[2019-09-20] MEDS ORDERED: ONDANSETRON ODT 4 MG TAB (6 TAB/ER DISP) PO PRN ×2 (02:03→03:16)
[2019-09-20 02:40] LABS: ABSOLUTE BASOPHILS # (AUTO) 0.1 10^3/uL (0.0-0.2); ABSOLUTE EOSINOPHILS # (AUTO) 0.3 10^3/uL (0.0-0.6); ABSOLUTE MONOCYTES (AUTO) 0.6 10^3/uL (0.1-1.4); ABSOLUTE NEUT (AUTO) 4.1 10^3/uL (1.7-8.2); BASOPHILS % (AUTO) 0.7 % (0-2); EOSINOPHILS % (AUTO) 4.3 % (0-6); HEMATOCRIT 42.7 % (37.9-51.0); HEMOGLOBIN 14.3 g/dL (13.5-17.0); LYMPHOCYTES % (AUTO) 37.3 % (13-45); MEAN CORPUSCULAR HEMOGLOBIN 27.8 pg (27.0-33.4); MEAN CORPUSCULAR HGB CONC 33.5 g/dL (32.0-36.0); MEAN CORPUSCULAR VOLUME 83 fl (80-97); MONOCYTES % (AUTO) 6.9 % (3-13); PLATELET COUNT 227 10^3/uL (150-450); RED BLOOD COUNT 5.14 10^6/uL (4.35-5.55); RED CELL DISTRIBUTION WIDTH 14.8 % (11.5-14.0); SEGMENTED NEUTROPHILS % (AUTO) 50.8 % (42-78); TOTAL CELLS COUNTED % (AUTO) 100 %; WHITE BLOOD COUNT 8.1 10^3/uL (4.0-10.5)
[2019-09-20 02:54] LABS: ALBUMIN 3.9 g/dL (3.5-5.0); ALKALINE PHOSPHATASE 45 U/L (38-126); ASPARTATE AMINO TRANSFERASE 42 U/L (17-59); BILIRUBIN,TOTAL 0.4 mg/dL (0.2-1.3); BLOOD UREA NITROGEN 17 mg/dL (7-20); CALCIUM 9.2 mg/dL (8.4-10.2); CHLORIDE 105 mmol/L (98-107); GLUCOSE 91 mg/dL (75-110); POTASSIUM 4.3 mmol/L (3.6-5.0); TOTAL PROTEIN 6.4 g/dL (6.3-8.2)
--- NOTE | 2019-09-20 02:55 | ER Document Report ---
ED General - General Chief Complaint: Nausea Stated Complaint: COUGH, NAUSEA, FEVER TRAVEL OUTSIDE OF THE [place] IN LAST 30 DAYS: No - HPI Notes: 24-year-old male no significant past medical history presents with approximately 1 month cough, nausea, sore throat, and subjective fever. Patient has come to the ED numerous times for this and other symptoms without any emergent findings on his work-ups. Patient has been previously discharged with Zofran for nausea which she has not taken. Patient has not had any objective fever. Patient denies headache, abdominal pain, sick contacts, chest pain, bowel symptoms, vomiting, weight loss, rash. Says last COVID swab was a month ago. - Related Data Allergies/Adverse Reactions: No Known Allergies Allergy (Verified 09/04/19 03:38) Past Medical History - General Information source: Patient, [facility] Records - Social History Smoking Status: Current Every Day Smoker Chew tobacco use (# tins/day): No Frequency of alcohol use: None Drug Abuse: None Family History: Reviewed & Not Pertinent Patient has homicidal ideation: No Pulmonary Medical History: Reports: Hx Asthma - Immunizations Immunizations up to date: Yes Hx Diphtheria, Pertussis, Tetanus Vaccination: Yes Review of Systems - Review of Systems Notes: REVIEW OF SYSTEMS: CONSTITUTIONAL : + fever, chills, or sweats. EENT: Denies recent cold/sinus symptoms, + throat pain CARDIOVASCULAR: Denies chest pain, OTILIA RESPIRATORY: + cough, denies shortness of breath. GASTROINTESTINAL: Denies abdominal pain, +nausea, -vomiting. GENITOURINARY: Denies difficulty urinating, painful urination. MUSCULOSKELETAL: Denies neck pain, back pain. SKIN: Denies rash or skin lesions. HEMATOLOGIC : Denies easy bruising or bleeding. LYMPHATIC: Denies swollen, enlarged glands. NEUROLOGICAL: Denies headache, denies change in gait. PSYCHIATRIC: Denies anxiety or stress or depression. Physical Exam - Vital signs Vitals: Temp Pulse Resp BP Pulse Ox 98.4 F 91 20 135/85 H 100 09/20/19 00:51 09/20/19 00:51 09/20/19 00:51 09/20/19 00:51 09/20/19 00:51 - Notes Notes: PHYSICAL EXAMINATION: GENERAL: Well-appearing, well-nourished, young adult male sleeping comfortably in stretcher who arouses appropriately when I awaken him and in no acute distress. HEAD: Atraumatic, normocephalic. EYES: Pupils equal round and appropriate constriction, sclera anicteric, co njunctiva are normal. ENT: nares patent, moist mucous membranes, no tonsillar erythema, edema, or exudates NECK: Normal range of motion, supple without lymphadenopathy LUNGS: Breath sounds clear to auscultation bilaterally and equal. No wheezes rales or rhonchi. Normal respiratory rate and effort, speaking in full sentences HEART: Regular rate and rhythm without murmurs ABDOMEN: Soft, nontender, no guarding, no masses, no CVAT EXTREMITIES: Normal range of motion, no pitting or edema. No cyanosis. NEUROLOGICAL: Awake, alert, conversing appropriately, moves all extremities spontaneously. PSYCH: Normal mood, normal affect. SKIN: Warm, Dry, normal turgor, no rashes or lesions noted. Course - Re-evaluation Re-evalutation: 09/20/19 02:59 Very well-appearing young adult male, normal vital signs, normal exam. Patient Centor score is 0, no current indication for rapid strep or antibiotics. 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 Will obtain electrolytes rule out undiagnosed DM or electrolyte abnormalities as cause of nausea. Will obtain chest x-ray given cough and subjective fever and send COVID swab. Will give Zofran for symptoms. Patient educated on need for following up outpatient with PCP. 09/20/19 03:13 No emergent findings on work-up. Creatinine 1.26 but has been this level in the past, will give him all results for follow-up at [facility]. No emergent findings on chest x-ray. patient given extensive return to ED precautions which he demonstrated understanding of. Patient ready for discharge. - Vital Signs Vital signs: Temp Pulse Resp BP Pulse Ox 98.4 F 91 20 135/85 H 100 09/20/19 00:51 09/20/19 00:51 09/20/19 00:51 09/20/19 00:51 09/20/19 00:51 - Laboratory Result Diagrams: 09/20/19 02:17 09/20/19 02:17 Laboratory results interpreted by me: 09/20/19 09/20/19 02:17 02:17 RDW 14.8 H Creatinine 1.26 H ALT 59 H Discharge - Discharge Clinical Impression: Cough, Elevated serum creatinine, Abnormal liver enzymes Disposition: HOME, SELF-CARE Additional Instructions: Upper Respiratory Illness You have a viral infection of the respiratory passages -- a "cold." This common infection causes nasal congestion, drainage, and often sore throat and cough. It is caused by a virus and is highly contagious. The disease usually lasts a week or more, though the worst symptoms are usually over in 3 or 4 days. There is no "cure" for the viral infection -- it must run its course. If there is a complication, such as bacterial infection in the nose, sinuses, middle ear, or bronchial tubes, antibiotics may be required, but antibiotics won't affect the virus. If you smoke, you should STOP!! Drink plenty of fluids. A humidifier may help. An expectorant medication or decongestant may make you more comfortable. Use acetaminophen or ibuprofen for fever or aches. See the doctor if fever persists over two or three days, if there is any significant worsening of your symptoms, or if you simply fail to improve as expected. Patient was provided with discharge information including: As a person under investigation for Covid 19, the [place] department of Health and Human Services, division of public health advises you to adhere to the following guidance until your test results are reported to you. If your test result is positive, you will receive additional information from your provider and your local health department at that time. Remain at home until you are cleared by the health provider or public health authorities. Keep a log of visitors to your home, notify any visitors to your home of your isolation status. If you plan to move to a new address or leave the [facility], notify the local health department in your County. Call your doctor or seek care if you have an urgent medical need. Before seeking medical care, call ahead to get instructions from the provider before arriving at the medical office clinic or hospital. Notify them that you are being tested for the virus that causes Covid 19 so that arrangements can be made, as necessary, to prevent transmission to others in the healthcare setting. Next, notify the local health department in your county. If a medical emergency arises and you need to call 911, inform the first responders that you are being tested for the virus that causes Covid 19. Next, notify the local health department in your county. Follow-up with primary doctor at [facility] within 1 week. Return to ED immediately if symptoms worsen. Referrals: [facility] [Provider Group] - Follow up as needed
[2019-09-20 02:59] LABS: ANION GAP 5 (5-19); CARBON DIOXIDE 27 mmol/L (22-30)
--- NOTE | 2019-09-20 03:25 | RADIOLOGY REPORT (SQ) ---
EXAM DESCRIPTION: XR CHEST 1 VIEW COMPLETED DATE/TME: 09/20/2019 02:03 CLINICAL HISTORY: cough COMPARISON: 05/19/2019 FINDINGS: Single frontal radiograph view of the chest. Cardiomediastinal silhouette: Normal size and contour. Lungs: No consolidation, pneumothorax, or pleural effusion. Low lung volumes. Bones: No acute osseous abnormality. Upper abdomen: No abnormality identified. IMPRESSION: 1. No acute pulmonary process identified. Low lung volumes.
== END 2019-09-20 03:45 | disposition home or self-care (01) ==
LOC: ER 23:58
DX: R05 Cough (principal); R74.8 Abnormal levels of other serum enzymes; R79.89 Other specified abnormal findings of blood chemistry; R11.0 Nausea; J02.9 Acute pharyngitis, unspecified; F17.200 Nicotine dependence, unspecified, uncomplicated; J45.909 Unspecified asthma, uncomplicated; Z20.828 Contact with and (suspected) exposure to other viral communicable diseases
CPT/HCPCS: 99283; 36415; 83690; 85025; 87635; 80053; 71045; C9803

== ENCOUNTER 2019-09-21 22:45 | Emergency (ER) | payer SELFPAY ==
[2019-09-22 02:48] VITALS: BP 128/61
--- NOTE | 2019-09-22 03:36 | ER Document Report ---
HPI - HPI Time Seen by Provider: 09/22/19 03:28 Context: Patient is a 24-year-old male that comes emergency department for chief complaint of symptoms for approximately 1 month on and off including nausea, sore throat, cough, and subjective fevers. Patient has been in the emergency department multiple times for evaluation for these, he has a pending COVID test from 2 days ago, he had a chest x-ray and lab work at that time. He states he had nausea earlier today and he thought he was coming it were so he came back in. However now he denies any current symptoms, he states he feels fine. He denies any daily medications. He does admit to intermittent smoking, denies recreational drugs or alcohol. He denies any significant medical history. - REPRODUCTIVE Reproductive: DENIES: : Past Medical History - General Information source: Patient - Social History Smoking Status: Current Some Day Smoker Frequency of alcohol use: Occasional Drug Abuse: None Lives with: Alone Family History: Reviewed & Not Pertinent Pulmonary Medical History: Reports: Hx Asthma Surgical Hx: Negative - Immunizations Immunizations up to date: Yes Hx Diphtheria, Pertussis, Tetanus Vaccination: Yes Vertical Provider Document - CONSTITUTIONAL General Appearance: WD/WN, No Apparent Distress - Sleeping but easily aroused, slightly disheveled but talkative and well-appearing - INFECTION CONTROL TRAVEL OUTSIDE OF THE [place] IN LAST 30 DAYS: No - HEENT HEENT: Atraumatic, Normal ENT Exam, Normocephalic - NECK Neck: Normal Inspection - RESPIRATORY Respiratory: Breath Sounds Normal, No Respiratory Distress. negative: Wheezing - CARDIOVASCULAR Cardiovascular: Regular Rate, Regular Rhythm. negative: Tachycardia - GI/ABDOMEN Gastrointestinal: Abdomen Soft, Abdomen Non-Tender. negative: Abdomen Tender - BACK Back: Normal Inspection - MUSCULOSKELETAL/EXTREMETIES Musculoskeletal/Extremeties: MAEW, FROM, Non-Tender - NEURO Level of Consciousness: Awake, Alert, Appropriate Motor/Sensory: No Motor Deficit, No Sensory Deficit - DERM Integumentary: Warm, Dry, No Rash Course - Re-evaluation Re-evalutation: Patient is very familiar to me. Patient is pleasant, sleeping, easily arousable, conversational, well-appearing. Lungs clear, soft abdomen, unremarkable ENT exam, unremarkable vital signs. Chest x-ray from 2 days ago unremarkable, laboratory work-up 2 days ago unremarkable, COVID-19 test is still pending. I do not see any evidence of severe worsening illness or emergent abnormality based on his evaluation. Patient will be discharged with return precautions. Patient states understanding and agreement. Stable and well- appearing at time of discharge. - Vital Signs Vital signs: Temp Pulse Resp BP Pulse Ox 97.8 F 88 16 128/61 H 99 09/22/19 02:47 09/22/19 02:47 09/22/19 02:47 09/22/19 02:47 09/22/19 02:47 Discharge - Discharge Clinical Impression: Nausea, Cough, Subjective fever Condition: Stable Disposition: HOME, SELF-CARE Additional Instructions: Your COVID-19 test is still pending. Continue to quarantine and follow instructions listed below. Follow-up with primary care. Return if you worsen including spiking fevers, difficulty breathing, vomiting, or any other concerning or worsening symptoms. As a person under investigation for COVID-19, the [place] Department of Health and Human Services (division on public health) advises you to adhere to the following guidance until your test results are reported to you. If your test result is positive, you will receive additional information from your provider and your local health department at that time. Remain at home until you are cleared by the health provider or public health authorities. Keep a log of visitors to your home, notify any visitors to your home of your isolation status. If you plan to move to a new address or leave the formerly [facility], notify the local health department in your County. Call your Doctor or seek care if you have an urgent medical need. Before seeking medical care, call him to get instructions from the provider before arriving at the medical office, clinic, or hospital. Notify them that you are being tested for the virus (COVID-19) so that arrangements can be made, as necessary, to prevent transmission to others in the healthcare setting. Next, notify the local health department in your county. If a medical emergency arises and you need to call 911, inform the first responders that you are being tested for the virus that causes COVID-19. Next, notify the local health department in your county.
== END 2019-09-22 03:58 | disposition home or self-care (01) ==
LOC: ER 22:45
DX: J02.9 Acute pharyngitis, unspecified (principal); R11.0 Nausea; R05 Cough; R50.9 Fever, unspecified; F17.200 Nicotine dependence, unspecified, uncomplicated
CPT/HCPCS: 99282

== ENCOUNTER 2019-09-27 01:53 | Emergency (ER) | payer SELFPAY | END 2019-09-27 06:42 | disposition left against medical advice (07) | LOC: ER 01:53 | DX: Z53.21 Procedure and treatment not carried out due to patient leaving prior to being seen by health care provider (principal) ==

== ENCOUNTER 2019-09-29 02:19 | Emergency (ER) | payer SELFPAY ==
--- NOTE | 2019-09-29 03:23 | ER Document Report ---
ED General - General Chief Complaint: Nausea Stated Complaint: LIGHT HEADED, NAUSEA, COUGH Time Seen by Provider: 09/29/19 03:02 Primary Care Provider: [facility] [Provider Group] - Follow up as needed Notes: Patient is a 24-year-old male that comes emergency department for chief complaint of nausea. Patient reports that he has had nausea on and off for the past month or so. Patient is actually been tested for COVID-19 multiple times. He denies abdominal pain, chest pain, shortness of breath, or any current symptoms. Patient admits to intermittent smoking, denies recreational drugs or alcohol. Denies any significant medical history. TRAVEL OUTSIDE OF THE [place] IN LAST 30 DAYS: No - Related Data Allergies/Adverse Reactions: No Known Allergies Allergy (Verified 09/04/19 03:38) Past Medical History - General Information source: Patient - Social History Smoking Status: Current Some Day Smoker Chew tobacco use (# tins/day): No Frequency of alcohol use: None Drug Abuse: None Lives with: Alone Family History: Reviewed & Not Pertinent Patient has homicidal ideation: No Pulmonary Medical History: Reports: Hx Asthma - Immunizations Immunizations up to date: Yes Hx Diphtheria, Pertussis, Tetanus Vaccination: Yes Review of Systems - Review of Systems Constitutional: No symptoms reported EENT: No symptoms reported Cardiovascular: No symptoms reported Respiratory: No symptoms reported Gastrointestinal: See HPI Genitourinary: No symptoms reported Male Genitourinary: No symptoms reported Musculoskeletal: No symptoms reported Skin: No symptoms reported Hematologic/Lymphatic: No symptoms reported Neurological/Psychological: No symptoms reported Physical Exam - Vital signs Vitals: Temp Pulse Resp BP Pulse Ox 98.9 F 118 H 18 142/88 H 100 09/29/19 02:24 09/29/19 02:24 09/29/19 02:24 09/29/19 02:24 09/29/19 02:24 - Notes Notes: GENERAL: Sleeping and easily aroused. Slightly disheveled but otherwise well- appearing HEAD: Normocephalic, atraumatic. EYES: Pupils equal, round, and reactive to light. Extraocular movements intact. ENT: Oral mucosa moist, tongue midline. Oropharynx unremarkable. Airway patent. NECK: Full range of motion. Supple. Trachea midline. No lymphadenopathy. LUNGS: Clear to auscultation bilaterally, no wheezes, rales, or rhonchi. No respiratory distress. Non-tender chest wall. HEART: Regular rate and rhythm. No murmur ABDOMEN: Soft, non-tender. Non-distended. Bowel sounds present in all 4 quadrants. GENITOURINARY: Deferred EXTREMITIES: Moves all 4 extremities spontaneously. No edema, normal radial and dorsalis pedis pulses bilaterally. No cyanosis. BACK: no cervical, thoracic, lumbar midline tenderness. No saddle anesthesia, normal distal neurovascular exam. Moves all extremities in full range of motion. NEUROLOGICAL: Alert and oriented x3. Normal speech. Cranial nerves II through XII grossly intact. Strength 5/5 in all extremities. PSYCH: Normal affect, normal mood. SKIN: Warm, dry, normal turgor. No rashes or lesions noted. Course - Re-evaluation Re-evalutation: Patient is very familiar to me. He has a history of homelessness. At first he was telling me that he came in for nausea but when I asked him to be honest with me he admitted that he has no current symptoms and has felt good today. I suspect patient was seeking group home. His physical examination is unremarkable, I did note that he was tachycardic on triage so this was repeated at bedside and this was normal. Patient is not tachycardic on my exam. Based on his evaluation and lack of complaints I have very low suspicion of acute emergent abnormality. Patient was discharged with return precautions which were discussed. Patient states appreciation and agreement. - Vital Signs Vital signs: Temp Pulse Resp BP Pulse Ox 98.9 F 78 17 140/82 H 100 09/29/19 02:24 09/29/19 04:38 09/29/19 04:38 09/29/19 04:38 09/29/19 04:38 Discharge - Discharge Clinical Impression: Nausea, Homelessness Condition: Stable Disposition: HOME, SELF-CARE Additional Instructions: Follow-up with the primary care referral listed. Return if you worsen including vomiting, fever, severe abdominal pain, difficulty breathing, or any other concerning symptoms. Referrals: [facility] [Provider Group] - Follow up as needed
[2019-09-29 04:39] VITALS: BP 140/82
== END 2019-09-29 04:39 | disposition home or self-care (01) ==
LOC: ER 02:19
DX: R11.0 Nausea (principal); Z59.0 Homelessness; R42 Dizziness and giddiness; R05 Cough; Z20.828 Contact with and (suspected) exposure to other viral communicable diseases; F17.200 Nicotine dependence, unspecified, uncomplicated; J45.909 Unspecified asthma, uncomplicated
CPT/HCPCS: 99282

== ENCOUNTER 2019-09-29 21:23 | Emergency (ER) | payer SELFPAY ==
[2019-09-30 00:20] VITALS: BP 126/70
--- NOTE | 2019-09-30 00:53 | ER Document Report ---
HPI - HPI Time Seen by Provider: 09/30/19 00:20 Notes: 24-year-old male patient presents the emergency department concern for cough, congestion, nausea and shortness of breath. Patient reports symptoms ongoing for the last 1 to 2 months. He has not taken any medications for his symptoms. He has been seen in this emergency department multiple times for same. - ROS Systems Reviewed and Negative: Yes All other systems reviewed and negative - CONSTITUTIONAL Constitutional: DENIES: Fever, Chills - EENT EENT: REPORTS: Congestion - RESPIRATORY Respiratory: REPORTS: Coughing - REPRODUCTIVE Reproductive: DENIES: : Past Medical History - General Information source: Patient - Social History Smoking Status: Never Smoker Family History: Reviewed & Not Pertinent Pulmonary Medical History: Reports: Hx Asthma - Immunizations Immunizations up to date: Yes Hx Diphtheria, Pertussis, Tetanus Vaccination: Yes Vertical Provider Document - CONSTITUTIONAL Notes: PHYSICAL EXAMINATION: GENERAL: Unkempt, no acute distress. HEAD: Atraumatic, normocephalic. EYES: Pupils equal round extraocular movements intact, conjunctiva are normal. ENT: Nares patent, oropharynx clear, nonerythematous, no tonsillar swelling, exudates. Uvula midline. NECK: Normal range of motion LUNGS: No respiratory distress, lung sounds clear and equal bilaterally. Abdomen: Abdomen soft, nontender. Musculoskeletal: Normal range of motion NEUROLOGICAL: Normal speech, normal gait. PSYCH: Normal mood, normal affect. SKIN: Warm, Dry, normal turgor, no rashes or lesions noted. - INFECTION CONTROL TRAVEL OUTSIDE OF THE [place] IN LAST 30 DAYS: No Course - Re-evaluation Re-evalutation: Patient appears well, nontoxic, vital signs reviewed and are within normal limits. Patient's lung sounds are clear and equal bilaterally. He is not hypoxic, tachypneic or febrile. He will be tested again for COVID-19 as it has been a while since we have tested him. 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 I gave the patient a work note and instructed him to not go to work until he is received results of his COVID- 19 test. Patient verbalized understanding and agreement with this plan. - Vital Signs Vital signs: Temp Pulse Resp BP Pulse Ox 98.5 F 99 18 126/70 H 100 09/30/19 00:17 09/30/19 00:17 09/30/19 00:17 09/30/19 00:17 09/30/19 00:17 Discharge - Discharge Clinical Impression: Encounter for laboratory testing for COVID-19 virus Condition: Stable Disposition: HOME, SELF-CARE Additional Instructions: Please purchase [id number] cough and cold medication for your symptoms such as DayQuil. You were tested today for COVID-19, you must self quarantine until you receive your test results and then the health department will be due direction from there. Please return to the emergency department for any new or worsening symptoms. Please do not report to work in the food industry until you have received your test results and your symptoms are gone. Forms: Return to Work
== END 2019-09-30 01:00 | disposition home or self-care (01) ==
LOC: ER 21:23
DX: R05 Cough (principal); R09.81 Nasal congestion; R11.0 Nausea; R06.02 Shortness of breath; J45.909 Unspecified asthma, uncomplicated; Z20.828 Contact with and (suspected) exposure to other viral communicable diseases
CPT/HCPCS: 99283; 87635; C9803

== ENCOUNTER 2019-10-01 23:34 | Emergency (ER) | payer SELFPAY ==
[2019-10-01 23:52] VITALS: BP 135/74
--- NOTE | 2019-10-01 23:52 | ER Document Report ---
HPI - HPI Patient complains to provider of: Bug Bite Time Seen by Provider: 10/01/19 23:45 Context: 24-year-old male no previous medical problems presents to the emergency room complaining of a bug bite to his right lateral thigh that happened approximately 1 hour ago denies any shortness of breath, no difficulty breathing. States it feels swollen. No medications or treatments prior to arrival. No history of allergic reactions to insect bites in the past. States he does not know what bit him. Associated Symptoms: None Exacerbated by: Denies Relieved by: Denies Similar symptoms previously: No Recently seen / treated by doctor: No - ROS Systems Reviewed and Negative: Yes All other systems reviewed and negative - CONSTITUTIONAL Constitutional: DENIES: Fever - EENT EENT: DENIES: Sore Throat - NEURO Neurology: DENIES: Headache, Weakness - CARDIOVASCULAR Cardiovascular: DENIES: Chest pain - RESPIRATORY Respiratory: DENIES: Trouble Breathing, Coughing - REPRODUCTIVE Reproductive: DENIES: : - MUSCULOSKELETAL Musculoskeletal: REPORTS: Extremity pain - DERM Skin Color: Normal Past Medical History - General Information source: Patient - Social History Smoking Status: Current Every Day Smoker Frequency of alcohol use: None Drug Abuse: None Family History: Reviewed & Not Pertinent Pulmonary Medical History: Reports: Hx Asthma - Immunizations Immunizations up to date: Yes Hx Diphtheria, Pertussis, Tetanus Vaccination: Yes Vertical Provider Document - CONSTITUTIONAL Agree With Documented VS: Yes Exam Limitations: No Limitations General Appearance: No Apparent Distress - INFECTION CONTROL TRAVEL OUTSIDE OF THE [place] IN LAST 30 DAYS: No - HEENT HEENT: Atraumatic, Normocephalic - NECK Neck: Normal Inspection, Supple - RESPIRATORY Respiratory: Breath Sounds Normal, No Respiratory Distress, Chest Non-Tender - CARDIOVASCULAR Cardiovascular: Regular Rate, Regular Rhythm, No Murmur - MUSCULOSKELETAL/EXTREMETIES Musculoskeletal/Extremeties: FROM, Non-Tender, No Edema Notes: No erythema, no swelling, nontender to palpation of the right lateral thigh. No obvious insect bite or puncture wound was noted. - NEURO Level of Consciousness: Awake, Alert, Appropriate Motor/Sensory: No Motor Deficit, No Sensory Deficit - DERM Integumentary: Warm, Dry, No Rash Notes: No obvious bug bite was noted. No puncture wound. No swelling, nontender to palpation. No discharge or draining noted. Course - Re-evaluation Re-evalutation: 10/01/19 23:49 Patient with no erythema, no swelling, no signs of a bug bite noted to his right outer thigh. He was counseled on supportive therapy. Ice 20 minutes 3 times a day. Can take Claritin, Zyrtec, or Benadryl for any itching. Follow-up with a primary care physician if not proving in 2 to 3 days. On-call physician was provided. Patient was given strict return to the emergency room guidelines. Return for any new or worsening symptoms. All questions were answered. Patient verbalized understanding and agrees with plan of care. Discharge - Discharge Clinical Impression: Bug bite without infection Qualifiers: Encounter type: initial encounter Qualified Code(s): W57.XXXA - Bitten or stung by nonvenomous insect and other nonvenomous arthropods, initial encounter Condition: Stable Disposition: HOME, SELF-CARE Instructions: Insect Bites ([facility]) Additional Instructions: Ice 20 minutes 3 times a day. Benadryl, Zyrtec, or Claritin as needed for itching. Outpatient follow-up with a primary care physician as discussed. Return to the emergency room for any new or worsening symptoms. Referrals: MILTON MARTÍNEZ MD [COMMUNITY BASED STAFF] - Follow up as needed
== END 2019-10-01 23:56 | disposition home or self-care (01) ==
LOC: ER 23:34
DX: S70.361A Insect bite (nonvenomous), right thigh, initial encounter (principal); W57.XXXA Bitten or stung by nonvenomous insect and other nonvenomous arthropods, initial encounter; F17.200 Nicotine dependence, unspecified, uncomplicated; J45.909 Unspecified asthma, uncomplicated
CPT/HCPCS: 99282

== ENCOUNTER 2019-10-03 22:14 | Emergency (ER) | payer SELFPAY ==
--- NOTE | 2019-10-03 23:53 | ER Document Report ---
ED Medical Screen (RME) - General Chief Complaint: Nausea Stated Complaint: NAUSEA Time Seen by Provider: 10/03/19 23:43 Mode of Arrival: Ambulatory Information source: Patient Notes: 24-year-old male patient presents emergency department chief complaint of abdominal pain and nausea. Patient reports to me that his symptoms started at 7:00 tonight. He reports pain to the middle of his abdomen and right lower quadrant. He has been to the emergency department multiple times lately with complaints of nausea. He is homeless. He denies any fever or chills. He states moving makes the pain worse. He is unsure when his last bowel movement was but he does not believe he is constipated. I have greeted and performed a rapid initial assessment of this patient. A comprehensive ED assessment and evaluation of the patient, analysis of test results and completion of the medical decision making process will be conducted by additional ED providers. I have specifically instructed the patient or family members with the patient to immediately return to any nursing staff should anything change in the patient's condition or with their chief complaint. TRAVEL OUTSIDE OF THE [place] IN LAST 30 DAYS: No - Related Data Allergies/Adverse Reactions: No Known Allergies Allergy (Verified 09/04/19 03:38) Past Medical History Pulmonary Medical History: Reports: Hx Asthma - Immunizations Immunizations up to date: Yes Hx Diphtheria, Pertussis, Tetanus Vaccination: Yes Physical Exam - Vital signs Vitals: Temp Pulse Resp BP Pulse Ox 99.1 F 96 20 146/79 H 99 10/03/19 23:40 10/03/19 23:40 10/03/19 23:40 10/03/19 23:40 10/03/19 23:40 Course - Vital Signs Vital signs: Temp Pulse Resp BP Pulse Ox 99.1 F 96 20 146/79 H 99 10/03/19 23:40 10/03/19 23:40 10/03/19 23:40 10/03/19 23:40 10/03/19 23:40
--- NOTE | 2019-10-04 00:58 | RADIOLOGY REPORT (SQ) ---
EXAM DESCRIPTION: XR ABDOMEN 1 VIEW (KUB) COMPLETED DATE/TME: 10/03/2019 23:49 CLINICAL HISTORY: 24 years, Male, ABD PAIN COMPARISON: None. NUMBER OF VIEWS: 2 TECHNIQUE: AP views of the abdomen LIMITATIONS: None. FINDINGS: The bowel gas pattern is nonspecific. Evaluation for free air limited on a supine view. Abundant gas and stool in the colon. Osseous structures are grossly intact IMPRESSION: Nonspecific bowel gas pattern. Abundant gas/stool in the colon copyright 2011 [employer]- All Rights Reserved
[2019-10-04 01:02] LABS: ABSOLUTE BASOPHILS # (AUTO) 0.1 10^3/uL (0.0-0.2); ABSOLUTE EOSINOPHILS # (AUTO) 0.4 10^3/uL (0.0-0.6); ABSOLUTE LYMPHOCYTES (AUTO) 3.1 10^3/uL (0.5-4.7); ABSOLUTE MONOCYTES (AUTO) 0.6 10^3/uL (0.1-1.4); ABSOLUTE NEUT (AUTO) 3.9 10^3/uL (1.7-8.2); BASOPHILS % (AUTO) 0.9 % (0-2); HEMOGLOBIN 14.4 g/dL (13.5-17.0); LYMPHOCYTES % (AUTO) 37.9 % (13-45); MEAN CORPUSCULAR HEMOGLOBIN 27.8 pg (27.0-33.4); MEAN CORPUSCULAR HGB CONC 33.4 g/dL (32.0-36.0); MEAN CORPUSCULAR VOLUME 83 fl (80-97); MONOCYTES % (AUTO) 7.8 % (3-13); PLATELET COUNT 246 10^3/uL (150-450); RED BLOOD COUNT 5.16 10^6/uL (4.35-5.55); RED CELL DISTRIBUTION WIDTH 14.9 % (11.5-14.0); SEGMENTED NEUTROPHILS % (AUTO) 48.4 % (42-78); TOTAL CELLS COUNTED % (AUTO) 100 %
[2019-10-04] MEDS ORDERED: ONDANSETRON 4 MG TAB.RAPDIS PO ONE (01:10)
--- NOTE | 2019-10-04 01:10 | ER Document Report ---
ED General - General Chief Complaint: Nausea Stated Complaint: NAUSEA Time Seen by Provider: 10/03/19 23:43 Mode of Arrival: Ambulatory TRAVEL OUTSIDE OF THE [place] IN LAST 30 DAYS: No - HPI Patient complains to provider of: abd pain Notes: 24 y/o presenting to ED for evaluation of nausea that came on about 7 pm he denies vomiting he is eating/drinking normally he is moving bowels normally no urinary pain no blood in urine he denies significant abdominal pain at this time he denies fever/chills/sick contacts of note, he has been in the ED frequently for various complaints w/o requiring admission or interventions - Related Data Allergies/Adverse Reactions: No Known Allergies Allergy (Verified 09/04/19 03:38) Past Medical History - General Information source: Patient - Social History Smoking Status: Former Smoker Family History: Reviewed & Not Pertinent Patient has homicidal ideation: No Pulmonary Medical History: Reports: Hx Asthma - Immunizations Immunizations up to date: Yes Hx Diphtheria, Pertussis, Tetanus Vaccination: Yes Review of Systems - Review of Systems Constitutional: No symptoms reported EENT: No symptoms reported Cardiovascular: No symptoms reported Respiratory: No symptoms reported Gastrointestinal: Nausea. denies: Abdomen distended, Abdominal pain, Vomiting, Poor appetite, Poor fluid intake Genitourinary: No symptoms reported Male Genitourinary: No symptoms reported Musculoskeletal: No symptoms reported Skin: No symptoms reported Hematologic/Lymphatic: No symptoms reported Neurological/Psychological: No symptoms reported Physical Exam - Vital signs Vitals: Temp Pulse Resp BP Pulse Ox 99.1 F 96 20 146/79 H 99 10/03/19 23:40 10/03/19 23:40 10/03/19 23:40 10/03/19 23:40 10/03/19 23:40 Interpretation: Normal - General General appearance: Appears well, Alert - HEENT Head: Normocephalic, Atraumatic Eyes: Normal Pupils: PERRL - Respiratory Respiratory status: No respiratory distress Chest status: Nontender Breath sounds: Normal Chest palpation: Normal - Cardiovascular Rhythm: Regular Heart sounds: Normal auscultation Murmur: No - Abdominal Inspection: Normal Distension: No distension Bowel sounds: Normal Tenderness: Nontender Organomegaly: No organomegaly - Back Back: Normal, Nontender - Extremities General upper extremity: Normal inspection, Nontender, Normal color, Normal ROM, Normal temperature General lower extremity: Normal inspection, Nontender, Normal color, Normal ROM, Normal temperature, Normal weight bearing. No: Dotty's sign - Neurological Neuro grossly intact: Yes Cognition: Normal Orientation: AAOx4 Lucy Coma Scale Eye Opening: Spontaneous Lucy Coma Scale Verbal: Oriented Lucy Coma Scale Motor: Obeys Commands Sims Coma Scale Total: 15 Speech: Normal Motor strength normal: LUE, RUE, LLE, RLE Sensory: Normal - Psychological Associated symptoms: Normal affect, Normal mood - Skin Skin Temperature: Warm Skin Moisture: Dry Skin Color: Normal Course - Re-evaluation Re-evalutation: 10/04/19 01:09 abdomen is benign KUB is nonspecific WBC is normal will plan on dc w/ return precautions he is tolerating PO well here in the ED - Vital Signs Vital signs: Temp Pulse Resp BP Pulse Ox 99.1 F 96 20 146/79 H 99 10/03/19 23:40 10/03/19 23:40 10/03/19 23:40 10/03/19 23:40 10/03/19 23:40 - Laboratory Result Diagrams: 10/04/19 00:55 10/04/19 00:55 Laboratory results interpreted by me: 10/04/19 10/04/19 10/04/19 00:55 00:55 00:55 RDW 14.9 H Chloride 109 H Creatinine 1.29 H ALT 54 H Urine Urobilinogen 4.0 H - Diagnostic Test Radiology reviewed: Image reviewed, Reports reviewed Discharge - Discharge Clinical Impression: Nausea Condition: Stable Disposition: HOME, SELF-CARE Instructions: Nausea or Vomiting, Nonspecific ([facility]) Additional Instructions: Follow up with primary care provider for ongoing symptoms Return to the ED with worsening symptoms or concerns Try eating a bland diet and progress as tolerated to reduce your nausea Referrals: MALI REED MD [HONORARY] - Follow up as needed
[2019-10-04 01:17] LABS: APPEARANCE,URINE CLEAR; BILIRUBIN,URINE NEGATIVE (NEGATIVE); COLOR,URINE YELLOW; GLUCOSE, URINE NEGATIVE (NEGATIVE); KETONES,URINE NEGATIVE (NEGATIVE); LEUKOCYTE ESTERASE,URINE NEGATIVE (NEGATIVE); NITRITE,URINE NEGATIVE (NEGATIVE); PROTEIN,URINE NEGATIVE (NEGATIVE); URINE SPECIFIC GRAVITY 1.027
[2019-10-04 01:23] LABS: ALBUMIN 3.9 g/dL (3.5-5.0); ALKALINE PHOSPHATASE 41 U/L (38-126); ANION GAP 8 (5-19); ASPARTATE AMINO TRANSFERASE 40 U/L (17-59); BILIRUBIN,TOTAL 0.4 mg/dL (0.2-1.3); BLOOD UREA NITROGEN 14 mg/dL (7-20); CALCIUM 9.4 mg/dL (8.4-10.2); CARBON DIOXIDE 24 mmol/L (22-30); CHLORIDE 109 mmol/L (98-107); GLUCOSE 110 mg/dL (75-110); POTASSIUM 4.5 mmol/L (3.6-5.0); TOTAL PROTEIN 6.4 g/dL (6.3-8.2)
[2019-10-04 02:03] VITALS: BP 141/71
== END 2019-10-04 02:09 | disposition home or self-care (01) ==
LOC: ER 22:14
DX: R11.0 Nausea (principal); J45.909 Unspecified asthma, uncomplicated; Z87.891 Personal history of nicotine dependence
CPT/HCPCS: 99284; 36415; 83690; 85025; 80053; 81001; 74018; S0119

== ENCOUNTER 2019-10-12 22:48 | Emergency (ER) | payer SELFPAY ==
[2019-10-12 23:18] VITALS: BP 139/84
== END 2019-10-13 06:40 | disposition left against medical advice (07) ==
LOC: ER 22:48
DX: Z53.21 Procedure and treatment not carried out due to patient leaving prior to being seen by health care provider (principal)

== ENCOUNTER 2019-10-13 21:49 | Emergency (ER) | payer SELFPAY ==
[2019-10-13] MEDS ORDERED: ONDANSETRON 4 MG TAB.RAPDIS PO ONE (22:39)
--- NOTE | 2019-10-13 22:40 | ER Document Report ---
ED General - General Chief Complaint: Nausea/Vomiting Stated Complaint: NAUSEA,COUGH,HEADACHE,LOST OF TASTE Notes: Patient is a 24-year-old -[place] male who is well-known to this facility who presents to the emergency department the chief complaint of loss of taste, cough and nausea. Patient was here yesterday for the same, fell asleep in the waiting room and when they woke him to bring him into the emergency department he reported that he needed a comfortable place to sleep and now that he get some rest he felt better and did not wish to be seen in the emergency department anymore. He returns tonight with the above named complaints. Of note he has been tested in the past for COVID-19, once in May 2019, once in August 2019 and twice this month September 2019, all 4 tests have been negative. The patient reports no known sick contacts and no recent travel. He denies any fevers. He is a current everyday smoker. He denies any other pain, complaints or concerns at this time. TRAVEL OUTSIDE OF THE [place] IN LAST 30 DAYS: No - Related Data Allergies/Adverse Reactions: No Known Allergies Allergy (Verified 10/13/19 22:55) Past Medical History - Social History Smoking Status: Current Every Day Smoker Family History: Reviewed & Not Pertinent Pulmonary Medical History: Reports: Hx Asthma - Immunizations Immunizations up to date: Yes Hx Diphtheria, Pertussis, Tetanus Vaccination: Yes Review of Systems - Review of Systems Constitutional: denies: Fever EENT: denies: Throat pain Cardiovascular: denies: Chest pain Respiratory: Cough Gastrointestinal: Nausea Genitourinary: denies: Pain Male Genitourinary: denies: Erectile dysfunction Musculoskeletal: denies: Muscle pain Skin: denies: Rash Hematologic/Lymphatic: denies: Easy bruising Neurological/Psychological: denies: Headaches Physical Exam - Vital signs Vitals: Temp Pulse Resp BP Pulse Ox 99.5 F 108 H 20 129/79 H 100 10/13/19 22:00 10/13/19 22:00 10/13/19 22:00 10/13/19 22:00 10/13/19 22:00 - General General appearance: Appears well, Alert In distress: None - HEENT Head: Normocephalic, Atraumatic Eyes: Normal Conjunctiva: Normal Extraocular movements intact: Yes Eyelashes: Normal Pupils: PERRL Ears: Normal External canal: Normal Tympanic membrane: Normal Nasal: Normal Mouth/Lips: Normal Mucous membranes: Normal Pharynx: Normal Neck: Normal - Respiratory Respiratory status: No respiratory distress Chest status: Nontender Breath sounds: Normal Chest palpation: Normal - Cardiovascular Rhythm: Regular Heart sounds: Normal auscultation - Abdominal Inspection: Normal Distension: No distension Bowel sounds: Normal Tenderness: Nontender Organomegaly: No organomegaly - Neurological Neuro grossly intact: Yes Cognition: Normal Orientation: AAOx4 - Psychological Associated symptoms: Normal affect, Normal mood - Skin Skin Temperature: Warm Skin Moisture: Dry Skin Color: Normal Course - Re-evaluation Re-evalutation: 10/13/19 22:43 Pulse recheck 97 bpm 10/13/19 23:26 X-rays negative for acute process per radiologist. Patient reports his nausea has resolved. I offered a prescription for Zofran for discharge, he declined. 4 prior negative COVID test with no new exposures or travel. Patient stable and appropriate for discharge and outpatient follow-up. Counseled him regarding the importance of outpatient follow-up and advised to return here or any ER immediately with any new, persistent or worsening symptoms. He verbalized understood and agreed. - Vital Signs Vital signs: Temp Pulse Resp BP Pulse Ox 99.5 F 108 H 20 129/79 H 100 10/13/19 23:00 10/13/19 22:00 10/13/19 22:00 10/13/19 22:00 10/13/19 22:00 Discharge - Discharge Clinical Impression: Cough, Nausea Condition: Stable Disposition: HOME, SELF-CARE Instructions: Nausea or Vomiting, Nonspecific ([facility]), Cough Suppressant & Expectorant Medications Additional Instructions: Follow-up with your regular doctor in 2 to 3 days for reevaluation. Return here or any ER immediately with any new, persistent or worsening symptoms. Referrals: [facility] [NO LOCAL MD] - Follow up as needed
--- NOTE | 2019-10-13 23:22 | RADIOLOGY REPORT (SQ) ---
CLINICAL INDICATION: cough. TECHNIQUE: A single portable AP view was obtained of the chest at 2255 hours. COMPARISON: September 20, 2019. FINDINGS: The cardiomediastinal silhouette is normal. The lungs are grossly clear. No evidence of effusion or pneumothorax. The visualized bones are unremarkable. IMPRESSION: No evidence of active intrathoracic disease.
[2019-10-14 00:08] VITALS: BP 116/74
== END 2019-10-14 00:29 | disposition home or self-care (01) ==
LOC: ER 21:49
DX: R05 Cough (principal); R11.0 Nausea; R43.9 Unspecified disturbances of smell and taste; F17.200 Nicotine dependence, unspecified, uncomplicated; J45.909 Unspecified asthma, uncomplicated
CPT/HCPCS: 99283; 71045; S0119

== ENCOUNTER 2019-10-15 22:34 | Emergency (ER) | payer SELFPAY ==
[2019-10-15] MEDS ORDERED: ACETAMINOPHEN 325 MG TABLET PO ONE (23:03)
--- NOTE | 2019-10-15 23:03 | ER Document Report ---
ED Respiratory Problem - General Chief Complaint: Shortness Of Breath Stated Complaint: SHORTNESS OF BREATH Time Seen by Provider: 10/15/19 22:56 Primary Care Provider: [facility] [Provider Group] - Follow up as needed Mode of Arrival: Ambulatory Information source: Patient Notes: 24-year-old male presented to ED for complaint of shortness of breath. He states it started about 830 9:00 tonight. He states he did eat when zones for his supper. His respirations are regular unlabored. No cough or distress noted. Vital signs are stable. He stated he did have a little bit of epigastric pain when he takes a deep breath. Patient is alert and oriented speaking in full sentences taking deep breaths with no difficulty. Patient is in no acute distress at this time. Denies any fever nausea vomiting or diarrhea. REVIEW OF SYSTEMS: CONSTITUTIONAL : Denies fever, chills, or sweats. Denies recent illness. EENT: Denies eye, ear, throat, or mouth pain or symptoms. Denies nasal or sinus congestion. CARDIOVASCULAR: Denies chest pain. RESPIRATORY: Complains of shortness of breath since 830 9:00 GASTROINTESTINAL: Denies abdominal pain. Denies nausea, vomiting, or diarrhea. Denies constipation. Last BM: GENITOURINARY: Denies difficulty urinating, painful urination, burning, frequency, or blood in urine. MUSCULOSKELETAL: Denies neck or back pain or joint pain or swelling. SKIN: Denies rash or skin lesions. HEMATOLOGIC : Denies easy bruising or bleeding. LYMPHATIC: Denies swollen, enlarged glands. NEUROLOGICAL: Denies altered mental status or loss of consciousness. Denies headache. Denies weakness or paralysis or loss of use of either side. Denies problems with gait or speech. Denies sensory or motor loss. PSYCHIATRIC: Denies anxiety or stress or depression. ALL OTHER SYSTEMS REVIEWED AND NEGATIVE. VITAL SIGNS: Within normal limits. GENERAL: No acute distress, non-toxic appearance. HEAD: Normal with no signs of head trauma. EYES: PERRLA, EOMI, conjunctiva normal, no discharge. EARS: Hearing grossly intact. NOSE: Normal. THROAT: Oropharynx is normal. NECK: Normal range of motion, no tenderness, supple, no lymphadenopathy, No adenopathy, no JVD. CHEST: Clear breath sounds bilaterally. No wheezes, rales, or rhonchi. Depressions regular nonlabored CARDIAC: Regular rate and rhythm. S1 and S2, without murmurs, gallops, or rubs. VASCULAR: No Edema. Peripheral pulses normal and equal in all extremities. ABDOMEN: Normal and soft with no tenderness, no masses or pulsatile masses. GASTROINTESTINAL: Bowel sounds normal GENITOURINARY: Normal, No tenderness LYMPATHTIC: No lymphadenopathy noted. MUSCULOSKELETAL: Good range of motion of all major joints. Extremities without clubbing, cyanosis or edema. NEUROLOGICAL: Alert and oriented x 3. No focal sensory or strength deficits. Speech normal. Follows commands appropriately. PSYCHIATRIC: Normal Affect, judgement and mood. SKIN: Normal appearance with no rashes or lesions. TRAVEL OUTSIDE OF THE [place] IN LAST 30 DAYS: No - HPI Patient complains to provider of: Short of breath - Patient states he is short of breath but no shortness of breath noted patient's regular unlabored lungs clear Onset: This evening Duration: Continuous Initiating Event: Other - None barbecue wings Quality of pain: Other - Mild burning in his epigastric area takes a deep breath Severity: None Pain Level: Denies Context: Smoker Cough: Nonproductive Associated symptoms: None. denies: Congestion, Cough, Fever, PND, Runny nose, Sinus pain/pressure, Short of breath - Patient does not demonstrate any shortness of breath. His lungs are clear and his respirations are 18. Similar symptoms previously: Yes Recently seen / treated by doctor: Yes - Related Data Allergies/Adverse Reactions: No Known Allergies Allergy (Verified 10/15/19 22:40) Past Medical History - General Information source: Patient - Social History Smoking Status: Current Every Day Smoker Cigarette use (# per day): Yes - 1 cigarette a day Frequency of alcohol use: None Drug Abuse: None Family History: Reviewed & Not Pertinent Patient has homicidal ideation: No - Past Medical History Cardiac Medical History: Reports: None Pulmonary Medical History: Reports: Hx Asthma EENT Medical History: Reports: None Neurological Medical History: Reports: None Endocrine Medical History: Reports: None Renal/ Medical History: Reports: None Malignancy Medical History: Reports None GI Medical History: Reports: None Musculoskeletal Medical History: Reports None Skin Medical History: Reports None Psychiatric Medical History: Reports: None Traumatic Medical History: Reports: None Infectious Medical History: Reports: None Surgical Hx: Negative - Immunizations Immunizations up to date: Yes Hx Diphtheria, Pertussis, Tetanus Vaccination: Yes Physical Exam - Vital signs Vitals: Temp 99.1 F 10/15/19 22:41 Course - Vital Signs Vital signs: Temp Pulse Resp BP Pulse Ox 99.1 F 10/15/19 22:41 Discharge - Discharge Clinical Impression: Shortness of breath Condition: Stable Disposition: HOME, SELF-CARE Additional Instructions: You stated you were short of breath this evening that started this evening between 830 and 9:00. You state there is not any different than a couple days ago when you were seen in the ED. You state you had a chest x-ray at that time. The x-ray at that time did not show any acute changes to your lungs. Did not show any infectious disease at the time. You state you feel pretty much the same as you did then. Please follow-up with your primary Thursday or Thursday if he continued to have the shortness of breath. I have given you a machine called an incentive spirometry. Please use this every hour while awake to increase your lung capacity. You stated this started after you ate [employer] tonight. If you continue to have shortness of breath after you eat [email or web address] please consider changing the diet to prevent your shortness of breath and discomfort. Acetaminophen Acetaminophen may be taken for pain relief or fever control. It's much safer than aspirin, offering a wider range of "safe" dosages. It is safe during . Some brand names are Tylenol, Panadol, Datril, Anacin 3, Tempra, and Liquiprin. Acetaminophen can be repeated every four hours. The following are maximum recommended dosages: WEIGHT Dose Drops Elixir Chewable(80mg) (LBS.) drprs=droppers tsp=teaspoon 6 40 mg .4 ml (1/2) 6-11 80 mg .8 ml (full) 1/2 tsp 1 tab 12-16 120 mg 1 1/2 drprs 3/4 tsp 1 1/2 tabs 17-23 160 mg 2 drprs 1 tsp 2 tabs 24-30 240 mg 3 drprs 1 1/2 tsp 3 tabs 30-35 320 mg 2 tsp 4 tabs 36-41 360 mg 2 1/4 tsp 4 1/2 tabs 42-47 400 mg 2 1/2 tsp 5 tabs 48-53 480 mg 3 tsp 6 tabs 54-59 520 mg 3 1/4 tsp 6 1/2 tabs 60-64 560 mg 3 1/2 tsp 7 tabs 65-70 600 mg 3 3/4 tsp 7 1/2 tabs 71-76 640 mg 4 tsp 8 tabs 77-82 720 mg 4 1/2 tsp 9 tabs 83-88 800 mg 5 tsp 10 tabs >89 pounds or adults 650 mg to 900 mg Acetaminophen can be repeated every four hours. Maximum daily dose not to exceed 4000 mg. These maximum recommended dosages are slightly higher than the dosages written on the product container, but these dosages are very safe and well below the toxic dosage for acetaminophen. FOLLOW-UP CARE: If you have been referred to a physician for follow-up care, call the physicians office for an appointment as you were instructed or within the next two days. If you experience worsening or a significant change in your symptoms, notify the physician immediately or return to the Emergency Department at any time for re-evaluation. Forms: Smoking Cessation Education Referrals: [facility] [Provider Group] - Follow up as needed
== END 2019-10-15 23:06 | disposition home or self-care (01) ==
LOC: ER 22:34
DX: R06.02 Shortness of breath (principal); R10.13 Epigastric pain; F17.210 Nicotine dependence, cigarettes, uncomplicated; J45.909 Unspecified asthma, uncomplicated
CPT/HCPCS: 99282

== ENCOUNTER 2019-10-17 23:14 | Emergency (ER) | payer SELFPAY ==
[2019-10-18 00:44] VITALS: BP 121/60
--- NOTE | 2019-10-18 01:14 | ER Document Report ---
ED Medical Screen (RME) - General Chief Complaint: Nausea Stated Complaint: NAUSEA,PASSED OUT Time Seen by Provider: 10/18/19 01:08 Mode of Arrival: Ambulatory Information source: Patient Notes: 24-year-old black male ambulates into ER with history of having syncopal attack and dizziness this afternoon in the heat. Patient has had nothing to eat or drink all day. He tried to get some sleep on a park bench and was awoken by a concern pedestrian. He continued to have the dizziness after he was awakened. He denies any chest pain abdominal pain back pain headache gait abnormalities. He denies any nausea vomiting tick bites flea bites bat bites coronavirus exposure coronavirus disease itself. He denies any foreign travel or foreign people exposure. He is homeless. He was provided with [employer] Gatorade ice water and to turkey sandwiches by staff. A fingerstick sugar was done on this patient. TRAVEL OUTSIDE OF THE [place] IN LAST 30 DAYS: No - HPI Onset: This afternoon Onset/Duration: Sudden, Better Quality of pain: No pain Severity: None Pain Level: Denies Associated Symptoms: None, Dizzy/lightheaded Exacerbated by: Denies Relieved by: Denies Similar symptoms previously: Yes Recently seen / treated by doctor: No - Related Data Allergies/Adverse Reactions: No Known Allergies Allergy (Verified 10/15/19 22:40) Past Medical History - General Information source: Patient - Social History Cigarette use (# per day): No Chew tobacco use (# tins/day): No Frequency of alcohol use: None Drug Abuse: None Lives with: Homeless Family history: Reviewed & Not Pertinent Pulmonary Medical History: Reports: Hx Asthma - Immunizations Immunizations up to date: Yes Hx Diphtheria, Pertussis, Tetanus Vaccination: Yes Review of Systems - Review of Systems Constitutional: See HPI, Weakness EENT: No symptoms reported Cardiovascular: No symptoms reported Respiratory: No symptoms reported Gastrointestinal: No symptoms reported Genitourinary: No symptoms reported Male Genitourinary: No symptoms reported Musculoskeletal: No symptoms reported Skin: No symptoms reported Hematologic/Lymphatic: No symptoms reported Neurological/Psychological: See HPI, Other - Dizziness and lightheadedness Physical Exam - Vital signs Vitals: Temp Pulse Resp BP Pulse Ox 98.9 F 76 20 121/60 99 10/18/19 00:43 10/18/19 00:43 10/18/19 00:43 10/18/19 00:43 10/18/19 00:43 Interpretation: Normal - General General appearance: Appears well, Alert - HEENT Head: Normocephalic, Atraumatic Eyes: Normal Pupils: PERRL Ears: Normal Sinus: Normal Nasal: Normal Mouth/Lips: Normal Mucous membranes: Normal Pharynx: Normal Neck: Normal - Respiratory Respiratory status: No respiratory distress Chest status: Nontender Breath sounds: Normal Chest palpation: Normal - Cardiovascular Rhythm: Regular Heart sounds: Normal auscultation Murmur: No - Abdominal Inspection: Normal Distension: No distension Bowel sounds: Normal Tenderness: Nontender Organomegaly: No organomegaly - Rectal Prostate: Other - deferred - Genitourinary Scrotum: Other - deferred - Back Back: Normal - Extremities General upper extremity: Normal inspection General lower extremity: Normal inspection - Neurological Neuro grossly intact: Yes Cognition: Normal Orientation: AAOx4 Lucy Coma Scale Eye Opening: Spontaneous Lucy Coma Scale Verbal: Oriented Lucy Coma Scale Motor: Obeys Commands [place] Coma Scale Total: 15 Speech: Normal Motor strength normal: LUE, RUE, LLE, RLE Sensory: Normal - Psychological Associated symptoms: Normal affect - Skin Skin Temperature: Warm Skin Moisture: Dry Course - Vital Signs Vital signs: Temp Pulse Resp BP Pulse Ox 98.9 F 76 20 121/60 99 10/18/19 00:43 10/18/19 00:43 10/18/19 00:43 10/18/19 00:43 10/18/19 00:43 Doctor's Discharge - Discharge Clinical Impression: Dizziness Food hunger Qualifiers: Encounter type: initial encounter Qualified Code(s): T73.0XXA - Starvation, in itial encounter Disposition: HOME, SELF-CARE Additional Instructions: Follow-up with personal doctor return to ER as needed for true emergencies try to find a facility that will accept homeless travelers
== END 2019-10-18 01:35 | disposition home or self-care (01) ==
LOC: ER 23:14
DX: T73.0XXA Starvation, initial encounter (principal); R42 Dizziness and giddiness; R11.0 Nausea; R55 Syncope and collapse; X58.XXXA Exposure to other specified factors, initial encounter; J45.909 Unspecified asthma, uncomplicated
CPT/HCPCS: 99282

== ENCOUNTER 2019-10-18 21:58 | Emergency (ER) | payer SELFPAY ==
--- NOTE | 2019-10-18 22:35 | ER Document Report ---
ED Medical Screen (RME) - General Chief Complaint: Chest Pain Stated Complaint: CHEST PAIN Time Seen by Provider: 10/18/19 22:28 Mode of Arrival: Ambulatory Information source: Patient Notes: HPI; 24-year-old male presents to the emergency room complaining of midsternal intermittent chest pain that started earlier today. Denies nausea, vomiting, no diaphoresis. No medications for symptoms. PE: Alert and oriented x3. Lungs: Clear to auscultation without rales, rhonchi, wheezes. Heart: Regular rate rhythm without murmurs, rubs, gallops. I have greeted and performed a rapid initial assessment of this patient. A comprehensive ED assessment and evaluation of the patient, analysis of test results and completion of the medical decision making process will be conducted by additional ED providers. I have specifically instructed the patient or family members with the patient to immediately return to any nursing staff should anything change in the patient's condition or with their chief complaint. TRAVEL OUTSIDE OF THE [place] IN LAST 30 DAYS: No - Related Data Allergies/Adverse Reactions: No Known Allergies Allergy (Verified 10/15/19 22:40) Past Medical History - Social History Frequency of alcohol use: None Drug Abuse: None Family history: Reviewed & Not Pertinent Pulmonary Medical History: Reports: Hx Asthma - Immunizations Immunizations up to date: Yes Hx Diphtheria, Pertussis, Tetanus Vaccination: Yes Physical Exam - Vital signs Vitals: Temp Pulse Resp BP Pulse Ox 98.1 F 99 20 128/96 H 97 10/18/19 22:19 10/18/19 22:19 10/18/19 22:19 10/18/19 22:19 10/18/19 22:19 Course - Vital Signs Vital signs: Temp Pulse Resp BP Pulse Ox 98.1 F 99 20 128/96 H 97 10/18/19 22:19 10/18/19 22:19 10/18/19 22:19 10/18/19 22:19 10/18/19 22:19
--- NOTE | 2019-10-18 23:06 | RADIOLOGY REPORT (SQ) ---
EXAM DESCRIPTION: XR CHEST 2 VIEWS COMPLETED DATE/TME: 10/18/2019 22:32 CLINICAL HISTORY: 24 years, Male, chest pain COMPARISON: 10/13/2019 chest NUMBER OF VIEWS: 2 TECHNIQUE: 2 view chest LIMITATIONS: None. FINDINGS: Heart size normal. Lungs clear. No pneumothorax IMPRESSION: Negative chest copyright 2011 [employer]- All Rights Reserved
[2019-10-19 00:03] LABS: ABSOLUTE BASOPHILS # (AUTO) 0.1 10^3/uL (0.0-0.2); ABSOLUTE EOSINOPHILS # (AUTO) 0.4 10^3/uL (0.0-0.6); ABSOLUTE LYMPHOCYTES (AUTO) 2.7 10^3/uL (0.5-4.7); ABSOLUTE MONOCYTES (AUTO) 0.6 10^3/uL (0.1-1.4); ABSOLUTE NEUT (AUTO) 4.7 10^3/uL (1.7-8.2); BASOPHILS % (AUTO) 0.9 % (0-2); EOSINOPHILS % (AUTO) 4.2 % (0-6); HEMATOCRIT 48.1 % (37.9-51.0); HEMOGLOBIN 16.1 g/dL (13.5-17.0); LYMPHOCYTES % (AUTO) 32.6 % (13-45); MEAN CORPUSCULAR HEMOGLOBIN 27.8 pg (27.0-33.4); MEAN CORPUSCULAR HGB CONC 33.6 g/dL (32.0-36.0); MEAN CORPUSCULAR VOLUME 83 fl (80-97); MONOCYTES % (AUTO) 6.7 % (3-13); PLATELET COUNT 264 10^3/uL (150-450); RED CELL DISTRIBUTION WIDTH 14.6 % (11.5-14.0); SEGMENTED NEUTROPHILS % (AUTO) 55.6 % (42-78); TOTAL CELLS COUNTED % (AUTO) 100 %; WHITE BLOOD COUNT 8.4 10^3/uL (4.0-10.5)
[2019-10-19 00:20] LABS: ALKALINE PHOSPHATASE 42 U/L (38-126); ANION GAP 8 (5-19); ASPARTATE AMINO TRANSFERASE 37 U/L (17-59); BILIRUBIN,DIRECT 0.3 mg/dL (0.0-0.4); BILIRUBIN,TOTAL 0.6 mg/dL (0.2-1.3); BLOOD UREA NITROGEN 12 mg/dL (7-20); CALCIUM 9.3 mg/dL (8.4-10.2); CARBON DIOXIDE 27 mmol/L (22-30); CHLORIDE 105 mmol/L (98-107); CREATINE KINASE 1088 U/L (55-170); GLUCOSE 92 mg/dL (75-110); POTASSIUM 4.4 mmol/L (3.6-5.0); TOTAL PROTEIN 6.2 g/dL (6.3-8.2)
[2019-10-19 00:54] LABS: CREATINE KINASE MB 3.54 ng/mL (<4.55)
[2019-10-19 00:56] LABS: TROPONIN I < 0.012 ng/mL
[2019-10-19] MEDS ORDERED: RINGERS SOLUTION,LACTATED 2,000 ML IV ONE (01:17)
[2019-10-19] MEDS ORDERED: NORMAL SALINE 1000 ML 1,000 ML IV ONE (05:48)
[2019-10-19] MEDS ORDERED: RINGERS SOLUTION,LACTATED 1,000 ML IV ONE ×2 (05:50→05:54)
--- NOTE | 2019-10-19 07:49 | EKG REPORT ---
SEVERITY:- NORMAL ECG - SINUS RHYTHM : Confirmed by: Jaden Martinez MD 19-Oct-2019 07:48:54
--- NOTE | 2019-10-19 08:23 | ER Document Report ---
ED General - General Chief Complaint: Chest Pain Stated Complaint: CHEST PAIN Time Seen by Provider: 10/18/19 22:28 Primary Care Provider: SHANIKA CHERRY MD [ACTIVE STAFF] - Follow up as needed ELEN DE LA CRUZ MD [ACTIVE PROVISIONAL STAFF] - Follow up as needed Mode of Arrival: Ambulatory Notes: CHIEF COMPLAINT: Chest pain HPI: 24-year-old homeless male presented last night for intermittent chest pain while he was on the bus. Patient was seen via the triage process. Patient states that he did not have shortness of breath nausea or vomiting. Patient states currently he has no chest discomfort. I had to wake the patient from sleep to interview him and examine him. Patient states it was an intermittent sharp sensation. No fever or cough ROS: See HPI - all other systems were reviewed and are otherwise negative Constitutional: no fever Eyes: no drainage, no blurred vision ENT: no runny nose, no sore throat Cardiovascular: Positive chest pain Resp: no SOB, no cough GI: no vomiting, no diarrhea, no abdominal pain : no dysuria Integumentary: no rash Allergy: no hives Musculoskeletal: no extremity pain or swelling Neurological: no numbness/tingling, no weakness MEDICATIONS: I agree with the patient medications as charted by the RN. ALLERGIES: I agree with the allergies as charted by the RN. PAST MEDICAL HISTORY/PAST SURGICAL HISTORY: Reviewed and agree as charted by RN. SOCIAL HISTORY: Reviewed and agree as charted by RN. FAMILY HISTORY: No significant familial comorbid conditions directly related to patient complaint EXAM: Reviewed vital signs as charted by RN. CONSTITUTIONAL: Alert and oriented and responds appropriately to questions. Well-appearing; well-nourished HEAD: Normocephalic; atraumatic EYES: PERRL; Conjunctivae clear, sclerae non-icteric ENT: normal nose; no rhinorrhea; moist mucous membranes; pharynx without lesions noted, no uvula edema or deviation, no tonsillar hypertrophy, phonation normal NECK: Supple without meningismus; non-tender; no cervical lymphadenopathy, no masses CARD: RRR; no murmurs, no clicks, no rubs, no gallops; symmetric distal pulses RESP: Normal chest excursion without splinting or tachypnea; breath sounds clear and equal bilaterally; no wheezes, no rhonchi, no rales, pulse oximetry 100% on room air not hypoxic ABD/GI: Normal bowel sounds; non-distended; soft, non-tender, no rebound, no guarding; no palpable organomegaly or masses. BACK: The back appears normal and is non-tender to palpation, there is no CVA tenderness EXT: Normal ROM in all joints; non-tender to palpation; no cyanosis, no effus ions, no edema SKIN: Normal color for age and race; warm; dry; good turgor; no acute lesions noted NEURO: Moves all extremities equally; Motor and sensory function intact PSYCH: The patient's mood and manner are appropriate. Grooming and personal hygiene are appropriate. MDM: 24-year-old homeless male well-known to this department with multiple presentations every few days for similar and very type complaints. Has been worked up previously for chest pain, does not have significant risk factors. Patient was given multiple rounds of IV fluids, 2 sets of screening troponins are negative. He is in absolutely no distress at this time. Lab work otherwise did not have significant abnormalities. EKG normal sinus rhythm with a ventricular rate of 90 without [address]opy. CT 136 QT 328. Interpreted by emergency department physicians. I will plan to discharge the patient he will be again referred back to his primary care for follow-up as well as cardiology outpatient. TRAVEL OUTSIDE OF THE [place] IN LAST 30 DAYS: No - Related Data Allergies/Adverse Reactions: No Known Allergies Allergy (Verified 10/15/19 22:40) Past Medical History - General Information source: Patient - Social History Smoking Status: Former Smoker Frequency of alcohol use: None Drug Abuse: None Family History: Reviewed & Not Pertinent Patient has homicidal ideation: No Pulmonary Medical History: Reports: Hx Asthma - Immunizations Immunizations up to date: Yes Hx Diphtheria, Pertussis, Tetanus Vaccination: Yes Physical Exam - Vital signs Vitals: Temp Pulse Resp BP Pulse Ox 98.1 F 99 20 128/96 H 97 10/18/19 22:19 10/18/19 22:19 10/18/19 22:10/18/19 22:19 10/18/19 22:19 Course - Vital Signs Vital signs: Temp Pulse Resp BP Pulse Ox 98.1 F 99 20 128/96 H 97 10/18/19 22:19 10/18/19 22:19 10/18/19 22:19 10/18/19 22:19 10/18/19 22:19 - Laboratory Result Diagrams: 10/18/19 23:48 10/18/19 23:48 Laboratory results interpreted by me: 10/18/19 10/18/19 23:48 23:48 RBC 5.80 H RDW 14.6 H Creatinine 1.34 H Creatine Kinase 1088 H Total Protein 6.2 L Discharge - Discharge Clinical Impression: Chest pain Qualifiers: Chest pain type: other chest pain Qualified Code(s): R07.89 - Other chest pain; R07.8 - Other chest pain Condition: Stable Disposition: HOME, SELF-CARE Additional Instructions: Follow-up with a primary care provider, cardiology or the health department for further evaluation of your symptoms. Your lab work today was reassuring. Referrals: ELEN DE LA CRUZ MD [ACTIVE PROVISIONAL STAFF] - Follow up as needed SHANIKA CHERRY MD [ACTIVE STAFF] - Follow up as needed
[2019-10-19 08:55] VITALS: BP 141/70
== END 2019-10-19 08:50 | disposition home or self-care (01) ==
LOC: ER 21:58
DX: R07.89 Other chest pain (principal); R07.81 Pleurodynia; Z59.0 Homelessness
CPT/HCPCS: 93005; 99285; 96360; 96361; 36415; 82553; 82550; 85025; 80053; 84484; 71046; 93010; J7120

== ENCOUNTER 2019-10-19 22:21 | Emergency (ER) | payer SELFPAY ==
[2019-10-20] MEDS ORDERED: ACETAMINOPHEN 325 MG TABLET PO ONE (00:32)
--- NOTE | 2019-10-20 00:33 | ER Document Report ---
ED Medical Screen (RME) - General Chief Complaint: Head Injury Stated Complaint: HEADACHE/FEVER Time Seen by Provider: 10/20/19 00:30 Mode of Arrival: Ambulatory Information source: Patient Notes: HPI; 24-year-old male presents to the emergency room stating he was walking on the street when he tripped and fell backward hitting his head on the pavement. Admits to positive loss of consciousness. Unknown how long he was unconscious. He denies any nausea, vomiting, complains of a headache. PE: Alert and oriented x3. Mild distress noted. PERRLA, EOMI, lungs: Clear to auscultation without rales, rhonchi, wheezes. Heart: Regular rate rhythm without murmurs, rubs, gallops. I have greeted and performed a rapid initial assessment of this patient. A comprehensive ED assessment and evaluation of the patient, analysis of test results and completion of the medical decision making process will be conducted by additional ED providers. I have specifically instructed the patient or family members with the patient to immediately return to any nursing staff should anything change in the patient's condition or with their chief complaint. TRAVEL OUTSIDE OF THE [place] IN LAST 30 DAYS: No - Related Data Allergies/Adverse Reactions: No Known Allergies Allergy (Verified 10/15/19 22:40) Past Medical History - Social History Frequency of alcohol use: None Drug Abuse: None Family history: Reviewed & Not Pertinent Pulmonary Medical History: Reports: Hx Asthma - Immunizations Immunizations up to date: Yes Hx Diphtheria, Pertussis, Tetanus Vaccination: Yes Physical Exam - Vital signs Vitals: Temp Pulse Resp BP Pulse Ox 99.6 F 106 H 18 162/86 H 100 10/19/19 22:44 10/19/19 22:44 10/19/19 22:44 10/19/19 22:44 10/19/19 22:44 Course - Vital Signs Vital signs: Temp Pulse Resp BP Pulse Ox 99.6 F 106 H 18 162/86 H 100 10/19/19 22:44 10/19/19 22:44 10/19/19 22:44 10/19/19 22:44 10/19/19 22:44
--- NOTE | 2019-10-20 01:50 | RADIOLOGY REPORT (SQ) ---
EXAM DESCRIPTION: CT HEAD WITHOUT IV CONTRAST COMPLETED DATE/TME: 10/20/2019 00:31 CLINICAL HISTORY: trauma with loc COMPARISON: 04/03/2019 TECHNIQUE: Axial CT of the head obtained from the skull apex to the skull base without contrast. FINDINGS: No acute intracranial hemorrhage identified. No mass, mass effect, shift of the midline, abnormal extra-axial fluid collection or CT evidence of acute ischemic change identified. The ventricular system is unremarkable. No acute abnormalities of the supratentorial white matter, basal ganglia, cerebellum, or brainstem. The visualized paranasal sinuses and the mastoids are relatively well aerated. No skull fracture identified. Visualized orbits and globes are unremarkable. IMPRESSION: 1. No acute intracranial abnormality identified. This exam was performed according to our departmental dose-optimization program, which includes automated exposure control, adjustment of the mA and/or kV according to patient size and/or use of iterative reconstruction technique.
--- NOTE | 2019-10-20 01:56 | RADIOLOGY REPORT (SQ) ---
EXAM DESCRIPTION: CT CERVICAL SPINE WITHOUT IV CONTRAST COMPLETED DATE/TME: 10/20/2019 00:31 CLINICAL HISTORY: Trauma/pain COMPARISON: None available TECHNIQUE: Axial CT of the cervical spine obtained without contrast. FINDINGS: Straightening of the cervical lordosis may be secondary to positioning. The atlantoaxial, atlantodental, and occipitoatlantal intervals are preserved. No fracture identified. Vertebral body height preserved. 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 Prevertebral soft tissues are unremarkable. Intervertebral disc height preserved. Visualized skull base is intact. No fracture of the visualized facial bones. Visualized mastoid air cells and paranasal sinuses are well aerated. Visualized thyroid is unremarkable. No cervical lymphadenopathy. No pneumothorax in the visualized lung apices. IMPRESSION: 1. No acute fracture or subluxation of the cervical spine. This exam was performed according to our departmental dose-optimization program, which includes automated exposure control, adjustment of the mA and/or kV according to patient size and/or use of iterative reconstruction technique. Reserved
--- NOTE | 2019-10-20 06:24 | ER Document Report ---
ED General - General Chief Complaint: Head Injury Stated Complaint: HEADACHE/FEVER Time Seen by Provider: 10/20/19 00:30 Mode of Arrival: Ambulatory Notes: 4-year-old male presents with mild head pain after falling backwards and striking his head about 9 hours ago. He has no neck pain, vomiting altered mental status or neuro symptoms. No blood thinners. Had a CT while waiting which was negative. Has been sleeping in the waiting room for 6 hours. TRAVEL OUTSIDE OF THE [place] IN LAST 30 DAYS: No - Related Data Allergies/Adverse Reactions: No Known Allergies Allergy (Verified 10/15/19 22:40) Past Medical History - General Information source: Patient - Social History Smoking Status: Former Smoker Frequency of alcohol use: None Drug Abuse: None Family History: Reviewed & Not Pertinent Pulmonary Medical History: Reports: Hx Asthma - Immunizations Immunizations up to date: Yes Hx Diphtheria, Pertussis, Tetanus Vaccination: Yes Review of Systems - Review of Systems Notes: REVIEW OF SYSTEMS GEN: Denies fever, chills, weight loss ENT: Denies sore throat, nasal discharge, ear pain EYES: Denies blurry vision, eye pain, discharge CV: Denies chest pain, palpitations, edema RESP: Denies cough, shortness of breath, wheezing GI: Denies abdominal pain, nausea, vomiting, diarrhea MSK: Denies joint pain/swelling, edema, SKIN: Denies rash, skin lesions LYMPH: Denies swollen glands/lymph nodes NEURO: Mild headache PSYCH: Denies depression, suicidal or homicidal ideation PHYSICAL EXAMINATION General: No acute distress, well-nourished Head: Atraumatic, normocephalic ENT: Mouth normal, oropharynx moist, no exudates or tonsillar enlargement Eyes: Conjunctiva normal, pupils equal, lids normal Neck: No JVD, supple, no guarding CVS: Normal rate, regular rhythm, no murmurs Resp: No resp distress, equal and normal breath sounds bilaterally GI: Nondistended, soft, no tenderness to palpation, no rebound or guarding Ext: No deformities, no edema, normal range of motion in upper and lower ext Back: No CVA or midline TTP Skin: No rash, warm Lymphatic: No lymphadeopathy noted Neuro: Awake, alert. Face symmetric. GCS 15. Physical Exam - Vital signs Vitals: Temp Pulse Resp BP Pulse Ox 99.6 F 106 H 18 162/86 H 100 09/02/20 22:44 10/19/19 22:44 10/19/19 22:44 10/19/19 22:44 10/19/19 22:44 Course - Re-evaluation Re-evalutation: 10/20/19 06:24 Mild head injury negative CT normal GCS no other injuries or complaints Stable for discharge home I have discussed with the patient there likely diagnosis, aftercare plan, follow-up plans and my usual and customary return precautions. They verbalized understanding of this. - Vital Signs Vital signs: Temp Pulse Resp BP Pulse Ox 97.6 F 80 18 128/76 H 95 10/20/19 03:45 10/20/19 03:45 10/20/19 03:45 10/20/19 03:45 10/20/19 03:45 Discharge - Discharge Clinical Impression: Food hunger Fall from standing Qualifiers: Encounter type: initial encounter Qualified Code(s): W19.XXXA - Unspecified fall, initial encounter Condition: Good Disposition: HOME, SELF-CARE
[2019-10-20 06:51] VITALS: BP 138/72
== END 2019-10-20 06:50 | disposition home or self-care (01) ==
LOC: ER 22:21
DX: S06.9X9A Unspecified intracranial injury with loss of consciousness of unspecified duration, initial encounter (principal); R51 Headache; W19.XXXA Unspecified fall, initial encounter; Y93.01 Activity, walking, marching and hiking; Y92.410 Unspecified street and highway as the place of occurrence of the external cause; T73.0XXA Starvation, initial encounter; X58.XXXA Exposure to other specified factors, initial encounter; J45.909 Unspecified asthma, uncomplicated; Z87.891 Personal history of nicotine dependence
CPT/HCPCS: 70450; 72125; 99285

== ENCOUNTER 2019-10-20 23:31 | Emergency (ER) | payer SELFPAY ==
[2019-10-20 23:47] VITALS: BP 138/87
[2019-10-21] MEDS ORDERED: ONDANSETRON 4 MG TAB.RAPDIS ONE (01:01)
== END 2019-10-21 04:00 | disposition home or self-care (01) ==
LOC: ER 23:31
DX: R11.2 Nausea with vomiting, unspecified (principal)
CPT/HCPCS: 96374; 99281

== ENCOUNTER 2019-10-21 23:50 | Emergency (ER) | payer SELFPAY ==
[2019-10-22] MEDS ORDERED: KETOROLAC TROMETHAMINE 60 MG/2 ML SDV IM ONE (02:28)
[2019-10-22] MEDS ORDERED: METOCLOPRAMIDE HCL INJ/PF 10 MG/2 ML SDV IM ONE (02:29)
--- NOTE | 2019-10-22 02:35 | ER Document Report ---
ED General - General Chief Complaint: Headache Stated Complaint: HEADACHE/NAUSEA/POSSIBLE DEHYDRATION Time Seen by Provider: 10/22/19 02:21 TRAVEL OUTSIDE OF THE [place] IN LAST 30 DAYS: No - HPI Onset/Duration: Waxing and waning Context: 24-year-old male, well-known to this emergency department and this provider, presents complaining of nausea. Patient states that his nausea is present daily and that additionally he has a headache today. Patient denies fever, photophobia, chest pain, dyspnea, abdominal pain. Patient denies loss of sense of taste or loss of sense of smell. Patient denies known exposures to persons under suspicion or positive for COVID. Patient states nothing alleviates his symptoms and nothing worsens his symptoms. Associated symptoms: Other - See HPI Exacerbated by: Other - Nothing Relieved by: Other - Nothing Similar symptoms previously: Yes Recently seen / treated by doctor: Yes - Patient presents to this ED on a regular basis for medical screening exams - Related Data Allergies/Adverse Reactions: No Known Allergies Allergy (Verified 10/15/19 22:40) Past Medical History - General Information source: Patient - Social History Smoking Status: Current Every Day Smoker Chew tobacco use (# tins/day): No Frequency of alcohol use: None Drug Abuse: None Family History: Reviewed & Not Pertinent Pulmonary Medical History: Reports: Hx Asthma - Immunizations Immunizations up to date: Yes Hx Diphtheria, Pertussis, Tetanus Vaccination: Yes Review of Systems - Review of Systems Constitutional: No symptoms reported EENT: No symptoms reported Cardiovascular: No symptoms reported Respiratory: No symptoms reported Gastrointestinal: Nausea Genitourinary: No symptoms reported Male Genitourinary: No symptoms reported Musculoskeletal: No symptoms reported Skin: No symptoms reported Hematologic/Lymphatic: No symptoms reported Neurological/Psychological: Headaches -: Yes All other systems reviewed and negative Physical Exam - Vital signs Vitals: Temp Pulse Resp BP Pulse Ox 98.4 F 90 22 H 130/77 H 99 10/22/19 01:08 10/22/19 01:08 10/22/19 01:08 10/22/19 01:08 10/22/19 01:08 - Notes Notes: CONSTITUTIONAL [Vital signs reviewed, Patient appears nontoxic. Patient is sleeping upon arrival into room and is easily awoken by voice. Patient appears disheveled and unkempt [Atraumatic, Normocephalic.] EYES [Eyes are normal to inspection, No discharge from eyes, Extraocular muscles intact, Sclera are normal, Conjunctiva are normal.] NECK [Normal ROM, No jugular venous distention, No meningeal signs, no carotid bruit.] RESPIRATORY CHEST [Chest is nontender, Breath sounds normal, No respiratory distress.] CARDIOVASCULAR [RRR, No murmurs, Normal S1 S2, No rub, No gallop.] ABDOMEN [Abdomen is nontender, No pulsatile masses, No other masses, Bowel sounds normal, No distension, No peritoneal signs, No hernias.] BACK [There is no CVA Tenderness, There is no tenderness to palpation, Normal inspection.] UPPER EXTREMITY [Inspection normal, No cyanosis, No clubbing, No edema, 2+ radial pulses.] LOWER EXTREMITY [Inspection normal, No cyanosis, No clubbing, No edema, No calf tenderness, 2+ femoral pulses.] NEURO [No focal motor deficits, No focal sensory deficits, Speech normal.] SKIN [Skin is warm, Skin is dry, Skin is normal color.] LYMPHATIC [No adenopathy in neck.] PSYCHIATRIC [Normal affect. ] Course - Vital Signs Vital signs: Temp Pulse Resp BP Pulse Ox 98.4 F 90 22 H 130/77 H 99 10/22/19 01:08 10/22/19 01:08 10/22/19 01:08 10/22/19 01:08 10/22/19 01:08 Discharge - Discharge Clinical Impression: Nausea Headache Qualifiers: Headache type: unspecified Intractability: not intractable Condition: Stable Disposition: HOME, SELF-CARE Additional Instructions: Return to the Emergency Department without delay if any worse. HOME CARE INSTRUCTIONS & INFORMATION: Thank you for choosing us for your medical needs. We hope you're satisfied with the care you received. After you leave, you must properly care for your problem and, at the same time, observe its progress. Any condition can change. Some illnesses can change rapidly over hours or days. If your condition worsens, return to the Emergency Department or see your physician promptly. ABOUT YOUR X-RAYS AND EKG'S: If you had an EKG or X-rays taken, they have been read by the Emergency Physician. The X-rays and EKG's will also be read by a Radiologist or [facility] within 24 hours. If discrepancies are noted, you will be notified by telephone. Please be certain the ED has a correct telephone number & address where you can be reached. Also, realize that some fractures or abnormalities do not show up on initial X-rays. If your symptoms continue, see your physician. ABOUT YOUR LABORATORY TEST: If you had laboratory tests, the results have been reviewed by the Emergency Physician. Some test results (for example cultures) may not be available for several days. You will be contacted if any test result shows you need additional treatment. Please be certain the ED has a correct telephone number and address where you can be reached. ABOUT YOUR MEDICATIONS: You will receive instructions on how to take your medicine on the prescription label you receive. Additional information may be provided by the Pharmacy. If you have questions afterwards, call the ED for clarification or further instructions. Some prescribed medications may cause drowsiness. Do not perform tasks such as driving a car or operating machinery without consulting your Pharmacist. If you feel you need a refill of pain medication, your condition will need re-evaluation. Please do not call for a refill of any medication. ABOUT YOUR SIGNATURE: Signature of this document acknowledges to followin. Understanding that you received emergency treatment and that you may be released before al medical problems are known or treated. Please be certain the ED has a correct phone number & address where you can be reached. 2. Acknowledgement that you will arrange for follow-up care as recommended. 3. Authorization for the Emergency Physician to provide information to your follow-up Physician in order to maximize your care. AT ANY TIME, IF YOUR SYMPTOMS CHANGE SIGNIFICANTLY OR WORSEN OR YOU DEVELOP NEW SYMPTOMS, RETURN TO THE EMERGENCY DEPARTMENT IMMEDIATELY FOR RE-EVALUATION. OUR GOAL IS TO PROVIDE EXCELLENT MEDICAL CARE! WE HOPE THAT WE HAVE MET YOUR EXPECTATIONS DURING YOUR EMERGENCY DEPARTMENT VISIT AND THAT YOU FEEL YOU HAVE RECEIVED EXCELLENT CARE! Referrals: MALI REED MD [HONORARY] - Follow up as needed
[2019-10-22 02:48] VITALS: BP 130/70
== END 2019-10-22 02:48 | disposition home or self-care (01) ==
LOC: ER 23:50
DX: R51 Headache (principal); R11.0 Nausea; F17.200 Nicotine dependence, unspecified, uncomplicated; J45.909 Unspecified asthma, uncomplicated
CPT/HCPCS: 99284; 96372; J1885; J2765

== ENCOUNTER 2019-10-23 01:53 | Emergency (ER) | payer SELFPAY ==
--- NOTE | 2019-10-23 05:27 | ER Document Report ---
HPI - HPI Time Seen by Provider: 10/23/19 04:59 Pain Level: 2 Context: Patient is a 24-year-old male who comes emergency department for complaints of upper abdominal pain and nausea. Very well known to me in the emergency department, patient has a history of homelessness and is here very frequently at night and typically requests of me just to let him sleep. Patient when asked states he has not been running a fever, he is not having chest pain, he is not vomiting, he does not have current abdominal pain, he is drinking plenty of fluids, his urine looks normal, and he does not have any current symptoms. - CONSTITUTIONAL Constitutional: DENIES: Fever, Chills - EENT EENT: DENIES: Sore Throat, Ear Pain, Eye problems - NEURO Neurology: REPORTS: Headache, Weakness. DENIES: Vision blurred, Dizzinesss / Vertigo - CARDIOVASCULAR Cardiovascular: DENIES: Chest pain - RESPIRATORY Respiratory: DENIES: Trouble Breathing, Coughing - GASTROINTESTINAL Gastrointestinal: REPORTS: Abdominal Pain. DENIES: Black / Bloody Stools - URINARY Urinary: DENIES: Dysuria, Urgency, Frequency - REPRODUCTIVE Reproductive: DENIES: : - MUSCULOSKELETAL Musculoskeletal: DENIES: Extremity pain Past Medical History - General Information source: Patient - Social History Smoking Status: Unknown if Ever Smoked Drug Abuse: None Lives with: Alone Family History: Reviewed & Not Pertinent Patient has homicidal ideation: No Pulmonary Medical History: Reports: Hx Asthma - Immunizations Immunizations up to date: Yes Hx Diphtheria, Pertussis, Tetanus Vaccination: Yes Vertical Provider Document - CONSTITUTIONAL General Appearance: WD/WN, No Apparent Distress - Sleeping and easily aroused - INFECTION CONTROL TRAVEL OUTSIDE OF THE [place] IN LAST 30 DAYS: No - HEENT HEENT: Atraumatic, Normocephalic - NECK Neck: Normal Inspection - RESPIRATORY Respiratory: Breath Sounds Normal, No Respiratory Distress - CARDIOVASCULAR Cardiovascular: Regular Rate, Regular Rhythm - GI/ABDOMEN Gastrointestinal: Abdomen Soft, Abdomen Non-Tender. negative: Abdomen Tender - BACK Back: Normal Inspection - MUSCULOSKELETAL/EXTREMETIES Musculoskeletal/Extremeties: MAEW, FROM, Non-Tender - NEURO Level of Consciousness: Awake, Alert, Appropriate Motor/Sensory: No Motor Deficit, No Sensory Deficit - DERM Integumentary: Warm, Dry, No Rash Course - Re-evaluation Re-evalutation: Patient sleeping and easily aroused. Physical exam unremarkable, vital signs unremarkable, patient with no complaints on my evaluation. I discussed with patient concerning symptoms he would need to return for although I have a low suspicion of emergent abnormality at this time. Patient states understanding and agreement. - Vital Signs Vital signs: Temp Pulse Resp BP Pulse Ox 97.9 F 87 16 146/78 H 100 10/23/19 02:23 10/23/19 02:23 10/23/19 02:23 10/23/19 02:10/23/19 02:23 Discharge - Discharge Clinical Impression: Nausea Condition: Stable Disposition: HOME, SELF-CARE Additional Instructions: Continue to drink plenty of fluids. Follow-up with primary care for additional management. Return if you worsen including vomiting, very dark/tea colored urine, severe abdominal pain, fever, or any other concerning symptoms.
[2019-10-23 05:37] VITALS: BP 130/84
== END 2019-10-23 05:37 | disposition home or self-care (01) ==
LOC: ER 01:53
DX: R11.0 Nausea (principal); R10.10 Upper abdominal pain, unspecified; Z59.0 Homelessness; J45.909 Unspecified asthma, uncomplicated
CPT/HCPCS: 99282

== ENCOUNTER 2019-10-23 23:10 | Emergency (ER) | payer SELFPAY ==
--- NOTE | 2019-10-24 04:06 | ER Document Report ---
HPI - HPI Time Seen by Provider: 10/24/19 03:57 Pain Level: Denies Context: Patient is a 24-year-old male who comes emergency department for complaints of nausea. Patient states that when he came to the emergency department he felt very nauseated after he arrived this completely resolved. Patient is very well known to me in the emergency department, patient has a history of homelessness and is here very frequently at night and typically requests of me just to let him sleep. Patient denies chest pain, vomiting, fever, he states he is urinating normally, he denies any other complaints. - NEURO Neurology: REPORTS: Headache - REPRODUCTIVE Reproductive: DENIES: : Past Medical History - General Information source: Patient - Social History Smoking Status: Current Every Day Smoker Chew tobacco use (# tins/day): No Frequency of alcohol use: None Drug Abuse: None Lives with: Alone Family History: Reviewed & Not Pertinent Pulmonary Medical History: Reports: Hx Asthma - Immunizations Immunizations up to date: Yes Hx Diphtheria, Pertussis, Tetanus Vaccination: Yes Vertical Provider Document - CONSTITUTIONAL General Appearance: WD/WN, No Apparent Distress - INFECTION CONTROL TRAVEL OUTSIDE OF THE [place] IN LAST 30 DAYS: No - HEENT HEENT: Atraumatic, Normal ENT Exam, Normocephalic - NECK Neck: Normal Inspection - RESPIRATORY Respiratory: Breath Sounds Normal, No Respiratory Distress - CARDIOVASCULAR Cardiovascular: Regular Rate, Regular Rhythm - GI/ABDOMEN Gastrointestinal: Abdomen Soft, Abdomen Non-Tender. negative: Abdomen Tender, Abdominal Guarding - BACK Back: Normal Inspection - MUSCULOSKELETAL/EXTREMETIES Musculoskeletal/Extremeties: MAEW, FROM, Non-Tender - NEURO Level of Consciousness: Awake, Alert, Appropriate Motor/Sensory: No Motor Deficit, No Sensory Deficit - DERM Integumentary: Warm, Dry, No Rash Course - Re-evaluation Re-evalutation: I saw patient last night in addition to tonight. Patient with no complaints on my evaluation, unremarkable vital signs, unremarkable physical exam, alert and well-appearing. No evidence of emergent abnormality at this time, patient with no requests or complaints, stable at time of discharge. - Vital Signs Vital signs: Temp Pulse Resp BP Pulse Ox 98.1 F 79 18 132/80 H 99 10/24/19 00:00 10/24/19 00:00 10/24/19 00:00 10/24/19 00:10/24/19 00:00 Discharge - Discharge Clinical Impression: Nausea Condition: Stable Disposition: HOME, SELF-CARE Additional Instructions: Continue to drink plenty of fluids. Follow-up with primary care for additional management. Return if you worsen including vomiting, very dark/tea colored urine, severe abdominal pain, fever, or any other concerning symptoms.
[2019-10-24 04:08] VITALS: BP 151/80
== END 2019-10-24 04:09 | disposition home or self-care (01) ==
LOC: ER 23:10
DX: R11.0 Nausea (principal); F17.200 Nicotine dependence, unspecified, uncomplicated; J45.909 Unspecified asthma, uncomplicated
CPT/HCPCS: 99282

== ENCOUNTER 2019-10-25 01:12 | Emergency (ER) | payer SELFPAY ==
[2019-10-25 04:02] LABS: APPEARANCE,URINE CLEAR; BILIRUBIN,URINE NEGATIVE (NEGATIVE); COLOR,URINE YELLOW; GLUCOSE, URINE NEGATIVE (NEGATIVE); KETONES,URINE NEGATIVE (NEGATIVE); LEUKOCYTE ESTERASE,URINE NEGATIVE (NEGATIVE); NITRITE,URINE NEGATIVE (NEGATIVE); PROTEIN,URINE NEGATIVE (NEGATIVE); URINE SPECIFIC GRAVITY 1.028
--- NOTE | 2019-10-25 04:33 | ER Document Report ---
HPI - HPI Time Seen by Provider: 10/25/19 03:05 Pain Level: 0 Context: Patient is a 24-year-old male who comes emergency department for chief complaint of "pain in my kidneys". He points to his left lower back is an area that he felt a "squeezing sensation". He denies any symptoms now. Denies vomiting, fever. He states his urine looks dark. Patient does not have a history of kidney stones. Patient denies any other complaints. - REPRODUCTIVE Reproductive: DENIES: : Past Medical History - General Information source: Patient - Social History Smoking Status: Never Smoker Frequency of alcohol use: None Drug Abuse: None Lives with: Alone Family History: Reviewed & Not Pertinent Pulmonary Medical History: Reports: Hx Asthma - Immunizations Immunizations up to date: Yes Hx Diphtheria, Pertussis, Tetanus Vaccination: Yes Vertical Provider Document - CONSTITUTIONAL General Appearance: WD/WN, No Apparent Distress - Sleeping but easily aroused - INFECTION CONTROL TRAVEL OUTSIDE OF THE [place] IN LAST 30 DAYS: No - HEENT HEENT: Atraumatic, Conjuctival Injection - NECK Neck: Normal Inspection - RESPIRATORY Respiratory: Breath Sounds Normal, No Respiratory Distress - CARDIOVASCULAR Cardiovascular: Regular Rate, Regular Rhythm - GI/ABDOMEN Gastrointestinal: Abdomen Soft, Abdomen Non-Tender. negative: Abdomen Tender - BACK Back: negative: Normal Inspection - Minimal tenderness over the left paralumbar musculature, no midline tenderness, no saddle anesthesia, moves all extremities in full range of motion, normal distal neurovascular exam - MUSCULOSKELETAL/EXTREMETIES Musculoskeletal/Extremeties: MAEW, FROM. negative: Tender - NEURO Level of Consciousness: Awake, Alert, Appropriate Motor/Sensory: No Motor Deficit, No Sensory Deficit - DERM Integumentary: Warm, Dry, No Rash Course - Re-evaluation Re-evalutation: Patient with some mild musculoskeletal tenderness in his left lower back. No neurological deficits reported, no deficits on exam, no symptoms reported otherwise, no other complaints. Vital signs unremarkable. I have seen patient several nights in a row of this week, patient frequently comes here because he is homeless and is looking for a place to sleep. I do not see any evidence of emergent abnormality at this time. Urinalysis reviewed, shows mild elevation of specific gravity, no myoglobin noted, no glucose or concerning findings. Patien t with no complaints on my evaluation, discussed follow-up and return precautions. Patient states understanding and agreement. - Vital Signs Vital signs: Temp Pulse Resp BP Pulse Ox 98.6 F 91 16 131/71 H 97 10/25/19 01:35 10/25/19 01:35 10/25/19 01:35 10/25/19 01:35 10/25/19 01:35 - Laboratory Laboratory results interpreted by me: 10/25/19 03:35 Urine Urobilinogen 4.0 H Discharge - Discharge Clinical Impression: Flank pain Condition: Stable Disposition: HOME, SELF-CARE Additional Instructions: Your urine shows some mild dehydration, otherwise no concerning findings. Your evaluation is reassuring. Drink any fluids, take [id number] medication such as Tylenol or ibuprofen for back pain, follow-up with primary care. Return for any concerning symptoms including fever, vomiting, severe worsening pain, or any other concerning symptoms.
[2019-10-25 04:50] VITALS: BP 130/72
== END 2019-10-25 04:40 | disposition home or self-care (01) ==
LOC: ER 01:12
DX: M54.5 Low back pain (principal); Z59.0 Homelessness
CPT/HCPCS: 81001; 99283

== ENCOUNTER 2019-10-27 02:17 | Emergency (ER) | payer SELFPAY ==
[2019-10-27 03:08] VITALS: BP 139/89
== END 2019-10-27 04:04 | disposition left against medical advice (07) ==
LOC: ER 02:17
DX: Z53.21 Procedure and treatment not carried out due to patient leaving prior to being seen by health care provider (principal); R11.0 Nausea; R51 Headache; J02.9 Acute pharyngitis, unspecified

== ENCOUNTER 2019-10-27 22:13 | Emergency (ER) | payer SELFPAY ==
[2019-10-28 06:39] VITALS: BP 123/80
--- NOTE | 2019-10-28 08:31 | ER Document Report ---
Entered by MASSIEL RUSHING SCRIBE 10/28/19 0744 Acting as scribe for:EDUARDO SERNA MD ED General - General Chief Complaint: Sore Throat Stated Complaint: HEADACHE,NAUSEA,SORE THROAT,VOMITING Mode of Arrival: Ambulatory Information source: Patient Notes: This 24 year old homeless male patient presents to the ED today with multiple complaints. Patient reports sore throat, headache, nausea/vomiting, cough, and subjective fever. Patient states that he started vomited around 2100 last night, but it has resolved at this time. This is the patient's 9th visit this past week with the same complaints. TRAVEL OUTSIDE OF THE [place] IN LAST 30 DAYS: No - Related Data Allergies/Adverse Reactions: No Known Allergies Allergy (Verified 10/15/19 22:40) Past Medical History - General Information source: [facility] Records - Social History Smoking Status: Unknown if Ever Smoked Smoking Education Provided: No Frequency of alcohol use: None Drug Abuse: None Family History: Reviewed & Not Pertinent Patient has suicidal ideation: No Patient has homicidal ideation: No Pulmonary Medical History: Reports: Hx Asthma - Immunizations Immunizations up to date: Yes Hx Diphtheria, Pertussis, Tetanus Vaccination: Yes Review of Systems - Review of Systems Constitutional: See HPI, Fever - subjective EENT: See HPI, Throat pain Cardiovascular: No symptoms reported Respiratory: See HPI, Cough Gastrointestinal: See HPI, Nausea, Vomiting Genitourinary: No symptoms reported Male Genitourinary: No symptoms reported Musculoskeletal: No symptoms reported Skin: No symptoms reported Hematologic/Lymphatic: No symptoms reported Neurological/Psychological: See HPI, Headaches -: Yes All other systems reviewed and negative Physical Exam - Vital signs Vitals: Temp Pulse Resp BP Pulse Ox 98.9 F 91 18 125/95 H 100 10/27/19 23:00 10/27/19 23:00 10/27/19 23:00 10/27/19 23:00 10/27/19 23:00 Interpretation: Normal - General General appearance: Alert In distress: None - HEENT Head: Normocephalic, Atraumatic Eyes: Normal Extraocular movements intact: Yes Pupils: PERRL Sinus: No: Tenderness Pharynx: Erythema. No: Exudate Neck: Normal. No: Lymphadenopathy - Respiratory Respiratory status: No respiratory distress Chest status: Nontender Breath sounds: Normal Chest palpation: Normal - Cardiovascular Rhythm: Regular Heart sounds: Normal auscultation, S1 appreciated, S2 appreciated Murmur: No Friction rub: No Gallop: None auscultated - Abdominal Inspection: Normal Distension: No distension Bowel sounds: Normal Tenderness: Nontender - Abdomen soft Organomegaly: No organomegaly - Back Back: Normal, Nontender - Extremities General upper extremity: Normal inspection General lower extremity: Normal inspection. No: Edema - Neurological Neuro grossly intact: Yes Orientation: AAOx4 [place] Coma Scale Eye Opening: Spontaneous [place] Coma Scale Verbal: Oriented [place] Coma Scale Motor: Obeys Commands [place] Coma Scale Total: 15 - Psychological Associated symptoms: Normal affect, Normal mood - Skin Skin Temperature: Warm Skin Moisture: Dry Skin Color: Normal Course - Re-evaluation Re-evalutation: 10/28/19 08:27 Patient vital signs stable no acute process. Patient not showing any signs of nausea vomiting at this time. Patient states his sore throat was mild. - Vital Signs Vital signs: Temp Pulse Resp BP Pulse Ox 98.9 F 75 18 123/80 100 10/27/19 23:00 10/28/19 06:38 10/27/19 23:00 10/28/19 06:38 10/28/19 06:38 - Laboratory Laboratory results interpreted by me: Rapid strep screen negative. Patient has a throat culture pending at this time. Discharge - Discharge Clinical Impression: Viral pharyngitis, Nausea Condition: Stable Disposition: HOME, SELF-CARE Instructions: Sore Throat ([facility]), Antinausea Medication ([facility]) Prescriptions: Ondansetron [Zofran Odt 4 mg Tablet] 1 - 2 tab PO Q4H PRN #15 tab.rapdis PRN Reason: For Nausea/Vomiting I personally performed the services described in the documentation, reviewed and edited the documentation which was dictated to the scribe in my presence, and it accurately records my words and actions.
== END 2019-10-28 08:40 | disposition home or self-care (01) ==
LOC: ER 22:13
DX: J02.9 Acute pharyngitis, unspecified (principal); R11.2 Nausea with vomiting, unspecified; R51 Headache; R05 Cough; R50.9 Fever, unspecified; J45.909 Unspecified asthma, uncomplicated
CPT/HCPCS: 87070; 87880; 99283

== ENCOUNTER 2019-10-29 00:03 | Emergency (ER) | payer SELFPAY ==
[2019-10-29] MEDS ORDERED: ONDANSETRON 4 MG TAB.RAPDIS PO ONE (01:35)
--- NOTE | 2019-10-29 01:39 | ER Document Report ---
ED General - General Chief Complaint: Flank Pain Stated Complaint: FLANK PAIN Time Seen by Provider: 10/29/19 01:04 TRAVEL OUTSIDE OF THE [place] IN LAST 30 DAYS: No - HPI Context: 24-year-old male presents to the emergency department complaining of left flank pain. Patient describes the pain as a squeezing type of pain that he states feels like somebody is squeezing his left kidney. Patient denies urinary frequency, fever, chills, dysuria, urethral discharge. Patient states nothing alleviates the pain and nothing exacerbates the pain. Patient is also complaining of nausea. Patient does have a history of chronic nausea and frequent visits to this emergency department with the complaint of nausea. Associated symptoms: Nausea Exacerbated by: Other - See HPI Relieved by: Other - See HPI - Related Data Allergies/Adverse Reactions: No Known Allergies Allergy (Verified 10/15/19 22:40) Past Medical History - General Information source: Patient - Social History Smoking Status: Current Every Day Smoker Chew tobacco use (# tins/day): No Frequency of alcohol use: None Drug Abuse: None Family History: Reviewed & Not Pertinent Pulmonary Medical History: Reports: Hx Asthma - Immunizations Immunizations up to date: Yes Hx Diphtheria, Pertussis, Tetanus Vaccination: Yes Review of Systems - Review of Systems Constitutional: No symptoms reported EENT: No symptoms reported Cardiovascular: No symptoms reported Respiratory: No symptoms reported Gastrointestinal: Nausea Genitourinary: Flank pain Male Genitourinary: No symptoms reported Musculoskeletal: No symptoms reported Skin: No symptoms reported Hematologic/Lymphatic: No symptoms reported Neurological/Psychological: No symptoms reported -: Yes All other systems reviewed and negative Physical Exam - Vital signs Vitals: Temp Pulse Resp BP Pulse Ox 98.4 F 102 H 18 144/76 H 99 10/29/19 00:38 10/29/19 00:38 10/29/19 00:38 10/29/19 00:38 10/29/19 00:38 - Notes Notes: CONSTITUTIONAL [Vital signs reviewed, Patient appears comfortable, Alert and oriented X 3, Normal stature.] HEAD [Atraumatic, Normocephalic.] EYES [Eyes are normal to inspection, No discharge from eyes, Extraocular muscles intact, Sclera are normal, Conjunctiva are normal.] ] NECK [Normal ROM, No jugular venous distention, No meningeal signs, no carotid bruit.] RESPIRATORY CHEST [Chest is nontender, Breath sounds normal, No respiratory distress.] CARDIOVASCULAR [RRR, No murmurs, Normal S1 S2, No rub, No gallop.] ABDOMEN [Abdomen is nontender, No pulsatile masses, No other masses, Bowel sounds normal, No distension, No peritoneal signs, No hernias.] BACK [There is no CVA Tenderness, There is no tenderness to palpation, Normal inspection.] UPPER EXTREMITY [Inspection normal, No cyanosis, No clubbing, No edema, 2+ radial pulses.] LOWER EXTREMITY [Inspection normal, No cyanosis, No clubbing, No edema, No calf tenderness, 2+ femoral pulses.] NEURO [No focal motor deficits, No focal sensory deficits, Speech normal.] SKIN [Skin is warm, Skin is dry, Skin is normal color.] LYMPHATIC [No adenopathy in neck.] PSYCHIATRIC [Normal affect. ] Course - Re-evaluation Re-evalutation: 10/29/19 02:48 Patient has been informed several times that urine needs to be obtained in order to evaluate patient's flank pain. Patient refuses to provide a urine sample despite being informed repeatedly of the need for one. Patient was informed that his ED MSE is complete without a urinalysis. Patient states understanding of this. - Vital Signs Vital signs: Temp Pulse Resp BP Pulse Ox 98.4 F 102 H 18 144/76 H 99 10/29/19 00:38 10/29/19 00:38 10/29/19 00:38 10/29/19 00:38 10/29/19 00:38 Discharge - Discharge Clinical Impression: Flank pain Disposition: HOME, SELF-CARE Additional Instructions: Return to the Emergency Department without delay if any worse. HOME CARE INSTRUCTIONS & INFORMATION: Thank you for choosing us for your medical needs. We hope you're satisfied with the care you received. After you leave, you must properly care for your problem and, at the same time, observe its progress. Any condition can change. Some illnesses can change rapidly over hours or days. If your condition worsens, return to the Emergency Department or see your physician promptly. ABOUT YOUR X-RAYS AND EKG'S: If you had an EKG or X-rays taken, they have been read by the Emergency Physician. The X-rays and EKG's will also be read by a Radiologist or Cna Caregiver within 24 hours. If discrepancies are noted, you will be notified by telephone. Please be certain the ED has a correct telephone number & address where you can be reached. Also, realize that some fractures or abnormalities do not show up on initial X-rays. If your symptoms continue, see your physician. ABOUT YOUR LABORATORY TEST: If you had laboratory tests, the results have been reviewed by the Emergency Physician. Some test results (for example cultures) may not be available for several days. You will be contacted if any test result shows you need additional treatment. Please be certain the ED has a correct telephone number and address where you can be reached. ABOUT YOUR MEDICATIONS: You will receive instructions on how to take your medicine on the prescription label you receive. Additional information may be provided by the Pharmacy. If you have questions afterwards, call the ED for clarification or further instructions. Some prescribed medications may cause drowsiness. Do not perform tasks such as driving a car or operating machinery without consulting your Pharmacist. If you feel you need a refill of pain medication, your condition will need re-evaluation. Please do not call for a refill of any medication. ABOUT YOUR SIGNATURE: Signature of this document acknowledges to followin. Understanding that you received emergency treatment and that you may be released before al medical problems are known or treated. Please be certain the ED has a correct phone number & address where you can be reached. 2. Acknowledgement that you will arrange for follow-up care as recommended. 3. Authorization for the Emergency Physician to provide information to your follow-up Physician in order to maximize your care. AT ANY TIME, IF YOUR SYMPTOMS CHANGE SIGNIFICANTLY OR WORSEN OR YOU DEVELOP NEW SYMPTOMS, RETURN TO THE EMERGENCY DEPARTMENT IMMEDIATELY FOR RE-EVALUATION. OUR GOAL IS TO PROVIDE EXCELLENT MEDICAL CARE! WE HOPE THAT WE HAVE MET YOUR EXPECTATIONS DURING YOUR EMERGENCY DEPARTMENT VISIT AND THAT YOU FEEL YOU HAVE RECEIVED EXCELLENT CARE! Flank Pain We weren't able to prove an exact cause for your flank pain. Pain in the flank can be caused by a muscle strain or spasm. Sometimes a kidney stone causes pain, but can't be found on our tests. Infection in the kidney should be evident on a urine test. Early shingles can occasionally cause flank pain, without the rash that proves the diagnosis. On rare occasions, disease of the pancreas, aorta, spleen, or colon can create pain in the flank. At this time, there's no evidence of a dangerous condition, and it seems safe for you to be at home. If the pain goes away and does not come back, no further testing will be needed. If pain persists, or becomes more severe, we may need to repeat some tests or order additional new testing. Blood in the urine, urgency to urinate frequently, and pain that radiates to the groin can indicate a kidney stone. Fever may mean that the pain is due to infection, either of the kidney or the colon (diverticulitis). If your pain is early shingles, you should develop an eruption of blisters in the painful area within a few days. Call the doctor or return if you have pain that is spreading or becoming more severe, pain that does not resolve with time, fever, or any other new symptoms. Referrals: MALI REED MD [HONORARY] - Follow up as needed
[2019-10-29 03:07] VITALS: BP 134/79
== END 2019-10-29 03:07 | disposition home or self-care (01) ==
LOC: ER 00:03
DX: R10.9 Unspecified abdominal pain (principal); R11.0 Nausea; F17.200 Nicotine dependence, unspecified, uncomplicated; J45.909 Unspecified asthma, uncomplicated
CPT/HCPCS: 99283; S0119

== ENCOUNTER 2019-10-29 22:31 | Emergency (ER) | payer SELFPAY ==
--- NOTE | 2019-10-29 23:09 | ER Document Report ---
ED Medical Screen (RME) - General Chief Complaint: Abdominal Pain Stated Complaint: FLANK PAIN Time Seen by Provider: 10/29/19 23:04 Notes: Patient is a 24-year-old male, well-known to this emergency department who presents with a chief complaint of bilateral flank pain, abdominal pain, and pain going down his right upper leg. Denies any dysuria. Patient was seen here last night with similar complaints. Exam: Slight CVA tenderness noted bilaterally. I have greeted and performed a rapid initial assessment of this patient. A comprehensive ED assessment and evaluation of the patient, analysis of test results and completion of medical decision making process will be conducted by an additional ED providers. TRAVEL OUTSIDE OF THE [place] IN LAST 30 DAYS: No - Related Data Allergies/Adverse Reactions: No Known Allergies Allergy (Verified 10/29/19 23:04) Past Medical History - Social History Frequency of alcohol use: None Drug Abuse: None Family history: Reviewed & Not Pertinent Pulmonary Medical History: Reports: Hx Asthma - Immunizations Immunizations up to date: Yes Hx Diphtheria, Pertussis, Tetanus Vaccination: Yes Physical Exam - Vital signs Vitals: Temp Pulse Resp BP Pulse Ox 99.4 F 115 H 18 143/77 H 99 10/29/19 22:34 10/29/19 22:34 10/29/19 22:34 10/29/19 22:34 10/29/19 22:34 Course - Vital Signs Vital signs: Temp Pulse Resp BP Pulse Ox 99.4 F 115 H 18 143/77 H 99 10/29/19 22:34 10/29/19 22:34 10/29/19 22:34 10/29/19 22:34 10/29/19 22:34
[2019-10-29] MEDS ORDERED: NORMAL SALINE 1000 ML 1,000 ML IV ONE (23:12)
[2019-10-29 23:47] LABS: ABSOLUTE BASOPHILS # (AUTO) 0.1 10^3/uL (0.0-0.2); ABSOLUTE EOSINOPHILS # (AUTO) 0.5 10^3/uL (0.0-0.6); ABSOLUTE LYMPHOCYTES (AUTO) 2.4 10^3/uL (0.5-4.7); ABSOLUTE MONOCYTES (AUTO) 0.6 10^3/uL (0.1-1.4); ABSOLUTE NEUT (AUTO) 3.4 10^3/uL (1.7-8.2); BASOPHILS % (AUTO) 0.9 % (0-2); EOSINOPHILS % (AUTO) 6.5 % (0-6); HEMATOCRIT 43.2 % (37.9-51.0); HEMOGLOBIN 14.8 g/dL (13.5-17.0); LYMPHOCYTES % (AUTO) 34.5 % (13-45); MEAN CORPUSCULAR HEMOGLOBIN 28.4 pg (27.0-33.4); MEAN CORPUSCULAR HGB CONC 34.4 g/dL (32.0-36.0); MEAN CORPUSCULAR VOLUME 83 fl (80-97); MONOCYTES % (AUTO) 8.9 % (3-13); PLATELET COUNT 245 10^3/uL (150-450); RED BLOOD COUNT 5.22 10^6/uL (4.35-5.55); RED CELL DISTRIBUTION WIDTH 14.6 % (11.5-14.0); SEGMENTED NEUTROPHILS % (AUTO) 49.2 % (42-78); TOTAL CELLS COUNTED % (AUTO) 100 %
[2019-10-30 00:01] LABS: APPEARANCE,URINE CLEAR; BILIRUBIN,URINE NEGATIVE (NEGATIVE); COLOR,URINE YELLOW; GLUCOSE, URINE NEGATIVE (NEGATIVE); KETONES,URINE NEGATIVE (NEGATIVE); LEUKOCYTE ESTERASE,URINE NEGATIVE (NEGATIVE); NITRITE,URINE NEGATIVE (NEGATIVE); PROTEIN,URINE 30 mg/dL (NEGATIVE)
[2019-10-30 00:10] LABS: ALBUMIN 4.2 g/dL (3.5-5.0); ALKALINE PHOSPHATASE 38 U/L (38-126); ANION GAP 6 (5-19); ASPARTATE AMINO TRANSFERASE 49 U/L (17-59); BILIRUBIN,DIRECT 0.2 mg/dL (0.0-0.4); BILIRUBIN,TOTAL 0.8 mg/dL (0.2-1.3); BLOOD UREA NITROGEN 14 mg/dL (7-20); CALCIUM 9.6 mg/dL (8.4-10.2); CARBON DIOXIDE 29 mmol/L (22-30); CHLORIDE 104 mmol/L (98-107); GLUCOSE 98 mg/dL (75-110); POTASSIUM 4.6 mmol/L (3.6-5.0); TOTAL PROTEIN 6.6 g/dL (6.3-8.2)
--- NOTE | 2019-10-30 05:01 | ER Document Report ---
ED GI/ - General Chief Complaint: Abdominal Pain Stated Complaint: FLANK PAIN Time Seen by Provider: 10/29/19 23:04 Mode of Arrival: Ambulatory Information source: Patient Notes: 24-year-old homeless male well-known to the emergency room for multiple visits for multiple complaints presents to the emergency room today complaining of left flank pain that started 2 days ago. Denies any nausea or vomiting, describes it as a sharp aching pain. Denies any trauma or injury. No medications for symptoms. No known history of kidney stones. TRAVEL OUTSIDE OF THE [place] IN LAST 30 DAYS: No - Related Data Allergies/Adverse Reactions: No Known Allergies Allergy (Verified 10/29/19 23:04) Past Medical History - General Information source: Patient - Social History Smoking Status: Current Every Day Smoker Frequency of alcohol use: None Drug Abuse: None Family History: Reviewed & Not Pertinent Patient has homicidal ideation: No Pulmonary Medical History: Reports: Hx Asthma - Immunizations Immunizations up to date: Yes Hx Diphtheria, Pertussis, Tetanus Vaccination: Yes Review of Systems - Review of Systems Constitutional: No symptoms reported EENT: No symptoms reported Cardiovascular: No symptoms reported Respiratory: No symptoms reported Gastrointestinal: No symptoms reported Genitourinary: Flank pain Musculoskeletal: No symptoms reported Skin: No symptoms reported Hematologic/Lymphatic: No symptoms reported -: Yes All other systems reviewed and negative Physical Exam - Vital signs Vitals: Temp Pulse Resp BP Pulse Ox 99.4 F 115 H 18 143/77 H 99 10/29/19 22:34 10/29/19 22:34 10/29/19 22:34 10/29/19 22:34 10/29/19 22:34 - General General appearance: Appears well, Alert In distress: Mild - Respiratory Respiratory status: No respiratory distress Chest status: Nontender Breath sounds: Normal Chest palpation: Normal - Cardiovascular Rhythm: Tachycardia Heart sounds: Normal auscultation Murmur: No Friction rub: No Gallop: None auscultated - Abdominal Inspection: Normal Distension: No distension Bowel sounds: Normal Tenderness: Nontender Organomegaly: No organomegaly - Back Back: Normal, CVA tenderness - Positive left-sided CVA tenderness. - Neurological Neuro grossly intact: Yes Cognition: Normal Orientation: AAOx4 Lucy Coma Scale Eye Opening: Spontaneous [place] Coma Scale Verbal: Oriented [place] Coma Scale Motor: Obeys Commands Lucy Coma Scale Total: 15 Speech: Normal Motor strength normal: LUE, RUE, LLE, RLE Sensory: Normal - Skin Skin Temperature: Warm Skin Moisture: Dry Skin Color: Normal Course - Re-evaluation Re-evalutation: 10/30/19 05:24 Patient with flank pain x2 days. In reviewing previous lab results noted patient's creatinine has been slowly increasing over the past several months. Patient does have a history of rhabdomyolysis. Will give IV fluids, CT scan and reevaluate. 10/30/19 06:25 Patient is resting comfortably he is pain-free on exam. Reviewed all test results with patient. Counseled importance of drinking a minimum of 8 to 10 glasses of water daily. Also counseled on the importance of following up outpatient with a automotive electrician for his elevated creatinine for further management. On-call physician was provided. Patient was given strict return to the emergency room guidelines. Return for any new or worsening symptoms. All questions were answered. Patient verbalized understanding and agrees with plan of care. - Vital Signs Vital signs: Temp Pulse Resp BP Pulse Ox 99.4 F 85 18 136/77 H 99 10/29/19 22:34 10/30/19 03:05 10/29/19 22:34 10/30/19 03:05 10/30/19 03:05 - Laboratory Result Diagrams: 10/29/19 23:39 10/29/19 23:39 Laboratory results interpreted by me: 10/29/19 10/29/19 10/29/19 23:31 23:39 23:39 RDW 14.6 H Eos % (Auto) 6.5 H Creatinine 1.43 H ALT 54 H Urine Protein 30 H Urine Urobilinogen 4.0 H - Diagnostic Test Radiology reviewed: Reports reviewed Discharge - Discharge Clinical Impression: Flank pain, Elevated serum creatinine Condition: Stable Disposition: HOME, SELF-CARE Instructions: Flank Pain ([facility]), Kidney Function Abnormality ([facility]) Additional Instructions: It is imperative that you drink a minimum of 8 to 10 glasses of water daily. Outpatient follow-up with the automotive electrician as discussed. Return to the emergency room for any new or worsening symptoms. Referrals: Jessi GREER MD [ACTIVE STAFF] - Follow up in 3-5 days (Call for an outpatient follow-up appointment.)
--- NOTE | 2019-10-30 05:47 | RADIOLOGY REPORT (SQ) ---
CLINICAL HISTORY: flank pain COMPARISON: None. TECHNIQUE: CT ABDOMEN PELVIS WITHOUT IV CONTRAST on 10/30/2019 5:01 AM CDT This exam was performed according to our departmental dose-optimization program, which includes automated exposure control, adjustment of the mA and/or kV according to patient size and/or use of iterative reconstruction technique. FINDINGS: Lower lungs are clear. Abdomen: The liver is normal in appearance. There is no biliary dilatation. Gallbladder is normal in appearance. The pancreas and spleen are normal in appearance. The adrenal glands and kidneys are unremarkable. Abdominal aorta is normal in course and caliber without aneurysm. There is no free air. There is no retroperitoneal adenopathy. Pelvis: There is no bowel obstruction. Urinary bladder is unremarkable. There is no free fluid. Appendix is normal. Skeleton: There are no acute osseous findings. No suspicious bony lesions. IMPRESSION: No definite acute process.
[2019-10-30 05:53] LABS: URINE AMPHETAMINES SCREEN NEGATIVE; URINE BARBITURATES SCREEN NEGATIVE; URINE BENZODIAZEPINES SCREEN NEGATIVE; URINE COCAINE SCREEN NEGATIVE; URINE MARIJUANA (THC) SCREEN NEGATIVE; URINE METHADONE SCREEN NEGATIVE; URINE PHENCYCLIDINE SCREEN NEGATIVE
[2019-10-30 06:36] VITALS: BP 130/75
== END 2019-10-30 06:33 | disposition home or self-care (01) ==
LOC: ER 22:31
DX: R10.9 Unspecified abdominal pain (principal); R79.89 Other specified abnormal findings of blood chemistry; R00.0 Tachycardia, unspecified; F17.200 Nicotine dependence, unspecified, uncomplicated; J45.909 Unspecified asthma, uncomplicated
CPT/HCPCS: 99285; 96360; 36415; 85025; 80053; 81001; 80307; 74176; J7030

== ENCOUNTER 2019-10-30 22:22 | Emergency (ER) | payer SELFPAY ==
[2019-10-31] MEDS ORDERED: SUCRALFATE 1 GM TABLET PO ONE (00:03)
[2019-10-31] MEDS ORDERED: ONDANSETRON ODT 4 MG TAB (6 TAB/ER DISP) PO PRN (00:03)
[2019-10-31] MEDS ORDERED: FAMOTIDINE 20 MG TABLET PO ONE (00:03)
--- NOTE | 2019-10-31 00:06 | ER Document Report ---
HPI - HPI Time Seen by Provider: 10/30/19 23:11 Pain Level: 4 Context: Patient is a 24-year-old male, well-known to this emergency department who presents to the emergency department with a chief complaint of abdominal pain, chest pain, nausea, and his usual not feeling well. The patient has a history of GERD and he is not currently taking any medications for this. - ROS Systems Reviewed and Negative: Yes All other systems reviewed and negative - CONSTITUTIONAL Constitutional: DENIES: Fever, Chills - EENT EENT: DENIES: Sore Throat, Ear Pain, Nasal Drainage-Clear, Nasal Drainage- Purulent, Congestion, Eye problems - NEURO Neurology: DENIES: Headache, Weakness, Vision blurred - CARDIOVASCULAR Cardiovascular: REPORTS: Chest pain - RESPIRATORY Respiratory: DENIES: Trouble Breathing, Coughing - GASTROINTESTINAL Gastrointestinal: REPORTS: Abdominal Pain, Nausea, Patient vomiting - URINARY Urinary: DENIES: Dysuria - MUSCULOSKELETAL Musculoskeletal: DENIES: Extremity pain - DERM Skin Color: Normal Skin Problems: None Past Medical History - Social History Smoking Status: Never Smoker Family History: Reviewed & Not Pertinent Pulmonary Medical History: Reports: Hx Asthma - Immunizations Immunizations up to date: Yes Hx Diphtheria, Pertussis, Tetanus Vaccination: Yes Vertical Provider Document - CONSTITUTIONAL Agree With Documented VS: Yes Exam Limitations: No Limitations General Appearance: No Apparent Distress - INFECTION CONTROL TRAVEL OUTSIDE OF THE [place] IN LAST 30 DAYS: No - HEENT HEENT: Atraumatic, Normocephalic, PERRLA - NECK Neck: Normal Inspection - RESPIRATORY Respiratory: Breath Sounds Normal, No Respiratory Distress - CARDIOVASCULAR Cardiovascular: Regular Rate, Regular Rhythm Pulses: Normal: Radial - GI/ABDOMEN Gastrointestinal: Abdomen Soft, Abdomen Non-Tender - MUSCULOSKELETAL/EXTREMETIES Musculoskeletal/Extremeties: FROM - NEURO Level of Consciousness: Awake, Alert, Appropriate Motor/Sensory: No Motor Deficit, No Sensory Deficit - DERM Integumentary: Warm, Dry, No Rash Course - Re-evaluation Re-evalutation: 10/31/19 00:05 Patient had a full work-up yesterday with no acute abnormalities noted on his CT scan. His labs were unremarkable. We will give the patient a Zofran dose pack. Chest x-ray is not indicated, as the patient just had a CT of the chest yesterday. Patient states that he still has the same symptoms. EKG is unremarkable. Due to the patient's homelessness and multiple recent visits, we will put in a consult for case management. I have a low suspicion for ACS, appendicitis, bowel ischemia, pneumothorax, or any life-threatening etiology at this time. Patient is playing on his phone the same game he was playing last night when I saw him in triage. Follow-up precautions were given. Verbal discharge instructions were given to the patient. They verbalized understanding. They are stable for discharge. - Vital Signs Vital signs: Temp Pulse Resp BP Pulse Ox 98.9 F 100 18 147/72 H 98 10/30/19 22:35 10/30/19 22:35 10/30/19 22:35 10/30/19 22:35 10/30/19 22:35 Discharge - Discharge Clinical Impression: Nausea & vomiting Qualifiers: Vomiting type: unspecified Vomiting Intractability: unspecified Qualified Code(s): R11.2 - Nausea with vomiting, unspecified GERD (gastroesophageal reflux disease) Qualifiers: Esophagitis presence: without esophagitis Qualified Code(s): K21.9 - Gastro- esophageal reflux disease without esophagitis Condition: Stable Disposition: HOME, SELF-CARE Additional Instructions: You were seen today in the emergency department for your usual chest pain, abdominal pain, vomiting, and nausea. Take your medications as prescribed. The sample case porter will be in contact with you in regards to your homelessness. Prescriptions: Famotidine [Pepcid 20 mg Tablet] 20 mg PO BID #60 tablet
[2019-10-31 00:31] VITALS: BP 128/82
--- NOTE | 2019-10-31 07:13 | EKG REPORT ---
SEVERITY:- NORMAL ECG - SINUS RHYTHM : Confirmed by: Ina Min 31-Oct-2019 07:12:56
== END 2019-10-31 00:32 | disposition home or self-care (01) ==
LOC: ER 22:22
DX: K21.9 Gastro-esophageal reflux disease without esophagitis (principal); R11.2 Nausea with vomiting, unspecified; R10.9 Unspecified abdominal pain; R07.9 Chest pain, unspecified; J45.909 Unspecified asthma, uncomplicated
CPT/HCPCS: 93005; 93010; 99283

== ENCOUNTER 2019-10-31 02:58 | Emergency (ER) | payer SELFPAY ==
[2019-10-31 03:58] VITALS: BP 132/67
--- NOTE | 2019-10-31 04:28 | ER Document Report ---
ED General - General Chief Complaint: Abdominal Pain Stated Complaint: ABDOMINAL PAIN Time Seen by Provider: 10/31/19 03:42 TRAVEL OUTSIDE OF THE [place] IN LAST 30 DAYS: No - HPI Context: This is a 24-year-old male well-known to this provider and this emergency department who comes to the ED on a almost daily basis. Patient was seen here 2 days ago with a complaint of flank pain for which he would not provide a urine specimen. Patient was discharged as refusing treatment for his flank pain. Patient returned the following day complaint of flank pain and had a complete medical screening exam including a CT of the abdomen pelvis which showed no acute abnormalities. Patient again came to the emergency department earlier this evening and was seen by provider, underwent a medical screening exam and was discharged from the emergency department. Patient returns this morning complaining of abdominal pain. This patient has been given multiple prescriptions, counseling, resources for his chronic issues with abdominal pain nausea and vomiting. The patient is noncompliant with filling his prescriptions. The patient appears to be in no acute distress at this time and appears unchanged from when he was seen earlier this evening. This MD informed patient that he need to fill the prescription that he was provided this evening and take as directed for his symptoms. Associated symptoms: Other - See HPI Exacerbated by: Other - See HPI Relieved by: Other - See HPI Similar symptoms previously: Yes - Related Data Allergies/Adverse Reactions: No Known Allergies Allergy (Verified 10/29/19 23:04) Past Medical History - General Information source: Patient - Social History Smoking Status: Never Smoker Family History: Reviewed & Not Pertinent Pulmonary Medical History: Reports: Hx Asthma - Immunizations Immunizations up to date: Yes Hx Diphtheria, Pertussis, Tetanus Vaccination: Yes Review of Systems - Review of Systems Constitutional: No symptoms reported EENT: No symptoms reported Cardiovascular: No symptoms reported Respiratory: No symptoms reported Gastrointestinal: Abdominal pain Genitourinary: No symptoms reported Male Genitourinary: No symptoms reported Musculoskeletal: No symptoms reported Skin: No symptoms reported Hematologic/Lymphatic: No symptoms reported Neurological/Psychological: No symptoms reported -: Yes All other systems reviewed and negative Physical Exam - Vital signs Vitals: Temp Pulse Resp BP Pulse Ox 98.5 F 92 18 150/76 H 97 10/31/19 03:03 10/31/19 03:03 10/31/19 03:03 10/31/19 03:03 10/31/19 03:03 - Notes Notes: CONSTITUTIONAL Patient was sleeping when this MD entered the room and had to shake the patient slightly to wake him. Patient has a non-toxic appearance and appears to be in no acute distress. HEAD [Atraumatic, Normocephalic.] EYES [Eyes are normal to inspection, No discharge from eyes, Extraocular muscles intact, Sclera are normal, Conjunctiva are normal.] ENT [Ears normal to inspection, Nose examination normal, Posterior pharynx normal, Mouth normal to inspection.] NECK [Normal ROM, No jugular venous distention, No meningeal signs, no carotid bruit.] RESPIRATORY CHEST [Chest is nontender, Breath sounds normal, No respiratory distress.] CARDIOVASCULAR [RRR, No murmurs, Normal S1 S2, No rub, No gallop.] ABDOMEN [Abdomen is nontender, No pulsatile masses, No other masses, Bowel sounds normal, No distension, No peritoneal signs, No hernias.] BACK [There is no CVA Tenderness, There is no tenderness to palpation, Normal inspection.] UPPER EXTREMITY [Inspection normal, No cyanosis, No clubbing, No edema, 2+ radial pulses.] LOWER EXTREMITY [Inspection normal, No cyanosis, No clubbing, No edema, No calf tenderness, 2+ femoral pulses.] NEURO [No focal motor deficits, No focal sensory deficits, Speech normal.] SKIN [Skin is warm, Skin is dry, Skin is normal color.] LYMPHATIC [No adenopathy in neck.] PSYCHIATRIC [Normal affect. ] Course - Re-evaluation Re-evalutation: 10/31/19 04:27 Patient's diagnosis and plan of care was discussed with him. - Vital Signs Vital signs: Temp Pulse Resp BP Pulse Ox 98.2 F 91 19 132/67 H 98 10/31/19 03:47 10/31/19 03:47 10/31/19 03:47 10/31/19 03:47 10/31/19 03:47 Discharge - Discharge Clinical Impression: GERD (gastroesophageal reflux disease) Qualifiers: Esophagitis presence: esophagitis presence not specified Qualified Code(s): K21.9 - Gastro-esophageal reflux disease without esophagitis Condition: Stable Disposition: HOME, SELF-CARE Instructions: Abdominal Pain ([facility]) Additional Instructions: HOME CARE INSTRUCTIONS & INFORMATION: Thank you for choosing us for your medic al needs. We hope you're satisfied with the care you received. After you leave, you must properly care for your problem and, at the same time, observe its progress. Any condition can change. Some illnesses can change rapidly over hours or days. If your condition worsens, return to the Emergency Department or see your physician promptly. ABOUT YOUR X-RAYS AND EKG'S: If you had an EKG or X-rays taken, they have been read by the Emergency Physician. The X-rays and EKG's will also be read by a Radiologist or Mechanical Estimator within 24 hours. If discrepancies are noted, you will be notified by telephone. Please be certain the ED has a correct telephone number & address where you can be reached. Also, realize that some fractures or abnormalities do not show up on initial X-rays. If your symptoms continue, see your physician. ABOUT YOUR LABORATORY TEST: If you had laboratory tests, the results have been reviewed by the Emergency Physician. Some test results (for example cultures) m ay not be available for several days. You will be contacted if any test result shows you need additional treatment. Please be certain the ED has a correct telephone number and address where you can be reached. ABOUT YOUR MEDICATIONS: You will receive instructions on how to take your medicine on the prescription label you receive. Additional information may be provided by the Pharmacy. If you have questions afterwards, call the ED for clarification or further instructions. Some prescribed medications may cause drowsiness. Do not perform tasks such as driving a car or operating machinery without consulting your Pharmacist. If you feel you need a refill of pain medication, your condition will need re-evaluation. Please do not call for a refill of any medication. ABOUT YOUR SIGNATURE: Signature of this document acknowledges to followin. Understanding that you received emergency treatment and that you may be released before al medical problems are known or treated. Please be certain the ED has a correct phone number & address where you can be reached. 2. Acknowledgement that you will arrange for follow-up care as recommended. 3. Authorization for the Emergency Physician to provide information to your follow-up Physician in order to maximize your care. AT ANY TIME, IF YOUR SYMPTOMS CHANGE SIGNIFICANTLY OR WORSEN OR YOU DEVELOP NEW SYMPTOMS, RETURN TO THE EMERGENCY DEPARTMENT IMMEDIATELY FOR RE-EVALUATION. OUR GOAL IS TO PROVIDE EXCELLENT MEDICAL CARE! WE HOPE THAT WE HAVE MET YOUR EXPECTATIONS DURING YOUR EMERGENCY DEPARTMENT VISIT AND THAT YOU FEEL YOU HAVE RECEIVED EXCELLENT CARE! Referrals: MALI REED MD [HONORARY] - Follow up as needed
== END 2019-10-31 04:38 | disposition home or self-care (01) ==
LOC: ER 02:58
DX: K21.9 Gastro-esophageal reflux disease without esophagitis (principal); R10.9 Unspecified abdominal pain; R11.2 Nausea with vomiting, unspecified; J45.909 Unspecified asthma, uncomplicated; Z91.14 Patient's other noncompliance with medication regimen
CPT/HCPCS: 99282

== ENCOUNTER 2019-11-01 22:27 | Emergency (ER) | payer SELFPAY ==
[2019-11-02] MEDS ORDERED: METOCLOPRAMIDE HCL ORAL SOLN 10 MG/10 ML UDCUP PO ONE (02:43)
[2019-11-02] MEDS ORDERED: MAG HYDROX/AL HYDROX/SIMETH SUSP 30 ML UDCUP PO ONE (02:43)
[2019-11-02] MEDS ORDERED: LIDOCAINE 2% VISCOUS SOLN 15 ML UDCUP PO ONE (02:43)
--- NOTE | 2019-11-02 02:47 | ER Document Report ---
ED GI/ - General Chief Complaint: Nausea/Vomiting Stated Complaint: NAUSEA,VOMITING,CHEST PAIN Time Seen by Provider: 11/01/19 23:17 Mode of Arrival: Ambulatory Information source: Patient Notes: 24-year-old male patient presents the emergency department chief complaint of epigastric pain with 1 episode of vomiting a few hours prior to arrival. He denies any fever or chills. Denies any concern for COVID-19. He has been seen in this emergency department daily for the last few days. A few days ago he had a completely normal work-up to include CT of the abdomen and pelvis. TRAVEL OUTSIDE OF THE [place] IN LAST 30 DAYS: No - Related Data Allergies/Adverse Reactions: No Known Allergies Allergy (Verified 10/29/19 23:04) Past Medical History - General Information source: Patient - Social History Smoking Status: Never Smoker Frequency of alcohol use: None Drug Abuse: None Family History: Reviewed & Not Pertinent Pulmonary Medical History: Reports: Hx Asthma - Immunizations Immunizations up to date: Yes Hx Diphtheria, Pertussis, Tetanus Vaccination: Yes Review of Systems - Review of Systems Gastrointestinal: Abdominal pain - Epigastric pain, Vomiting - X1 -: Yes All other systems reviewed and negative Physical Exam - Vital signs Vitals: Temp Pulse Resp BP Pulse Ox 98.3 F 95 15 117/92 H 100 11/01/19 23:21 11/01/19 23:21 11/01/19 23:21 11/01/19 23:21 11/01/19 23:21 - Notes Notes: PHYSICAL EXAMINATION: GENERAL: Well-appearing, well-nourished and in no acute distress. HEAD: Atraumatic, normocephalic. EYES: Pupils equal round and reactive to light, extraocular movements intact, sclera anicteric, conjunctiva are normal. ENT: Nares patent, oropharynx clear without exudates. Moist mucous membranes. NECK: Normal range of motion, supple without lymphadenopathy LUNGS: Breath sounds clear to auscultation bilaterally and equal. No wheezes rales or rhonchi. HEART: Regular rate and rhythm without murmurs ABDOMEN: Soft, nondistended abdomen. Mild tenderness to palpation of the epigastric area. No guarding, no rebound. No masses appreciated. Musculoskeletal: Normal range of motion, no pitting or edema. No cyanosis. NEUROLOGICAL: Cranial nerves grossly intact. Normal speech, normal gait. Normal sensory, motor exams PSYCH: Normal mood, normal affect. SKIN: Warm, Dry, normal turgor, no rashes or lesions noted. Course - Re-evaluation Re-evalutation: Patient appears well, nontoxic, vital signs reviewed and are within normal limits. Patient had recent labs and CT abdomen pelvis that showed no acute abnormalities. Patient has not been febrile. He will be given a GI cocktail, if his symptoms have improved he will be discharged home. Patient is in agreement with this plan. - Vital Signs Vital signs: Temp Pulse Resp BP Pulse Ox 98.0 F 79 15 126/70 H 99 11/02/19 03:13 11/02/19 03:13 11/01/19 23:21 11/02/19 03:13 11/02/19 03:13 Discharge - Discharge Clinical Impression: GERD (gastroesophageal reflux disease) Qualifiers: Esophagitis presence: without esophagitis Qualified Code(s): K21.9 - Gastro- esophageal reflux disease without esophagitis Condition: Stable Disposition: HOME, SELF-CARE Additional Instructions: Reflux Disease (GERD) Gastro-Esophageal Reflux Disease (GERD) is caused by stomach acid refluxing back up into the esophagus. The valve at the end of the esophagus may be weak. This is common in persons with a hiatal hernia. GERD symptoms can include indigestion, chest pain, heartburn, or food "sticking." Certain foods, alcohol, and aspirin can make GERD worse. Treatment depends on the severity. Usually, antacids or acid-suppressing medicines are used. When the esophagus is acutely inflamed, the physician will often prescribe membrane-protective drugs such as Carafate. Some patients benefit from medication such as Reglan that tightens the valve at the top of the stomach. Avoid those foods that bring on your symptoms. For many people, these foods are coffee, chocolate, onions, garlic, and carbonated drinks. Don't use alcohol, aspirin, caffeine, or tobacco. Don't eat late at night -- within 4 hours of bedtime. Don't over-eat. If necessary, elevate the head of your bed about 4 inches so that stomach acid will not roll up into your esophagus. Call the doctor if you develop severe chest pain, inability to swallow fluids, fever, or worsening symptoms. Prescriptions: Omeprazole 40 mg PO DAILY #30 capsule.
[2019-11-02 03:14] VITALS: BP 126/70
== END 2019-11-02 03:18 | disposition home or self-care (01) ==
LOC: ER 22:27
DX: K21.9 Gastro-esophageal reflux disease without esophagitis (principal); R11.2 Nausea with vomiting, unspecified; R07.9 Chest pain, unspecified
CPT/HCPCS: 99283; J3490

== ENCOUNTER 2019-11-03 00:31 | Emergency (ER) | payer SELFPAY ==
--- NOTE | 2019-11-03 20:14 | ER Document Report ---
Doctor's Note Notes: 11/03/19 02:30 Signed up to see the patient, but when his name was called, he was nowhere to be found in the waiting room.
== END 2019-11-03 03:46 | disposition left against medical advice (07) ==
LOC: ER 00:31
DX: Z53.21 Procedure and treatment not carried out due to patient leaving prior to being seen by health care provider (principal)

== ENCOUNTER 2019-11-03 22:08 | Emergency (ER) | payer SELFPAY ==
--- NOTE | 2019-11-04 01:29 | ER Document Report ---
ED Medical Screen (RME) - General Chief Complaint: Breathing Difficulty Stated Complaint: LUNG PAIN Time Seen by Provider: 11/04/19 01:26 Information source: Patient Notes: Patient presents complaining of cough for the past 2 months that is worsened recently with right arm pain. Patient denies any fever. I have greeted and performed a rapid initial assessment of this patient. A comprehensive ED assessment and evaluation of the patient, analysis of test results and completion of the medical decision making process will be conducted by additional ED providers. TRAVEL OUTSIDE OF THE [place] IN LAST 30 DAYS: No - Related Data Allergies/Adverse Reactions: No Known Allergies Allergy (Verified 11/03/19 01:55) Past Medical History - Social History Family history: Reviewed & Not Pertinent Pulmonary Medical History: Reports: Hx Asthma - Immunizations Immunizations up to date: Yes Hx Diphtheria, Pertussis, Tetanus Vaccination: Yes Physical Exam - Vital signs Vitals: Temp Pulse Resp BP Pulse Ox 98.4 F 81 20 145/97 H 97 11/03/19 22:43 11/03/19 22:43 11/03/19 22:43 11/03/19 22:43 11/03/19 22:43 - Respiratory Respiratory status: No respiratory distress. No: Labored, Tachypnea Chest status: Nontender Course - Vital Signs Vital signs: Temp Pulse Resp BP Pulse Ox 98.4 F 81 20 145/97 H 97 11/03/19 22:43 11/03/19 22:43 11/03/19 22:43 11/03/19 22:43 11/03/19 22:43
--- NOTE | 2019-11-04 09:38 | RADIOLOGY REPORT (SQ) ---
EXAM DESCRIPTION: CHEST SINGLE VIEW IMAGES COMPLETED DATE/TIME: 11/04/2019 9:22 am REASON FOR STUDY: cough COMPARISON: PA and lateral views of the chest from 10/18/2019. EXAM PARAMETERS: NUMBER OF VIEWS: One view. TECHNIQUE: An AP view of the chest was obtained. RADIATION DOSE: NA LIMITATIONS: None. FINDINGS: LUNGS AND PLEURA: No consolidation, pleural effusion or pneumothorax. MEDIASTINUM AND HILAR STRUCTURES: No mediastinal or hilar contour abnormality. HEART AND VASCULAR STRUCTURES: The cardiac silhouette and pulmonary vasculature are within normal [place] its. BONES: No acute findings. HARDWARE: None in the chest. OTHER: No other finding. IMPRESSION: No acute cardiopulmonary process. TECHNICAL DOCUMENTATION: JOB ID: [id number] 2010 [employer]- All Rights Reserved Reading location - IP/workstation name: [email or web address]
--- NOTE | 2019-11-04 10:16 | ER Document Report ---
HPI - HPI Time Seen by Provider: 11/04/19 01:26 Pain Level: 2 Notes: 24-year-old male patient presents the emergency department chief complaint of shortness of breath that he states has been ongoing for the last 2 days. He states he has pain in the left ribs when he takes a deep breath. He denies any other symptoms. - ROS Systems Reviewed and Negative: Yes All other systems reviewed and negative - RESPIRATORY Respiratory: REPORTS: Trouble Breathing - REPRODUCTIVE Reproductive: DENIES: : - MUSCULOSKELETAL Musculoskeletal: REPORTS: Back Pain - L posterior rib pain Past Medical History - General Information source: Patient - Social History Smoking Status: Never Smoker Chew tobacco use (# tins/day): No Frequency of alcohol use: None Drug Abuse: None Family History: Reviewed & Not Pertinent Patient has homicidal ideation: No Pulmonary Medical History: Reports: Hx Asthma Surgical Hx: Negative - Immunizations Immunizations up to date: Yes Hx Diphtheria, Pertussis, Tetanus Vaccination: Yes Vertical Provider Document - CONSTITUTIONAL Notes: PHYSICAL EXAMINATION: GENERAL: Well-appearing, well-nourished and in no acute distress. HEAD: Atraumatic, normocephalic. EYES: Pupils equal round extraocular movements intact, conjunctiva are normal. ENT: Nares patent NECK: Normal range of motion LUNGS: No respiratory distress, lung sounds clear and equal bilaterally. Musculoskeletal: Normal range of motion, mild tenderness with palpation to the left thoracic area. No vertebral tenderness, step-off or deformity. NEUROLOGICAL: Normal speech, normal gait. PSYCH: Normal mood, normal affect. SKIN: Warm, Dry, normal turgor, no rashes or lesions noted. - INFECTION CONTROL TRAVEL OUTSIDE OF THE [place] IN LAST 30 DAYS: No Course - Vital Signs Vital signs: Temp Pulse Resp BP Pulse Ox 97.6 F 91 20 131/77 H 100 11/04/19 05:27 11/04/19 05:27 11/04/19 05:27 11/04/19 05:27 11/04/19 05:27 Discharge - Discharge Clinical Impression: Shortness of breath Condition: Stable Disposition: HOME, SELF-CARE Additional Instructions: Please take medication as prescribed. Return for any new or worsening symptoms. Prescriptions: Prednisone [Deltasone 20 mg Tablet] 3 tab PO DAILY 5 Days #15 tablet
[2019-11-04 11:13] VITALS: BP 126/76
== END 2019-11-04 11:13 | disposition home or self-care (01) ==
LOC: ER 22:08
DX: R07.89 Other chest pain (principal); R03.0 Elevated blood-pressure reading, without diagnosis of hypertension; R00.0 Tachycardia, unspecified; F17.200 Nicotine dependence, unspecified, uncomplicated
CPT/HCPCS: 71045; 99283

== ENCOUNTER 2019-11-04 23:58 | Emergency (ER) | payer SELFPAY ==
[2019-11-05] MEDS ORDERED: ACETAMINOPHEN 325 MG TABLET PO ONE (01:06)
--- NOTE | 2019-11-05 01:16 | ER Document Report ---
HPI - HPI Time Seen by Provider: 11/05/19 00:59 Pain Level: 5 Context: Patient is a 24-year-old male, well-known to the emergency department who presents to the emergency department with a chief complaint of flank pain, which I saw him for the other night. Patient states that the pain is still the same. Denies any injury. Denies any dysuria. Patient is homeless. - ROS Systems Reviewed and Negative: Yes All other systems reviewed and negative - CONSTITUTIONAL Constitutional: DENIES: Fever, Chills - NEURO Neurology: DENIES: Headache, Weakness, Vision blurred - RESPIRATORY Respiratory: DENIES: Trouble Breathing, Coughing - GASTROINTESTINAL Gastrointestinal: DENIES: Abdominal Pain, Nausea, Patient vomiting - URINARY Urinary: DENIES: Dysuria - REPRODUCTIVE Reproductive: DENIES: : - MUSCULOSKELETAL Musculoskeletal: REPORTS: Back Pain - Bilateral - DERM Skin Color: Normal Skin Problems: None Past Medical History - Social History Smoking Status: Current Every Day Smoker Family History: Reviewed & Not Pertinent Pulmonary Medical History: Reports: Hx Asthma - Immunizations Immunizations up to date: Yes Hx Diphtheria, Pertussis, Tetanus Vaccination: Yes Vertical Provider Document - CONSTITUTIONAL Agree With Documented VS: Yes Exam Limitations: No Limitations General Appearance: No Apparent Distress - INFECTION CONTROL TRAVEL OUTSIDE OF THE [place] IN LAST 30 DAYS: No - HEENT HEENT: Atraumatic, Normocephalic, PERRLA - NECK Neck: Normal Inspection - RESPIRATORY Respiratory: Breath Sounds Normal, No Respiratory Distress - CARDIOVASCULAR Cardiovascular: Regular Rate, Regular Rhythm Pulses: Normal: Radial - GI/ABDOMEN Gastrointestinal: Abdomen Soft, Abdomen Non-Tender - BACK Back: Normal Inspection. negative: CVA Tenderness-Right, CVA Tenderness-Left - MUSCULOSKELETAL/EXTREMETIES Musculoskeletal/Extremeties: FROM - NEURO Level of Consciousness: Awake, Alert, Appropriate Motor/Sensory: No Motor Deficit, No Sensory Deficit - DERM Integumentary: Warm, Dry, No Rash Course - Re-evaluation Re-evalutation: 11/05/19 02:13 Patient's urinalysis is unremarkable. No blood noted. No leukocytosis noted. Patient's pain is most likely due to musculoskeletal pain. I have given him ibuprofen in the past and it has hurt his stomach, as he has a history of GERD. Patient advised to follow-up with primary care provider. He is in agreement with this plan. Follow-up precautions were given. Verbal discharge instructions were given to the patient. They verbalized understanding. They are stable for discharge. - Vital Signs Vital signs: Temp Pulse Resp BP Pulse Ox 98.3 F 108 H 151/89 H 99 11/05/19 00:21 11/05/19 00:21 11/05/19 00:21 11/05/19 00:21 Discharge - Discharge Clinical Impression: Flank pain Condition: Stable Disposition: HOME, SELF-CARE Additional Instructions: You were seen today in the emergency department for back pain. You can take Tylenol 1000 mg every 6 hours as needed for your pain. Make sure he stay well- hydrated. Follow-up with a primary care provider.
[2019-11-05 02:08] LABS: APPEARANCE,URINE CLEAR; BILIRUBIN,URINE NEGATIVE (NEGATIVE); COLOR,URINE YELLOW; GLUCOSE, URINE NEGATIVE (NEGATIVE); KETONES,URINE NEGATIVE (NEGATIVE); LEUKOCYTE ESTERASE,URINE NEGATIVE (NEGATIVE); NITRITE,URINE NEGATIVE (NEGATIVE); PROTEIN,URINE NEGATIVE (NEGATIVE); URINE SPECIFIC GRAVITY 1.029
[2019-11-05 02:43] VITALS: BP 157/77
== END 2019-11-05 02:43 | disposition home or self-care (01) ==
LOC: ER 23:58
DX: R10.9 Unspecified abdominal pain (principal); F17.200 Nicotine dependence, unspecified, uncomplicated; I10 Essential (primary) hypertension; Z59.0 Homelessness
CPT/HCPCS: 81001; 99283

== ENCOUNTER 2019-11-05 22:46 | Emergency (ER) | payer SELFPAY ==
[2019-11-05] MEDS ORDERED: ONDANSETRON ODT 4 MG TAB (6 TAB/ER DISP) PO PRN (23:14)
[2019-11-05] MEDS ORDERED: FAMOTIDINE 20 MG TABLET PO ONE (23:18)
[2019-11-05] MEDS ORDERED: SUCRALFATE 1 GM TABLET PO ONE (23:19)
[2019-11-05 23:22] VITALS: BP 140/77
--- NOTE | 2019-11-05 23:26 | ER Document Report ---
HPI - HPI Time Seen by Provider: 11/05/19 23:14 Pain Level: Denies Context: Patient is a 24-year-old gentleman with history of GERD who presents emergency department the chief complaint of nausea and vomiting. Denies any hematemesis. Denies any bilious vomiting. States that he has some abdominal discomfort in his mid abdomen. - ROS Systems Reviewed and Negative: Yes All other systems reviewed and negative - CONSTITUTIONAL Constitutional: DENIES: Fever, Chills - EENT EENT: DENIES: Sore Throat - NEURO Neurology: DENIES: Headache, Weakness, Vision blurred - CARDIOVASCULAR Cardiovascular: DENIES: Chest pain - RESPIRATORY Respiratory: DENIES: Trouble Breathing, Coughing - GASTROINTESTINAL Gastrointestinal: REPORTS: Abdominal Pain, Nausea, Patient vomiting - REPRODUCTIVE Reproductive: DENIES: : - DERM Skin Color: Normal Skin Problems: None Past Medical History - General Information source: Patient - Social History Smoking Status: Current Every Day Smoker Chew tobacco use (# tins/day): No Frequency of alcohol use: None Drug Abuse: None Family History: Reviewed & Not Pertinent Pulmonary Medical History: Reports: Hx Asthma - Immunizations Immunizations up to date: Yes Hx Diphtheria, Pertussis, Tetanus Vaccination: Yes Vertical Provider Document - CONSTITUTIONAL Agree With Documented VS: Yes Exam Limitations: No Limitations General Appearance: No Apparent Distress - INFECTION CONTROL TRAVEL OUTSIDE OF THE [place] IN LAST 30 DAYS: No - HEENT HEENT: Atraumatic, Normocephalic, PERRLA - NECK Neck: Normal Inspection - RESPIRATORY Respiratory: Breath Sounds Normal, No Respiratory Distress - CARDIOVASCULAR Cardiovascular: Regular Rate, Regular Rhythm Pulses: Normal: Radial - GI/ABDOMEN Gastrointestinal: Abdomen Soft, Abdomen Non-Tender - MUSCULOSKELETAL/EXTREMETIES Musculoskeletal/Extremeties: FROM - NEURO Level of Consciousness: Awake, Alert, Appropriate Motor/Sensory: No Motor Deficit, No Sensory Deficit - DERM Integumentary: Warm, Dry, No Rash Course - Re-evaluation Re-evalutation: 11/05/19 23:25 Patient's physical exam is unremarkable. I have a low suspicion for any life- threatening etiology at this time. Patient never actually vomits when he is here in the emergency department. We will give him Pepcid and Carafate, as he does have a history of GERD. Follow-up precautions were given. Verbal discharge instructions were given to the patient. They verbalized understanding. They are stable for discharge. Discharge - Discharge Clinical Impression: Nausea and vomiting Qualifiers: Vomiting type: unspecified Vomiting Intractability: unspecified Qualified Code(s): R11.2 - Nausea with vomiting, unspecified GERD (gastroesophageal reflux disease) Qualifiers: Esophagitis presence: without esophagitis Qualified Code(s): K21.9 - Gastro- esophageal reflux disease without esophagitis Condition: Stable Disposition: HOME, SELF-CARE Additional Instructions: You were seen today in the emergency department for nausea and vomiting. Take your Pepcid and Carafate as prescribed. Follow-up with your primary care provider. You are also given information on a place that has read for less than $500. I highly advised that you look into this, see have a nice place to sleep. Prescriptions: Sucralfate [Carafate 1 gm Tablet] 1 gm PO ACHS #30 tablet Famotidine [Pepcid 20 mg Tablet] 20 mg PO BID #30 tablet Ondansetron [Zofran Odt 4 mg Tablet] 1 - 2 tab PO Q4H PRN #15 tab.rapdis PRN Reason: For Nausea/Vomiting
== END 2019-11-05 23:32 | disposition home or self-care (01) ==
LOC: ER 22:46
DX: K21.9 Gastro-esophageal reflux disease without esophagitis (principal); R11.2 Nausea with vomiting, unspecified; R10.9 Unspecified abdominal pain; J45.909 Unspecified asthma, uncomplicated; F17.200 Nicotine dependence, unspecified, uncomplicated
CPT/HCPCS: 99283

== ENCOUNTER 2019-11-06 23:02 | Emergency (ER) | payer SELFPAY ==
[2019-11-06 23:17] VITALS: BP 156/85
--- NOTE | 2019-11-07 00:19 | ER Document Report ---
ED General - General Chief Complaint: Chest Pain Stated Complaint: CHEST PAIN Time Seen by Provider: 11/07/19 00:15 Mode of Arrival: Ambulatory Notes: 24-year-old -[place] male coming in today with discomfort in the left side of his chest. He has been seen many times for this over the past month and other physical ailments. He has no risk factors for heart disease except for tobacco abuse. Any shortness of breath. He does not have any viral symptoms. His EKG here shows a 102 heart rate otherwise normal EKG. TRAVEL OUTSIDE OF THE [place] IN LAST 30 DAYS: No - Related Data Allergies/Adverse Reactions: No Known Allergies Allergy (Verified 11/03/19 01:55) Past Medical History - General Information source: Patient - Social History Smoking Status: Current Every Day Smoker Frequency of alcohol use: None Drug Abuse: None Family History: Reviewed & Not Pertinent Patient has suicidal ideation: No Patient has homicidal ideation: No - Medical History Medical History: Negative - Past Medical History Cardiac Medical History: Reports: None Pulmonary Medical History: Reports: Hx Asthma - Immunizations Immunizations up to date: Yes Hx Diphtheria, Pertussis, Tetanus Vaccination: Yes Review of Systems - Review of Systems Notes: Constitutional: No fevers. No chills. EENT: No eye redness. No eye pain. No ear pain. No sore throat. Cardiovascular: +chest pain. No palpitations. Respiratory: No cough. No shortness of breath. No respiratory distress. Gastrointestinal: No abdominal pain. No nausea, vomiting, or diarrhea. Genitourinary: Atraumatic. No lesions. No pain. No discharge. Musculoskeletal: Atraumatic. No swelling. No deformities. Skin: No rash or lesions. Lymphatic: No swollen lymph nodes. Neurologic: No headache. No syncope. Psychiatric: No suicidal or homicidal ideation. Physical Exam - Vital signs Vitals: Temp Pulse Resp BP Pulse Ox 99 F 99 15 156/85 H 99 11/06/19 23:16 11/06/19 23:16 11/06/19 23:16 11/06/19 23:16 11/06/19 23:16 - Notes Notes: General: Well-developed, well-nourished. In no acute distress. Non-toxic appearing. Cardiac: Well-perfused. Regular rate and rhythm. No murmurs, rubs, or gallops. Pulmonary: No respiratory distress. No cyanosis. Bilateral lung fiels are clear to auscultation. Abdominal: Non-distended. Non-rigid. Bowels sounds are present in all four quadrants. No guarding or rebound. HEENT: Head is atraumatic. Conjunctivae not reddened. No tearing. PERRL. EOMI. Orbits atraumatic. No periorbital swelling or erythema. Oropharynx is without erythema, swelling, or exudates. Neck: Supple. No adenopathy. No meningismus. Dermatologic: Warm with good turgor. No rash. Atraumatic. Chest: Atraumatic. No chest wall tenderness to palpation. Musculoskeletal: Moves all extremities well. No range of motion deficits. no muscular or joint tenderness. No paraspinal muscle tenderness. no midline spinal tenderness or step-off. Genitourinary: Examination deferred Neurologic: No gross neurologic deficits. Psychiatric: Normal mood. Course - Re-evaluation Re-evalutation: 11/07/19 00:17 Patient had a chest x-ray here the beginning of the month. It was normal. He has had COVID screening. His EKG here is normal. His heart score is 1. Will discharge. Told him to follow-up with the [facility] - Vital Signs Vital signs: Temp Pulse Resp BP Pulse Ox 99 F 99 15 156/85 H 99 11/06/19 23:16 11/06/19 23:16 11/06/19 23:16 11/06/19 23:16 11/06/19 23:16 Discharge - Discharge Clinical Impression: Non-cardiac chest pain, Elevated blood pressure reading Condition: Good Disposition: HOME, SELF-CARE Instructions: Chest Pain of Unclear Cause ([facility]) Additional Instructions: Please follow-up with the [facility] for further evaluation. Forms: Elevated Blood Pressure
== END 2019-11-07 00:20 | disposition home or self-care (01) ==
LOC: ER 23:02
DX: R07.89 Other chest pain (principal); R03.0 Elevated blood-pressure reading, without diagnosis of hypertension; F17.200 Nicotine dependence, unspecified, uncomplicated
CPT/HCPCS: 99283

== ENCOUNTER 2019-11-07 23:45 | Emergency (ER) | payer SELFPAY ==
[2019-11-08] MEDS ORDERED: ACETAMINOPHEN 325 MG TABLET PO ONE (00:04)
--- NOTE | 2019-11-08 00:09 | ER Document Report ---
ED General - General Chief Complaint: Head Injury Stated Complaint: HEAD INJURY (FALL) Time Seen by Provider: 11/08/19 00:00 Mode of Arrival: Ambulatory Information source: Patient Notes: Patient is a 24-year-old -[place] Citizen male coming in tonight to chief complaint head injury. States he slipped and fell at a local restaurant and hit the left side of his head on the corner of a table. This occurred around 730 this evening. No loss of consciousness. Patient is not dizzy. He is ambulatory. Remembers the whole event. No nausea or vomiting. He does not have any chronic medical problems nor does he have history of bleeding diathesis or anticoagulant drug usage. TRAVEL OUTSIDE OF THE [place] IN LAST 30 DAYS: No - Related Data Allergies/Adverse Reactions: No Known Allergies Allergy (Verified 11/03/19 01:55) Past Medical History - Social History Smoking Status: Current Every Day Smoker Frequency of alcohol use: None Drug Abuse: None Family History: Reviewed & Not Pertinent Pulmonary Medical History: Reports: Hx Asthma - Immunizations Immunizations up to date: Yes Hx Diphtheria, Pertussis, Tetanus Vaccination: Yes Review of Systems - Review of Systems Notes: Constitutional: No fevers. No chills. EENT: No eye redness. No eye pain. No ear pain. No sore throat. Cardiovascular: No chest pain. No palpitations. Respiratory: No cough. No shortness of breath. No respiratory distress. Gastrointestinal: No abdominal pain. No nausea, vomiting, or diarrhea. Genitourinary: Atraumatic. No lesions. No pain. No discharge. Musculoskeletal: Atraumatic. No swelling. No deformities. Skin: No rash or lesions. Lymphatic: No swollen lymph nodes. Neurologic: No syncope. Positive for head pain Psychiatric: No suicidal or homicidal ideation. Physical Exam - Vital signs Vitals: Temp Pulse Resp BP Pulse Ox 98.4 F 118 H 14 150/81 H 100 11/07/19 23:49 11/07/19 23:49 11/07/19 23:49 11/07/19 23:49 11/07/19 23:49 - Notes Notes: General: Well-developed, well-nourished. In no acute distress. Non-toxic appearing. Cardiac: Well-perfused. Regular rate and rhythm. No murmurs, rubs, or gallops. Pulmonary: No respiratory distress. No cyanosis. Bilateral lung fiels are clear to auscultation. Abdominal: Non-distended. Non-rigid. Bowels sounds are present in all four quadrants. No guarding or rebound. HEENT: Patient has tenderness to the left parietal scalp. There is no swelling. No bruising. No abrasion or laceration. Conjunctivae not reddened. No tearing. PERRL. EOMI. Orbits atraumatic. No periorbital swelling or erythema. Oropharynx is without erythema, swelling, or exudates. Neck: Supple. No adenopathy. No meningismus. Dermatologic: Warm with good turgor. No rash. Atraumatic. Chest: Atraumatic. No chest wall tenderness to palpation. Musculoskeletal: Moves all extremities well. No range of motion deficits. no muscular or joint tenderness. No paraspinal muscle tenderness. no midline spinal tenderness or step-off. Genitourinary: Examination deferred Neurologic: No gross neurologic deficits. Psychiatric: Normal mood. Course - Re-evaluation Re-evalutation: 11/08/19 00:07 Patient is looking well. Definitely no sign of any significant trauma. We will treat his headache with some Tylenol and discharge. 11/08/19 00:11 Heart rate rechecked. Now 105 bpm - Vital Signs Vital signs: Temp Pulse Resp BP Pulse Ox 98.4 F 118 H 14 150/81 H 100 11/07/19 23:49 11/07/19 23:49 11/07/19 23:49 11/07/19 23:49 11/07/19 23:49 Discharge - Discharge Clinical Impression: Head injury Qualifiers: Encounter type: initial encounter Qualified Code(s): S09.90XA - Unspecified injury of head, initial encounter Condition: Good Disposition: HOME, SELF-CARE Instructions: Head Injury Precautions ([facility])
[2019-11-08 00:11] VITALS: BP 145/92
== END 2019-11-08 00:15 | disposition home or self-care (01) ==
LOC: ER 23:45
DX: S09.90XA Unspecified injury of head, initial encounter (principal); W01.198A Fall on same level from slipping, tripping and stumbling with subsequent striking against other object, initial encounter; Y92.511 Restaurant or cafe as the place of occurrence of the external cause; F17.200 Nicotine dependence, unspecified, uncomplicated
CPT/HCPCS: 99282

== ENCOUNTER 2019-11-08 23:32 | Emergency (ER) | payer SELFPAY ==
--- NOTE | 2019-11-09 04:14 | ER Document Report ---
HPI - HPI Time Seen by Provider: 11/09/19 03:11 Pain Level: Denies Context: Patient is a 24-year-old male that comes emergency department for chief complaint of "kind of losing my sense of taste". He denies cough, shortness of breath, chest pain, fever, congestion. He denies specific individual that he was exposed to with COVID-19, recent travel. He denies any current medications or diagnosed medical history. - REPRODUCTIVE Reproductive: DENIES: : Past Medical History - General Information source: Patient - Social History Smoking Status: Never Smoker Chew tobacco use (# tins/day): No Frequency of alcohol use: None Drug Abuse: None Lives with: Alone Family History: Reviewed & Not Pertinent Patient has homicidal ideation: No Pulmonary Medical History: Reports: Hx Asthma - Immunizations Immunizations up to date: Yes Hx Diphtheria, Pertussis, Tetanus Vaccination: Yes Vertical Provider Document - CONSTITUTIONAL General Appearance: WD/WN, No Apparent Distress - Patient sleeping and easily aroused - INFECTION CONTROL TRAVEL OUTSIDE OF THE [place] IN LAST 30 DAYS: No - HEENT HEENT: Atraumatic, Normal ENT Exam, Normocephalic - NECK Neck: Normal Inspection - RESPIRATORY Respiratory: Breath Sounds Normal, No Respiratory Distress. negative: Wheezing - CARDIOVASCULAR Cardiovascular: Regular Rate, Regular Rhythm. negative: Tachycardia - GI/ABDOMEN Gastrointestinal: Abdomen Soft, Abdomen Non-Tender. negative: Abdomen Tender - BACK Back: Normal Inspection - MUSCULOSKELETAL/EXTREMETIES Musculoskeletal/Extremeties: MAEW, FROM, Non-Tender - NEURO Level of Consciousness: Awake, Alert, Appropriate Motor/Sensory: No Motor Deficit, No Sensory Deficit - DERM Integumentary: Warm, Dry, No Rash Course - Re-evaluation Re-evalutation: Patient is very well-known to me. When I asked patient to clarify his statement, he states that he can still taste and he just wanted to be checked out. Patient is homeless and is here frequently, patient has no other complaints. I did offer him COVID-19 testing, however he declined. I have very low suspicion that he has an acute infection based on his evaluation, patient is also received COVID-19 testing multiple times recently and they have all been negative. Patient with no other complaints, stable and well-appearing at time of discharge. Discharge - Discharge Clinical Impression: Abnormal sense of taste, Homelessness Condition: Stable Disposition: HOME, SELF-CARE Additional Instructions: Your evaluation does not show any concerning symptoms at this time. Follow-up with primary care. If your symptoms worsen (complete loss of taste, developing fever, difficulty breathing, etc.) return to the emergency department. Return for any other concerning symptoms.
[2019-11-09 04:37] VITALS: BP 133/78
== END 2019-11-09 04:37 | disposition home or self-care (01) ==
LOC: ER 23:32
DX: R43.9 Unspecified disturbances of smell and taste (principal); Z59.0 Homelessness
CPT/HCPCS: 99281

== ENCOUNTER 2019-11-15 01:23 | Emergency (ER) | payer SELFPAY ==
--- NOTE | 2019-11-15 08:19 | ER Document Report ---
Entered by CAROLINA SALCIDO SCRIBE 11/15/19 0803 Acting as scribe for:ANIKA DIOP MD ED General - General Chief Complaint: Nausea Stated Complaint: BREATHING DIFFICULTY,NAUSEA,VOMITING Time Seen by Provider: 11/15/19 07:54 Information source: Patient Notes: This 24-year-old male patient presents to the emergency department for the 25th time this month for a place to sleep. He is homeless and uses this department as a place to sleep. Patient states he was nauseated when he came in but he has not vomited during his 7 hour emergency department visit. TRAVEL OUTSIDE OF THE [place] IN LAST 30 DAYS: No - Related Data Allergies/Adverse Reactions: No Known Allergies Allergy (Verified 11/03/19 01:55) Past Medical History - General Information source: Patient, [facility] Records - Social History Smoking Status: Current Every Day Smoker Cigarette use (# per day): Yes Frequency of alcohol use: None Drug Abuse: None Lives with: Homeless Family History: Reviewed & Not Pertinent Pulmonary Medical History: Reports: Hx Asthma Surgical Hx: Negative - Immunizations Immunizations up to date: Yes Hx Diphtheria, Pertussis, Tetanus Vaccination: Yes Review of Systems - Review of Systems Constitutional: No symptoms reported EENT: No symptoms reported Cardiovascular: No symptoms reported Respiratory: No symptoms reported Gastrointestinal: See HPI, Nausea Genitourinary: No symptoms reported Male Genitourinary: No symptoms reported Musculoskeletal: No symptoms reported Skin: No symptoms reported Hematologic/Lymphatic: No symptoms reported Neurological/Psychological: No symptoms reported -: Yes All other systems reviewed and negative Physical Exam - Vital signs Vitals: Temp Pulse Resp BP Pulse Ox 98.3 F 73 18 149/86 H 99 11/15/19 01:48 11/15/19 01:48 11/15/19 01:48 11/15/19 01:48 11/15/19 01:48 - Notes Notes: Physical Exam: General: Alert, appears well. HEENT: Normocephalic. Atraumatic. PERRL. Extraocular movements intact. Oropharynx clear. Neck: Supple. Non-tender. Respiratory: No respiratory distress. Clear and equal breath sounds bilaterally. Cardiovascular: Regular rate and rhythm. Abdominal: Normal Inspection. Non-tender. No distension. Normal Bowel Sounds. Back: No gross abnormalities. Extremities: Moves all four extremities. Upper extremities: Normal inspection. Normal ROM. Lower extremities: Normal inspection. No edema. Normal ROM. Neurological: Normal cognition. AAOx4. Normal speech. Psychological: Normal affect. Normal Mood. Skin: Warm. Dry. Normal color. Course - Vital Signs Vital signs: Temp Pulse Resp BP Pulse Ox 97.7 F 84 16 122/75 96 11/15/19 06:45 11/15/19 06:45 11/15/19 06:45 11/15/19 06:45 11/15/19 06:45 Discharge - Discharge Clinical Impression: Homeless single person, Nausea Condition: Stable Disposition: HOME, SELF-CARE Additional Instructions: Nausea or Vomiting, Nonspecific Vomiting (or nausea without vomiting) can be caused by many different problems. Of course, it can mean that something's wrong with the stomach, such as "stomach flu," ulcers, or inflammation. But it can also be a symptom of a problem that has nothing to do with the stomach or intestines. Vomiting is common with severe headaches, earaches, and tonsillitis. We see it with pneumonia or heart attacks. Drugs can cause nausea. Many abdominal problems cause vomiting; for example, gallstones, kidney stones, pancreatitis, and intestinal obstruction (blocked bowels). In most cases, curing the vomiting depends on fixing the problem that caused it. For temporary relief, we may use an anti-nausea medicine. For home use, we can prescribe suppositories, chewable pills, pills that dissolve in the mouth, or liquid anti-nausea drugs. If the vomiting seems to be caused by a problem in the stomach, acid-suppressing drugs may be prescribed as well. It's important to avoid dehydration. Sip clear liquids. Take increasing amounts of fluid over the first 24 hours. Then start small amounts of bland foods (such as dry toast, applesauce, mashed potato). Avoid aspirin, tobacco, and alcohol. Gradually resume your usual diet. If the vomiting worsens, if the problem that's making you vomit worsens, or if there's evidence of bleeding in the stomach (such as black, tarry stool, bloody or black vomit, or lightheadedness), you should return immediately. Call your doctor if you aren't improved in 24 to 36 hours. I personally performed the services described in the documentation, reviewed and edited the documentation which was dictated to the scribe in my presence, and it accurately records my words and actions.
[2019-11-15 08:39] VITALS: BP 128/74
== END 2019-11-15 08:20 | disposition home or self-care (01) ==
LOC: ER 01:23
DX: R11.2 Nausea with vomiting, unspecified (principal); Z59.0 Homelessness; R06.00 Dyspnea, unspecified; F17.210 Nicotine dependence, cigarettes, uncomplicated
CPT/HCPCS: 99281

== ENCOUNTER 2019-11-16 23:00 | Emergency (ER) | payer SELFPAY ==
[2019-11-17 06:00] LABS: ABSOLUTE BASOPHILS # (AUTO) 0.1 10^3/uL (0.0-0.2); ABSOLUTE EOSINOPHILS # (AUTO) 0.3 10^3/uL (0.0-0.6); ABSOLUTE LYMPHOCYTES (AUTO) 2.8 10^3/uL (0.5-4.7); ABSOLUTE MONOCYTES (AUTO) 0.5 10^3/uL (0.1-1.4); ABSOLUTE NEUT (AUTO) 3.8 10^3/uL (1.7-8.2); BASOPHILS % (AUTO) 0.8 % (0-2); EOSINOPHILS % (AUTO) 4.6 % (0-6); HEMATOCRIT 42.1 % (37.9-51.0); HEMOGLOBIN 14.3 g/dL (13.5-17.0); LYMPHOCYTES % (AUTO) 37.4 % (13-45); MEAN CORPUSCULAR HEMOGLOBIN 28.1 pg (27.0-33.4); MEAN CORPUSCULAR VOLUME 83 fl (80-97); MONOCYTES % (AUTO) 6.4 % (3-13); PLATELET COUNT 241 10^3/uL (150-450); RED BLOOD COUNT 5.09 10^6/uL (4.35-5.55); RED CELL DISTRIBUTION WIDTH 14.3 % (11.5-14.0); SEGMENTED NEUTROPHILS % (AUTO) 50.8 % (42-78); TOTAL CELLS COUNTED % (AUTO) 100 %; WHITE BLOOD COUNT 7.5 10^3/uL (4.0-10.5)
[2019-11-17 06:09] LABS: APPEARANCE,URINE CLEAR; BILIRUBIN,URINE NEGATIVE (NEGATIVE); COLOR,URINE YELLOW; GLUCOSE, URINE NEGATIVE (NEGATIVE); KETONES,URINE NEGATIVE (NEGATIVE); LEUKOCYTE ESTERASE,URINE NEGATIVE (NEGATIVE); NITRITE,URINE NEGATIVE (NEGATIVE); PROTEIN,URINE NEGATIVE (NEGATIVE); URINE SPECIFIC GRAVITY 1.024; UROBILINOGEN,URINE NEGATIVE mg/dL (<2.0)
[2019-11-17 06:16] LABS: ALKALINE PHOSPHATASE 43 U/L (38-126); ANION GAP 8 (5-19); ASPARTATE AMINO TRANSFERASE 48 U/L (17-59); BILIRUBIN,DIRECT 0.2 mg/dL (0.0-0.4); BILIRUBIN,TOTAL 0.5 mg/dL (0.2-1.3); BLOOD UREA NITROGEN 16 mg/dL (7-20); CALCIUM 9.8 mg/dL (8.4-10.2); CARBON DIOXIDE 25 mmol/L (22-30); CHLORIDE 106 mmol/L (98-107); GLUCOSE 96 mg/dL (75-110); POTASSIUM 4.3 mmol/L (3.6-5.0); TOTAL PROTEIN 6.3 g/dL (6.3-8.2)
[2019-11-17 06:51] VITALS: BP 124/77
--- NOTE | 2019-11-17 07:15 | RADIOLOGY REPORT (SQ) ---
AP Portable chest: 11/17/2019 6:13 AM CDT History: 24-year old patient with cough. Comparison: Chest radiograph performed 11/04/2019. Findings: The cardiomediastinal silhouette is normal in size. No pneumothorax is seen. No acute airspace opacities are seen. No discrete pleural effusion is apparent. Impression: No acute airspace opacities are seen.
[2019-11-17] MEDS ORDERED: NORMAL SALINE 1000 ML 1,000 ML IV ONE (07:17)
--- NOTE | 2019-11-17 07:23 | ER Document Report ---
ED General - General Chief Complaint: Flu Symptoms Stated Complaint: NAUSEA/VOMITING/HEADACHE Time Seen by Provider: 11/17/19 06:10 TRAVEL OUTSIDE OF THE [place] IN LAST 30 DAYS: No - HPI Notes: Chief complaint: Flulike illness History of present illness: 24-year-old male well-known to this ED and to me personally from numerous prior encounters now presenting with complaint of general malaise, nonproductive cough, nausea, vomiting and loss of taste and smell. This man is homeless. He is a frequent visitor to the emergency department. We note that he has had multiple negative COVID tests in the past the most recent of these being about 1 month ago. 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 HENT: Loss of taste and smell. Eyes: Negative for visual changes. Cardiovascular: Negative for chest pain. Respiratory: Nonproductive cough. Gastrointestinal: Nausea/vomiting. Genitourinary: Negative for dysuria. Musculoskeletal: Mild generalized myalgias. Skin: Negative for rash. Neurological: Dull headache. No focal weakness or numbness. 10 point ROS negative except as marked above and in HPI. Physical Exam - Vital signs Vitals: Temp Pulse Resp BP Pulse Ox 98.2 F 75 16 130/99 H 97 11/16/19 23:01 11/16/19 23:01 11/16/19 23:01 11/16/19 23:01 11/16/19 23:01 - Notes Notes: GENERAL: Well-developed well-nourished appearing in no acute distress. SKIN: Good turgor no rashes. HEAD: Normocephalic atraumatic. EYES: PERRLA. EOMI. Conjunctivae and sclerae clear. EARS: CANALS AND TMS CLEAR. NOSE: CLEAR. MOUTH: Moist mucosa. Good dentition. No stridor or edema. No drooling. NECK: Supple. No masses or thyromegaly. No adenopathy. Carotids 2+ without bruits. No JVD. BACK: Symmetrical without tenderness. CHEST: Respirations unlabored. Breath sounds clear and symmetrical. HEART: Regular rhythm. No murmur gallop or rub. ABDOMEN: Soft nontender without masses, organomegaly or rebound. Bowel sounds normally active. No bruits. GENITALIA: Deferred. EXTREMITIES: No edema. No calf tenderness. Cap refill less than 1.5 seconds. Dorsalis pedis and posterior tibial pulses 3+ and symmetrical. NEUROLOGICAL: GCS 15. Alert and oriented x3. Normal gait. Fluent speech. Cranial nerves II through XII intact. Sensorimotor and cerebellar normal. N ormal tone. PSYCHIATRIC: Flat affect. Course - Re-evaluation Re-evalutation: 11/17/19 09:14 Patient received 1 L of normal saline IV and also 10 mg of Compazine IV. He feels much better and is tolerating oral fluids without difficulty. COVID swab has been submitted and will be reported within 72 hours. Patient appears very stable for outpatient follow-up. Findings, clinical impression and plan of treatment have been discussed with patient/family. Understanding of current findings and recommendations has been acknowledged by them and there is agreement regarding disposition and follow-up. - Vital Signs Vital signs: Temp Pulse Resp BP Pulse Ox 97.8 F 99 20 124/77 100 11/17/19 06:50 11/17/19 06:50 11/17/19 06:50 11/17/19 06:50 11/17/19 06:50 - Laboratory Result Diagrams: 11/17/19 05:40 11/17/19 05:40 Laboratory results interpreted by me: 11/17/19 05:40 RDW 14.3 H Discharge - Discharge Clinical Impression: Nausea and vomiting, Patient under investigation for COVID Condition: Stable Disposition: HOME, SELF-CARE Instructions: Acetaminophen Additional Instructions: Vomiting Vomiting can be part of many illnesses. Most cases of vomiting are due to gastroenteritis, usually a viral infection in the intestinal tract. There is no specific treatment. The disease will end by itself. For now, the main danger to your child is dehydration. During the first few hours of the illness, give clear liquids, such as Pedialyte. Try to give small quantities frequently, such as a teaspoon of liquid every minute or about an ounce of fluids every five to ten minutes. Medications may be prescribed by the physician for special cases. After an hour or two of fluids without vomiting, add rice cereal, toast, applesauce, or bananas and other more solid foods to the clear liquids. Call the physician or go to the hospital if vomiting increases or blood appears in the bowel movement or vomitus; if your child fails to improve, or if signs of dehydration occur (no wet diapers for eight to twelve hours, tongue and mouth become dry, not acting as alert as usual). Note provided for you until you receive results of your COVID testing. Prescriptions: Ondansetron [Zofran Odt 4 mg Tablet] 1 - 2 tab PO Q4H PRN #15 tab.rapdis PRN Reason: For Nausea/Vomiting Forms: Return to Work
== END 2019-11-17 09:48 | disposition home or self-care (01) ==
LOC: ER 23:00
DX: R11.2 Nausea with vomiting, unspecified (principal); Z59.0 Homelessness; Z20.828 Contact with and (suspected) exposure to other viral communicable diseases
CPT/HCPCS: 99284; 96360; 36415; 85025; 87635; 80053; 81001; 71045; J7030; C9803

== ENCOUNTER 2019-11-19 01:20 | Emergency (ER) | payer SELFPAY ==
[2019-11-19 01:27] VITALS: BP 148/84
[2019-11-19] MEDS ORDERED: IBUPROFEN 600 MG TABLET PO ONE (01:40)
--- NOTE | 2019-11-19 01:43 | ER Document Report ---
ED General - General Chief Complaint: Nausea Stated Complaint: NAUSEA,CHEST PAIN Time Seen by Provider: 11/19/19 01:40 Notes: CHIEF COMPLAINT: Chest pain for 2 days HPI: 24-year-old homeless male who is well-known to this emergency department presenting for chest pain for 2 days reproducible in the left anterior chest wall. Has taken no medications for symptoms. No fever or cough. ROS: See HPI - all other systems were reviewed and are otherwise negative Constitutional: no fever Eyes: no drainage, no blurred vision ENT: no runny nose, no sore throat Cardiovascular: Positive chest wall pain Resp: no SOB, no cough GI: no vomiting, no diarrhea, no abdominal pain : no dysuria Integumentary: no rash Allergy: no hives Musculoskeletal: no extremity pain or swelling Neurological: no numbness/tingling, no weakness MEDICATIONS: I agree with the patient medications as charted by the RN. ALLERGIES: I agree with the allergies as charted by the RN. PAST MEDICAL HISTORY/PAST SURGICAL HISTORY: Reviewed and agree as charted by RN. SOCIAL HISTORY: Reviewed and agree as charted by RN. FAMILY HISTORY: No significant familial comorbid conditions directly related to patient complaint EXAM: Reviewed vital signs as charted by RN. CONSTITUTIONAL: Alert and oriented and responds appropriately to questions. Well-appearing; well-nourished HEAD: Normocephalic; atraumatic EYES: PERRL; Conjunctivae clear, sclerae non-icteric ENT: normal nose; no rhinorrhea; moist mucous membranes; pharynx without lesions noted, no uvula edema or deviation, no tonsillar hypertrophy, phonation normal NECK: Supple without meningismus; non-tender; no cervical lymphadenopathy, no masses CARD: RRR; no murmurs, no clicks, no rubs, no gallops; symmetric distal pulses RESP: Normal chest excursion without splinting or tachypnea; breath sounds clear and equal bilaterally; no wheezes, no rhonchi, no rales, pulse oximetry 98% on room air not hypoxic. There is tenderness on palpation of the anterior left chest wall where the patient indicates he is having his pain ABD/GI: Normal bowel sounds; non-distended; soft, non-tender, no rebound, no guarding; no palpable organomegaly or masses. BACK: The back appears normal and is non-tender to palpation, there is no CVA tenderness EXT: Normal ROM in all joints; non-tender to palpation; no cyanosis, no effusions, no edema SKIN: Normal color for age and race; warm; dry; good turgor; no acute lesions no divina NEURO: Moves all extremities equally; Motor and sensory function intact PSYCH: The patient's mood and manner are appropriate. Grooming and personal hygiene are appropriate. MDM: 24-year-old male with reproducible chest wall pain for 2 days. Will give ibuprofen here. He is well-known to this department. He is in department at least every other day for miscellaneous complaints. His EKG shows a sinus rhythm with a ventricular rate of 95. No other ectopy. Interpreted by emergency department physicians. No change from prior EKG. Patient had a chest x-ray 2 days ago that was completely negative for acute findings. He had a negative COVID test 2 days ago. TRAVEL OUTSIDE OF THE [place] IN LAST 30 DAYS: No - Related Data Allergies/Adverse Reactions: No Known Allergies Allergy (Verified 11/17/19 09:22) Past Medical History - Social History Smoking Status: Unknown if Ever Smoked Family History: Reviewed & Not Pertinent Pulmonary Medical History: Reports: Hx Asthma - Immunizations Immunizations up to date: Yes Hx Diphtheria, Pertussis, Tetanus Vaccination: Yes Physical Exam - Vital signs Vitals: Temp Pulse Resp BP Pulse Ox 98.2 F 101 H 20 148/84 H 100 11/19/19 01:26 11/19/19 01:26 11/19/19 01:26 11/19/19 01:26 11/19/19 01:26 Course - Vital Signs Vital signs: Temp Pulse Resp BP Pulse Ox 98.2 F 101 H 20 148/84 H 100 11/19/19 01:26 11/19/19 01:26 11/19/19 01:26 11/19/19 01:26 11/19/19 01:26 Discharge - Discharge Clinical Impression: Chest wall pain Condition: Stable Disposition: HOME, SELF-CARE Additional Instructions: Take Motrin or Tylenol for pain. Follow-up with your primary care provider for further evaluation of this issue
--- NOTE | 2019-11-19 08:31 | EKG REPORT ---
SEVERITY:- NORMAL ECG - SINUS RHYTHM : Confirmed by: Jaden Martinez MD 19-Nov-2019 08:31:11
== END 2019-11-19 01:47 | disposition home or self-care (01) ==
LOC: ER 01:20
DX: R07.89 Other chest pain (principal); J45.909 Unspecified asthma, uncomplicated
CPT/HCPCS: 93005; 93010; 99282

== ENCOUNTER 2019-11-21 22:31 | Emergency (ER) | payer SELFPAY ==
[2019-11-22] MEDS ORDERED: ACETAMINOPHEN 325 MG TABLET PO ONE (01:25)
--- NOTE | 2019-11-22 01:29 | ER Document Report ---
ED Medical Screen (RME) - General Chief Complaint: Sore Throat Stated Complaint: SORE THROAT/NAUSEA Time Seen by Provider: 11/22/19 01:24 Mode of Arrival: Ambulatory Information source: Patient Notes: 24-year-old -[place] male who comes in on a pretty daily basis to emergency department here with a low-grade fever, very sore throat, and bad cough. General exam ill-appearing On cardiac mildly tachycardic Pulmonary clear to auscultation Abdomen nontender nondistended EENT: Moderately injected posterior pharynx without exudates. I have greeted and performed a rapid initial assessment of this patient. A comprehensive ED assessment and evaluation of the patient, analysis of test results and completion of the medical decision making process will be conducted by additional ED providers. TRAVEL OUTSIDE OF THE [place] IN LAST 30 DAYS: No - Related Data Allergies/Adverse Reactions: No Known Allergies Allergy (Verified 11/17/19 09:22) Past Medical History - Social History Family history: Reviewed & Not Pertinent Pulmonary Medical History: Reports: Hx Asthma - Immunizations Immunizations up to date: Yes Hx Diphtheria, Pertussis, Tetanus Vaccination: Yes Physical Exam - Vital signs Vitals: Temp Pulse Resp BP Pulse Ox 100.4 F 117 H 18 123/93 H 98 11/21/19 22:39 11/21/19 22:39 11/21/19 22:39 11/21/19 22:39 11/21/19 22:39 Course - Vital Signs Vital signs: Temp Pulse Resp BP Pulse Ox 100.4 F 117 H 18 123/93 H 98 11/21/19 22:39 11/21/19 22:39 11/21/19 22:39 11/21/19 22:39 11/21/19 22:39
--- NOTE | 2019-11-22 02:15 | RADIOLOGY REPORT (SQ) ---
EXAM DESCRIPTION: XR CHEST 1 VIEW COMPLETED DATE/TME: 11/22/2019 01:25 CLINICAL HISTORY: 24 years, Male, bad cough COMPARISON: None. NUMBER OF VIEWS: TECHNIQUE: LIMITATIONS: None. FINDINGS: No evidence of pulmonary infiltrate or pleural effusion. The heart and mediastinum are unremarkable. Pulmonary vascularity appears normal. IMPRESSION: No acute finding. copyright 2010 [facility] [employer]- All Rights Reserved
--- NOTE | 2019-11-22 05:24 | ER Document Report ---
ED General - General Chief Complaint: Sore Throat Stated Complaint: SORE THROAT/NAUSEA Time Seen by Provider: 11/22/19 01:24 Mode of Arrival: Ambulatory TRAVEL OUTSIDE OF THE [place] IN LAST 30 DAYS: No - HPI Notes: 24-year-old male presents with chief complaint "I'm really sick this time". He has had sore throat, fever, congestion, cough, nausea, headache for the past 4 days. His symptoms become worse with coughing or with talking. He has not taken any medications. He was seen recently in the emergency department and had negative COVID test. - Related Data Allergies/Adverse Reactions: No Known Allergies Allergy (Verified 11/17/19 09:22) Past Medical History - General Information source: Patient - Social History Smoking Status: Current Every Day Smoker Family History: Reviewed & Not Pertinent Pulmonary Medical History: Reports: Hx Asthma - Immunizations Immunizations up to date: Yes Hx Diphtheria, Pertussis, Tetanus Vaccination: Yes Review of Systems - Review of Systems Constitutional: Fever EENT: See HPI Cardiovascular: denies: Chest pain Respiratory: See HPI Gastrointestinal: denies: Abdominal pain Genitourinary: No symptoms reported Male Genitourinary: No symptoms reported Musculoskeletal: No symptoms reported Hematologic/Lymphatic: No symptoms reported Neurological/Psychological: See HPI Physical Exam - Vital signs Vitals: Temp Pulse Resp BP Pulse Ox 100.4 F 117 H 18 123/93 H 98 11/21/19 22:39 11/21/19 22:39 11/21/19 22:39 11/21/19 22:39 11/21/19 22:39 - General General appearance: Appears well, Alert In distress: None - HEENT Head: Normocephalic, Atraumatic Extraocular movements intact: Yes Pupils: PERRL Mouth/Lips: Normal Mucous membranes: Moist Pharynx: No: Exudate, Tonsillar hypertrophy, Uvular edema Neck: Normal, Supple - Respiratory Breath sounds: Normal - Cardiovascular Rhythm: Regular Heart sounds: Normal auscultation - Abdominal Tenderness: Nontender - Extremities General upper extremity: Normal inspection General lower extremity: Normal inspection - Neurological Neuro grossly intact: Yes Cognition: Normal Orientation: AAOx4 - Psychological Associated symptoms: Normal affect - Skin Skin Temperature: Warm Course - Re-evaluation Re-evalutation: 24-year-old male with multiple symptoms ongoing for 4 days. On exam he is well- appearing, nontoxic. He had a fever at 100.4, he received Tylenol. Lungs are clear, no gross tonsillar exudates. He does not exhibit any current signs of meningitis. Suspecting viral syndrome. He had a recent negative COVID swab. Strep test was negative. A flu test was ordered. Chest x-ray was without consolidation. He was given symptomatic control with Decadron, guaifenesin and Zofran. Patient was given return precautions and was stable at time of discharge. - Vital Signs Vital signs: Temp Pulse Resp BP Pulse Ox 100.4 F 117 H 18 123/93 H 98 11/21/19 22:39 11/21/19 22:39 11/21/19 22:39 11/21/19 22:39 11/21/19 22:39 - Diagnostic Test Radiology reviewed: Image reviewed, Reports reviewed Discharge - Discharge Clinical Impression: Pharyngitis with viral syndrome Disposition: HOME, SELF-CARE Additional Instructions: Please continue to take ibuprofen and Tylenol for your symptoms. You may also take Mucinex or cough syrup. Be sure to drink plenty of fluids. You received a dose of steroids here which should help the sore throat. Return to the emergency department for any concerning worsening symptoms.
[2019-11-22] MEDS ORDERED: GUAIFENESIN 600 MG TABLET.SA PO ONE (05:27)
[2019-11-22] MEDS ORDERED: DEXAMETHASONE 4 MG TABLET PO ONE (05:27)
[2019-11-22] MEDS ORDERED: ONDANSETRON 4 MG TAB.RAPDIS PO ONE (05:27)
[2019-11-22 06:25] LABS: A TYPE INFLUENZA AG NEGATIVE (NEGATIVE); B INFLUENZA AG NEGATIVE (NEGATIVE)
[2019-11-22 06:47] VITALS: BP 118/57
== END 2019-11-22 06:48 | disposition home or self-care (01) ==
LOC: ER 22:31
DX: J02.9 Acute pharyngitis, unspecified (principal); B34.9 Viral infection, unspecified; R50.9 Fever, unspecified; R05 Cough; R11.0 Nausea; R51.9 Headache, unspecified; J45.909 Unspecified asthma, uncomplicated; F17.200 Nicotine dependence, unspecified, uncomplicated
CPT/HCPCS: 99284; 87070; 87880; 87804; 71045; J8540; S0119

== ENCOUNTER 2019-11-23 01:47 | Emergency (ER) | payer SELFPAY ==
[2019-11-23] MEDS ORDERED: IBUPROFEN 600 MG TABLET PO ONE (08:28)
--- NOTE | 2019-11-23 08:30 | ER Document Report ---
ED General - General Chief Complaint: Chest Pain Stated Complaint: CHEST PAIN Time Seen by Provider: 11/23/19 08:22 Notes: CHIEF COMPLAINT: Chest pain HPI:24-year-old male well-known to this department presenting again with left- sided chest pain that is reproducible in nature. No cough no fever. Patient states he lost taste yesterday. ROS: See HPI - all other systems were reviewed and are otherwise negative Constitutional: no fever Eyes: no drainage, no blurred vision ENT: no runny nose, no sore throat Cardiovascular: Positive chest pain Resp: no SOB, no cough GI: no vomiting, no diarrhea, no abdominal pain : no dysuria Integumentary: no rash Allergy: no hives Musculoskeletal: no extremity pain or swelling Neurological: no numbness/tingling, no weakness MEDICATIONS: I agree with the patient medications as charted by the RN. ALLERGIES: I agree with the allergies as charted by the RN. PAST MEDICAL HISTORY/PAST SURGICAL HISTORY: Reviewed and agree as charted by RN. SOCIAL HISTORY: Reviewed and agree as charted by RN. FAMILY HISTORY: No significant familial comorbid conditions directly related to patient complaint EXAM: Reviewed vital signs as charted by RN. CONSTITUTIONAL: Alert and oriented and responds appropriately to questions. Well-appearing; well-nourished HEAD: Normocephalic; atraumatic EYES: PERRL; Conjunctivae clear, sclerae non-icteric ENT: normal nose; no rhinorrhea; moist mucous membranes; pharynx without lesions noted, no uvula edema or deviation, no tonsillar hypertrophy, phonation normal NECK: Supple without meningismus; non-tender; no cervical lymphadenopathy, no masses CARD: RRR; no murmurs, no clicks, no rubs, no gallops; symmetric distal pulses RESP: Normal chest excursion without splinting or tachypnea; breath sounds clear and equal bilaterally; no wheezes, no rhonchi, no rales, pulse oximetry 97% on room air not hypoxic. Tenderness on palpation of the left chest wall ABD/GI: Normal bowel sounds; non-distended; soft, non-tender, no rebound, no guarding; no palpable organomegaly or masses. BACK: The back appears normal and is non-tender to palpation, there is no CVA tenderness EXT: Normal ROM in all joints; non-tender to palpation; no cyanosis, no effusions, no edema SKIN: Normal color for age and race; warm; dry; good turgor; no acute lesions noted NEURO: Moves all extremities equally; Motor and sensory function intact PSYCH: The patient's mood and manner are appropriate. Grooming and personal hygiene are appropriate. MDM: EKG normal sinus rhythm with a ventricular rate of 98. AL 144, QT 328, QTc 419. No other ectopy. Normal EKG. Interpreted by emergency department physician. 24-year-old male well-known to this department presenting again with chest wall pain. I saw the patient for the exact same complaint 3 to 4 days ago. Patient has had cardiac work-ups here multiple times in the past that have always been negative. No indication for further work-up at this time. Will give patient ibuprofen recommend again to the patient that he take anti- inflammatories at home. Patient had a negative COVID test within the last week. We will not retest the patient at this time advised patient to self quarantine TRAVEL OUTSIDE OF THE [place] IN LAST 30 DAYS: No - Related Data Allergies/Adverse Reactions: No Known Allergies Allergy (Verified 11/17/19 09:22) Past Medical History - Social History Smoking Status: Current Every Day Smoker Family History: Reviewed & Not Pertinent Pulmonary Medical History: Reports: Hx Asthma - Immunizations Immunizations up to date: Yes Hx Diphtheria, Pertussis, Tetanus Vaccination: Yes Physical Exam - Vital signs Vitals: Temp Pulse Resp BP Pulse Ox 98.3 F 98 18 138/86 H 98 11/23/19 02:01 11/23/19 02:01 11/23/19 02:01 11/23/19 02:01 11/23/19 02:01 Course - Vital Signs Vital signs: Temp Pulse Resp BP Pulse Ox 97.8 F 94 18 133/66 H 100 11/23/19 06:55 11/23/19 06:55 11/23/19 02:01 11/23/19 06:55 11/23/19 06:55 Discharge - Discharge Clinical Impression: Chest wall pain, Malingering Condition: Stable Disposition: HOME, SELF-CARE Additional Instructions: Take Motrin or Tylenol as previously discussed on your prior visit when you were seen for the same complaint. Go to the pharmacy to pick this up. Follow-up with the health department for further evaluation and treatment. You had a negative COVID screening test within the last week. Quarantine yourself for the next for 5 days unless you have a definitive fever greater than 101 or productive cough
[2019-11-23 08:44] VITALS: BP 141/90
--- NOTE | 2019-11-23 15:18 | EKG REPORT ---
SEVERITY:- NORMAL ECG - SINUS RHYTHM : Confirmed by: Janneth Hunter MD 23-Nov-2019 15:18:02
== END 2019-11-23 08:43 | disposition home or self-care (01) ==
LOC: ER 01:47
DX: R07.89 Other chest pain (principal); F17.200 Nicotine dependence, unspecified, uncomplicated; Z76.5 Malingerer [conscious simulation]
CPT/HCPCS: 93005; 93010; 99283

== ENCOUNTER 2019-11-25 03:18 | Emergency (ER) | payer SELFPAY ==
--- NOTE | 2019-11-25 07:03 | ER Document Report ---
ED General - General Chief Complaint: Cough Stated Complaint: COUGH Time Seen by Provider: 11/25/19 06:14 Notes: This 24-year-old male presents to the emergency department with a history of sore throat, cough, congestion, nausea and feeling poorly for the past 2 days. He states he had a fever yesterday and the symptoms of cough are nonproductive with no associated chest pain. This is his 28th visit to the emergency department in the past month with the same complaints. He has had a negative cold good test negative chest x-ray and negative strep test within the past week. TRAVEL OUTSIDE OF THE [place] IN LAST 30 DAYS: No - Related Data Allergies/Adverse Reactions: No Known Allergies Allergy (Verified 11/17/19 09:22) Past Medical History - Social History Smoking Status: Current Every Day Smoker Family History: Reviewed & Not Pertinent Pulmonary Medical History: Reports: Hx Asthma - Immunizations Immunizations up to date: Yes Hx Diphtheria, Pertussis, Tetanus Vaccination: Yes Review of Systems - Review of Systems Notes: Constitutional: Negative for fever. HENT: + sore throat. Eyes: Negative for visual changes. Cardiovascular: Negative for chest pain. Respiratory: Negative for shortness of breath. Gastrointestinal: Negative for abdominal pain, vomiting or diarrhea. Genitourinary: Negative for dysuria. Musculoskeletal: Negative for back pain. Skin: Negative for rash. Neurological: Negative for headaches, weakness or numbness. 10 point ROS negative except as marked above and in HPI. Physical Exam - Vital signs Vitals: Temp Pulse Resp BP Pulse Ox 98.8 F 92 18 130/79 H 97 11/25/19 06:36 11/25/19 06:36 11/25/19 06:36 11/25/19 06:36 11/25/19 06:36 - Notes Notes: PHYSICAL EXAMINATION: Physical Exam: General: Well-nourished well-developed in no acute distress HEENT: NC/AT, pupils equal round and reactive to light, MM moist,nares clear, oropharynx clear, airway patent Neck: supple, no adenopathy, no masses. Good range of motion Lungs: clear, no wheezing, no rales no rhonchi CVS: Regular rate and rhythm no murmur gallop or rub Abdomen: Soft, active, nontender, no masses, no hepatosplenomegaly Ext: No edema, clubbing or cyanosis. Neuro: Alert and responsive, moving all 4 extremities on command, cranial nerves intact, no focal findings Skin: Intact no open lesions, no rash PSYCH: Normal mood, normal affect. Course - Vital Signs Vital signs: Temp Pulse Resp BP Pulse Ox 98.8 F 92 18 130/79 H 97 11/25/19 06:36 11/25/19 06:36 11/25/19 06:36 11/25/19 06:36 11/25/19 06:36 Discharge - Discharge Clinical Impression: Homelessness, Poor social situation Condition: Good Disposition: HOME, SELF-CARE Additional Instructions: You are seen in the emergency department for the 29th time in the past month for a myriad of complaints which appear to be unchanging. You may try Tylenol for the pain and discomfort it is important for you to stabilize your social situation in order to feel healthy. HOME CARE INSTRUCTIONS & INFORMATION: Thank you for choosing us for your medical needs. We hope you're satisfied with the care you received. After you leave, you must properly care for your problem and, at the same time, observe its progress. Any condition can change. Some illnesses can change rapidly over hours or days. If your condition worsens, return to the Emergency Department or see your physician promptly. ABOUT YOUR X-RAYS AND EKG'S: If you had an EKG or X-rays taken, they have been read by the Emergency Physician. The X-rays and EKG's will also be read by a Radiologist or Electronic Resources Librarian within 24 hours. If discrepancies are noted, you will be notified by telephone. Please be certain the ED has a correct telephone number & address where you can be reached. Also, realize that some fractures or abnormalities do not show up on initial X-rays. If your symptoms continue, see your physician. ABOUT YOUR LABORATORY TEST: If you had laboratory tests, the results have been reviewed by the Emergency Physician. Some test results (for example cultures) may not be available for several days. You will be contacted if any test result shows you need additional treatment. Please be certain the ED has a correct telephone number and address where you can be reached. ABOUT YOUR MEDICATIONS: You will receive instructions on how to take your medicine on the prescription label you receive. Additional information may be provided by the Pharmacy. If you have questions afterwards, call the ED for clarification or further instructions. Some prescribed medications may cause drowsiness. Do not perform tasks such as driving a car or operating machinery without consulting your Pharmacist. If you feel you need a refill of pain medication, your condition will need re-evaluation. Please do not call for a refill of any medication. ABOUT YOUR SIGNATURE: Signature of this document acknowledges to followin. Understanding that you received emergency treatment and that you may be released before al medical problems are known or treated. Please be certain the ED has a correct phone number & address where you can be reached. 2. Acknowledgement that you will arrange for follow-up care as recommended. 3. Authorization for the Emergency Physician to provide information to your follow-up Physician in order to maximize your care. AT ANY TIME, IF YOUR SYMPTOMS CHANGE SIGNIFICANTLY OR WORSEN OR YOU DEVELOP NEW SYMPTOMS, RETURN TO THE EMERGENCY DEPARTMENT IMMEDIATELY FOR RE-EVALUATION. OUR GOAL IS TO PROVIDE EXCELLENT MEDICAL CARE! WE HOPE THAT WE HAVE MET YOUR EXPECTATIONS DURING YOUR EMERGENCY DEPARTMENT VISIT AND THAT YOU FEEL YOU HAVE RECEIVED EXCELLENT CARE!
[2019-11-25 07:29] VITALS: BP 102/68
== END 2019-11-25 07:29 | disposition home or self-care (01) ==
LOC: ER 03:18
DX: Z59.0 Homelessness (principal); R05 Cough; J02.9 Acute pharyngitis, unspecified; R11.0 Nausea; J45.909 Unspecified asthma, uncomplicated; F17.200 Nicotine dependence, unspecified, uncomplicated
CPT/HCPCS: 99281

== ENCOUNTER 2019-11-28 02:11 | Emergency (ER) | payer SELFPAY ==
--- NOTE | 2019-11-28 04:25 | ER Document Report ---
ED GI/ - General Chief Complaint: Nausea/Vomiting Stated Complaint: NAUSEA/VOMITING/HEADACHE Time Seen by Provider: 11/28/19 03:57 Notes: Patient is a 24-year-old male who comes emergency department for chief complaint of homelessness and abdominal pain. He states he has nausea and abdominal pain chronically, he states frequently this is worse with eating. He points to his mid to right upper abdomen for the location of discomfort. However he denies any current symptoms. He denies chest pain, shortness of breath, fever. He has not had any abdominal surgeries. TRAVEL OUTSIDE OF THE [place] IN LAST 30 DAYS: No - Related Data Allergies/Adverse Reactions: No Known Allergies Allergy (Verified 11/17/19 09:22) Past Medical History - General Information source: Patient - Social History Smoking Status: Never Smoker Frequency of alcohol use: None Drug Abuse: None Lives with: Alone Family History: Reviewed & Not Pertinent Pulmonary Medical History: Reports: Hx Asthma Surgical Hx: Negative - Immunizations Immunizations up to date: Yes Hx Diphtheria, Pertussis, Tetanus Vaccination: Yes Review of Systems - Review of Systems Constitutional: No symptoms reported EENT: No symptoms reported Cardiovascular: No symptoms reported Respiratory: No symptoms reported Gastrointestinal: See HPI Genitourinary: No symptoms reported Male Genitourinary: No symptoms reported Musculoskeletal: No symptoms reported Skin: No symptoms reported Hematologic/Lymphatic: No symptoms reported Neurological/Psychological: No symptoms reported Physical Exam - Vital signs Vitals: Temp Pulse Resp BP Pulse Ox 98.5 F 91 18 149/86 H 97 11/28/19 02:24 11/28/19 02:24 11/28/19 02:24 11/28/19 02:24 11/28/19 02:24 - Notes Notes: GENERAL: Sleeping and easily aroused HEAD: Normocephalic, atraumatic. EYES: Pupils equal, round, and reactive to light. Extraocular movements intact. ENT: Oral mucosa moist, tongue midline. Oropharynx unremarkable. Airway patent. LUNGS: Clear to auscultation bilaterally, no wheezes, rales, or rhonchi. No respiratory distress. Non-tender chest wall. HEART: Regular rate and rhythm. No murmur ABDOMEN: Soft, non-tender. Non-distended. Bowel sounds present in all 4 quadrants. No guarding or distention EXTREMITIES: Moves all 4 extremities spontaneously. No edema, normal radial and dorsalis pedis pulses bilaterally. No cyanosis. BACK: no cervical, thoracic, lumbar midline tenderness. No saddle anesthesia, normal distal neurovascular exam. Moves all extremities in full range of motion. NEUROLOGICAL: Alert and oriented x3. Normal speech. Cranial nerves II through XII grossly intact. Strength 5/5 in all extremities. PSYCH: Normal affect, normal mood. SKIN: Warm, dry, normal turgor. No rashes or lesions noted. Course - Re-evaluation Re-evalutation: Patient sleeping and easily aroused. Soft benign abdomen, clear lungs, unremarkable physical exam. Patient with no signs of distress. Unremarkable vital signs. Patient with the same complaints that he always is here for, I did review system, patient has had recent imaging including ultrasound, CAT scan, he has had laboratory work-up, and based on his lack of current symptoms and a benign exam I have a very low suspicion of acute abdomen. I have also seen patient very many times in this emergency department. I discussed this with patient, discussed return precautions. Patient states understanding and agreement. - Vital Signs Vital signs: Temp Pulse Resp BP Pulse Ox 98.4 F 88 18 139/79 H 98 11/28/19 04:28 11/28/19 04:28 11/28/19 04:28 11/28/19 04:28 11/28/19 04:28 Discharge - Discharge Clinical Impression: Homelessness Abdominal pain Qualifiers: Abdominal location: generalized Qualified Code(s): R10.84 - Generalized abdominal pain Condition: Stable Disposition: HOME, SELF-CARE Additional Instructions: Based on your recent testing, intermittent symptoms, and your evaluation today I do not suspect that you have a surgical or infectious, or other emergent problem. Consider [id number] famotidine for your symptoms, follow-up with primary care for additional management. Return if you worsen including vomiting, severe worsening pain, fever, or any other concerning symptoms.
[2019-11-28 04:30] VITALS: BP 139/79
== END 2019-11-28 04:28 | disposition home or self-care (01) ==
LOC: ER 02:11
DX: R10.84 Generalized abdominal pain (principal); R11.0 Nausea; J45.909 Unspecified asthma, uncomplicated; Z59.0 Homelessness
CPT/HCPCS: 99282

== ENCOUNTER 2019-11-28 23:12 | Emergency (ER) | payer SELFPAY ==
--- NOTE | 2019-11-28 23:48 | ER Document Report ---
ED Medical Screen (RME) - General Chief Complaint: Chest Pain Stated Complaint: CHEST PAIN Time Seen by Provider: 11/28/19 23:41 Mode of Arrival: Ambulatory Information source: Patient Notes: HPI; 24-year-old male seen in the emergency room frequently for multiple complaints presents emergency room today complaining of midsternal constant chest pain for the past 2 days. However he was here earlier today and did not tell the provider he was having chest pain. Has not taken any medications for his symptoms. Denies any trauma or injury. No shortness of breath, no difficulty breathing. PE: Alert and oriented x3. Lungs: Clear to auscultation without rales, rhonchi, wheezes. Heart: Regular rate rhythm without murmurs, rubs, gallops. I have greeted and performed a rapid initial assessment of this patient. A comprehensive ED assessment and evaluation of the patient, analysis of test results and completion of the medical decision making process will be conducted by additional ED providers. I have specifically instructed the patient or family members with the patient to immediately return to any nursing staff should anything change in the patient's condition or with their chief complaint. TRAVEL OUTSIDE OF THE [place] IN LAST 30 DAYS: No - Related Data Allergies/Adverse Reactions: No Known Allergies Allergy (Verified 11/17/19 09:22) Past Medical History - Social History Family history: Reviewed & Not Pertinent Pulmonary Medical History: Reports: Hx Asthma - Immunizations Immunizations up to date: Yes Hx Diphtheria, Pertussis, Tetanus Vaccination: Yes Physical Exam - Vital signs Vitals: Temp Pulse Resp BP Pulse Ox 98.2 F 97 20 146/76 H 95 11/28/19 23:37 11/28/19 23:37 11/28/19 23:37 11/28/19 23:37 11/28/19 23:37 Course - Vital Signs Vital signs: Temp Pulse Resp BP Pulse Ox 98.2 F 97 20 146/76 H 95 11/28/19 23:37 11/28/19 23:37 11/28/19 23:37 11/28/19 23:37 11/28/19 23:37
[2019-11-29 02:44] LABS: ABSOLUTE BASOPHILS # (AUTO) 0.1 10^3/uL (0.0-0.2); ABSOLUTE EOSINOPHILS # (AUTO) 0.2 10^3/uL (0.0-0.6); ABSOLUTE MONOCYTES (AUTO) 0.5 10^3/uL (0.1-1.4); ABSOLUTE NEUT (AUTO) 3.3 10^3/uL (1.7-8.2); BASOPHILS % (AUTO) 0.9 % (0-2); EOSINOPHILS % (AUTO) 3.5 % (0-6); HEMATOCRIT 43.4 % (37.9-51.0); HEMOGLOBIN 14.7 g/dL (13.5-17.0); LYMPHOCYTES % (AUTO) 42.7 % (13-45); MEAN CORPUSCULAR HEMOGLOBIN 27.8 pg (27.0-33.4); MEAN CORPUSCULAR HGB CONC 33.9 g/dL (32.0-36.0); MEAN CORPUSCULAR VOLUME 82 fl (80-97); MONOCYTES % (AUTO) 6.6 % (3-13); PLATELET COUNT 263 10^3/uL (150-450); RED BLOOD COUNT 5.28 10^6/uL (4.35-5.55); RED CELL DISTRIBUTION WIDTH 13.9 % (11.5-14.0); SEGMENTED NEUTROPHILS % (AUTO) 46.3 % (42-78); TOTAL CELLS COUNTED % (AUTO) 100 %
[2019-11-29 02:55] LABS: ALBUMIN 4.4 g/dL (3.5-5.0); ALKALINE PHOSPHATASE 57 U/L (38-126); ANION GAP 13 (5-19); ASPARTATE AMINO TRANSFERASE 34 U/L (17-59); BILIRUBIN,DIRECT 0.3 mg/dL (0.0-0.4); BILIRUBIN,TOTAL 0.5 mg/dL (0.2-1.3); BLOOD UREA NITROGEN 16 mg/dL (7-20); CALCIUM 10.5 mg/dL (8.4-10.2); CARBON DIOXIDE 22 mmol/L (22-30); CHLORIDE 105 mmol/L (98-107); CREATINE KINASE 725 U/L (55-170); GLUCOSE 101 mg/dL (75-110); POTASSIUM 4.5 mmol/L (3.6-5.0)
[2019-11-29 03:07] LABS: CREATINE KINASE MB 3.79 ng/mL (<4.55)
[2019-11-29 03:08] LABS: TROPONIN I < 0.012 ng/mL
[2019-11-29 09:32] VITALS: BP 154/78
--- NOTE | 2019-11-29 09:37 | ER Document Report ---
HPI - HPI Time Seen by Provider: 11/28/19 23:41 Pain Level: 5 Notes: Otherwise healthy 24-year-old male presents emergency department chief complaint of chest pain and low back pain. Patient reports low back pain started through the night while he has been waiting in the emergency department. He states that chest pain feels like a burning pain that has now resolved but started about 3 days ago. He denies any nausea, vomiting, diarrhea, fever or chills. - ROS Systems Reviewed and Negative: Yes All other systems reviewed and negative - CARDIOVASCULAR Cardiovascular: REPORTS: Chest pain - REPRODUCTIVE Reproductive: DENIES: : - MUSCULOSKELETAL Musculoskeletal: REPORTS: Back Pain Past Medical History - General Information source: Patient - Social History Smoking Status: Former Smoker Frequency of alcohol use: None Drug Abuse: None Family History: Reviewed & Not Pertinent Pulmonary Medical History: Reports: Hx Asthma - Immunizations Immunizations up to date: Yes Hx Diphtheria, Pertussis, Tetanus Vaccination: Yes Vertical Provider Document - CONSTITUTIONAL Notes: PHYSICAL EXAMINATION: GENERAL: Well-appearing, well-nourished and in no acute distress. HEAD: Atraumatic, normocephalic. EYES: Pupils equal round and reactive to light, extraocular movements intact, sclera anicteric, conjunctiva are normal. ENT: Nares patent, oropharynx clear without exudates. Moist mucous membranes. NECK: Normal range of motion, supple without lymphadenopathy LUNGS: Breath sounds clear to auscultation bilaterally and equal. No wheezes rales or rhonchi. HEART: Regular rate and rhythm without murmurs ABDOMEN: Soft, nontender, nondistended abdomen. No guarding, no rebound. No masses appreciated. Musculoskeletal: Normal range of motion, no pitting or edema. No cyanosis. NEUROLOGICAL: Cranial nerves grossly intact. Normal speech, normal gait. Normal sensory, motor exams PSYCH: Normal mood, normal affect. SKIN: Warm, Dry, normal turgor, no rashes or lesions noted. - INFECTION CONTROL TRAVEL OUTSIDE OF THE [place] IN LAST 30 DAYS: No Course - Re-evaluation Re-evalutation: Patient's work-up today has been reassuring. Laboratory studies show a negative troponin. EKG reviewed by me shows a sinus rhythm, rate of 98, normal axis, normal intervals, QTC 424, no ST segment elevations or depressions to suggest ischemia. Patient denies any chest pain. He will be discharged home at this time. - Vital Signs Vital signs: Temp Pulse Resp BP Pulse Ox 98.5 F 90 16 154/78 H 99 11/29/19 09:32 11/29/19 09:32 11/29/19 09:32 11/29/19 09:32 11/29/19 09:32 - Laboratory Result Diagrams: 11/29/19 02:19 11/29/19 02:19 Laboratory results interpreted by me: 11/29/19 02:19 Calcium 10.5 H Creatine Kinase 725 H Discharge - Discharge Clinical Impression: Back pain Qualifiers: Back pain location: low back pain Chronicity: unspecified Back pain laterality: unspecified Sciatica presence: unspecified whether sciatica present Qualified Code(s): M54.5 - Low back pain Chest pain Qualifiers: Chest pain type: unspecified Qualified Code(s): R07.9 - Chest pain, unspecified Condition: Stable Disposition: HOME, SELF-CARE Additional Instructions: Your work-up today was reassuring other than your elevated CK level. Please push fluids. Return if worsening.
--- NOTE | 2019-11-29 19:54 | EKG REPORT ---
SEVERITY:- NORMAL ECG - SINUS RHYTHM : Confirmed by: Ina Min 29-Nov-2019 19:53:40
== END 2019-11-29 09:39 | disposition home or self-care (01) ==
LOC: ER 23:12
DX: R07.9 Chest pain, unspecified (principal); M54.5 Low back pain; J45.909 Unspecified asthma, uncomplicated; Z87.891 Personal history of nicotine dependence
CPT/HCPCS: 36415; 80053; 82550; 82553; 84484; 85025; 93005; 93010; 99284

== ENCOUNTER 2019-11-30 00:15 | Emergency (ER) | payer SELFPAY ==
[2019-11-30] MEDS ORDERED: ONDANSETRON 4 MG TAB.RAPDIS PO ONE (00:28)
[2019-11-30] MEDS ORDERED: ONDANSETRON ODT 4 MG TAB (6 TAB/ER DISP) PO PRN (00:28)
[2019-11-30] MEDS ORDERED: IBUPROFEN 600 MG TABLET PO ONE (00:39)
--- NOTE | 2019-11-30 00:41 | ER Document Report ---
ED Medical Screen (RME) - General Stated Complaint: SORE THROAT ,COUGH Time Seen by Provider: 11/30/19 00:28 Mode of Arrival: Ambulatory Information source: Patient Notes: Patient is a 24-year-old -Citizen Of [place] male coming in today chief complaint of sore throat, nausea, headache, cough, congestion. Patient is here on a nightly basis with similar complaints. He has been worked up a number of times. He has been tested for Covid a number of times. He has had multiple strep screens. He does not have any known chronic medical problems. TRAVEL OUTSIDE OF THE [place] IN LAST 30 DAYS: No - Related Data Allergies/Adverse Reactions: No Known Allergies Allergy (Verified 11/29/19 05:06) Past Medical History - Social History Family history: Reviewed & Not Pertinent Pulmonary Medical History: Reports: Hx Asthma - Immunizations Immunizations up to date: Yes Hx Diphtheria, Pertussis, Tetanus Vaccination: Yes Review of Systems - Review of Systems Notes: Constitutional: No fevers. No chills. EENT: No eye redness. No eye pain. No ear pain. No sore throat. Cardiovascular: No chest pain. No palpitations. Respiratory: +cough. No shortness of breath. No respiratory distress. Gastrointestinal: No abdominal pain. + nausea Genitourinary: Atraumatic. No lesions. No pain. No discharge. Musculoskeletal: Atraumatic. No swelling. No deformities. Skin: No rash or lesions. Lymphatic: No swollen lymph nodes. Neurologic: No headache. No syncope. Psychiatric: No suicidal or homicidal ideation. Physical Exam - Notes Notes: General: Well-developed, well-nourished. In no acute distress. Non-toxic appearing. Cardiac: Well-perfused. Regular rate and rhythm. No murmurs, rubs, or gallops. Pulmonary: No respiratory distress. No cyanosis. Bilateral lung fiels are clear to auscultation. Abdominal: Non-distended. Non-rigid. Bowels sounds are present in all four quadrants. No guarding or rebound. HEENT: Head is atraumatic. Conjunctivae not reddened. No tearing. PERRL. EOMI. Orbits atraumatic. No periorbital swelling or erythema. Oropharynx is without erythema, swelling, or exudates. Neck: Supple. No adenopathy. No meningismus. Dermatologic: Warm with good turgor. No rash. Atraumatic. Chest: Atraumatic. No chest wall tenderness to palpation. Musculoskeletal: Moves all extremities well. No range of motion deficits. no muscular or joint tenderness. No paraspinal muscle tenderness. no midline spinal tenderness or step-off. Genitourinary: Examination deferred Neurologic: No gross neurologic deficits. Psychiatric: Normal mood. Course - Re-evaluation Re-evalutation: 11/30/19 00:38 We will give him some Zofran for nausea and some ibuprofen for his other pain. He does not have any exam findings of any concern. He has been tested multiple times for multiple different things and has always had negative work-ups. Discharge Doctor's Discharge - Discharge Clinical Impression: Viral syndrome, Homelessness Condition: Good Disposition: HOME, SELF-CARE Instructions: Viral Syndrome ([facility]) Additional Instructions: [facility] You will find their information located in your discharge packet
[2019-11-30] MEDS ORDERED: ONDANSETRON 4 MG TAB.RAPDIS ONE (02:49)
[2019-11-30] MEDS ORDERED: IBUPROFEN 600 MG TABLET ONE (02:49)
[2019-11-30 02:53] VITALS: BP 148/74
== END 2019-11-30 02:52 | disposition home or self-care (01) ==
LOC: ER 00:15
DX: B34.9 Viral infection, unspecified (principal); J02.9 Acute pharyngitis, unspecified; Z59.0 Homelessness; R05 Cough; R11.0 Nausea; R51.9 Headache, unspecified; J45.909 Unspecified asthma, uncomplicated
CPT/HCPCS: 99283; S0119

== ENCOUNTER 2019-12-01 06:59 | Emergency (ER) | payer SELFPAY ==
[2019-12-01] MEDS ORDERED: ONDANSETRON 4 MG TAB.RAPDIS PO ONE (10:24)
--- NOTE | 2019-12-01 10:27 | ER Document Report ---
HPI - HPI Patient complains to provider of: Sore throat Time Seen by Provider: 12/01/19 10:01 Onset: This morning Onset/Duration: Gradual Quality of pain: Achy Pain Level: 4 Context: Patient presents complaining of headache sore throat and cough that started today. Patient without any fever. Patient was recently seen for these symptoms and had a negative flu test. Associated Symptoms: Nonproductive cough, Headache, Sore throat. denies: Earache, Fever, Nausea, Vomiting Exacerbated by: Denies Relieved by: Denies Similar symptoms previously: Yes Recently seen / treated by doctor: Yes - ROS ROS below otherwise negative: Yes Systems Reviewed and Negative: Yes All other systems reviewed and negative - CONSTITUTIONAL Constitutional: DENIES: Fever, Chills - EENT EENT: REPORTS: Sore Throat. DENIES: Congestion - NEURO Neurology: REPORTS: Headache - RESPIRATORY Respiratory: REPORTS: Coughing - GASTROINTESTINAL Gastrointestinal: REPORTS: Abdominal Pain - generalized. DENIES: Nausea, Patient vomiting - MUSCULOSKELETAL Musculoskeletal: DENIES: Extremity pain, Back Pain - DERM Skin Color: Normal Skin Problems: None Past Medical History - General Information source: Patient - Social History Smoking Status: Never Smoker Chew tobacco use (# tins/day): No Frequency of alcohol use: None Drug Abuse: None Occupation: none Lives with: Homeless Family History: Reviewed & Not Pertinent Patient has homicidal ideation: No Pulmonary Medical History: Reports: Hx Asthma Surgical Hx: Negative - Immunizations Immunizations up to date: Yes Hx Diphtheria, Pertussis, Tetanus Vaccination: Yes Vertical Provider Document - CONSTITUTIONAL Agree With Documented VS: Yes Exam Limitations: No Limitations General Appearance: WD/WN, No Apparent Distress - INFECTION CONTROL TRAVEL OUTSIDE OF THE [place] IN LAST 30 DAYS: No - HEENT HEENT: Atraumatic, Normocephalic, Pharyngeal Tenderness. negative: Pharyngeal Exudate, Pharyngeal Erythema - NECK Neck: Normal Inspection, Supple. negative: Lymphadenopathy-Left, Lymphadenopathy-Right - RESPIRATORY Respiratory: Breath Sounds Normal, No Respiratory Distress, Chest Non-Tender - CARDIOVASCULAR Cardiovascular: Regular Rate, Regular Rhythm, No Murmur - MUSCULOSKELETAL/EXTREMETIES Musculoskeletal/Extremeties: MAEW - NEURO Level of Consciousness: Awake, Alert, Appropriate Motor/Sensory: No Motor Deficit - DERM Integumentary: Warm, Dry, No Rash Course - Re-evaluation Re-evalutation: 12/01/19 11:38 Patient very well known to the emergency department. Patient with sore throat symptoms and cough that he states started today. Breath sounds clear bilaterally, patient with stable vital signs. Negative rapid strep test, throat culture is pending at this time. Patient was just recently tested for influenza. Patient nontoxic in appearance and stable for discharge at this time. - Vital Signs Vital signs: Temp Pulse Resp BP Pulse Ox 97.6 F 83 16 130/81 H 100 12/01/19 09:23 12/01/19 09:23 12/01/19 09:23 12/01/19 09:23 12/01/19 09:23 - Laboratory Laboratory results interpreted by md: 12/01/19 11:38 Labs- All tests 24 hr 12/01/19 10:33 Group A Strep Rapid NEGATIVE Discharge - Discharge Clinical Impression: Homelessness, Sore throat Upper respiratory infection Qualifiers: URI type: unspecified URI Qualified Code(s): J06.9 - Acute upper respiratory infection, unspecified Condition: Stable Disposition: HOME, SELF-CARE Instructions: Sore Throat ([facility]), Upper Respiratory Illness ([facility]) Additional Instructions: Return immediately for any new or worsening symptoms Followup with your primary care provider, call tomorrow to make a followup appointment Throat culture is pending, we will call if you need any different treatment Referrals: [facility] [Provider Group] - Follow up as needed [facility] [Provider Group] - Follow up as needed
[2019-12-01 12:30] VITALS: BP 111/61
== END 2019-12-01 12:29 | disposition home or self-care (01) ==
LOC: ER 06:59
DX: J06.9 Acute upper respiratory infection, unspecified (principal); J02.9 Acute pharyngitis, unspecified; R05 Cough; R51.9 Headache, unspecified; R10.84 Generalized abdominal pain; J45.909 Unspecified asthma, uncomplicated; Z59.0 Homelessness
CPT/HCPCS: 99283; 87070; 87880; S0119

== ENCOUNTER 2019-12-02 01:18 | Emergency (ER) | payer SELFPAY ==
--- NOTE | 2019-12-02 03:40 | ER Document Report ---
HPI - HPI Time Seen by Provider: 12/02/19 02:52 Pain Level: 3 Notes: Otherwise healthy 24-year-old male presented to the emergency department generalized malaise, sore throat, body aches for the last 3 to 4 days. He denies any fever or chills. He reports no shortness of breath. He has been to the emergency department every day for the last few days. He is homeless. - ROS Systems Reviewed and Negative: Yes All other systems reviewed and negative - CONSTITUTIONAL Constitutional: REPORTS: Fever, Chills - EENT EENT: REPORTS: Sore Throat. DENIES: Ear Pain, Eye problems - NEURO Neurology: REPORTS: Headache, Weakness. DENIES: Vision blurred, Dizzinesss / Vertigo - CARDIOVASCULAR Cardiovascular: REPORTS: Chest pain - RESPIRATORY Respiratory: REPORTS: Trouble Breathing, Coughing - GASTROINTESTINAL Gastrointestinal: REPORTS: Abdominal Pain. DENIES: Black / Bloody Stools - URINARY Urinary: DENIES: Dysuria, Urgency, Frequency - REPRODUCTIVE Reproductive: DENIES: : Past Medical History - General Information source: Patient - Social History Smoking Status: Current Every Day Smoker Chew tobacco use (# tins/day): No Frequency of alcohol use: None Drug Abuse: None Family History: Reviewed & Not Pertinent Pulmonary Medical History: Reports: Hx Asthma Surgical Hx: Negative - Immunizations Immunizations up to date: Yes Hx Diphtheria, Pertussis, Tetanus Vaccination: Yes Vertical Provider Document - CONSTITUTIONAL Notes: PHYSICAL EXAMINATION: GENERAL: Well-appearing, well-nourished and in no acute distress. HEAD: Atraumatic, normocephalic. EYES: Pupils equal round extraocular movements intact, conjunctiva are normal. ENT: Nares patent NECK: Normal range of motion LUNGS: No respiratory distress, lung sounds clear and equal bilaterally. Musculoskeletal: Normal range of motion NEUROLOGICAL: Normal speech, normal gait. PSYCH: Normal mood, normal affect. SKIN: Warm, Dry, normal turgor, no rashes or lesions noted. - INFECTION CONTROL TRAVEL OUTSIDE OF THE [place] IN LAST 30 DAYS: No Course - Re-evaluation Re-evalutation: Patient appears well, nontoxic, vital signs within normal limits. Patient has had a negative work-up 2 days ago. He has no focal findings on exam today. He will be discharged home at this time. - Vital Signs Vital signs: Temp Pulse Resp BP Pulse Ox 98.3 F 86 18 119/63 100 12/02/19 02:35 12/02/19 02:35 12/02/19 02:35 12/02/19 02:35 12/02/19 02:35 Discharge - Discharge Clinical Impression: Worried well Condition: Stable Disposition: HOME, SELF-CARE Additional Instructions: Your exam and vital signs today were reassuring. Please return if any new or worsening symptoms.
[2019-12-02 04:26] VITALS: BP 125/72
== END 2019-12-02 04:24 | disposition home or self-care (01) ==
LOC: ER 01:18
DX: Z71.1 Person with feared health complaint in whom no diagnosis is made (principal); J02.9 Acute pharyngitis, unspecified; R53.81 Other malaise; R50.9 Fever, unspecified; R51.9 Headache, unspecified; F17.210 Nicotine dependence, cigarettes, uncomplicated
CPT/HCPCS: 99281

== ENCOUNTER 2019-12-10 02:38 | Emergency (ER) | payer SELFPAY ==
--- NOTE | 2019-12-10 05:32 | ER Document Report ---
ED General - General Chief Complaint: Nausea/Vomiting/Diarrhea Stated Complaint: LOSS OF TASTE/SMELL CONGESTION/NAUSEA/DIARRHEA Notes: 24-year-old male history of homelessness presents with no complaints to ED. Chief complaint says nausea vomiting diarrhea loss of taste/smell, but when I asked patient he says he has no complaints. Says his feet hurt when he walks a lot, but refuses to allow me to look at them and says they do not hurt currently. I asked patient if there is anything at all that I can do for him in the emergency department and he says "no, I'm good" TRAVEL OUTSIDE OF THE [place] IN LAST 30 DAYS: No - Related Data Allergies/Adverse Reactions: No Known Allergies Allergy (Verified 12/01/19 08:07) Past Medical History - General Information source: Patient - Social History Smoking Status: Current Every Day Smoker Chew tobacco use (# tins/day): No Frequency of alcohol use: None Drug Abuse: None Family History: Reviewed & Not Pertinent Pulmonary Medical History: Reports: Hx Asthma - Immunizations Immunizations up to date: Yes Hx Diphtheria, Pertussis, Tetanus Vaccination: Yes Review of Systems - Review of Systems Notes: REVIEW OF SYSTEMS: CONSTITUTIONAL : Denies fever, chills, or sweats. EENT: Denies recent cold/sinus symptoms, denies throat pain CARDIOVASCULAR: Denies chest pain, OTILIA RESPIRATORY: Denies cough, denies shortness of breath. GASTROINTESTINAL: Denies abdominal pain, nausea/vomiting. GENITOURINARY: Denies difficulty urinating, painful urination. MUSCULOSKELETAL: Denies neck pain, back pain. SKIN: Denies rash or skin lesions. HEMATOLOGIC : Denies easy bruising or bleeding. LYMPHATIC: Denies swollen, enlarged glands. NEUROLOGICAL: Denies headache, denies change in gait. PSYCHIATRIC: Denies anxiety or stress or depression. Physical Exam - Vital signs Vitals: Temp Pulse Resp BP Pulse Ox 98.9 F 88 18 135/80 H 100 12/10/19 03:23 12/10/19 03:23 12/10/19 03:23 12/10/19 03:23 12/10/19 03:23 - Notes Notes: PHYSICAL EXAMINATION: GENERAL: Comfortable appearing young adult male snoring loudly on exam stretcher but easily arousable to voice and then alert without any visible signs of discomfort HEAD: Atraumatic, normocephalic. EYES: Pupils equal round and appropriate constriction, sclera anicteric, conjunctiva are normal. ENT: nares patent, moist mucous membranes. NECK: Normal range of motion, no JVD LUNGS: Normal respiratory rate and effort, speaking in full sentences HEART: Regular rate, no lower extremity edema EXTREMITIES: Normal range of motion, no pitting or edema. NEUROLOGICAL: Alert, conversing appropriately, moves all extremities spontaneously. PSYCH: Normal mood, normal affect. SKIN: Warm, Dry, normal turgor, no rashes or lesions noted. Course - Re-evaluation Re-evalutation: 12/10/19 05:32 Patient with Covid symptoms in triage but denying them at time of exam, denying any medical complaints, refusing exam. Normal vital signs, Covid test ordered, no indication for further medical evaluation, ready for discharge with PCP liudmila w-felecia. Given return to ED precautions which she demonstrated understanding of. - Vital Signs Vital signs: Temp Pulse Resp BP Pulse Ox 98.9 F 88 18 135/80 H 100 12/10/19 03:23 12/10/19 03:23 12/10/19 03:23 12/10/19 03:23 12/10/19 03:23 Discharge - Discharge Clinical Impression: Sleepiness Disposition: HOME, SELF-CARE Additional Instructions: Follow-up with the primary doctor within 1 week. Return to ED if you develop any vomiting that is uncontrolled, chest pain, trouble breathing, dizziness, fainting, or any other worrying or alarming symptoms.
[2019-12-10 05:47] VITALS: BP 132/87
== END 2019-12-10 05:51 | disposition home or self-care (01) ==
LOC: ER 02:38
DX: G47.10 Hypersomnia, unspecified (principal); R11.2 Nausea with vomiting, unspecified; R19.7 Diarrhea, unspecified; R43.8 Other disturbances of smell and taste; R09.81 Nasal congestion; F17.200 Nicotine dependence, unspecified, uncomplicated; J45.909 Unspecified asthma, uncomplicated; Z20.828 Contact with and (suspected) exposure to other viral communicable diseases
CPT/HCPCS: 99283; 87635; C9803

== ENCOUNTER 2019-12-12 01:50 | Emergency (ER) | payer SELFPAY ==
--- NOTE | 2019-12-12 03:54 | ER Document Report ---
HPI - HPI Time Seen by Provider: 12/12/19 03:20 Pain Level: 4 Context: Patient is a 24-year-old male that comes the emergency department for chief complaint of possibly having COVID-19. He states he was tested within the past 2 days for symptoms including cough, shortness of breath, loss of taste and smell, nausea, body aches. However when I asked him at this time patient denies that he has any complaints. Patient has a known history of homelessness. Patient denies any change since he was last evaluated. - REPRODUCTIVE Reproductive: DENIES: : Past Medical History - General Information source: Patient - Social History Smoking Status: Never Smoker Frequency of alcohol use: None Drug Abuse: None Lives with: Homeless Family History: Reviewed & Not Pertinent Pulmonary Medical History: Reports: Hx Asthma - Immunizations Immunizations up to date: Yes Hx Diphtheria, Pertussis, Tetanus Vaccination: Yes Vertical Provider Document - CONSTITUTIONAL General Appearance: WD/WN, No Apparent Distress - INFECTION CONTROL TRAVEL OUTSIDE OF THE [place] IN LAST 30 DAYS: No - HEENT HEENT: Atraumatic, Normocephalic - NECK Neck: Normal Inspection - RESPIRATORY Respiratory: Breath Sounds Normal, No Respiratory Distress, Chest Non-Tender. negative: Wheezing - CARDIOVASCULAR Cardiovascular: Regular Rate, Regular Rhythm. negative: Tachycardia - GI/ABDOMEN Gastrointestinal: Abdomen Soft, Abdomen Non-Tender - BACK Back: Normal Inspection - MUSCULOSKELETAL/EXTREMETIES Musculoskeletal/Extremeties: MAEW, FROM, Non-Tender - NEURO Level of Consciousness: Awake, Alert, Appropriate Motor/Sensory: No Motor Deficit, No Sensory Deficit - DERM Integumentary: Warm, Dry, No Rash Course - Re-evaluation Re-evalutation: Patient sleeping, easily aroused, better kept than usual. I am familiar with this patient and have seen him multiple times in the emergency department. Vital signs unremarkable, physical exam unremarkable, lungs clear, patient speaks easily, has no current complaints. Stable for discharge. - Vital Signs Vital signs: Temp Pulse Resp BP Pulse Ox 98.1 F 84 18 147/65 H 98 12/12/19 02:20 12/12/19 02:20 12/12/19 02:20 12/12/19 02:20 12/12/19 02:20 Discharge - Discharge Clinical Impression: Person under investigation for COVID-19 Condition: Stable Disposition: HOME, SELF-CARE Additional Instructions: Your test is still pending, you will be contacted with the results, quarantine while you await these. See additional details below. Return for any concerning symptoms including spiking fevers, difficulty breathing, or any other concerning or worsening symptoms. As a person under investigation for COVID-19, the [facility] (division on public health) advises you to adhere to the following guidance until your test results are reported to you. If your test result is positive, you will receive additional information from your provider and your local health department at that time. Remain at home until you are cleared by the health provider or public health authorities. Keep a log of visitors to your home, notify any visitors to your home of your isolation status. If you plan to move to a new address or leave the [facility], notify the local health department in your County. Call your Doctor or seek care if you have an urgent medical need. Before seeking medical care, call him to get instructions from the provider before arriving at the medical office, clinic, or hospital. Notify them that you are being tested for the virus (COVID-19) so that arrangements can be made, as necessary, to prevent transmission to others in the healthcare setting. Next, notify the local health department in your [facility]. If a medical emergency arises and you need to call 911, inform the first responders that you are being tested for the virus that causes COVID-19. Next, notify the local health department in your county.
[2019-12-12 04:05] VITALS: BP 139/67
== END 2019-12-12 04:00 | disposition home or self-care (01) ==
LOC: ER 01:50
DX: R05 Cough (principal); R06.02 Shortness of breath; R43.8 Other disturbances of smell and taste; R11.0 Nausea; M79.10 Myalgia, unspecified site; Z20.828 Contact with and (suspected) exposure to other viral communicable diseases; Z59.0 Homelessness; J45.909 Unspecified asthma, uncomplicated
CPT/HCPCS: 99282

== ENCOUNTER 2019-12-13 23:09 | Emergency (ER) | payer SELFPAY ==
--- NOTE | 2019-12-13 23:37 | ER Document Report ---
ED Medical Screen (RME) - General Chief Complaint: Sore Throat Stated Complaint: SORE THROAT,COUGH,NAUSEA Notes: Patient is a 24-year-old -[place] male who is well-known to this department who presents the emergency department with a chief complaint of cough and chest pain and some difficulty breathing that began earlier this evening. Denies any known sick contacts or recent travel. Denies any fever chills or night sweats. No nausea vomiting or diarrhea. No abdominal pain. No headaches. No other pain, complaints or concerns at this time. TRAVEL OUTSIDE OF THE [place] IN LAST 30 DAYS: No - Related Data Allergies/Adverse Reactions: No Known Allergies Allergy (Verified 12/13/19 23:31) Past Medical History - Social History Family history: Reviewed & Not Pertinent Pulmonary Medical History: Reports: Hx Asthma - Immunizations Immunizations up to date: Yes Hx Diphtheria, Pertussis, Tetanus Vaccination: Yes Physical Exam - Vital signs Vitals: Temp Pulse Resp BP Pulse Ox 98.5 F 106 H 18 145/74 H 97 12/13/19 23:15 12/13/19 23:15 12/13/19 23:15 12/13/19 23:15 12/13/19 23:15 Course - Vital Signs Vital signs: Temp Pulse Resp BP Pulse Ox 98.5 F 106 H 18 145/74 H 97 12/13/19 23:15 12/13/19 23:15 12/13/19 23:15 12/13/19 23:15 12/13/19 23:15
--- NOTE | 2019-12-14 00:19 | RADIOLOGY REPORT (SQ) ---
EXAM DESCRIPTION: XR CHEST 1 VIEW COMPLETED DATE/TME: 12/13/2019 23:36 CLINICAL HISTORY: 24 years, Male, cough, cp COMPARISON: 11/22/2019 chest NUMBER OF VIEWS: 1 TECHNIQUE: Portable chest LIMITATIONS: None. FINDINGS: The heart size is normal. Lungs clear. No pneumothorax IMPRESSION: Negative chest copyright 2011 [employer]- All Rights Reserved
[2019-12-14 03:30] VITALS: BP 136/72
--- NOTE | 2019-12-14 06:18 | ER Document Report ---
ED General - General Chief Complaint: Sore Throat Stated Complaint: SORE THROAT,COUGH,NAUSEA Time Seen by Provider: 12/14/19 06:17 Notes: 24-year-old male homeless presents with chest congestion cough and sore throat. Is been going on intermittently for several days. Multiple ED visits. Is been sleeping in the waiting room for several hours prior to my evaluation, comfortably per ED staff. He has no fever does not smoke and has no current chest pain. TRAVEL OUTSIDE OF THE [place] IN LAST 30 DAYS: No - Related Data Allergies/Adverse Reactions: No Known Allergies Allergy (Verified 12/13/19 23:31) Past Medical History - General Information source: Patient - Social History Smoking Status: Former Smoker Frequency of alcohol use: None Drug Abuse: None Family History: Reviewed & Not Pertinent Pulmonary Medical History: Reports: Hx Asthma - Immunizations Immunizations up to date: Yes Hx Diphtheria, Pertussis, Tetanus Vaccination: Yes Review of Systems - Review of Systems Notes: REVIEW OF SYSTEMS GEN: Denies fever, chills, weight loss ENT: Sore throat EYES: Denies blurry vision, eye pain, discharge CV: Denies chest pain, palpitations, edema RESP: Cough GI: Denies abdominal pain, nausea, vomiting, diarrhea MSK: Denies joint pain/swelling, edema, SKIN: Denies rash, skin lesions LYMPH: Denies swollen glands/lymph nodes NEURO: Denies headache, focal weakness or numbness, dizziness PSYCH: Denies depression, suicidal or homicidal ideation PHYSICAL EXAMINATION General: No acute distress, well-nourished Head: Atraumatic, normocephalic ENT: Mouth normal, oropharynx moist, no exudates or tonsillar enlargement Eyes: Conjunctiva normal, pupils equal, lids normal Neck: No JVD, supple, no guarding CVS: Normal rate, regular rhythm, no murmurs Resp: No resp distress, equal and normal breath sounds bilaterally GI: Nondistended, soft, no tenderness to palpation, no rebound or guarding Ext: No deformities, no edema, normal range of motion in upper and lower ext Back: No CVA or midline TTP Skin: No rash, warm Lymphatic: No lymphadeopathy noted Neuro: Awake, alert. Face symmetric. GCS 15. Physical Exam - Vital signs Vitals: Temp Pulse Resp BP Pulse Ox 98.5 F 106 H 18 145/74 H 97 12/13/19 23:15 12/13/19 23:15 12/13/19 23:15 12/13/19 23:15 12/13/19 23:15 Course - Re-evaluation Re-evalutation: 12/14/19 06:18 Viral syndrome previous COVID-19 negative vitals normal chest x-ray clear Stable for discharge Does not need antibiotics as far as I can tell I have discussed with the patient there likely diagnosis, aftercare plan, follow-up plans and my usual and customary return precautions. They verbalized understanding of this. - Vital Signs Vital signs: Temp Pulse Resp BP Pulse Ox 98.1 F 82 18 136/72 H 98 12/14/19 03:29 12/14/19 03:29 12/13/19 23:15 12/14/19 03:29 12/14/19 03:29 Discharge - Discharge Clinical Impression: Chest congestion Condition: Good Disposition: HOME, SELF-CARE Instructions: Sore Throat ([facility])
== END 2019-12-14 06:46 | disposition home or self-care (01) ==
LOC: ER 23:09
DX: R09.89 Other specified symptoms and signs involving the circulatory and respiratory systems (principal); J02.9 Acute pharyngitis, unspecified; R05 Cough; R11.0 Nausea; Z59.0 Homelessness
CPT/HCPCS: 71045; 99283

== ENCOUNTER 2019-12-15 01:28 | Emergency (ER) | payer SELFPAY ==
--- NOTE | 2019-12-15 04:42 | ER Document Report ---
ED General - General TRAVEL OUTSIDE OF THE [place] IN LAST 30 DAYS: No - General Chief Complaint: Chest Pain Stated Complaint: SHORTNESS OF BREATH Time Seen by Provider: 12/15/19 04:30 Notes: Patient is a 24-year-old male that comes emergency department for chief complaint of shortness of breath. He states that he is recently had a variety of symptoms and he was recently tested for COVID-19. However on my evaluation he denies any current complaints or any current symptoms. He denies recent fever. Patient has a history of homelessness and he presents to the emergency department approximately daily. He denies smoking, alcohol, recreational drugs. (EVI BASILIO) - Related Data Allergies/Adverse Reactions: No Known Allergies Allergy (Verified 12/15/19 02:32) Past Medical History - General Information source: Patient - Social History Smoking Status: Former Smoker Frequency of alcohol use: None Drug Abuse: None Lives with: Homeless Family History: Reviewed & Not Pertinent Pulmonary Medical History: Reports: Hx Asthma Surgical Hx: Negative - Immunizations Immunizations up to date: Yes Hx Diphtheria, Pertussis, Tetanus Vaccination: Yes Review of Systems - Review of Systems Constitutional: See HPI EENT: No symptoms reported Cardiovascular: No symptoms reported Respiratory: See HPI Gastrointestinal: No symptoms reported Genitourinary: No symptoms reported Male Genitourinary: No symptoms reported Musculoskeletal: No symptoms reported Skin: No symptoms reported Hematologic/Lymphatic: No symptoms reported Neurological/Psychological: No symptoms reported Physical Exam - Vital signs Vitals: Temp Pulse Resp BP Pulse Ox 98.2 F 92 17 149/85 H 97 12/15/19 01:33 12/15/19 01:33 12/15/19 01:33 12/15/19 01:33 12/15/19 01:33 - Notes Notes: GENERAL: Sleeping but easily aroused, no signs of distress, calm and cooperative HEAD: Normocephalic, atraumatic. EYES: Pupils equal, round, and reactive to light. Extraocular movements intact. ENT: Oral mucosa moist, tongue midline. Oropharynx unremarkable. Airway patent. NECK: Full range of motion. Supple. Trachea midline. No lymphadenopathy. LUNGS: Clear to auscultation bilaterally, no wheezes, rales, or rhonchi. No respiratory distress. Non-tender chest wall. HEART: Regular rate and rhythm. No murmur ABDOMEN: Soft, non-tender. Non-distended. EXTREMITIES: Moves all 4 extremities spontaneously. No edema, normal radial and dorsalis pedis pulses bilaterally. No cyanosis. BACK: no cervical, thoracic, lumbar midline tenderness. No saddle anesthesia, normal distal neurovascular exam. Moves all extremities in full range of motion. NEUROLOGICAL: Alert and oriented x3. Normal speech. Cranial nerves II through XII grossly intact. Strength 5/5 in all extremities. PSYCH: Flat affect but otherwise unremarkable SKIN: Warm, dry, normal turgor. No rashes or lesions noted. (EVI BASILIO) Course - Re-evaluation Re-evalutation: Patient sleeping and easily aroused, has no current complaints, vital signs at baseline, physical exam unremarkable, no signs of distress. I had a conversation with patient. He no longer is employed, he is currently homeless, he does not have any plans to change his situation. Dr. Feliz recommended because of patient continuously showing up for a place to stay with his home status that we have case briefer consult placed this morning for evaluation and possible assistance/placement. I asked patient if he was agreeable with this, he states he is very agreeable with this. Consult placed. Based on his evaluation, large variety of recent work-ups, recent negative COVID-19 test, patient is medically cleared pending the case briefer consult. (EVI BASILIO) - Vital Signs Vital signs: Temp Pulse Resp BP Pulse Ox 97.6 F 81 16 116/61 98 12/15/19 05:40 12/15/19 05:40 12/15/19 05:40 12/15/19 05:40 12/15/19 05:40 - EKG Interpretation by Me Additional EKG results interpreted by me: EKG shows sinus rhythm at a rate of 90, QTc 436, normal axis, no T wave invers ions or ST segment changes in consecutive leads (EVI BASILIO) Discharge - Discharge Clinical Impression: Homelessness Condition: Stable Disposition: OTHER Additional Instructions: please go to [facility] as instructed by case management associate Referrals: [facility] [Provider Group] - Follow up as needed
--- NOTE | 2019-12-15 07:12 | EKG REPORT ---
SEVERITY:- NORMAL ECG - SINUS RHYTHM : Confirmed by: Jaden Martinez MD 15-Dec-2019 07:11:33
[2019-12-15 09:48] VITALS: BP 127/56
== END 2019-12-15 09:53 | disposition other institution (70) ==
LOC: ER 01:28
DX: Z59.0 Homelessness (principal); R07.9 Chest pain, unspecified; R06.02 Shortness of breath
CPT/HCPCS: 93005; 93010; 99283

== ENCOUNTER 2019-12-17 04:34 | Emergency (ER) | payer SELFPAY ==
[2019-12-17 04:46] VITALS: BP 141/79
[2019-12-17] MEDS ORDERED: IBUPROFEN 600 MG TABLET PO ONE (05:41)
--- NOTE | 2019-12-17 05:43 | ER Document Report ---
ED General - General Chief Complaint: Headache Stated Complaint: HEADACHE Time Seen by Provider: 12/17/19 05:40 Primary Care Provider: MALI REED MD [HONORARY] - Follow up as needed TRAVEL OUTSIDE OF THE [place] IN LAST 30 DAYS: No - HPI Context: This is a 24-year-old male, well-known to this emergency department, presenting with a chief complaint of headache. Patient has been seen in this ED multiple times in the past for the same chief complaint. Patient's headache usually responds to anti-inflammatory medication. Patient describes his headache as generalized and aching and rates it as a 3 on a scale of 0-5. Patient denies visual changes, nausea, vomiting, shortness of breath, fever, neck pain, chills, chest pain, history of Covid 19 infection, known exposure to other persons positive for COVID-19 or under investigation for COVID-19. Associated symptoms: Other - See HPI Exacerbated by: Other - See HPI Relieved by: Other - See HPI Similar symptoms previously: Yes - Related Data Allergies/Adverse Reactions: No Known Allergies Allergy (Verified 12/15/19 02:32) Past Medical History - General Information source: Patient - Social History Smoking Status: Current Every Day Smoker Family History: Reviewed & Not Pertinent Pulmonary Medical History: Reports: Hx Asthma - Immunizations Immunizations up to date: Yes Hx Diphtheria, Pertussis, Tetanus Vaccination: Yes Review of Systems - Review of Systems Constitutional: No symptoms reported EENT: No symptoms reported Cardiovascular: No symptoms reported Respiratory: No symptoms reported Gastrointestinal: No symptoms reported Genitourinary: No symptoms reported Male Genitourinary: No symptoms reported Musculoskeletal: No symptoms reported Skin: No symptoms reported Hematologic/Lymphatic: No symptoms reported Neurological/Psychological: Headaches -: Yes All other systems reviewed and negative Physical Exam - Vital signs Vitals: Temp Pulse Resp BP Pulse Ox 98.4 F 80 20 141/79 H 100 12/17/19 04:46 12/17/19 04:46 12/17/19 04:46 12/17/19 04:46 12/17/19 04:46 - Notes Notes: CONSTITUTIONAL [Vital signs reviewed, Patient appears comfortable, Alert and oriented X 3, Normal stature.] HEAD [Atraumatic, Normocephalic.] EYES [Eyes are normal to inspection, No discharge from eyes, Extraocular muscles intact, Sclera are normal, Conjunctiva are normal.] NECK [Normal ROM, No jugular venous distention, No meningeal signs, no carotid bruit.] RESPIRATORY CHEST [Chest is nontender, Breath sounds normal, No respiratory distress.] CARDIOVASCULAR [RRR, No murmurs, Normal S1 S2, No rub, No gallop.] ABDOMEN [Abdomen is nontender, No pulsatile masses, No other masses, Bowel sounds normal, No distension, No peritoneal signs, No hernias.] BACK [There is no CVA Tenderness, There is no tenderness to palpation, Normal inspection.] UPPER EXTREMITY [Inspection normal, No cyanosis, No clubbing, No edema, 2+ radial pulses.] LOWER EXTREMITY [Inspection normal, No cyanosis, No clubbing, No edema, No calf tenderness, 2+ femoral pulses.] NEURO [No focal motor deficits, No focal sensory deficits, Speech normal.] SKIN [Skin is warm, Skin is dry, Skin is normal color.] PSYCHIATRIC [Normal affect. ] Course - Re-evaluation Re-evalutation: 12/17/19 05:49 Diagnosis and plan of care discussed with patient. All questions were answered prior to discharge. Emergency signs and symptoms, reasons to return to the emergency department discussed with patient. - Vital Signs Vital signs: Temp Pulse Resp BP Pulse Ox 98.4 F 80 20 141/79 H 100 12/17/19 04:46 12/17/19 04:46 12/17/19 04:46 12/17/19 04:46 12/17/19 04:46 Discharge - Discharge Clinical Impression: Homelessness Headache Qualifiers: Headache type: unspecified Headache chronicity pattern: unspecified pattern Intractability: not intractable Qualified Code(s): R51.9 - Headache, unspecified Condition: Stable Disposition: HOME, SELF-CARE Instructions: Headache ([facility]) Additional Instructions: Return to the Emergency Department without delay if any worse. HOME CARE INSTRUCTIONS & INFORMATION: Thank you for choosing us for your medical needs. We hope you're satisfied with the care you received. After you leave, you must properly care for your problem and, at the same time, observe its progress. Any condition can change. Some illnesses can change rapidly over hours or days. If your condition worsens, return to the Emergency Department or see your physician promptly. ABOUT YOUR X-RAYS AND EKG'S: If you had an EKG or X-rays taken, they have been read by the Emergency Physician. The X-rays and EKG's will also be read by a Radiologist or Wound/Ostomy Clinical Nurse Specialist within 24 hours. If discrepancies are noted, you will be notified by telephone. Please be certain the ED has a correct telephone number & address where you can be reached. Also, realize that some fractures or abnormalities do not show up on initial X-rays. If your symptoms continue, see your physician. ABOUT YOUR LABORATORY TEST: If you had laboratory tests, the results have been reviewed by the Emergency Physician. Some test results (for example cultures) may not be available for several days. You will be contacted if any test result shows you need additional treatment. Please be certain the ED has a correct telephone number and address where you can be reached. ABOUT YOUR MEDICATIONS: You will receive instructions on how to take your medicine on the prescription label you receive. Additional information may be provided by the Pharmacy. If you have questions afterwards, call the ED for c larification or further instructions. Some prescribed medications may cause drowsiness. Do not perform tasks such as driving a car or operating machinery without consulting your Pharmacist. If you feel you need a refill of pain medication, your condition will need re-evaluation. Please do not call for a refill of any medication. ABOUT YOUR SIGNATURE: Signature of this document acknowledges to followin. Understanding that you received emergency treatment and that you may be released before al medical problems are known or treated. Please be certain the ED has a correct phone number & address where you can be reached. 2. Acknowledgement that you will arrange for follow-up care as recommended. 3. Authorization for the Emergency Physician to provide information to your follow-up Physician in order to maximize your care. AT ANY TIME, IF YOUR SYMPTOMS CHANGE SIGNIFICANTLY OR WORSEN OR YOU DEVELOP NEW SYMPTOMS, RETURN TO THE EMERGENCY DEPARTMENT IMMEDIATELY FOR RE-EVALUATION. OUR GOAL IS TO PROVIDE EXCELLENT MEDICAL CARE! WE HOPE THAT WE HAVE MET YOUR EXPECTATIONS DURING YOUR EMERGENCY DEPARTMENT VISIT AND THAT YOU FEEL YOU HAVE RECEIVED EXCELLENT CARE! Referrals: MALI REED MD [HONORARY] - Follow up as needed
== END 2019-12-17 05:50 | disposition home or self-care (01) ==
LOC: ER 04:34
DX: R51.9 Headache, unspecified (principal); J45.909 Unspecified asthma, uncomplicated; F17.200 Nicotine dependence, unspecified, uncomplicated; Z59.0 Homelessness
CPT/HCPCS: 99282

== ENCOUNTER 2019-12-18 23:40 | Emergency (ER) | payer SELFPAY ==
[2019-12-19] MEDS ORDERED: ONDANSETRON ODT 4 MG TAB (6 TAB/ER DISP) PO PRN (00:50)
--- NOTE | 2019-12-19 00:51 | ER Document Report ---
HPI - HPI Time Seen by Provider: 12/19/19 00:33 Pain Level: 4 Notes: 24-year-old male patient presents the emergency department with multiple complaints today. Patient reports nausea, cough, and congestion. He reports symptoms ongoing for the last few weeks. He denies any fever or chills. He has been seen in this emergency department several times with similar symptoms. - ROS Systems Reviewed and Negative: Yes All other systems reviewed and negative - CONSTITUTIONAL Constitutional: DENIES: Fever, Chills - EENT EENT: REPORTS: Sore Throat. DENIES: Ear Pain, Eye problems - NEURO Neurology: REPORTS: Headache. DENIES: Weakness, Vision blurred, Dizzinesss / Vertigo - CARDIOVASCULAR Cardiovascular: DENIES: Chest pain - RESPIRATORY Respiratory: DENIES: Trouble Breathing, Coughing - GASTROINTESTINAL Gastrointestinal: DENIES: Abdominal Pain, Black / Bloody Stools - URINARY Urinary: DENIES: Dysuria, Urgency, Frequency - REPRODUCTIVE Reproductive: DENIES: : - MUSCULOSKELETAL Musculoskeletal: DENIES: Extremity pain Past Medical History - General Information source: Patient - Social History Smoking Status: Current Every Day Smoker Chew tobacco use (# tins/day): No Frequency of alcohol use: None Drug Abuse: None Family History: Reviewed & Not Pertinent Patient has homicidal ideation: No Pulmonary Medical History: Reports: Hx Asthma - Immunizations Immunizations up to date: Yes Hx Diphtheria, Pertussis, Tetanus Vaccination: Yes Vertical Provider Document - CONSTITUTIONAL Notes: PHYSICAL EXAMINATION: GENERAL: Well-appearing, well-nourished and in no acute distress. HEAD: Atraumatic, normocephalic. EYES: Pupils equal round extraocular movements intact, conjunctiva are normal. ENT: Nares patent, oropharynx nonerythematous, no tonsillar swelling or exudates. NECK: Normal range of motion, no cervical lymphadenopathy. LUNGS: No respiratory distress, lung sounds clear and equal bilaterally. Abdomen: Abdomen soft, nontender. Musculoskeletal: Normal range of motion NEUROLOGICAL: Normal speech, normal gait. PSYCH: Normal mood, normal affect. SKIN: Warm, Dry, normal turgor, no rashes or lesions noted. - INFECTION CONTROL TRAVEL OUTSIDE OF THE [place] IN LAST 30 DAYS: No Course - Re-evaluation Re-evalutation: Patient appears well, nontoxic, vital signs reviewed and are within normal limits. Patient will be dispensed a Zofran take-home pack. He will be discharged at this time. ED return precautions discussed, patient verbalized understanding and agreement with same. - Vital Signs Vital signs: Temp Pulse Resp BP Pulse Ox 98.1 F 12/19/19 00:09 Discharge - Discharge Clinical Impression: Viral illness Nausea and vomiting Qualifiers: Vomiting type: unspecified Vomiting Intractability: unspecified Qualified Code(s): R11.2 - Nausea with vomiting, unspecified Condition: Stable Disposition: HOME, SELF-CARE Instructions: Viral Syndrome ([facility]), Vomiting ([facility]) Referrals: [facility] [Provider Group] - Follow up as needed
[2019-12-19 01:01] VITALS: BP 145/64
== END 2019-12-19 01:00 | disposition home or self-care (01) ==
LOC: ER 23:40
DX: B34.9 Viral infection, unspecified (principal); R11.2 Nausea with vomiting, unspecified; R05 Cough; J02.9 Acute pharyngitis, unspecified; R51.9 Headache, unspecified; F17.200 Nicotine dependence, unspecified, uncomplicated
CPT/HCPCS: 99283

== ENCOUNTER 2019-12-22 23:45 | Emergency (ER) | payer SELFPAY ==
[2019-12-23] MEDS ORDERED: IBUPROFEN 600 MG TABLET PO ONE (04:33)
--- NOTE | 2019-12-23 05:42 | RADIOLOGY REPORT (SQ) ---
CHEST X-RAY 1 VIEW on 12/23/2019 at 5:15 AM CLINICAL INDICATION: Trauma, chest pain COMPARISON: 12/14/2019 FINDINGS: The lungs are clear. Cardiac, hilar and mediastinal contours are within normal limits. Pulmonary vascularity is within normal limits. No bony abnormality is noted. IMPRESSION: No active disease.
--- NOTE | 2019-12-23 05:58 | ER Document Report ---
ED General - General Chief Complaint: Head Injury Stated Complaint: HEADACHE DIFFICULTY BREATHING Notes: 24-year-old male no significant past medical history presents with diffuse global headache similar to numerous headaches he has had in the past intermittently for the past 2 days. Patient says that several days ago he he fell and hit his head. Patient denies any LOC, vomiting, memory loss, change in vision/speech/gait, weakness or numbness, fever, neck pain or stiffness, anticoagulation, bleeding diatheses. Patient says that he also hit his chest when he fell and has had soreness in his upper central chest since he made contact with the ground. Patient denies any exertional chest pain, cardiac history, pleuritic chest pain, shortness of breath, cough, injury elsewhere TRAVEL OUTSIDE OF THE [place] IN LAST 30 DAYS: No - Related Data Allergies/Adverse Reactions: No Known Allergies Allergy (Verified 12/15/19 02:32) Past Medical History - General Information source: Patient, [facility] Records - Social History Smoking Status: Current Every Day Smoker Frequency of alcohol use: None Drug Abuse: None Family History: Reviewed & Not Pertinent Patient has homicidal ideation: No Pulmonary Medical History: Reports: Hx Asthma - Immunizations Immunizations up to date: Yes Hx Diphtheria, Pertussis, Tetanus Vaccination: Yes Review of Systems - Review of Systems Notes: REVIEW OF SYSTEMS: CONSTITUTIONAL : Denies fever, chills, or sweats. EENT: Denies recent cold/sinus symptoms, denies throat pain CARDIOVASCULAR: + chest pain, -OTILIA RESPIRATORY: Denies cough, denies shortness of breath. GASTROINTESTINAL: Denies abdominal pain, nausea/vomiting. GENITOURINARY: Denies difficulty urinating, painful urination. MUSCULOSKELETAL: Denies neck pain, back pain. SKIN: Denies rash or skin lesions. HEMATOLOGIC : Denies easy bruising or bleeding. LYMPHATIC: Denies swollen, enlarged glands. NEUROLOGICAL: +headache, denies change in gait. PSYCHIATRIC: Denies anxiety or stress or depression. Physical Exam - Vital signs Vitals: Temp Pulse Resp BP Pulse Ox 97.8 F 109 H 20 140/80 H 99 12/22/19 23:52 12/22/19 23:52 12/22/19 23:52 12/22/19 23:52 12/22/19 23:52 - Notes Notes: PHYSICAL EXAMINATION: GENERAL: Well-appearing young adult male comfortably sleeping in stretcher without any visible signs of discomfort HEAD: Atraumatic, normocephalic. EYES: Pupils equal round and appropriate constriction, sclera anicteric, conjunctiva are normal. ENT: nares patent, moist mucous membranes. NECK: Normal range of motion, supple without lymphadenopathy, no C-spine tenderness or deformity LUNGS: Breath sounds clear to auscultation bilaterally and equal. No wheezes rales or rhonchi. Normal respiratory rate and effort HEART: Regular rate and rhythm without murmurs ABDOMEN: Soft, nontender, no guarding, no masses, no CVAT EXTREMITIES: Normal range of motion, no pitting or edema. No cyanosis. NEUROLOGICAL: Awake, alert, conversing appropriately, moves all extremities spontaneously. Cranial nerves II through XII intact bilaterally, normal [id number] bilaterally, normal sensation and strength in all extremities PSYCH: Normal mood, normal affect. SKIN: Warm, Dry, normal turgor, no rashes or lesions noted. Course - Re-evaluation Re-evalutation: 12/23/19 06:05 Patient with benign headache presentation most minor trauma without any red flags on history and no signs of intracranial hemorrhage on exam, no visible trauma, and patient without any factors putting him at higher risk for hemorrhage. Patient feels improved after ibuprofen. Patient also with reported chest pain during trauma, no signs of ACS or PE and no risk factors predisposing him, obtain chest x-ray to rule out fracture and pneumothorax which was negative. Patient ready for discharge. Given extensive return to ED precaut ions which she demonstrated understanding of. - Vital Signs Vital signs: Temp Pulse Resp BP Pulse Ox 98.4 F 95 18 134/70 H 99 12/23/19 03:29 12/23/19 03:29 12/23/19 03:29 12/23/19 03:29 12/23/19 03:29 Discharge - Discharge Clinical Impression: Chest pain Qualifiers: Chest pain type: unspecified Qualified Code(s): R07.9 - Chest pain, unspecified Headache Qualifiers: Headache type: unspecified Headache chronicity pattern: acute headache Intractability: not intractable Qualified Code(s): R51.9 - Headache, unspecified Disposition: HOME, SELF-CARE Additional Instructions: Chest Pain of Unclear Cause The exact cause of your chest pain isn't clear. Fortunately, there is no evidence of a dangerous medical condition. Further testing may be required to find the source of the pain. Most often, we find that this pain is coming from the chest wall -- the muscles or rib joints in the chest. But chest pain can come from the lung and lung lining, the esophagus, the heart valves or heart lining, and even the stomach or gallbladder. Rest. Eat lightly until the pain is gone. We may prescribe medicine for pain and inflammation. You should call the physician immediately if the pain radiates to the shoulder, jaw or arms; if you start to run a fever or develop a cough; or if you develop shortness of breath, or other new or alarming symptoms. Chest Wall Pain Your chest pain has been diagnosed as coming from the chest wall. This is often caused by straining the muscles or joints in the chest during physical activity, direct trauma, coughing, or vigorous vomiting. Persons with arthritis are especially prone to this type of pain, due to inflammation of the cartilage joints near the breast bone. Occasionally, no cause can be found. Rest from strenuous physical activity. This kind of chest pain is usually made worse by movement of the chest. Depending on the symptoms, we may prescribe medicine for pain, muscle relaxation, and antiinflammatory effects. If the pain is new, and seems to be due to muscle strain, cold packs can help. Otherwise, apply gentle warmth to the painful area for 15 minutes every hour or two. You should contact the doctor immediately if things change. Further evaluation is needed if you develop a fever or cough, if the nature of the pain changes, or if you become short of breath. Headache The physician does not feel that the headache you are experiencing has an immediately underlying cause. Most headaches are due to emotional stress, with resultant muscle tension (tension headache). Occasionally, headaches are secondary to changes in the blood vessels of the scalp (vascular headache and migraine headache). Sometimes, a headache is the first symptom of another developing illness, such as a viral infection. You have no evidence of stroke, bleeding, meningitis, or other serious cause of your headache. The treatment of headaches varies with the severity and cause of the pain. Not all headaches need pain shots. In fact, there is evidence that using narcot ics for headaches may make them worse in the long run. The physician will determine the therapy that's in your best interest. If you develop a fever, if the headache is different from any you've previously experienced, or if the headache progressively worsens, then call your physician at once or go to the emergency room. Follow-up with your primary doctor within 1 week. If you have any worsening symptoms return to the emergency department immediately.
[2019-12-23 06:27] VITALS: BP 123/69
== END 2019-12-23 06:27 | disposition home or self-care (01) ==
LOC: ER 23:45
DX: R07.9 Chest pain, unspecified (principal); R51.9 Headache, unspecified; F17.200 Nicotine dependence, unspecified, uncomplicated
CPT/HCPCS: 71045; 99283

== ENCOUNTER 2019-12-27 01:13 | Emergency (ER) | payer SELFPAY ==
--- NOTE | 2019-12-27 03:19 | ER Document Report ---
ED General - General Chief Complaint: Chest Pain Stated Complaint: CHEST PAIN Time Seen by Provider: 12/27/19 03:14 Mode of Arrival: Ambulatory Information source: Patient Notes: 24-year-old black male patient arrived by walking and he advises now works at [email or web address] and did used to work [employer]. Patient arise with chief complaint of drowsiness. His vital signs are within normal limits. Physically he is mildly obese but otherwise benign. He is alert awake oriented x3. It is supposed to rain today and tomorrow and . He does not have a place to stay. He is well-known to the facility. EKG was within normal limits TRAVEL OUTSIDE OF THE [place] IN LAST 30 DAYS: No - HPI Onset: Just prior to arrival Onset/Duration: Sudden, Persistent Quality of pain: No pain Severity: None Associated symptoms: None Exacerbated by: Denies Relieved by: Denies Similar symptoms previously: Yes Recently seen / treated by doctor: No - Related Data Allergies/Adverse Reactions: No Known Allergies Allergy (Verified 12/15/19 02:32) Past Medical History - General Information source: Patient - Social History Smoking Status: Unknown if Ever Smoked Cigarette use (# per day): No Chew tobacco use (# tins/day): No Smoking Education Provided: No Frequency of alcohol use: Rare Drug Abuse: None Lives with: Homeless Family History: Reviewed & Not Pertinent Patient has suicidal ideation: No Patient has homicidal ideation: No Pulmonary Medical History: Reports: Hx Asthma - Immunizations Immunizations up to date: Yes Hx Diphtheria, Pertussis, Tetanus Vaccination: Yes Review of Systems - Review of Systems Constitutional: No symptoms reported EENT: No symptoms reported Cardiovascular: See HPI, Dizziness Respiratory: No symptoms reported Gastrointestinal: No symptoms reported Genitourinary: No symptoms reported Male Genitourinary: No symptoms reported Musculoskeletal: No symptoms reported Skin: No symptoms reported Hematologic/Lymphatic: No symptoms reported Neurological/Psychological: No symptoms reported -: Yes All other systems reviewed and negative Physical Exam - Vital signs Vitals: Temp Pulse Resp BP Pulse Ox 97.8 F 95 18 142/79 H 100 12/27/19 03:10 12/27/19 03:10 12/27/19 03:10 12/27/19 03:10 12/27/19 03:10 Interpretation: Normal - General General appearance: Appears well, Alert - HEENT Head: Normocephalic, Atraumatic Eyes: Normal Pupils: PERRL - Respiratory Respiratory status: No respiratory distress Chest status: Nontender Breath sounds: Normal Chest palpation: Normal - Cardiovascular Rhythm: Regular Heart sounds: Normal auscultation Murmur: No - Abdominal Inspection: Normal Distension: No distension Bowel sounds: Normal Tenderness: Nontender Organomegaly: No organomegaly - Rectal Prostate: Other - deferred - Genitourinary Scrotum: Other - deferred - Back Back: Normal, Nontender - Extremities General upper extremity: Normal inspection, Nontender, Normal color, Normal ROM, Normal temperature General lower extremity: Normal inspection, Nontender, Normal color, Normal ROM, Normal temperature, Normal weight bearing. No: Dotty's sign - Neurological Neuro grossly intact: Yes Cognition: Normal Orientation: AAOx4 Plush Coma Scale Eye Opening: Spontaneous Plush Coma Scale Verbal: Oriented Lucy Coma Scale Motor: Obeys Commands Plush Coma Scale Total: 15 Speech: Normal Motor strength normal: LUE, RUE, LLE, RLE Sensory: Normal - Psychological Associated symptoms: Normal affect, Normal mood - Skin Skin Temperature: Warm Skin Moisture: Dry Skin Color: Normal Course - Vital Signs Vital signs: Temp Pulse Resp BP Pulse Ox 97.8 F 95 18 142/79 H 100 12/27/19 03:10 12/27/19 03:10 12/27/19 03:10 12/27/19 03:10 12/27/19 03:10 Discharge - Discharge Clinical Impression: Drowsiness, Homelessness Condition: Stable Disposition: HOME, SELF-CARE Additional Instructions: Follow-up with personal doctor this week return to ER as needed. Encourage fluids. May want to try to find a group home for homeless this week because it will be raining/70% chance for rain by weather report.
[2019-12-27 06:26] VITALS: BP 144/72
--- NOTE | 2019-12-27 17:51 | EKG REPORT ---
SEVERITY:- NORMAL ECG - SINUS RHYTHM : Confirmed by: Ina Min 27-Dec-2019 17:51:03
== END 2019-12-27 05:42 | disposition home or self-care (01) ==
LOC: ER 01:13
DX: R40.0 Somnolence (principal); Z59.0 Homelessness; R07.9 Chest pain, unspecified; R42 Dizziness and giddiness; E66.9 Obesity, unspecified; J45.909 Unspecified asthma, uncomplicated
CPT/HCPCS: 93005; 93010; 99283

== ENCOUNTER 2019-12-29 01:33 | Emergency (ER) | payer SELFPAY ==
--- NOTE | 2019-12-29 06:57 | ER Document Report ---
HPI - HPI Time Seen by Provider: 12/29/19 06:23 Pain Level: 3 Context: Patient is a 24-year-old male who comes emergency department for chief complaint of sore throat, congestion, generalized weakness, body aches. He denies fever, chills, shortness of breath, chest pain, nausea/vomiting. When I evaluated the patient I asked him if he had any symptoms and he denied any current symptoms or any current complaints. He states he feels fine and he has no concerns. [place] has had a recent negative COVID-19 test, he has had approximately 10 tests total. - REPRODUCTIVE Reproductive: DENIES: : Past Medical History - General Information source: Patient - Social History Smoking Status: Never Smoker - Denies Frequency of alcohol use: None Drug Abuse: None Lives with: Alone Family History: Reviewed & Not Pertinent Pulmonary Medical History: Reports: Hx Asthma - Immunizations Immunizations up to date: Yes Hx Diphtheria, Pertussis, Tetanus Vaccination: Yes Vertical Provider Document - CONSTITUTIONAL General Appearance: WD/WN, No Apparent Distress - INFECTION CONTROL TRAVEL OUTSIDE OF THE [place] IN LAST 30 DAYS: No - HEENT HEENT: Atraumatic, Normal ENT Exam, Normocephalic. negative: Conjuctival Injection, PERRLA, Pharyngeal Exudate, Pharyngeal Tenderness, Pharyngeal Erythema, Tympanic Membrane Red, Tympanic Membrane Bulging - NECK Neck: Normal Inspection, Supple. negative: Lymphadenopathy-Left, Lymphadenopathy-Right - RESPIRATORY Respiratory: Breath Sounds Normal, No Respiratory Distress - CARDIOVASCULAR Cardiovascular: Regular Rate, Regular Rhythm. negative: Tachycardia - GI/ABDOMEN Gastrointestinal: Abdomen Soft, Abdomen Non-Tender. negative: Abdomen Tender - BACK Back: Normal Inspection - MUSCULOSKELETAL/EXTREMETIES Musculoskeletal/Extremeties: MAEW, FROM, Non-Tender - NEURO Level of Consciousness: Awake, Alert, Appropriate Motor/Sensory: No Motor Deficit, No Sensory Deficit - DERM Integumentary: Warm, Dry, No Rash Course - Re-evaluation Re-evalutation: Patient ambulates without difficulty, well-appearing, no complaints on my evaluation. Vital signs rechecked and unremarkable. Physical exam is unremarkable including oropharyngeal exam and sinus exam. Lungs clear. Very low suspicion of concerning/emergent infection. Discussed expectations, follow- up, return cautions. Patient states appreciation and agreement. - Vital Signs Vital signs: Temp Pulse Resp BP Pulse Ox 98.8 F 91 17 160/93 H 99 12/29/19 01:38 12/29/19 01:38 12/29/19 01:38 12/29/19 01:38 12/29/19 01:38 Discharge - Discharge Clinical Impression: Sinus congestion, Homelessness Pharyngitis Qualifiers: Pharyngitis/tonsillitis etiology: unspecified etiology Qualified Code(s): J02.9 - Acute pharyngitis, unspecified Condition: Stable Disposition: HOME, SELF-CARE Additional Instructions: Your evaluation does not show any concerning findings at this time. Follow-up with primary care. Return if you worsen including fever, difficulty swallowing or breathing, vomiting, or any other concerning or worsening symptoms.
[2019-12-29 07:36] VITALS: BP 136/80
== END 2019-12-29 07:25 | disposition home or self-care (01) ==
LOC: ER 01:33
DX: J02.9 Acute pharyngitis, unspecified (principal); R09.89 Other specified symptoms and signs involving the circulatory and respiratory systems; R53.1 Weakness; J45.909 Unspecified asthma, uncomplicated; Z59.0 Homelessness
CPT/HCPCS: 99282

== ENCOUNTER 2019-12-30 01:26 | Emergency (ER) | payer SELFPAY ==
[2019-12-30 05:55] VITALS: BP 147/62
== END 2019-12-30 07:20 | disposition left against medical advice (07) ==
LOC: ER 01:26
DX: Z53.21 Procedure and treatment not carried out due to patient leaving prior to being seen by health care provider (principal)

== ENCOUNTER 2020-02-01 02:06 | Emergency (ER) | payer SELFPAY ==
--- NOTE | 2020-02-01 05:58 | ER Document Report ---
HPI - HPI Time Seen by Provider: 02/01/20 05:57 Pain Level: Denies Notes: Otherwise healthy 24-year-old male well-known to our facility presenting with complaints of loss of taste and smell, nausea, vomiting and headaches. Patient reports symptoms ongoing for the last 2 days. Patient is concerned he may have Covid. Patient reports recently discharged from the [facility]. Denies any fever, chills, diarrhea. - NEURO Neurology: REPORTS: Headache - REPRODUCTIVE Reproductive: DENIES: : Past Medical History - General Information source: Patient - Social History Smoking Status: Former Smoker Frequency of alcohol use: None Drug Abuse: None Family History: Reviewed & Not Pertinent Patient has homicidal ideation: No Pulmonary Medical History: Reports: Hx Asthma - Immunizations Immunizations up to date: Yes Hx Diphtheria, Pertussis, Tetanus Vaccination: Yes Vertical Provider Document - CONSTITUTIONAL Notes: PHYSICAL EXAMINATION: GENERAL: Well-appearing, well-nourished and in no acute distress. HEAD: Atraumatic, normocephalic. EYES: Pupils equal round extraocular movements intact, conjunctiva are normal. ENT: Nares patent NECK: Normal range of motion LUNGS: No respiratory distress Musculoskeletal: Normal range of motion NEUROLOGICAL: Normal speech, normal gait. PSYCH: Normal mood, normal affect. SKIN: Warm, Dry, normal turgor, no rashes or lesions noted. - INFECTION CONTROL TRAVEL OUTSIDE OF THE [place] IN LAST 30 DAYS: No Course - Re-evaluation Re-evalutation: Patient appears well, nontoxic, well known to our facility. Vital signs reviewed. Patient will be Covid tested. He will be discharged home with ED return precautions. Patient agreeable to this plan. - Vital Signs Vital signs: Temp Pulse Resp BP Pulse Ox 98.1 F 94 20 148/80 H 100 02/01/20 02:16 02/01/20 02:16 02/01/20 02:16 02/01/20 02:16 02/01/20 02:16 - Laboratory Results Critical Laboratory Results Reviewed: No Critical Results - Radiology Results Critical Radiology Results Reviewed: No Critical Results Discharge - Discharge Clinical Impression: Encounter for laboratory testing for COVID-19 virus Condition: Stable Disposition: HOME, SELF-CARE Instructions: COVID-19 Guidance for Persons Under Investigation Additional Instructions: Please self quarantine until you have received direction from the health department. Drink plenty of fluids. Tylenol or ibuprofen for any fever or body aches. Return if worsening.
[2020-02-01 07:10] VITALS: BP 145/110
== END 2020-02-01 07:10 | disposition home or self-care (01) ==
LOC: ER 02:06
DX: R43.8 Other disturbances of smell and taste (principal); R11.2 Nausea with vomiting, unspecified; R51.9 Headache, unspecified; Z20.828 Contact with and (suspected) exposure to other viral communicable diseases
CPT/HCPCS: 99283; 87635; C9803

== ENCOUNTER 2020-02-02 03:30 | Emergency (ER) | payer SELFPAY ==
[2020-02-02] MEDS ORDERED: ACETAMINOPHEN 325 MG TABLET PO ONE (05:47)
--- NOTE | 2020-02-02 09:48 | ER Document Report ---
HPI - HPI Time Seen by Provider: 02/02/20 09:25 Pain Level: 5 Context: Patient is a 24-year-old male that comes emergency department for chief complaint of a headache and intermittent nausea. Patient was seen yesterday, had complaints of loss of taste and smell and was tested for COVID-19, patient no longer has these complaints and his COVID-19 test was negative. Patient has been tested numerous times for this. On my evaluation patient has no complaints including no complaints of headache. He denies abdominal pain or chest pain. - NEURO Neurology: REPORTS: Headache - REPRODUCTIVE Reproductive: DENIES: : Past Medical History - General Information source: Patient - Social History Smoking Status: Current Some Day Smoker Frequency of alcohol use: None Drug Abuse: None Lives with: Homeless Family History: Reviewed & Not Pertinent Pulmonary Medical History: Reports: Hx Asthma - Immunizations Immunizations up to date: Yes Hx Diphtheria, Pertussis, Tetanus Vaccination: Yes Vertical Provider Document - CONSTITUTIONAL General Appearance: WD/WN, No Apparent Distress - INFECTION CONTROL TRAVEL OUTSIDE OF THE [place] IN LAST 30 DAYS: No - HEENT HEENT: Atraumatic, Normal ENT Exam, Normocephalic - NECK Neck: Normal Inspection - No nuchal rigidity - RESPIRATORY Respiratory: Breath Sounds Normal, No Respiratory Distress - CARDIOVASCULAR Cardiovascular: Regular Rate, Regular Rhythm - GI/ABDOMEN Gastrointestinal: Abdomen Soft, Abdomen Non-Tender - BACK Back: Normal Inspection - MUSCULOSKELETAL/EXTREMETIES Musculoskeletal/Extremeties: MAEW, FROM, Non-Tender - NEURO Level of Consciousness: Awake, Alert, Appropriate Motor/Sensory: No Motor Deficit, No Sensory Deficit - DERM Integumentary: Warm, Dry, No Rash Course - Re-evaluation Re-evalutation: Patient with no complaints on my evaluation. He is sleeping and easily aroused. No nuchal rigidity, no fever, unremarkable physical exam, well-appearing. Vital signs unremarkable. Soft benign abdomen. Low suspicion of emergent abnormality. Patient is very familiar to me, has a history of homelessness and is in the emergency department frequently. I did not see any evidence of emergent abnormality at this time. Patient will be discharged with return precautions. Patient states understanding and agreement. - Vital Signs Vital signs: Temp Pulse Resp BP Pulse Ox 97.4 F 95 20 143/85 H 100 02/02/20 03:37 02/02/20 03:37 02/02/20 03:37 02/02/20 03:37 02/02/20 03:37 - Laboratory Results Critical Laboratory Results Reviewed: No Critical Results - Radiology Results Critical Radiology Results Reviewed: No Critical Results Discharge - Discharge Clinical Impression: Headache Qualifiers: Headache type: unspecified Headache chronicity pattern: acute headache Intractability: not intractable Qualified Code(s): R51.9 - Headache, unspecified Condition: Stable Disposition: HOME, SELF-CARE Additional Instructions: Your evaluation today does not show any concerning findings. Your COVID-19 test was negative. Follow-up with primary care. Return if you worsen including developing fever, severe headache, vomiting, or any other concerning symptoms.
[2020-02-02 10:08] VITALS: BP 125/67
== END 2020-02-02 10:08 | disposition home or self-care (01) ==
LOC: ER 03:30
DX: R51.9 Headache, unspecified (principal); R11.0 Nausea; F17.200 Nicotine dependence, unspecified, uncomplicated; J45.909 Unspecified asthma, uncomplicated; Z59.0 Homelessness
CPT/HCPCS: 99282

== ENCOUNTER 2020-02-03 02:02 | Emergency (ER) | payer SELFPAY ==
[2020-02-03 02:39] VITALS: BP 142/89
--- NOTE | 2020-02-03 03:08 | ER Document Report ---
HPI - HPI Time Seen by Provider: 02/03/20 02:49 Context: Patient is a 24-year-old homeless male, well-known to this emergency department who presents to the emergency department with nausea and vomiting. Patient was Covid tested 2 days ago, which was negative. Patient does have these complaints multiple times here in the emergency department. Patient was seen less than 24 hours ago and exam was normal. States that he has had the same symptoms that he has had for the past 3 days. Also states that he has some slight pain to his right lower abdomen. He is having normal bowel movements. - ROS Systems Reviewed and Negative: Yes All other systems reviewed and negative - CONSTITUTIONAL Constitutional: DENIES: Fever, Chills - EENT EENT: DENIES: Sore Throat, Ear Pain, Nasal Drainage-Clear - NEURO Neurology: DENIES: Headache, Weakness, Vision blurred - RESPIRATORY Respiratory: DENIES: Trouble Breathing, Coughing - GASTROINTESTINAL Gastrointestinal: REPORTS: Abdominal Pain, Nausea, Patient vomiting - REPRODUCTIVE Reproductive: DENIES: : - MUSCULOSKELETAL Musculoskeletal: DENIES: Extremity pain - DERM Skin Color: Normal Skin Problems: None Past Medical History - General Information source: Patient - Social History Smoking Status: Current Every Day Smoker Family History: Reviewed & Not Pertinent Pulmonary Medical History: Reports: Hx Asthma - Immunizations Immunizations up to date: Yes Hx Diphtheria, Pertussis, Tetanus Vaccination: Yes Vertical Provider Document - CONSTITUTIONAL Agree With Documented VS: Yes Exam Limitations: No Limitations General Appearance: No Apparent Distress - INFECTION CONTROL TRAVEL OUTSIDE OF THE [place] IN LAST 30 DAYS: No - HEENT HEENT: Atraumatic, Normocephalic, PERRLA - NECK Neck: Normal Inspection - RESPIRATORY Respiratory: Breath Sounds Normal, No Respiratory Distress - CARDIOVASCULAR Cardiovascular: Regular Rate, Regular Rhythm Pulses: Normal: Radial - GI/ABDOMEN Gastrointestinal: Abdomen Soft, Abdomen Non-Tender - MUSCULOSKELETAL/EXTREMETIES Musculoskeletal/Extremeties: FROM - NEURO Level of Consciousness: Awake, Alert, Appropriate Motor/Sensory: No Motor Deficit, No Sensory Deficit - DERM Integumentary: Warm, Dry, No Rash Course - Re-evaluation Re-evalutation: 02/03/20 03:20 Exam is completely normal. There is no tenderness noted to his right lower abdomen. Patient has not vomited since he has been here. We will give him a dose of Zofran and send him with a prescription for Reglan. I have a low suspicion for appendicitis, bowel obstruction, or any life-threatening etiology at this time. Patient just recently picked up smoking. Educated the patient on quitting. Follow-up precautions were given. Verbal discharge instructions were given to the patient. They verbalized understanding. They are stable for discharge. - Vital Signs Vital signs: Temp Pulse Resp BP Pulse Ox 97.8 F 88 18 142/89 H 100 02/03/20 02:33 02/03/20 02:33 02/03/20 02:33 02/03/20 02:33 02/03/20 02:33 - Laboratory Results Critical Laboratory Results Reviewed: No Critical Results - Radiology Results Critical Radiology Results Reviewed: No Critical Results Discharge - Discharge Clinical Impression: Tobacco use Nausea and vomiting Qualifiers: Vomiting type: unspecified Vomiting Intractability: unspecified Qualified Code(s): R11.2 - Nausea with vomiting, unspecified Condition: Stable Disposition: HOME, SELF-CARE Additional Instructions: You are seen today in the emergency department for nausea and vomiting. Your exam is very reassuring. Stop smoking, as we discussed. Prescriptions: Metoclopramide HCl [Reglan 10 mg Tablet] 1 tab PO ASDIR PRN #15 tablet PRN Reason: Referrals: [facility] [Provider Group] - Follow up as needed [facility] [Provider Group] - Follow up as needed
[2020-02-03] MEDS ORDERED: ONDANSETRON 4 MG TAB.RAPDIS PO ONE (03:17)
== END 2020-02-03 03:21 | disposition home or self-care (01) ==
LOC: ER 02:02
DX: R11.2 Nausea with vomiting, unspecified (principal); F17.200 Nicotine dependence, unspecified, uncomplicated; Z59.0 Homelessness
CPT/HCPCS: 99283; S0119

== ENCOUNTER 2020-02-04 00:40 | Emergency (ER) | payer SELFPAY ==
[2020-02-04] MEDS ORDERED: ACETAMINOPHEN 325 MG TABLET PO ONE (07:44)
[2020-02-04] MEDS ORDERED: METOCLOPRAMIDE HCL 10 MG TABLET PO ONE (07:46)
--- NOTE | 2020-02-04 07:52 | ER Document Report ---
ED General - General Chief Complaint: Headache Stated Complaint: HEADACHE,LOSS OF TASTE AND SMELL Primary Care Provider: CLAYTON BHATT MD [ACTIVE STAFF] - Follow up as needed TRAVEL OUTSIDE OF THE U.[place]. IN LAST 30 DAYS: No - HPI Notes: Chief Complaint: Headache Historian: History obtained from patient HPI: This is a 24-year-old male presents to the ER complaining of a left-sided headache for 2 days. Headache is mild and constant. Denies any injury or trauma. Denies history of migraines or headache syndromes. No treatments tried. Denies fevers, chills, nausea vomiting, neck pain, chest pain, shortness of breath, cough. Patient was tested for Covid 2 days ago due to loss of taste and smell which was negative. Patient is well-known to the ER and has presented over 50 times in the past 6 months related to homelessness. He has had multiple CAT scans including CT heads which were all negative. ROS: Constitutional: no fevers. HEENT: Headache CV: no chest pain or palpitations. Resp: no cough or SOB. GI: no abdominal pain, or n/v/d. : no dysuria, hematuria, or incont. MSK: no back pain, no joint swelling/redness. Skin: no rashes or itching. Neuro: no seizures, weakness, numbness, or confusion. Hematological: no ecchymosis or easy bleeding. Endocrine: no polyuria/polydipsia, no heat/cold intolerance. Psych: no SI/HI, AH/VH or memory loss. PMHx: Reviewed and agree as charted by RN. PSHx: Reviewed and agree as charted by RN. SOCHx: Reviewed and agree as charted by RN. FHX: No significant familial comorbid conditions directly related to patient complaint Current Medications: Reviewed and agree with the patient medications as charted by the RN. Allergies: Reviewed and agree with the listed allergies as charted by the RN Physical Exam: Vitals: Reviewed in chart as documented by RN. General: Alert and in NAD. Head: Normocephalic; atraumatic Eyes: PERRLA, Conjunctivae clear sclerae non-icteric bilat ENT: no soft palate swelling or uvular deviation Neck: trachea midline, no unilateral swelling/tenderness/lymphadenopathy. Full range of motion of C-spine no midline tenderness. Negative Brudzinski's and Kernig's sign CV: RRR, no M/R/G; symmetric distal pulses Resp: respirations even and unlabored, CTA bilat. GI: abd soft and nondistended. NTTP. normal BS. no masses/HSM. no CVAT bilat MSK: FROM of all extremities. No midline CTL spine tenderness/deformity Skin: warm, moist, good turgor. no rash/lesions Neuro: Alert and oriented X 4. following CN 2-12 intact. no unilateral weakness/numbness. No focal neuro deficit Psych: No SI/HI or AH/VH. ED Results: Medical Decision-Making: Differential includes malingering, tension headache, cluster headache, migraine headache, ICH, increased ICP, trauma head injury, dehydration, metabolic abnormality, electrolyte abnormality, infectious process, etc. Fabiohis patient presents to the ER between 4 and 10 times a month. Multiple recent visits for headaches. Multiple prior negative head CTs. He has no focal neuro deficits or concerning signs of infection, ICH, or CVA. Will symptomatically treat patient's headache with p.o. Tylenol and Reglan and discharged home. Patient is agreeable to that plan. Return factors discussed. Recommended PCP follow-up this week for recheck - Related Data Allergies/Adverse Reactions: No Known Allergies Allergy (Verified 02/04/20 02:50) Past Medical History - Social History Smoking Status: Current Every Day Smoker Frequency of alcohol use: None Drug Abuse: None Family History: Reviewed & Not Pertinent Patient has homicidal ideation: No Pulmonary Medical History: Reports: Hx Asthma - Immunizations Immunizations up to date: Yes Hx Diphtheria, Pertussis, Tetanus Vaccination: Yes Physical Exam - Vital signs Vitals: Temp Pulse Resp BP Pulse Ox 98.6 F 111 H 18 151/89 H 100 02/04/20 01:03 02/04/20 01:03 02/04/20 01:03 02/04/20 01:03 02/04/20 01:03 Course - Vital Signs Vital signs: Temp Pulse Resp BP Pulse Ox 98.6 F 111 H 18 151/89 H 100 02/04/20 01:03 02/04/20 01:03 02/04/20 01:03 02/04/20 01:03 02/04/20 01:03 - Laboratory Results Critical Laboratory Results Reviewed: No Critical Results - Radiology Results Critical Radiology Results Reviewed: No Critical Results Discharge - Discharge Clinical Impression: Headache Qualifiers: Headache type: unspecified Headache chronicity pattern: acute headache Intractability: intractable Qualified Code(s): R51.9 - Headache, unspecified Condition: Stable Disposition: HOME, SELF-CARE Instructions: Headache ([facility]) Referrals: CLAYTON BHATT MD [ACTIVE STAFF] - Follow up as needed
[2020-02-04 09:30] VITALS: BP 168/52
== END 2020-02-04 09:00 | disposition home or self-care (01) ==
LOC: ER 00:40
DX: R51.9 Headache, unspecified (principal); R43.8 Other disturbances of smell and taste; F17.200 Nicotine dependence, unspecified, uncomplicated; Z59.0 Homelessness
CPT/HCPCS: 99283

== ENCOUNTER 2020-02-06 02:43 | Emergency (ER) | payer SELFPAY ==
[2020-02-06 03:10] VITALS: BP 150/79
--- NOTE | 2020-02-06 05:33 | ER Document Report ---
HPI - HPI Time Seen by Provider: 02/06/20 05:22 Pain Level: 4 Context: Patient is a 24-year-old male, well-known to this emergency department who presents emergency department with flulike symptoms, nausea, headache, loss of taste and smell. Patient was tested for COVID-19 5 days ago and this was negative. States that he has been taking Zofran. States that he has some slight abdominal pain. - ROS Systems Reviewed and Negative: Yes All other systems reviewed and negative - CONSTITUTIONAL Constitutional: DENIES: Fever, Chills - NEURO Neurology: REPORTS: Headache - RESPIRATORY Respiratory: DENIES: Coughing - GASTROINTESTINAL Gastrointestinal: REPORTS: Abdominal Pain, Nausea, Patient vomiting, Diarrhea - REPRODUCTIVE Reproductive: DENIES: : - MUSCULOSKELETAL Musculoskeletal: DENIES: Extremity pain - DERM Skin Color: Normal Skin Problems: None Past Medical History - Social History Smoking Status: Current Every Day Smoker Family History: Reviewed & Not Pertinent Pulmonary Medical History: Reports: Hx Asthma - Immunizations Immunizations up to date: Yes Hx Diphtheria, Pertussis, Tetanus Vaccination: Yes Vertical Provider Document - CONSTITUTIONAL Agree With Documented VS: Yes Exam Limitations: No Limitations General Appearance: No Apparent Distress, Other - Disheveled - INFECTION CONTROL TRAVEL OUTSIDE OF THE [place] IN LAST 30 DAYS: No - HEENT HEENT: Atraumatic, Normocephalic - NECK Neck: Normal Inspection - RESPIRATORY Respiratory: Breath Sounds Normal, No Respiratory Distress - CARDIOVASCULAR Cardiovascular: Regular Rate, Regular Rhythm - GI/ABDOMEN Gastrointestinal: Abdomen Soft, Abdomen Non-Tender - MUSCULOSKELETAL/EXTREMETIES Musculoskeletal/Extremeties: FROM - NEURO Level of Consciousness: Awake, Alert, Appropriate - DERM Integumentary: Warm, Dry, No Rash Course - Re-evaluation Re-evalutation: 02/06/20 05:33 Exam is currently benign. Nursing staff reports that the patient has not vomited once in the 3 hours and 5 minutes that he has been here in the emergency department. Patient is looking at his phone and listening to his phone with headphones on. We will place the patient on Bentyl to help with pain relief. I have a low suspicion for any life-threatening etiology at this time. Patient given resources for shelters in the area. Follow-up precautions were given. Verbal discharge instructions were given to the patient. They verbalized understanding. They are stable for discharge. - Vital Signs Vital signs: Temp Pulse Resp BP Pulse Ox 98.7 F 87 16 150/79 H 100 02/06/20 03:09 02/06/20 03:09 02/06/20 03:09 02/06/20 03:09 02/06/20 03:09 - Laboratory Results Critical Laboratory Results Reviewed: No Critical Results - Radiology Results Critical Radiology Results Reviewed: No Critical Results Discharge - Discharge Clinical Impression: Nausea and vomiting Qualifiers: Vomiting type: unspecified Vomiting Intractability: unspecified Qualified Code(s): R11.2 - Nausea with vomiting, unspecified Condition: Stable Disposition: HOME, SELF-CARE Additional Instructions: You were seen today in the emergency department for nausea and vomiting. Add Bentyl to your regimen. Switch to Reglan for nausea. Prescriptions: Dicyclomine HCl [Bentyl 20 mg Tablet] 20 mg PO QID PRN #20 tablet PRN Reason: Metoclopramide HCl [Reglan 10 mg Tablet] 1 - 2 tab PO ASDIR PRN #15 tablet PRN Reason:
== END 2020-02-06 05:55 | disposition home or self-care (01) ==
LOC: ER 02:43
DX: R11.2 Nausea with vomiting, unspecified (principal); R51.9 Headache, unspecified; R43.8 Other disturbances of smell and taste; R10.9 Unspecified abdominal pain; R19.7 Diarrhea, unspecified; J45.909 Unspecified asthma, uncomplicated; F17.200 Nicotine dependence, unspecified, uncomplicated
CPT/HCPCS: 99283

== ENCOUNTER 2020-02-08 01:16 | Emergency (ER) | payer SELFPAY ==
--- NOTE | 2020-02-08 07:35 | ER Document Report ---
HPI - HPI Time Seen by Provider: 02/08/20 04:21 Pain Level: 2 Notes: 24-year-old male patient presents the emergency department chief complaint of loss of taste and smell with nausea. Patient has been seen in this emergency department every day for the last 5 days for similar symptoms. He has had a negative Covid test. He denies any new symptoms. He is homeless. - ROS Systems Reviewed and Negative: Yes All other systems reviewed and negative - CONSTITUTIONAL Notes: Loss of taste and smell - GASTROINTESTINAL Gastrointestinal: REPORTS: Nausea - REPRODUCTIVE Reproductive: DENIES: : Past Medical History - General Information source: Patient - Social History Smoking Status: Current Some Day Smoker Frequency of alcohol use: None Drug Abuse: None Family History: Reviewed & Not Pertinent Pulmonary Medical History: Reports: Hx Asthma - Immunizations Immunizations up to date: Yes Hx Diphtheria, Pertussis, Tetanus Vaccination: Yes Vertical Provider Document - CONSTITUTIONAL Notes: PHYSICAL EXAMINATION: GENERAL: Well-appearing, well-nourished and in no acute distress. HEAD: Atraumatic, normocephalic. EYES: Pupils equal round extraocular movements intact, conjunctiva are normal. ENT: Nares patent NECK: Normal range of motion LUNGS: No respiratory distress Musculoskeletal: Normal range of motion NEUROLOGICAL: Normal speech, normal gait. PSYCH: Normal mood, normal affect. SKIN: Warm, Dry, normal turgor, no rashes or lesions noted. - INFECTION CONTROL TRAVEL OUTSIDE OF THE [place] IN LAST 30 DAYS: No Course - Vital Signs Vital signs: Temp Pulse Resp BP Pulse Ox 98.4 F 84 16 134/76 H 98 02/08/20 05:07 02/08/20 05:07 02/08/20 05:07 02/08/20 05:07 02/08/20 05:07 - Laboratory Results Critical Laboratory Results Reviewed: No Critical Results - Radiology Results Critical Radiology Results Reviewed: No Critical Results Discharge - Discharge Clinical Impression: Nausea Condition: Stable Disposition: HOME, SELF-CARE Additional Instructions: Please return if any new or worsening symptoms. Please try to establish care at the [facility]. Referrals: [facility] [Provider Group] - Follow up as needed
[2020-02-08 09:22] VITALS: BP 124/78
== END 2020-02-08 09:20 | disposition home or self-care (01) ==
LOC: ER 01:16
DX: R11.0 Nausea (principal); R43.8 Other disturbances of smell and taste; F17.200 Nicotine dependence, unspecified, uncomplicated; J45.909 Unspecified asthma, uncomplicated; Z59.0 Homelessness
CPT/HCPCS: 99282

== ENCOUNTER 2020-02-09 20:01 | Emergency (ER) | payer SELFPAY ==
--- NOTE | 2020-02-09 20:13 | ER Document Report ---
ED Medical Screen (RME) - General Chief Complaint: Vomiting Stated Complaint: NAUSEA/VOMITING/DIARRHEA Time Seen by Provider: 02/09/20 20:11 Mode of Arrival: Ambulatory Information source: Patient Notes: 24-year-old male presented to ED for complaint of nausea vomiting and now is having chest pain. He states they started him on some Bentyl yesterday and this is making his chest hurt. Is been here multiple times over the last 3 months. He I did not see any blood work since November 30 at which time he did have a elevated creatinine kinase. Will get labs chest x-ray EKG and urine and he will be seen by another provider. I have greeted and performed a rapid initial assessment of this patient. A comprehensive ED assessment and evaluation of the patient, analysis of test results and completion of medical decision making process will be conducted by an additional ED providers. TRAVEL OUTSIDE OF THE [place] IN LAST 30 DAYS: No - Related Data Allergies/Adverse Reactions: No Known Allergies Allergy (Verified 02/04/20 02:50) Past Medical History - Social History Family history: Reviewed & Not Pertinent Pulmonary Medical History: Reports: Hx Asthma - Immunizations Immunizations up to date: Yes Hx Diphtheria, Pertussis, Tetanus Vaccination: Yes Physical Exam - Vital signs Vitals: Temp Pulse Resp BP Pulse Ox 98.8 F 110 H 16 154/88 H 100 02/09/20 20:04 02/09/20 20:04 02/09/20 20:04 02/09/20 20:04 02/09/20 20:04 Course - Vital Signs Vital signs: Temp Pulse Resp BP Pulse Ox 98.8 F 110 H 16 154/88 H 100 02/09/20 20:04 02/09/20 20:04 02/09/20 20:04 02/09/20 20:04 02/09/20 20:04
[2020-02-09] MEDS ORDERED: ONDANSETRON 4 MG TAB.RAPDIS PO ONE (20:46)
--- NOTE | 2020-02-09 21:03 | RADIOLOGY REPORT (SQ) ---
EXAM DESCRIPTION: CHEST 2 VIEWS CLINICAL HISTORY: 24 years Male, Chest pain COMPARISON: Single view of the chest December 23, 2019 FINDINGS: Lungs: Lung volumes and aeration have improved when compared the previous exam. There is no focal consolidation. No pneumothorax or pleural effusion. Mediastinum: Cardiac and mediastinal silhouette are normal. Bones: Osseous structures are normal. IMPRESSION: No acute process. No pneumonia or edema.
[2020-02-10 02:50] VITALS: BP 145/93
[2020-02-10] MEDS ORDERED: ONDANSETRON ODT 4 MG TAB (6 TAB/ER DISP) PO PRN (08:17)
--- NOTE | 2020-02-10 08:23 | ER Document Report ---
ED General - General Chief Complaint: Nausea/Vomiting Stated Complaint: NAUSEA/VOMITING/DIARRHEA Time Seen by Provider: 02/09/20 20:11 Mode of Arrival: Ambulatory TRAVEL OUTSIDE OF THE [place] IN LAST 30 DAYS: No - HPI Notes: Chief complaint: Vomiting and abdominal pain History of present illness: 24-year-old homeless man well-known to this ED and to me personally who has presented for his fifth visit this week porting that he is intermittently having vomiting and abdominal pain. This is usually his usual presenting complaint. We note that he has been in the lobby for many hours. Conditions were stormy outside last night and this is felt to be the likely precipitating factor for current visit. He received Zofran at triage and is not vomiting at this time. - Related Data Allergies/Adverse Reactions: No Known Allergies Allergy (Verified 02/04/20 02:50) Past Medical History - General Information source: Patient - Social History Smoking Status: Never Smoker Chew tobacco use (# tins/day): No Frequency of alcohol use: None Drug Abuse: Marijuana Lives with: Homeless Family History: Reviewed & Not Pertinent Pulmonary Medical History: Reports: Hx Asthma Surgical Hx: Negative - Immunizations Immunizations up to date: Yes Hx Diphtheria, Pertussis, Tetanus Vaccination: Yes Review of Systems - Review of Systems Notes: Constitutional: Negative for fever. HENT: Negative for sore throat. Eyes: Negative for visual changes. Cardiovascular: Negative for chest pain. Respiratory: Negative for shortness of breath. Gastrointestinal: As per HPI. Genitourinary: Negative for dysuria. Musculoskeletal: Negative for back pain. Skin: Negative for rash. Neurological: Negative for headaches, weakness or numbness. 10 point ROS negative except as marked above and in HPI. Physical Exam - Vital signs Vitals: Temp Pulse Resp BP Pulse Ox 98.8 F 110 H 16 154/88 H 100 02/09/20 20:04 02/09/20 20:04 02/09/20 20:04 02/09/20 20:04 02/09/20 20:04 - Notes Notes: GENERAL: Well-developed well-nourished male approximately stated age appearing in no acute distress. Patient was sleeping as usual when I entered the room but was easily arousable. SKIN: Good turgor no rashes. HEAD: Normocephalic atraumatic. EYES: PERRLA. EOMI. Conjunctivae and sclerae clear. EARS: CANALS AND TMS CLEAR. NOSE: CLEAR. MOUTH: Moist mucosa. Good dentition. No stridor or edema. No drooling. NECK: Supple. No masses or thyromegaly. No adenopathy. Carotids 2+ without bruits. No JVD. BACK: Symmetrical without tenderness. CHEST: Respirations unlabored. Breath sounds clear and symmetrical. HEART: Regular rhythm. No murmur gallop or rub. ABDOMEN: Soft nontender without masses, organomegaly or rebound. Bowel sounds normally active. No bruits. GENITALIA: Deferred. EXTREMITIES: No edema. No calf tenderness. Cap refill less than 1.5 seconds. Dorsalis pedis and posterior tibial pulses 3+ and symmetrical. NEUROLOGICAL: GCS 15. Alert and oriented x3. Normal gait. Fluent speech. Cranial nerves II through XII intact. Sensorimotor and cerebellar normal. Normal tone. PSYCHIATRIC: Appropriate affect. Course - Re-evaluation Re-evalutation: 02/10/20 08:26 Benign exam. Stable vital signs. Patient will be discharged with a prepack lucille Haynes and was once again referred to [facility]. - Vital Signs Vital signs: Temp Pulse Resp BP Pulse Ox 97.8 F 77 18 145/93 H 100 02/10/20 02:41 02/10/20 02:41 02/10/20 02:41 02/10/20 02:41 02/10/20 02:41 - Laboratory Results Critical Laboratory Results Reviewed: No Critical Results - Radiology Results Critical Radiology Results Reviewed: No Critical Results Discharge - Discharge Clinical Impression: Vomiting, Homelessness Condition: Stable Disposition: HOME, SELF-CARE Additional Instructions: Vomiting Vomiting can be part of many illnesses. Most cases of vomiting are due to gastroenteritis, usually a viral infection in the intestinal tract. There is no specific treatment. The disease will end by itself. For now, the main danger to your child is dehydration. During the first few hours of the illness, give clear liquids, such as Pedialyte. Try to give small quantities frequently, such as a teaspoon of liquid every minute or about an ounce of fluids every five to ten minutes. Medications may be prescribed by the physician for special cases. After an hour or two of fluids without vomiting, add rice cereal, toast, applesauce, or bananas and other more solid foods to the clear liquids. Call the physician or go to the hospital if vomiting increases or blood appears in the bowel movement or vomitus; if your child fails to improve, or if signs of dehydration occur (no wet diapers for eight to twelve hours, tongue and mouth become dry, not acting as alert as usual). Return here as needed for new or worsening symptoms: Pain that is worsening or unimproved Uncontrolled vomiting High fever or shaking chills Overall worsening Follow-up with [facility].
--- NOTE | 2020-02-10 10:16 | EKG REPORT ---
SEVERITY:- OTHERWISE NORMAL ECG - SINUS TACHYCARDIA : Confirmed by: Jaden Martinez MD 10-Feb-2020 10:15:50
== END 2020-02-10 08:33 | disposition home or self-care (01) ==
LOC: ER 20:01
DX: R11.2 Nausea with vomiting, unspecified (principal); Z59.0 Homelessness; R19.7 Diarrhea, unspecified; R10.9 Unspecified abdominal pain; F12.10 Cannabis abuse, uncomplicated; J45.909 Unspecified asthma, uncomplicated
CPT/HCPCS: 93005; 99284; 71046; 93010; S0119

== ENCOUNTER 2020-02-10 21:05 | Emergency (ER) | payer SELFPAY ==
--- NOTE | 2020-02-10 22:13 | ER Document Report ---
ED Medical Screen (RME) - General Chief Complaint: Nausea/Vomiting Stated Complaint: NAUSEA VOMITING Time Seen by Provider: 02/10/20 22:07 Mode of Arrival: Ambulatory Information source: Patient Notes: HPI; 24-year-old male with multiple frequent visits to the emergency room presents to the emergency room this evening complaining of nausea, vomiting, chest pain abdominal pain. States he was given Bentyl 2 days ago which is not alleviating his abdominal symptoms. States he is unable to tolerate anything p.o. secondary to the nausea and vomiting. Describes the chest pain as midsternal sharp and aching. Also states has been running fevers in the low 100s although has not taken any medications for his fevers. Denies any ill contacts. PE: Alert and oriented x3. Lungs: Clear to auscultation without rales, rhonchi, wheezes. Heart: Tachycardic without murmurs, rubs, gallops. I have greeted and performed a rapid initial assessment of this patient. A comprehensive ED assessment and evaluation of the patient, analysis of test results and completion of the medical decision making process will be conducted by additional ED providers. I have specifically instructed the patient or family members with the patient to immediately return to any nursing staff should anything change in the patient's condition or with their chief complaint. TRAVEL OUTSIDE OF THE [place] IN LAST 30 DAYS: No - Related Data Allergies/Adverse Reactions: No Known Allergies Allergy (Verified 02/10/20 22:05) Past Medical History - Social History Frequency of alcohol use: None Drug Abuse: None Family history: Reviewed & Not Pertinent Pulmonary Medical History: Reports: Hx Asthma - Immunizations Immunizations up to date: Yes Hx Diphtheria, Pertussis, Tetanus Vaccination: Yes Physical Exam - Vital signs Vitals: Temp Pulse Resp BP Pulse Ox 98.7 F 107 H 16 144/85 H 99 02/10/20 21:34 02/10/20 21:34 02/10/20 21:34 02/10/20 21:34 02/10/20 21:34 Course - Vital Signs Vital signs: Temp Pulse Resp BP Pulse Ox 98.7 F 107 H 16 144/85 H 99 02/10/20 21:34 02/10/20 21:34 02/10/20 21:34 02/10/20 21:34 02/10/20 21:34
--- NOTE | 2020-02-10 23:28 | RADIOLOGY REPORT (SQ) ---
EXAM DESCRIPTION: XR CHEST 1 VIEW COMPLETED DATE/TME: 02/10/2020 23:04 CLINICAL HISTORY: 24 years, Male, chest pain COMPARISON: Prior evening NUMBER OF VIEWS: 1 TECHNIQUE: Single frontal view of the chest was obtained at 11:03 PM LIMITATIONS: None. FINDINGS: Heart size within normal limits. Lungs are clear. There is no evidence of pleural effusion or pneumothorax. No definite bony abnormality is seen. IMPRESSION: Negative study copyright 2010 [employer]- All Rights Reserved
[2020-02-11 01:21] LABS: ABSOLUTE EOSINOPHILS # (AUTO) 0.4 10^3/uL (0.0-0.6); ABSOLUTE MONOCYTES (AUTO) 0.5 10^3/uL (0.1-1.4); ABSOLUTE NEUT (AUTO) 3.5 10^3/uL (1.7-8.2); BASOPHILS % (AUTO) 0.5 % (0-2); HEMATOCRIT 42.5 % (37.9-51.0); HEMOGLOBIN 14.5 g/dL (13.5-17.0); LYMPHOCYTES % (AUTO) 40.9 % (13-45); MEAN CORPUSCULAR HEMOGLOBIN 27.6 pg (27.0-33.4); MEAN CORPUSCULAR HGB CONC 34.1 g/dL (32.0-36.0); MEAN CORPUSCULAR VOLUME 81 fl (80-97); MONOCYTES % (AUTO) 6.1 % (3-13); PLATELET COUNT 222 10^3/uL (150-450); RED BLOOD COUNT 5.24 10^6/uL (4.35-5.55); RED CELL DISTRIBUTION WIDTH 14.3 % (11.5-14.0); SEGMENTED NEUTROPHILS % (AUTO) 47.5 % (42-78); TOTAL CELLS COUNTED % (AUTO) 100 %; WHITE BLOOD COUNT 7.4 10^3/uL (4.0-10.5)
[2020-02-11 01:33] LABS: ALBUMIN 4.1 g/dL (3.5-5.0); ALKALINE PHOSPHATASE 51 U/L (38-126); ANION GAP 10 (5-19); ASPARTATE AMINO TRANSFERASE 39 U/L (17-59); BILIRUBIN,DIRECT 0.2 mg/dL (0.0-0.4); BILIRUBIN,TOTAL 0.5 mg/dL (0.2-1.3); BLOOD UREA NITROGEN 12 mg/dL (7-20); CALCIUM 9.9 mg/dL (8.4-10.2); CARBON DIOXIDE 28 mmol/L (22-30); CHLORIDE 105 mmol/L (98-107); GLUCOSE 127 mg/dL (75-110); POTASSIUM 4.4 mmol/L (3.6-5.0)
[2020-02-11 06:49] VITALS: BP 129/71
--- NOTE | 2020-02-11 06:49 | ER Document Report ---
ED General - General Chief Complaint: Nausea/Vomiting Stated Complaint: NAUSEA VOMITING Time Seen by Provider: 02/10/20 22:07 Mode of Arrival: Ambulatory TRAVEL OUTSIDE OF THE [place] IN LAST 30 DAYS: No - HPI Notes: Chief complaint: Abdominal pain History of present illness: 24-year-old homeless male well-known to this emergency department and to me personally. Presents now stating abdominal pain. I saw him for same complaint less than 24 hours ago. He had a completely normal exam at that time. The weather has been cold and he has been seeking [employer] here nightly. He has had 7 visits in 10 days. When I spoke with him today he freely admitted that he was just here for a place to sleep and says he is ready to leave. He denies any ongoing symptoms. - Related Data Allergies/Adverse Reactions: No Known Allergies Allergy (Verified 02/10/20 22:05) Past Medical History - General Information source: Patient - Social History Smoking Status: Former Smoker Frequency of alcohol use: None Drug Abuse: None Family History: Reviewed & Not Pertinent Pulmonary Medical History: Reports: Hx Asthma - Immunizations Immunizations up to date: Yes Hx Diphtheria, Pertussis, Tetanus Vaccination: Yes Review of Systems - Review of Systems Notes: Constitutional: Negative for fever. HENT: Negative for sore throat. Eyes: Negative for visual changes. Cardiovascular: Negative for chest pain. Respiratory: Negative for shortness of breath. Gastrointestinal: History of chronic recurrent abdominal pain. No current vomiting or diarrhea. Genitourinary: Negative for dysuria. Musculoskeletal: Negative for back pain. Skin: Negative for rash. Neurological: Negative for headaches, weakness or numbness. 10 point ROS negative except as marked above and in HPI. Physical Exam - Vital signs Vitals: Temp Pulse Resp BP Pulse Ox 98.7 F 107 H 16 144/85 H 99 02/10/20 21:34 02/10/20 21:34 02/10/20 21:34 02/10/20 21:34 02/10/20 21:34 - Notes Notes: GENERAL: Somewhat disheveled but well-developed well-nourished male approximately stated age appearing in no acute distress. Extremely poor personal hygiene. SKIN: Good turgor no rashes. HEAD: Normocephalic atraumatic. EYES: PERRLA. EOMI. Conjunctivae and sclerae clear. EARS: CANALS AND TMS CLEAR. NOSE: CLEAR. MOUTH: Moist mucosa. Good dentition. No stridor or edema. No drooling. NECK: Supple. No masses or thyromegaly. No adenopathy. Carotids 2+ without bruits. No JVD. BACK: Symmetrical without tenderness. CHEST: Respirations unlabored. Breath sounds clear and symmetrical. HEART: Regular rhythm. No murmur gallop or rub. ABDOMEN: Soft nontender without masses, organomegaly or rebound. Bowel sounds normally active. No bruits. GENITALIA: Deferred. EXTREMITIES: No edema. No calf tenderness. Cap refill less than 1.5 seconds. Dorsalis pedis and posterior tibial pulses 3+ and symmetrical. NEUROLOGICAL: GCS 15. Alert and oriented x3. Normal gait. Fluent speech. Cranial nerves II through XII intact. Sensorimotor and cerebellar normal. Normal tone. PSYCHIATRIC: Appropriate affect. Course - Re-evaluation Re-evalutation: 02/11/20 06:47 I see no acute medical issues at this time. Principal issue is his homelessness. We have gone through social work to try to assist him on multiple occasions and he is resisted our efforts. He is discharged at this time. - Vital Signs Vital signs: Temp Pulse Resp BP Pulse Ox 98.7 F 107 H 16 144/85 H 99 02/10/20 21:34 02/10/20 21:34 02/10/20 21:34 02/10/20 21:34 02/10/20 21:34 - Laboratory Results Result Diagrams: 02/11/20 00:55 02/11/20 00:55 Laboratory Results Interpreted: 02/11/20 02/11/20 00:55 00:55 RDW 14.3 H Glucose 127 H Critical Laboratory Results Reviewed: No Critical Results Attending or Supervising Physician who Reviewed Labs: JEWEL MORALES - Radiology Results Critical Radiology Results Reviewed: No Critical Results Discharge - Discharge Clinical Impression: Chronic abdominal pain, Homelessness Condition: Stable Disposition: HOME, SELF-CARE Additional Instructions: Return as needed for further evaluation Referrals: [facility] [Provider Group] - Follow up as needed
--- NOTE | 2020-02-11 08:37 | EKG REPORT ---
SEVERITY:- NORMAL ECG - SINUS RHYTHM : Confirmed by: Jaden Martinez MD 11-Feb-2020 08:36:36
== END 2020-02-11 06:54 | disposition home or self-care (01) ==
LOC: ER 21:05
DX: R10.9 Unspecified abdominal pain (principal); G89.29 Other chronic pain; Z59.0 Homelessness; J45.909 Unspecified asthma, uncomplicated; Z87.891 Personal history of nicotine dependence; R46.0 Very low level of personal hygiene
CPT/HCPCS: 36415; 71045; 80053; 84484; 85025; 93005; 93010; 99285

== ENCOUNTER 2020-02-16 23:02 | Emergency (ER) | payer SELFPAY ==
[2020-02-16 23:45] VITALS: BP 149/89
[2020-02-17] MEDS ORDERED: ONDANSETRON 4 MG TAB.RAPDIS PO ONE (09:06)
--- NOTE | 2020-02-17 09:06 | ER Document Report ---
ED GI/ - General Chief Complaint: Nausea/Vomiting Stated Complaint: NAUSEA Time Seen by Provider: 02/17/20 08:57 Mode of Arrival: Ambulatory Information source: Patient Notes: 02/17/20 00:20 - ED Nursing Note by HA BURR Num: [id number] : 1995 Patient Age: 24 pt reports vomiting multiple days this week. 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 skin warm and dry. speaking in full sentences. resp e/u. MY NOTES 24-year-old homeless black male arrives by walking. Patient has his earphones and music by his bedside. He is snoring on my initial exam. He has a history of having GERD as well as needing a place to stay. Patient has been here for least 8 hours. The local homeless [facility] at the [facility] here in [facility] [place]. We will discharge patient home. He received Zofran 1 p.o. He denies any other medical problems. TRAVEL OUTSIDE OF THE U.[place]. IN LAST 30 DAYS: No - Related Data Allergies/Adverse Reactions: No Known Allergies Allergy (Verified 02/10/20 22:05) Past Medical History - General Information source: Patient - Social History Smoking Status: Current Every Day Smoker Cigarette use (# per day): Yes Chew tobacco use (# tins/day): No Smoking Education Provided: Yes Drug Abuse: None Lives with: Homeless Family History: Reviewed & Not Pertinent Patient has suicidal ideation: No Patient has homicidal ideation: No Pulmonary Medical History: Reports: Hx Asthma - Immunizations Immunizations up to date: Yes Hx Diphtheria, Pertussis, Tetanus Vaccination: Yes Review of Systems - Review of Systems Constitutional: No symptoms reported EENT: No symptoms reported Cardiovascular: No symptoms reported Respiratory: No symptoms reported Gastrointestinal: See HPI, Nausea Genitourinary: No symptoms reported Male Genitourinary: No symptoms reported Musculoskeletal: No symptoms reported Skin: No symptoms reported Hematologic/Lymphatic: No symptoms reported Neurological/Psychological: No symptoms reported Physical Exam - Vital signs Vitals: Temp Pulse Resp BP Pulse Ox 98.9 F 94 20 149/89 H 100 02/16/20 23:44 02/16/20 23:44 02/16/20 23:44 02/16/20 23:44 02/16/20 23:44 Interpretation: Normal - General General appearance: Appears well, Alert - HEENT Head: Normocephalic, Atraumatic Eyes: Normal Pupils: PERRL - Respiratory Respiratory status: No respiratory distress Chest status: Nontender Breath sounds: Normal Chest palpation: Normal - Cardiovascular Rhythm: Regular Heart sounds: Normal auscultation Murmur: No - Abdominal Inspection: Normal Distension: No distension Bowel sounds: Normal Tenderness: Nontender Organomegaly: No organomegaly - Rectal Prostate: Other - Deferred - Genitourinary Scrotum: Other - Deferred - Back Back: Normal, Nontender - Extremities General upper extremity: Normal inspection, Nontender, Normal color, Normal ROM, Normal temperature General lower extremity: Normal inspection, Nontender, Normal color, Normal ROM, Normal temperature, Normal weight bearing. No: Dotty's sign - Neurological Neuro grossly intact: Yes Cognition: Normal Orientation: AAOx4 Lucy Coma Scale Eye Opening: Spontaneous Lucy Coma Scale Verbal: Oriented Lucy Coma Scale Motor: Obeys Commands [place] Coma Scale Total: 15 Speech: Normal Motor strength normal: LUE, RUE, LLE, RLE Sensory: Normal - Psychological Associated symptoms: Normal affect, Normal mood - Skin Skin Temperature: Warm Skin Moisture: Dry Skin Color: Normal Course - Vital Signs Vital signs: Temp Pulse Resp BP Pulse Ox 98.9 F 94 20 149/89 H 100 02/16/20 23:44 02/16/20 23:44 02/16/20 23:44 02/16/20 23:44 02/16/20 23:44 - Laboratory Results Critical Laboratory Results Reviewed: No Critical Results Attending or Supervising Physician who Reviewed Labs: NITHIN LANGSTON JR - Radiology Results Critical Radiology Results Reviewed: No Critical Results Attending or Supervising Physician who Reviewed Radiology: NITHIN LANGSTON JR Discharge - Discharge Clinical Impression: Chronic abdominal pain, Homeless single person, Secondary gain, Nausea Disposition: HOME, SELF-CARE Additional Instructions: Follow-up with personal doctor or with [facility] or with the [facility] next to the homeless [facility]. Return to ER for true emergencies.
== END 2020-02-17 09:34 | disposition home or self-care (01) ==
LOC: ER 23:02
DX: R11.2 Nausea with vomiting, unspecified (principal); R10.9 Unspecified abdominal pain; G89.29 Other chronic pain; J45.909 Unspecified asthma, uncomplicated; F17.210 Nicotine dependence, cigarettes, uncomplicated; Z59.0 Homelessness; Z87.19 Personal history of other diseases of the digestive system
CPT/HCPCS: 99283; S0119

== ENCOUNTER 2020-02-18 23:55 | Emergency (ER) | payer SELFPAY ==
[2020-02-19] MEDS ORDERED: KETOROLAC TROMETHAMINE INJ/PF 30 MG/1 ML SDV IM ONE (05:14)
[2020-02-19] MEDS ORDERED: ONDANSETRON 4 MG TAB.RAPDIS PO ONE (05:14)
[2020-02-19 05:15] VITALS: BP 112/73
--- NOTE | 2020-02-19 05:20 | ER Document Report ---
ED GI/ - General Chief Complaint: Nausea Stated Complaint: NAUSEA/VOMITING/DIARRHEA/FEVER Time Seen by Provider: 02/19/20 04:59 Primary Care Provider: [facility] [Provider Group] - Follow up as needed [facility] [Provider Group] - Follow up as needed Mode of Arrival: Ambulatory Information source: Patient Notes: 24-year-old male presented to ED for complaint of history of any medical problems except for asthma. He has had no abdominal surgeries. He states he does smoke 1 or 2 cigarettes a day does not use alcohol or drugs. Abdomen is soft he states it is a level 5 out of 5 pain. Bowel sounds are active throughout. When I first walked into the room he was sleeping snoring on his abdomen. Constitutional: Negative for fever. HENT: Negative for sore throat. Eyes: Negative for visual changes. Cardiovascular: Negative for chest pain. Respiratory: Negative for shortness of breath. Gastrointestinal: Patient complains of generalized abdominal pain that he has had for years. He states it is hurting at this time and he does not have any medicines to take now. He states he is nauseated and he is taking his last Zofran. He states he did not go to the homeless alf instead came to the emergency room because he was hurting. Genitourinary: Negative for dysuria. Musculoskeletal: Negative for back pain. Skin: Negative for rash. Neurological: Negative for headaches, weakness or numbness. 10 point ROS negative except as marked above and in HPI. VITAL SIGNS: Within normal limits. GENERAL: No acute distress, non-toxic appearance. HEAD: Normal with no signs of head trauma. EYES: PERRLA, EOMI, conjunctiva normal, no discharge. EARS: Hearing grossly intact. NOSE: Normal. THROAT: Oropharynx is normal. NECK: Normal range of motion, no tenderness, supple, no lymphadenopathy, No adenopathy, no JVD. CHEST: Clear breath sounds bilaterally. No wheezes, rales, or rhonchi. CARDIAC: Regular rate and rhythm. S1 and S2, without murmurs, gallops, or rubs. VASCULAR: No Edema. Peripheral pulses normal and equal in all extremities. ABDOMEN: Normal and soft with no point tenderness, no masses or pulsatile masses. States his entire abdomen hurts but does not flinch with palpation GASTROINTESTINAL: Hyperactive bowel sounds normal GENITOURINARY: Normal, No tenderness LYMPATHTIC: No lymphadenopathy noted. MUSCULOSKELETAL: Good range of motion of all major joints. Extremities without clubbing, cyanosis or edema. NEUROLOGICAL: Alert and oriented x 3. No focal sensory or strength deficits. Speech normal. Follows commands appropriately. PSYCHIATRIC: Normal Affect, judgement and mood. SKIN: Normal appearance with no rashes or lesions. TRAVEL OUTSIDE OF THE U.S. IN LAST 30 DAYS: No - HPI Patient complains to provider of: Abdominal pain. No: Diarrhea, Dysuria, Hematuria, Vomiting Onset: Other - Chronic Quality of pain: Sharp Severity at maximum: Severe Severity in ED: Severe Pain Level: 5 Location: LUQ, LLQ, RUQ, RLQ Associated symptoms: Nausea Exacerbated by: Denies Relieved by: Denies Similar symptoms previously: Yes Recently seen / treated by doctor: Yes - Related Data Allergies/Adverse Reactions: No Known Allergies Allergy (Verified 02/10/20 22:05) Past Medical History - General Information source: Patient - Social History Smoking Status: Current Every Day Smoker Cigarette use (# per day): Yes Smoking Education Provided: Yes Frequency of alcohol use: None Drug Abuse: None Occupation: [employer] Lives with: Homeless Family History: Reviewed & Not Pertinent Patient has suicidal ideation: No Patient has homicidal ideation: No - Past Medical History Cardiac Medical History: Reports: None Pulmonary Medical History: Reports: Hx Asthma EENT Medical History: Reports: None Neurological Medical History: Reports: None Endocrine Medical History: Reports: None Renal/ Medical History: Reports: None Malignancy Medical History: Reports None GI Medical History: Reports: None Musculoskeletal Medical History: Reports None Skin Medical History: Reports None Psychiatric Medical History: Reports: None Traumatic Medical History: Reports: None Infectious Medical History: Reports: None Surgical Hx: Negative Past Surgical History: Reports: None - Immunizations Immunizations up to date: Yes Hx Diphtheria, Pertussis, Tetanus Vaccination: Yes Physical Exam - Vital signs Vitals: Temp Pulse Resp BP Pulse Ox 98.7 F 105 H 18 157/84 H 98 02/18/20 23:56 02/18/20 23:56 02/18/20 23:56 02/18/20 23:56 02/18/20 23:56 Course - Re-evaluation Re-evalutation: 02/19/20 08:33 Patient complaining of abdominal pain but when I reassessed him he stated he needed to go to work. I did give him Toradol and Zofran and give him a work note so he can go to work. He has had this abdominal pain for years and it is no different today than his normal. - Vital Signs Vital signs: Temp Pulse Resp BP Pulse Ox 97.3 F 80 14 112/73 97 02/19/20 05:14 02/19/20 05:14 02/19/20 05:14 02/19/20 05:14 02/19/20 05:14 - Laboratory Results Critical Laboratory Results Reviewed: No Critical Results - Radiology Results Critical Radiology Results Reviewed: No Critical Results Discharge - Discharge Clinical Impression: Nausea, Homeless single person Abdominal pain Qualifiers: Abdominal location: generalized Qualified Code(s): R10.84 - Generalized abdominal pain Condition: Stable Disposition: HOME, SELF-CARE Additional Instructions: ABDOMINAL PAIN: There are many causes of abdominal pain. Pain can mean a serious problem requiring surgery (such as appendicitis). It can also be an innocent problem that goes away on its own (such as a viral infection). Often, time must pass to determine the cause of pain. The physician does not feel that hospitalization is necessary, at present. Things may change within the next 24 hours. Call the doctor or come back for re- examination if any problems occur, such as: (1) Pain that becomes more severe, steady, or becomes concentrated in one specific area. Also, pain that is more severe with movement or coughing. (2) Vomiting that persists or becomes more frequent. (3) Blood in the vomitus, urine, or bowel movements. Blood in the stool may have a tarry or black appearance. (4) Shaking chills or fever greater than 100 degrees F. (5) The abdomen becomes more distended or swollen. (6) Bowel movements cease. (7) Failure to improve as expected. NORMAL EXAM AND WORKUP: At this time, your examination and workup show no significant abnormality. No significant abnormal physical findings are noted. All laboratory, EKG, and imaging (x-ray, CT scans, ultrasound) studies that were ordered show no significant abnormality. Although your examination and all studies that were ordered showed no significant abnormal finding, there are no examinations and no studies that are 100% accurate. There is always the possibility that some abnormality could exist and not be detected with physical examination or within the limits and capabilities of laboratory and other studies. You should return or follow up as you were instructed on your visit today for further evaluation if your symptoms do not resolve. TORADOL INJECTION: You have been given an injection of ketorolac tromethamine (Toradol). This is an excellent, safe drug for pain control. It also has potent antiinflammatory action. You should have significant pain relief within about one hour. Toradol is not addicting and is non-sedating. It does not interfere with driving or work. Call or return if you develop itching, hives, shortness of breath, or rash. ANTINAUSEA MEDICATION: You have been given a medication to suppress nausea and vomiting. This type of medication can be given as a shot, pill, or suppository. It will usually last for many hours. Pills and shots usually last six to eight hours, suppositories last about 12 hours. For the typical illness, only one or two doses of the medication may be necessary. Mild lightheadedness may occur. This type of medicine can cause drowsiness. Do not drive or operate dangerous machinery while under its influence. Do not mix with alcohol. See your doctor at once if you have muscle spasms or tightness, or uncontrollable motions (particularly of the neck, mouth, or jaw). Persistent vomiting or severe lightheadedness should also be evaluated by the physician. FOLLOW-UP CARE: If you have been referred to a physician for follow-up care, call the [facility] office for an appointment as you were instructed or within the next two days. If you experience worsening or a significant change in your symptoms, notify the physician immediately or return to the Emergency Department at any time for re-evaluation. Prescriptions: Ondansetron [Zofran Odt 4 mg Tablet] 1 tab PO Q6H #15 tab.rapdis Forms: Smoking Cessation Education, Return to Work Referrals: [facility] [Provider Group] - Follow up as needed [facility] [Provider Group] - Follow up as needed
== END 2020-02-19 05:38 | disposition home or self-care (01) ==
LOC: ER 23:55
DX: R11.2 Nausea with vomiting, unspecified (principal); R10.84 Generalized abdominal pain; R19.7 Diarrhea, unspecified; R50.9 Fever, unspecified; F17.210 Nicotine dependence, cigarettes, uncomplicated; Z59.0 Homelessness
CPT/HCPCS: 99284; 96372; S0119; J1885

== ENCOUNTER 2020-02-21 21:29 | Emergency (ER) | payer SELFPAY ==
--- NOTE | 2020-02-21 22:57 | ER Document Report ---
ED Flu Like - General Chief Complaint: Flu Symptoms Stated Complaint: VOMITING,NAUSEA Time Seen by Provider: 02/21/20 22:49 Mode of Arrival: Ambulatory Information source: Patient TRAVEL OUTSIDE OF THE [place] IN LAST 30 DAYS: No - HPI Patient complains to provider of: Sore throat Notes: Patient here with multiple complaints. Patient has been seen here multiple times for, vomiting, headaches. Has had negative Covid swabs in the past. States that the nausea medication that we give him here typically makes him vomit more and the pain medication that we have given him does not help. He denies seeing a primary care doctor for any of this and denies seeing a GI doctor for any of this. Today's complaining of sore throat and states that he had a fever of 101 yesterday. [place] He denies any rash. No neck stiffness. He denies any new chest pain or shortness of breath. He denies any new abdominal pain. No dysuria or hematuria. No numbness, tingling, weakness. He has no other specific complaints at this time. Pain in his throat is worse with vomiting and swallowing. Nothing seems to make it better. - Related Data Allergies/Adverse Reactions: No Known Allergies Allergy (Verified 02/21/20 22:49) Past Medical History - Social History Smoking Status: Former Smoker Frequency of alcohol use: None Drug Abuse: None Family History: Reviewed & Not Pertinent Pulmonary Medical History: Reports: Hx Asthma - Immunizations Immunizations up to date: Yes Hx Diphtheria, Pertussis, Tetanus Vaccination: Yes Review of Systems - Review of Systems -: Yes All other systems reviewed and negative Physical Exam - Notes Notes: GENERAL: alert, cooperative, nontoxic, no distress. HEAD: normocephalic, atraumatic EYES: conjunctiva pink without discharge, no external redness or swelling. EARS: no external swelling, no external redness, no mastoid redness, swelling, tenderness. Ear canals are clear without swelling or drainage. TMs pearly gutiérrez, no redness, no bulging, normal landmarks, no perforation. NOSE: atraumatic, no external swelling. clear rhinorrhea noted. MOUTH/THROAT: mucous membranes moist and pink, posterior pharynx with mild erythema and swelling. No exudate. No peritonsillar abscess. E. No trismus or drooling. Voice is normal, no stridor. NECK: soft, supple, full range of motion, no meningismus. CHEST: no distress, lungs clear and equal throughout. No wheezing, rales, rhonchi. CARDIAC: regular rate and rhythm, no murmur. ABDOMEN: Soft, round, no focal areas of tenderness on exam. EXTREMITIES: full range of motion of all extremities. No redness, no swelling. NEURO: alert and oriented A&O3, no focal deficits, full range of motion of all extremities. PYSCH: appropriate mood, affect. Patient is cooperative. SKIN: pink, warm, dry, no rash. Course - Re-evaluation Re-evalutation: 02/21/20 23:42 Patient resting comfortably at this time. I gone over results with the patient. Questions answered. Will discharge home. Patient here with multiple complaints. Most of his complaints he is seen for very often here in the emergency department he has been going on for several months. He is complain of some nausea and vomiting with some occasional abdominal pain. Been seen for this multiple times. He states that the nausea medicine that we gave him in the pain medicine we gave him makes things worse. He is never seen a GI doctor or primary care doctor for this. His newest compl aint today is he was having a sore throat and a fever yesterday. He did have some mild erythema to the throat. There is no sign of peritonsillar abscess or serious throat infection. Rapid strep was negative. Culture is pending. At this point the patient overall looks well. He has no focal abdominal tenderness. His vitals are stable. Do not believe he requires an extensive work-up for his nausea vomiting has been going on for months and been worked up in the past. At this point I believe the patient can be discharged home with a referral to GI due to his chronic nausea vomiting, chronic abdominal pain as well as primary care. Follow-up sooner for any worsening symptoms or any further concerns. The patient's emergency department workup and current diagnosis were explained to the patient and or family. Follow-up instructions were provided. Medications if prescribed were discussed. Instructions for when to return to the emergency department including specific worrisome symptoms were discussed with the patient and/or family. - Laboratory Results Critical Laboratory Results Reviewed: No Critical Results - Radiology Results Critical Radiology Results Reviewed: No Critical Results Discharge - Discharge Clinical Impression: Sore throat Condition: Stable Disposition: HOME, SELF-CARE Instructions: Sore Throat ([facility]) Additional Instructions: Your strep test was negative today. If the culture grows strep, you will be contacted for antibiotics. Follow-up with primary care and GI for your chronic abdominal pain and chronic vomiting. Call sooner for any worsening symptoms or any further concerns. Referrals: [facility] [Provider Group] - Follow up as needed JR DECKER MD [ACTIVE STAFF] - Follow up as needed
[2020-02-22 00:20] VITALS: BP 145/90
== END 2020-02-22 00:18 | disposition home or self-care (01) ==
LOC: ER 21:29
DX: J02.9 Acute pharyngitis, unspecified (principal); R11.2 Nausea with vomiting, unspecified; R51.9 Headache, unspecified
CPT/HCPCS: 87070; 87880; 99283

== ENCOUNTER 2020-02-23 23:23 | Emergency (ER) | payer SELFPAY ==
[2020-02-24] MEDS ORDERED: MAG HYDROX/AL HYDROX/SIMETH SUSP 30 ML UDCUP PO ONE (00:55)
[2020-02-24] MEDS ORDERED: ONDANSETRON HCL INJ/PF 4 MG/2 ML SDV IM ONE (00:55)
[2020-02-24] MEDS ORDERED: METOCLOPRAMIDE HCL ORAL SOLN 10 MG/10 ML UDCUP PO ONE (00:55)
[2020-02-24] MEDS ORDERED: LIDOCAINE 2% VISCOUS SOLN 15 ML UDCUP PO ONE (00:55)
--- NOTE | 2020-02-24 01:02 | ER Document Report ---
ED GI/ - General Chief Complaint: Nausea/Vomiting Stated Complaint: CHEST PAIN/NAUSEA/VOMITING/FEVER Time Seen by Provider: 02/24/20 00:37 Primary Care Provider: [facility] [Provider Group] - Follow up as needed [facility] [Provider Group] - Follow up as needed [facility] [Provider Group] - Follow up as needed Mode of Arrival: Ambulatory Information source: Patient Notes: 25-year-old male presented to ED for complaint of nausea and vomiting chest pain since morning time. He states he has vomited several times and then tried to force himself to vomit causing him to vagal and give very lightheaded and might have passed out. He states he has vomited intermittently since then. He states he has not vomited anymore for several hours by the time I saw him. Patient is seen in the emergency room multiple times for similar complaints. He states this time he has had a nausea and vomiting for several weeks. Patient was no acute distress when I examined him. Lungs are clear he was not nauseated. I treated him with a GI cocktail and Zofran. I did give him a prescription for Phenergan for his nausea as he states Zofran never helps him. Constitutional: Negative for fever. HENT: Negative for sore throat. Eyes: Negative for visual changes. Cardiovascular: Negative for chest pain. Respiratory: Negative for shortness of breath. Gastrointestinal: Negative for abdominal pain, vomiting or diarrhea. Genitourinary: Negative for dysuria. Musculoskeletal: Negative for back pain. Skin: Negative for rash. Neurological: Negative for headaches, weakness or numbness. 10 point ROS negative except as marked above and in HPI. VITAL SIGNS: Within normal limits. GENERAL: No acute distress, non-toxic appearance. HEAD: Normal with no signs of head trauma. EYES: PERRLA, EOMI, conjunctiva normal, no discharge. EARS: Hearing grossly intact. NOSE: Normal. THROAT: Oropharynx is normal. NECK: Normal range of motion, no tenderness, supple, no lymphadenopathy, No adenopathy, no JVD. CHEST: Clear breath sounds bilaterally. No wheezes, rales, or rhonchi. CARDIAC: Regular rate and rhythm. S1 and S2, without murmurs, gallops, or rubs. VASCULAR: No Edema. Peripheral pulses normal and equal in all extremities. ABDOMEN: Normal and soft with no tenderness, no masses or pulsatile masses. GASTROINTESTINAL: Bowel sounds normal GENITOURINARY: Normal, No tenderness LYMPATHTIC: No lymphadenopathy noted. MUSCULOSKELETAL: Good range of motion of all major joints. Extremities without clubbing, cyanosis or edema. NEUROLOGICAL: Alert and oriented x 3. No focal sensory or strength deficits. Speech normal. Follows commands appropriately. PSYCHIATRIC: Normal Affect, judgement and mood. SKIN: Normal appearance with no rashes or lesions. TRAVEL OUTSIDE OF THE [place] IN LAST 30 DAYS: No - HPI Patient complains to provider of: Abdominal pain, Vomiting, Other - Syncopal episode after vomiting and tried to force himself to vomit Onset: Other - Has had multiple episodes of nausea and vomiting visits in the last several weeks Timing/Duration: Intermittent Quality of pain: Other - Patient states she is always hurting in the abdomen Severity at maximum: Severe Severity in ED: Severe Pain Level: 5 Location: Other - Generalized Associated symptoms: Nausea, Vomiting, Other - Epigastric pain Exacerbated by: Denies Relieved by: Denies Similar symptoms previously: Yes Recently seen / treated by doctor: Yes - Related Data Allergies/Adverse Reactions: No Known Allergies Allergy (Verified 02/21/20 22:49) Home Medications: none Past Medical History - General Information source: Patient - Social History Smoking Status: Current Every Day Smoker Cigarette use (# per day): Yes Chew tobacco use (# tins/day): No Frequency of alcohol use: Social Drug Abuse: None Lives with: Homeless Family History: Reviewed & Not Pertinent Patient has suicidal ideation: No Patient has homicidal ideation: No - Past Medical History Cardiac Medical History: Reports: None Pulmonary Medical History: Reports: Hx Asthma EENT Medical History: Reports: None Neurological Medical History: Reports: None Endocrine Medical History: Reports: None Renal/ Medical History: Reports: None Malignancy Medical History: Reports None GI Medical History: Reports: None Musculoskeletal Medical History: Reports None Skin Medical History: Reports None Psychiatric Medical History: Reports: None Traumatic Medical History: Reports: None Infectious Medical History: Reports: None Surgical Hx: Negative Past Surgical History: Reports: None - Immunizations Immunizations up to date: Yes Hx Diphtheria, Pertussis, Tetanus Vaccination: Yes Physical Exam - Vital signs Vitals: Temp Pulse Resp BP Pulse Ox 98.2 F 114 H 16 149/112 H 98 02/24/20 00:31 02/24/20 00:31 02/24/20 00:31 02/24/20 00:31 02/24/20 00:31 Course - Re-evaluation Re-evalutation: 02/24/20 08:14 Patient was seen couple days ago for the same symptoms. His lungs are clear abdomen soft nonsurgical abdomen. He has generalized tenderness he was discharged home soon after getting a GI cocktail I did not have time to work before he was discharged. He was given a prescription for Phenergan to help with his nausea. - Vital Signs Vital signs: Temp Pulse Resp BP Pulse Ox 98.6 F 99 18 157/82 H 100 02/24/20 00:46 02/24/20 00:45 02/24/20 00:45 02/24/20 01:02/24/20 00:45 - Laboratory Results Critical Laboratory Results Reviewed: No Critical Results - Radiology Results Critical Radiology Results Reviewed: No Critical Results Discharge - Discharge Clinical Impression: Homeless single person, Nausea Abdominal pain Qualifiers: Abdominal location: generalized Qualified Code(s): R10.84 - Generalized abdominal pain Condition: Stable Disposition: HOME, SELF-CARE Additional Instructions: VOMITING: Vomiting (or nausea without vomiting) can be caused by many other different problems. It can mean that something's wrong with the stomach, such as ulcers or inflammation or the intestinal tract, such as appendicitis. But it can also be a symptom of a problem that has nothing to do with the stomach or intestines. Vomiting is common with severe headaches, earaches, tonsillitis, and kidney infections, etc. We see it with pneumonia or heart attacks. Drugs can cause nausea and vomiting. Many abdominal problems cause vomiting; for example, gallstones, kidney stones, pancreatitis, and intestinal obstruction (blocked bowels). In most cases, curing the vomiting depends on fixing the problem that caused it. For temporary relief, we may use an anti-nausea medicine. For home use, we can prescribe suppositories, chewable pills, pills that dissolve in the mouth, or liquid anti-nausea drugs. If the vomiting seems to be caused by a problem in the stomach, acid-suppressing drugs may be prescribed as well. It's important to avoid dehydration. Sip small amounts of clear liquids (soft drinks, tea, broth, etc) . Try to take fluids frequently even if you are vomiting to prevent dehydration. Take increasing amounts of fluid and when liq uids are being consumed successfully, advance to small amounts of bland food (toast, soups, mashed potatoes, etc.) until you are able to resume a regular diet. Avoid aspirin, tobacco, and alcohol. If the vomiting worsens, if the problem that's making you vomit worsens, or if there's evidence of bleeding in the stomach (such as black, tarry stool, or bloody or black vomit), you should return immediately. Also, return if abdominal pain worsens or becomes localized to one area or you develop high fever. Call your doctor if you aren't improved in 24 hours. ANTINAUSEA MEDICATION: You have been given a medication to suppress nausea and vomiting. This type of medication can be given as a shot, pill, or suppository. It will usually last for many hours. Pills and shots usually last six to eight hours. For the typical illness, only one or two doses of the medication may be necessary. Mild lightheadedness may occur. This type of medicine can cause drowsiness. Do not drive or operate dangerous machinery while under its influence. Do not mix with alcohol. See your doctor at once if you have muscle spasms or tightness, or uncontrollable motions (particularly of the neck, mouth, or jaw). Persistent vomiting or severe lightheadedness should also be evaluated by the physician. REGLAN (METOCLOPRAMIDE): Reglan has been prescribed. This medicine affects the stomach and intestines. It can be used to treat nausea and vomiting, to prevent reflux of stomach acid up into the esophagus, or to increase the contractions of the stomach and intestines. It is often prescribed for esophagitis, and for paralysis of the stomach in diabetics. Reglan can cause either mild restlessness or drowsiness. You should contact the doctor at once if you become extremely restless, anxious, or cannot sleep, or if you develop uncontrollable motions of the lips, tongue, or jaw. Do not take alcohol with this medicine. Do not drive or operate machinery until you have been taking this medicine long enough to know how it affects you. Call the doctor if you develop abdominal pains, lightheadedness, black stool, or blood in the stool or vomitus. Antacid Therapy You have been instructed to start antacid therapy. Antacids directly neutralize stomach acid. This is useful for acid irritation of the esophagus, gastritis, and ulcers. You should take two tablespoons of antacid one hour after each meal and three hours after each meal. If you are not eating, take the antacid every two hours. If you are using a concentrate (such as Maalox TC), use only one tablespoon. Many antacids affect the bowels. The most common problem is diarrhea. In this case, a pure aluminum hydroxide antacid (such as AlternaGel) can be urbina bstituted for some or all doses. If the problem is constipation, add a teaspoon of Milk of Magnesia to each dose. Call the doctor if you experience continued diarrhea or constipation, or if you develop lightheadedness, bloody stool or vomitus, severe abdominal pain, or black stool. FOLLOW-UP CARE: If you have been referred to a physician for follow-up care, call the physicians office for an appointment as you were instructed or within the next two days. If you experience worsening or a significant change in your symptoms, notify the physician immediately or return to the Emergency Department at any time for re-evaluation. Prescriptions: Promethazine HCl [Phenergan 25 mg Tablet] 25 mg PO Q6H PRN #10 tablet PRN Reason: Forms: Elevated Blood Pressure, Smoking Cessation Education Referrals: [facility] [Provider Group] - Follow up as needed [facility] [Provider Group] - Follow up as needed [facility] [Provider Group] - Follow up as needed
[2020-02-24 01:23] VITALS: BP 157/82
--- NOTE | 2020-02-24 22:08 | EKG REPORT ---
SEVERITY:- OTHERWISE NORMAL ECG - SINUS TACHYCARDIA : Confirmed by: Ina Min 24-Feb-2020 22:07:36
== END 2020-02-24 01:21 | disposition home or self-care (01) ==
LOC: ER 23:23
DX: R11.2 Nausea with vomiting, unspecified (principal); R10.84 Generalized abdominal pain; R07.9 Chest pain, unspecified; R42 Dizziness and giddiness; F17.210 Nicotine dependence, cigarettes, uncomplicated; J45.909 Unspecified asthma, uncomplicated; Z59.0 Homelessness
CPT/HCPCS: 93005; 99284; 96372; 93010; J3490; J2405

== ENCOUNTER 2020-02-24 22:16 | Emergency (ER) | payer SELFPAY ==
--- NOTE | 2020-02-24 23:03 | ER Document Report ---
ED Medical Screen (RME) - General Chief Complaint: Vomiting Stated Complaint: BLOOD IN VOMIT Time Seen by Provider: 02/24/20 22:41 Mode of Arrival: Ambulatory Information source: Patient Notes: 25-year-old male patient presenting to the emergency department with complaints of vomiting blood. Patient reports he vomited twice today, the second time he vomited there was dark red blood in it. He reports he generally has not felt well lately. He reports yesterday he passed out. Patient denies any blood in his stool, fever or chills. Of note he has been seen in this emergency department several times weekly for the last several months. Patient alert, oriented, abdomen soft, nontender. I have greeted and performed a rapid initial assessment of this patient. A comprehensive ED assessment and evaluation of the patient, analysis of test results and completion of the medical decision making process will be conducted by additional ED providers. I have specifically instructed the patient or family members with the patient to immediately return to any nursing staff should anything change in the patient's condition or with their chief complaint. TRAVEL OUTSIDE OF THE [place] IN LAST 30 DAYS: No - Related Data Allergies/Adverse Reactions: No Known Allergies Allergy (Verified 02/21/20 22:49) Past Medical History - Social History Family history: Reviewed & Not Pertinent Pulmonary Medical History: Reports: Hx Asthma - Immunizations Immunizations up to date: Yes Hx Diphtheria, Pertussis, Tetanus Vaccination: Yes Physical Exam - Vital signs Vitals: Temp Pulse Resp BP Pulse Ox 98.7 F 121 H 18 129/89 H 97 02/24/20 22:30 02/24/20 22:30 02/24/20 22:30 02/24/20 22:30 02/24/20 22:30 Course - Vital Signs Vital signs: Temp Pulse Resp BP Pulse Ox 98.7 F 121 H 18 129/89 H 97 02/24/20 22:30 02/24/20 22:30 02/24/20 22:30 02/24/20 22:30 02/24/20 22:30
[2020-02-24 23:33] LABS: ABSOLUTE BASOPHILS # (AUTO) 0.1 10^3/uL (0.0-0.2); ABSOLUTE EOSINOPHILS # (AUTO) 0.4 10^3/uL (0.0-0.6); ABSOLUTE MONOCYTES (AUTO) 0.5 10^3/uL (0.1-1.4); ABSOLUTE NEUT (AUTO) 4.1 10^3/uL (1.7-8.2); BASOPHILS % (AUTO) 0.9 % (0-2); EOSINOPHILS % (AUTO) 5.5 % (0-6); HEMATOCRIT 42.8 % (37.9-51.0); HEMOGLOBIN 15.5 g/dL (13.5-17.0); LYMPHOCYTES % (AUTO) 37.3 % (13-45); MEAN CORPUSCULAR HEMOGLOBIN 29.5 pg (27.0-33.4); MEAN CORPUSCULAR HGB CONC 36.2 g/dL (32.0-36.0); MEAN CORPUSCULAR VOLUME 82 fl (80-97); MONOCYTES % (AUTO) 5.8 % (3-13); PLATELET COUNT 255 10^3/uL (150-450); RED BLOOD COUNT 5.25 10^6/uL (4.35-5.55); RED CELL DISTRIBUTION WIDTH 14.5 % (11.5-14.0); SEGMENTED NEUTROPHILS % (AUTO) 50.5 % (42-78); TOTAL CELLS COUNTED % (AUTO) 100 %; WHITE BLOOD COUNT 8.1 10^3/uL (4.0-10.5)
[2020-02-24 23:51] LABS: ALBUMIN 4.3 g/dL (3.5-5.0); ALKALINE PHOSPHATASE 52 U/L (38-126); ANION GAP 7 (5-19); ASPARTATE AMINO TRANSFERASE 42 U/L (17-59); BILIRUBIN,DIRECT 0.3 mg/dL (0.0-0.4); BILIRUBIN,TOTAL 0.6 mg/dL (0.2-1.3); BLOOD UREA NITROGEN 16 mg/dL (7-20); CALCIUM 9.7 mg/dL (8.4-10.2); CARBON DIOXIDE 27 mmol/L (22-30); CHLORIDE 100 mmol/L (98-107); GLUCOSE 189 mg/dL (75-110); POTASSIUM 4.6 mmol/L (3.6-5.0); TOTAL PROTEIN 7.1 g/dL (6.3-8.2)
--- NOTE | 2020-02-24 23:59 | ER Document Report ---
HPI - HPI Time Seen by Provider: 02/24/20 22:41 Notes: 25-year-old male patient presenting to the emergency department with complaints of vomiting blood. Patient reports he vomited twice today, the second time he vomited there was dark red blood in it. He reports he generally has not felt we ll lately. He reports yesterday he passed out. Patient denies any blood in his stool, fever or chills. Of note he has been seen in this emergency department several times weekly for the last several months. - ROS Systems Reviewed and Negative: Yes All other systems reviewed and negative - GASTROINTESTINAL Gastrointestinal: REPORTS: Nausea, Patient vomiting - Prior to arrival - REPRODUCTIVE Reproductive: DENIES: : Past Medical History - General Information source: Patient - Social History Smoking Status: Never Smoker Frequency of alcohol use: None Drug Abuse: None Family History: Reviewed & Not Pertinent Pulmonary Medical History: Reports: Hx Asthma - Immunizations Immunizations up to date: Yes Hx Diphtheria, Pertussis, Tetanus Vaccination: Yes Vertical Provider Document - CONSTITUTIONAL Notes: PHYSICAL EXAMINATION: GENERAL: Well-appearing, well-nourished and in no acute distress. HEAD: Atraumatic, normocephalic. EYES: Pupils equal round extraocular movements intact, conjunctiva are normal. ENT: Nares patent NECK: Normal range of motion LUNGS: No respiratory distress Abdomen: Abdomen soft, nontender. Musculoskeletal: Normal range of motion NEUROLOGICAL: Normal speech, normal gait. PSYCH: Normal mood, normal affect. SKIN: Warm, Dry, normal turgor, no rashes or lesions noted. - INFECTION CONTROL TRAVEL OUTSIDE OF THE [place] IN LAST 30 DAYS: No Course - Re-evaluation Re-evalutation: Patient appears well, nontoxic. CBC and CMP are unremarkable. Hemoglobin is appropriate for patient. He has not had any vomiting here in the emergency department. He does report that yesterday he was taking his fingers down his throat. - Vital Signs Vital signs: Temp Pulse Resp BP Pulse Ox 98.7 F 121 H 18 129/89 H 97 02/24/20 22:30 02/24/20 22:30 02/24/20 22:30 02/24/20 22:30 02/24/20 22:30 - Laboratory Results Result Diagrams: 02/24/20 23:08 02/24/20 23:08 Laboratory Results Interpreted: 02/24/20 02/24/20 23:08 23:08 MCHC 36.2 H RDW 14.5 H Sodium 134.1 L Glucose 189 H Critical Laboratory Results Reviewed: No Critical Results - Radiology Results Critical Radiology Results Reviewed: No Critical Results Discharge - Discharge Clinical Impression: Encounter for medical screening examination Condition: Stable Disposition: HOME, SELF-CARE Additional Instructions: Your lab work today was reassuring. You likely had some irritation in your throat that led to the blood being in your vomit. Your blood levels are in the appropriate ranges. Please return with any new or worsening concerns.
[2020-02-25 00:43] VITALS: BP 124/79
== END 2020-02-25 00:40 | disposition home or self-care (01) ==
LOC: ER 22:16
DX: Z71.1 Person with feared health complaint in whom no diagnosis is made (principal)
CPT/HCPCS: 36415; 80053; 85025; 99283

== ENCOUNTER 2020-02-25 22:34 | Emergency (ER) | payer SELFPAY ==
--- NOTE | 2020-02-26 00:13 | ER Document Report ---
ED General - General Stated Complaint: COVID SYMPTOMS Time Seen by Provider: 02/26/20 00:06 Primary Care Provider: [facility] [Provider Group] - Follow up as needed [facility] [Provider Group] - Follow up as needed TRAVEL OUTSIDE OF THE [place] IN LAST 30 DAYS: No - HPI Notes: Patient is a 25 y/o male who presents with complaints of vomiting blood. He reports one episode of vomiting dark red blood today. Patient was seen in the ED yesterday for his symptoms and had a full workup which was unremarkable. Patient was discharged home with a prescription for zofran. Patient visits the ED frequently and has been seen five times in the last week. Patient denies any other symptoms including chest pain and shortness of breath. Patient is currently homeless. - Related Data Allergies/Adverse Reactions: No Known Allergies Allergy (Verified 02/21/20 22:49) Past Medical History - Social History Smoking Status: Current Every Day Smoker Family History: Reviewed & Not Pertinent Pulmonary Medical History: Reports: Hx Asthma - Immunizations Immunizations up to date: Yes Hx Diphtheria, Pertussis, Tetanus Vaccination: Yes Review of Systems - Review of Systems Constitutional: No symptoms reported EENT: No symptoms reported Cardiovascular: No symptoms reported Respiratory: No symptoms reported Gastrointestinal: See HPI Genitourinary: No symptoms reported Male Genitourinary: No symptoms reported Musculoskeletal: No symptoms reported Skin: No symptoms reported Hematologic/Lymphatic: No symptoms reported Neurological/Psychological: No symptoms reported Physical Exam - Vital signs Vitals: Temp Pulse Resp BP Pulse Ox 98.3 F 116 H 17 151/91 H 100 02/25/20 23:16 02/25/20 23:16 02/25/20 23:16 02/25/20 23:16 02/25/20 23:16 - Notes Notes: PHYSICAL EXAMINATION: VITALS: Vitals reviewed and within normal limits. GENERAL: Well-appearing, well-nourished and in no acute distress. HEAD: Atraumatic, normocephalic. EYES: Pupils equal, round, and reactive to light, extraocular movements intact, sclera anicteric, conjunctiva are normal. ENT: Nares patent. Moist mucous membranes. Oropharynx clear without exudates. NECK: Normal range of motion, supple without lymphadenopathy. LUNGS: Breath sounds clear to auscultation bilaterally and equal. No wheezes, rales, or rhonchi. HEART: Regular, rate, and rhythm without murmurs. ABDOMEN: Soft, nontender, normoactive bowel sounds. No guarding, no rebound. No masses appreciated. EXTREMITIES: Normal range of motion, no pitting or edema. No cyanosis. NEUROLOGICAL: No focal neurological deficits. Moves all extremities spontaneously and on command. PSYCH: Normal mood, normal affect. SKIN: Warm, Dry, normal turgor, no rashes or lesions noted. Course - Re-evaluation Re-evalutation: Patient is a 25-year-old male who presents with vomiting blood. Patient was seen in the emergency department yesterday for the same issue. Patient is frequently seen in the emergency department several times a week and has been seen 5 times in the past week. Vital signs are stable and within normal limits. On exam, abdomen is soft and nontender with normal bowel sounds. Patient appears well, nontoxic. CBC and CMP from yesterday are unremarkable. Hemoglobin is appropriate for patient at 15.5. Patient has had a complete workup in the past week with no new symptoms. He has not had any vomiting here in the emergency department. I have a low suspicion of concerning or emergent etiology at this time based on his presentation, exam and recent workups. Return precautions and follow up instructions given. Patient will be discharged. Patient understands and is in agreement with the plan. - Vital Signs Vital signs: Temp Pulse Resp BP Pulse Ox 98.3 F 116 H 17 151/91 H 100 02/25/20 23:16 02/25/20 23:16 02/25/20 23:16 02/25/20 23:16 02/25/20 23:16 - Laboratory Results Critical Laboratory Results Reviewed: No Critical Results - Radiology Results Critical Radiology Results Reviewed: No Critical Results Discharge - Discharge Clinical Impression: Encounter for medical screening examination Condition: Stable Disposition: HOME, SELF-CARE Additional Instructions: Your lab work yesterday was reassuring. You likely had some irritation in your throat that led to the blood being in your vomit. Your blood levels are in the appropriate ranges. Please return with any new or worsening concerns, including chest pain, shortness of breath, fever, or persistent vomiting. Referrals: [facility] [Provider Group] - Follow up as needed [facility] [Provider Group] - Follow up as needed
[2020-02-26 01:36] VITALS: BP 150/88
== END 2020-02-26 01:35 | disposition home or self-care (01) ==
LOC: ER 22:34
DX: K92.0 Hematemesis (principal); F17.200 Nicotine dependence, unspecified, uncomplicated; J45.909 Unspecified asthma, uncomplicated; Z59.0 Homelessness
CPT/HCPCS: 99282

== ENCOUNTER 2020-03-03 23:25 | Emergency (ER) | payer SELFPAY ==
--- NOTE | 2020-03-04 00:18 | ER Document Report ---
ED General - General Chief Complaint: Flu Symptoms Stated Complaint: NAUSEA/VOMITING/FEVER Time Seen by Provider: 03/04/20 00:08 Mode of Arrival: Ambulatory Information source: Patient TRAVEL OUTSIDE OF THE [place] IN LAST 30 DAYS: No - HPI Patient complains to provider of: Nausea, vomiting, loss of taste Notes: Patient here with typical complaints of nausea, vomiting. He seen for this same complaints quite often. He also states that he lost his sense of taste and smell 2 days ago. He also reports having a fever as he typically does when he is here although he is afebrile here. Patient is homeless. He states he does work at [employer]. He denies any current chest pain or shortness of breath. No abdominal pain. No rash. No numbness, tingling, weakness. Nothing seems to make symptoms better or worse. No other complaints. - Related Data Allergies/Adverse Reactions: No Known Allergies Allergy (Verified 02/21/20 22:49) Past Medical History - Social History Smoking Status: Current Every Day Smoker Frequency of alcohol use: None Drug Abuse: None Family History: Reviewed & Not Pertinent Pulmonary Medical History: Reports: Hx Asthma - Immunizations Immunizations up to date: Yes Hx Diphtheria, Pertussis, Tetanus Vaccination: Yes Review of Systems - Review of Systems -: Yes All other systems reviewed and negative Physical Exam - Vital signs Vitals: Temp Pulse Resp BP Pulse Ox 98.0 F 123 H 18 157/88 H 100 03/03/20 23:31 03/03/20 23:31 03/03/20 23:31 03/03/20 23:31 03/03/20 23:31 - Notes Notes: GENERAL: alert, cooperative, nontoxic, no distress. HEAD: normocephalic, atraumatic EYES: conjunctiva pink without discharge, no external redness or swelling. EARS: no external swelling, no external redness NOSE: atraumatic, no external swelling MOUTH/THROAT: mucous membranes moist and pink, posterior pharynx without erythema, swelling, exudate. No trismus or drooling. NECK: soft, supple, full range of motion, no meningismus. CHEST: no distress, lungs clear and equal throughout. No wheezing, rales, rhonchi. CARDIAC: regular rhythm, no murmur, mild tachycardia. Repeat heart rate of 111. ABDOMEN: Soft, nontender to palpation. Normal bowel sounds. BACK: full range of motion EXTREMITIES: full range of motion of all extremities. No redness, no swelling. NEURO: alert and oriented x 3, no focal deficits, full range of motion of all extremities. PYSCH: appropriate mood, affect. Patient is cooperative. SKIN: pink, warm, dry, no rash. Course - Re-evaluation Re-evalutation: 03/04/20 00:14 Patient is nontoxic-appearing stable vitals. Noted to have mild tachycardia when he arrived. Repeat heart rate down to 111. Here with complaints of nausea, vomiting and loss of taste and smell which she states started 2 days ago. He also reports fever. These are the same complaints that he is seen for quite often. On exam aside from some very mild tachycardia, the patient looks well. He has no abdominal tenderness on exam. He is in no respiratory distress. He satting 100% on room air. Patient will be tested for Covid and is instructed to quarantine until he receives his results. He states he works at [employer]. I instructed him to not work until he knows that he does not have Covid so he is not spreading it to the public. Patient will be discharged home with instructions to take Tylenol Motrin as needed for pain or fever. Drink plenty of fluids. Quarantine until you receive this results. Follow-up for any worsening symptoms or any further concerns. The patient's emergency department workup and current diagnosis were explained to the patient and or family. Follow-up instructions were provided. Medications if prescribed were discussed. Instructions for when to return to the emergency department including specific worrisome symptoms were discussed with the patient and/or family. - Vital Signs Vital signs: Temp Pulse Resp BP Pulse Ox 98.0 F 123 H 18 157/88 H 100 03/04/20 00:09 03/03/20 23:31 03/03/20 23:31 03/03/20 23:31 03/03/20 23:31 - Laboratory Results Critical Laboratory Results Reviewed: No Critical Results - Radiology Results Critical Radiology Results Reviewed: No Critical Results Discharge - Discharge Clinical Impression: Person under investigation for COVID-19 Nausea & vomiting Qualifiers: Vomiting type: unspecified Vomiting Intractability: non-intractable Qualified Code(s): R11.2 - Nausea with vomiting, unspecified Condition: Stable Disposition: HOME, SELF-CARE Instructions: COVID-19 Guidance for Persons Under Investigation, Vomiting ([facility]) Additional Instructions: Tylenol or Motrin as needed for pain or fever. Drink plenty of fluids. You should quarantine until you receive your results. This includes not working until you know you do not have Covid. Follow-up for worsening symptoms, or any further concerns. Forms: Smoking Cessation Education Referrals: [facility] [Provider Group] - Follow up as needed
[2020-03-04 00:22] VITALS: BP 140/74
== END 2020-03-04 00:22 | disposition home or self-care (01) ==
LOC: ER 23:25
DX: R11.2 Nausea with vomiting, unspecified (principal); R43.9 Unspecified disturbances of smell and taste; F17.200 Nicotine dependence, unspecified, uncomplicated; Z20.822 Contact with and (suspected) exposure to COVID-19
CPT/HCPCS: 99283; 36415; 87635; C9803

== ENCOUNTER 2020-03-04 23:19 | Emergency (ER) | payer SELFPAY ==
--- NOTE | 2020-03-05 00:52 | RADIOLOGY REPORT (SQ) ---
CHEST X-RAY 2 view on 03/05/2020 at 12:32 AM CLINICAL INDICATION: Chest pain, cough COMPARISON: 02/10/2020 FINDINGS: The lungs are clear. Cardiac, hilar and mediastinal contours are within normal limits. Pulmonary vascularity is within normal limits. No bony abnormality is noted. IMPRESSION: No active disease.
--- NOTE | 2020-03-05 01:03 | ER Document Report ---
ED Cardiac - General Chief Complaint: Chest Pain Stated Complaint: CHEST PAIN Time Seen by Provider: 03/04/20 23:25 Mode of Arrival: Ambulatory Information source: Patient TRAVEL OUTSIDE OF THE [place] IN LAST 30 DAYS: No - HPI Patient complains to provider of: Chest pain Notes: Patient here with complaints of chest pain. Patient denies any significant shortness of breath. He reports fever although has not taken his temperature. Patient has been seen multiple times for similar complaints in the past. He denies any numbness, tingling, weakness. No nausea vomiting today. No severe abdominal pain. No severe headache. No rash. He was seen last night and had a Covid swab which is currently pending at this time. Patient has no other complaints at this time. - Related Data Allergies/Adverse Reactions: No Known Allergies Allergy (Verified 02/21/20 22:49) Past Medical History - Social History Smoking Status: Never Smoker Family History: Reviewed & Not Pertinent Pulmonary Medical History: Reports: Hx Asthma - Immunizations Immunizations up to date: Yes Hx Diphtheria, Pertussis, Tetanus Vaccination: Yes Review of Systems - Review of Systems -: Yes All other systems reviewed and negative Physical Exam - Vital signs Vitals: Temp Pulse Resp BP Pulse Ox 98.6 F 102 H 20 153/102 H 100 03/04/20 23:26 03/04/20 23:26 03/04/20 23:26 03/04/20 23:26 03/04/20 23:26 - Notes Notes: GENERAL: alert, cooperative, nontoxic, no distress. HEAD: normocephalic, atraumatic EYES: conjunctiva pink without discharge, no external redness or swelling. EARS: no external swelling, no external redness NOSE: atraumatic, no external swelling MOUTH/THROAT: mucous membranes moist and pink, posterior pharynx without erythema, swelling, exudate. No trismus or drooling. NECK: soft, supple, full range of motion, no meningismus. CHEST: no distress, lungs clear and equal throughout. No wheezing, rales, rhonchi. CARDIAC: regular rate and rhythm, no murmur ABDOMEN: Soft, nontender to palpation. BACK: full range of motion EXTREMITIES: full range of motion of all extremities. No redness, no swelling. NEURO: alert and oriented x 3, no focal deficits, full range of motion of all extremities. PYSCH: appropriate mood, affect. Patient is cooperative. SKIN: pink, warm, dry, no rash. Course - Re-evaluation Re-evalutation: 03/05/20 01:01 Patient resting comfortably this time. Gone over the results with the patient. Questions answered. Discharged home. Patient is nontoxic-appearing stable vitals. Here with complaints of chest pain. Patient is seen and evaluated for chest pain as well as nausea vomiting and fevers nearly daily in this emergency department. States that this pain started a few hours ago. The patient has a heart score of 1. EKG shows no ischemic changes. Chest x-ray is negative. He was tested for Covid yesterday. Vital signs are stable. Overall the patient looks well. At this point believe the patient can be discharged home with instructions to get established with a primary care doctor for his chronic complaints of chest pain, abdominal pain, vomiting, fevers. Follow back in the emergency department he has any worsening symptoms or any further concerns. Patient has no pulmonary embolism risk factors. The patient's emergency department workup and current diagnosis were explained to the patient and or family. Follow-up instructions were provided. Medications if prescribed were discussed. Instructions for when to return to the emergency department including specific worrisome symptoms were discussed with the patient and/or family. - Vital Signs Vital signs: Temp Pulse Resp BP Pulse Ox 98.6 F 102 H 20 153/102 H 100 03/04/20 23:26 03/04/20 23:26 03/04/20 23:26 03/04/20 23:26 03/04/20 23:26 - Laboratory Results Critical Laboratory Results Reviewed: No Critical Results - Radiology Results Critical Radiology Results Reviewed: No Critical Results - EKG Interpretation by [facility] EKG shows normal: Sinus rhythm Rate: Normal Additional EKG results interpreted by [facility]: 03/05/20 00:59 EKG shows normal sinus rhythm with a ventricular rate of 95, IL interval 140, QS duration 92, QT interval 336. No ST elevation or depression. No STEMI. Discharge - Discharge Clinical Impression: Chest pain Qualifiers: Chest pain type: unspecified Qualified Code(s): R07.9 - Chest pain, unspecified Condition: Stable Disposition: HOME, SELF-CARE Instructions: Chest Pain of Unclear Cause ([facility]) Additional Instructions: Tylenol or Motrin as needed for pain. Drink plenty fluids. Is very important for you to get established with a primary care doctor to help with your chronic symptoms. Follow-up sooner for any worsening symptoms or any further concerns. Referrals: [facility] [Provider Group] - Follow up as needed
[2020-03-05 01:16] VITALS: BP 144/83
--- NOTE | 2020-03-05 07:47 | EKG REPORT ---
SEVERITY:- NORMAL ECG - SINUS RHYTHM : Confirmed by: Jaden Martinez MD 05-Mar-2020 07:46:12
== END 2020-03-05 01:16 | disposition home or self-care (01) ==
LOC: ER 23:19
DX: R07.9 Chest pain, unspecified (principal); J45.909 Unspecified asthma, uncomplicated
CPT/HCPCS: 71046; 93005; 93010; 99284

== ENCOUNTER 2020-03-05 22:51 | Emergency (ER) | payer SELFPAY ==
[2020-03-05] MEDS ORDERED: ONDANSETRON 4 MG TAB.RAPDIS PO ONE (23:28)
[2020-03-05] MEDS ORDERED: ACETAMINOPHEN 325 MG TABLET PO ONE (23:28)
--- NOTE | 2020-03-05 23:30 | ER Document Report ---
ED Head/Face/Scalp Injury - General Chief Complaint: Head Injury Stated Complaint: HEAD INJURY,VOMITING Time Seen by Provider: 03/05/20 23:24 Mode of Arrival: Ambulatory Information source: Patient TRAVEL OUTSIDE OF THE [place] IN LAST 30 DAYS: No - HPI Patient complains to provider of: Injury Injury to: Head Notes: Patient here with complaints of head injury. Patient states that he slipped while walking outside falling backwards and hitting his head on the pavement. He states that he had loss of consciousness for an unknown period of time. Since then he has had a severe headache and has had some nausea and vomiting. He is not on blood thinning medications. No blurred or lost vision. No numbne ss, tingling, weakness. No chest pain or shortness of breath. No abdominal pain. No rash. Pain is constant, moderate to severe, nothing makes it better or worse. Patient denies any other injuries or complaints at this time. - Related Data Allergies/Adverse Reactions: No Known Allergies Allergy (Verified 02/21/20 22:49) Past Medical History - Social History Smoking Status: Never Smoker Frequency of alcohol use: None Drug Abuse: None Family History: Reviewed & Not Pertinent Pulmonary Medical History: Reports: Hx Asthma - Immunizations Immunizations up to date: Yes Hx Diphtheria, Pertussis, Tetanus Vaccination: Yes Review of Systems - Review of Systems -: Yes All other systems reviewed and negative Physical Exam - Vital signs Vitals: Temp Pulse Resp BP Pulse Ox 98.5 F 112 H 18 150/100 H 98 03/05/20 23:03 03/05/20 23:03 03/05/20 23:03 03/05/20 23:03 03/05/20 23:03 - Notes Notes: GENERAL: alert, cooperative, nontoxic, no distress. HEAD: normocephalic, tenderness palpation of the right posterior scalp. No laceration. EYES: conjunctiva pink without discharge, no external redness or swelling. Pupils are equal, round, reactive to light. Extraocular muscles intact bilaterally. EARS: no external swelling, no external redness NOSE: atraumatic, no external swelling MOUTH/THROAT: mucous membranes moist and pink, posterior pharynx without erythema, swelling, exudate. No trismus or drooling. NECK: soft, supple, full range of motion, no meningismus. CHEST: no distress, lungs clear and equal throughout. No wheezing, rales, rhonchi. CARDIAC: regular rate and rhythm, no murmur BACK: full range of motion EXTREMITIES: full range of motion of all extremities. No redness, no swelling. NEURO: alert and oriented x 3, cranial nerves II through XII are grossly intact. Upper and lower extremities are equal throughout. Normal sensation. No focal deficits, full range of motion of all extremities. normal finger to nose. PYSCH: appropriate mood, affect. Patient is cooperative. SKIN: pink, warm, dry, no rash. Course - Re-evaluation Re-evalutation: 03/06/20 00:21 Patient resting comfortably this time. Have gone over results with the patient. Questions been answered. Will discharge home. Patient here with complaints of head injury with loss of consciousness and vomiting. He states he was walking, tripped and fell and hit the back of his head and lost consciousness. He continued to have a headache and vomited after this occurred. He has a nonfocal neuro exam. He is on no blood thinning medications. No laceration. Based on the patient's mechanism of injury with head injury with loss of consciousness, continued severe headache and vomiting, a head CT was ordered and was negative for acute findings. Patient will be discharged home with instructions to take Tylenol Motrin as needed for pain. Drink plenty fluids. Follow-up for worsening pain, fever, numbness, tingling, weakness, any further concerns. The patient's emergency department workup and current diagnosis were explained to the patient and or family. Follow-up instructions were provided. Medications if prescribed were discussed. Instructions for when to return to the emergency department including specific worrisome symptoms were discussed with the patient and/or family. - Vital Signs Vital signs: Temp Pulse Resp BP Pulse Ox 98.5 F 112 H 18 154/87 H 98 03/05/20 23:03 03/05/20 23:03 03/05/20 23:03 03/05/20 23:47 03/05/20 23:03 - Laboratory Results Critical Laboratory Results Reviewed: No Critical Results - Radiology Results Critical Radiology Results Reviewed: No Critical Results Discharge - Discharge Clinical Impression: Head injury, closed, with brief LOC Condition: Stable Disposition: HOME, SELF-CARE Instructions: Head Injury Precautions ([facility]) Additional Instructions: Take Tylenol Motrin as needed for pain. Drink plenty of fluids. Follow-up for worsening pain, fever, numbness, tingling, weakness, persistent vomiting, or any further concerns. Referrals: [facility] [Provider Group] - Follow up as needed
--- NOTE | 2020-03-06 00:12 | RADIOLOGY REPORT (SQ) ---
EXAM DESCRIPTION: CT HEAD WITHOUT IV CONTRAST COMPLETED DATE/TME: 03/05/2020 23:49 CLINICAL HISTORY: 25 years, Male, Head injury, LOC, vomiting COMPARISON: 10/20/2019 CT TECHNIQUE: 208 Images stored on PACS. All CT scanners at this facility use dose modulation, iterative reconstruction, and/or weight based dosing when appropriate to reduce radiation dose to as low as reasonably achievable (ALARA). [facility]: Dose Right [facility]: CareDose [facility]: Dose Right [facility]: Teradose 4D [facility]: [employer] LIMITATIONS: None. FINDINGS: The globes are intact. The paranasal sinuses and mastoid air cells are well aerated. No displaced or depressed skull fracture. No acute intracranial hemorrhage. CT is limited for evaluation of acute infarct. No CT evidence for large or territorial acute infarct. No mass or midline shift. 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 IMPRESSION: No acute intracranial abnormality TECHNICAL DOCUMENTATION: Quality ID # [id number]: Final reports with documentation of one or more dose reduction techniques (e.g., Automated exposure control, adjustment of the mA and/or kV according to patient size, use of iterative reconstruction technique) copyright 2010 [employer]- All Rights Reserved
[2020-03-06 00:42] VITALS: BP 128/78
== END 2020-03-06 00:35 | disposition home or self-care (01) ==
LOC: ER 22:51
DX: S06.9X9A Unspecified intracranial injury with loss of consciousness of unspecified duration, initial encounter (principal); R11.2 Nausea with vomiting, unspecified; W01.0XXA Fall on same level from slipping, tripping and stumbling without subsequent striking against object, initial encounter
CPT/HCPCS: 99284; 70450; S0119

== ENCOUNTER 2020-03-07 22:57 | Emergency (ER) | payer SELFPAY ==
[2020-03-07 23:05] VITALS: BP 142/79
[2020-03-07] MEDS ORDERED: ONDANSETRON 4 MG TAB.RAPDIS PO ONE (23:43)
--- NOTE | 2020-03-07 23:45 | ER Document Report ---
ED General - General Chief Complaint: Breathing Difficulty Stated Complaint: NAUSEA/VOMITING/HEADACHE/DIARHEA/LOSS TASTE Time Seen by Provider: 03/07/20 23:43 Primary Care Provider: [facility] [Provider Group] - Follow up as needed Mode of Arrival: Ambulatory Information source: Patient TRAVEL OUTSIDE OF THE [place] IN LAST 30 DAYS: No - HPI Patient complains to provider of: Nausea, vomiting, diarrhea, loss of taste and smell Notes: Patient here with systemic complaints of nausea, vomiting, diarrhea, fever and loss of taste and smell. He complained of this for the last several months has been seen and evaluated for it several times. I have personally seen this patient 4 times in the last 6 days. He had a Covid swab performed on 03/04, this was negative. Symptoms have not changed. He cannot tell me how many times he is vomited or had diarrhea. Nothing seems to make symptoms better or worse. He denies any other complaints. - Related Data Allergies/Adverse Reactions: No Known Allergies Allergy (Verified 02/21/20 22:49) Past Medical History - Social History Smoking Status: Current Every Day Smoker Frequency of alcohol use: None Drug Abuse: None Family History: Reviewed & Not Pertinent Pulmonary Medical History: Reports: Hx Asthma - Immunizations Immunizations up to date: Yes Hx Diphtheria, Pertussis, Tetanus Vaccination: Yes Review of Systems - Review of Systems -: Yes All other systems reviewed and negative Physical Exam - Vital signs Vitals: Temp Pulse Resp BP Pulse Ox 99.3 F 102 H 16 142/79 H 100 03/07/20 23:02 03/07/20 23:02 03/07/20 23:02 03/07/20 23:02 03/07/20 23:02 - Notes Notes: GENERAL: alert, cooperative, nontoxic, no distress. HEAD: normocephalic, atraumatic EYES: conjunctiva pink without discharge, no external redness or swelling. EARS: no external swelling, no external redness NOSE: atraumatic, no external swelling MOUTH/THROAT: mucous membranes moist and pink, posterior pharynx without erythema, swelling, exudate. No trismus or drooling. NECK: soft, supple, full range of motion, no meningismus. CHEST: no distress, lungs clear and equal throughout. No wheezing, rales, rhonchi. CARDIAC: regular rate and rhythm, no murmur ABDOMEN: Soft, nontender to palpation. No rebound tenderness, bowel sounds present. BACK: full range of motion EXTREMITIES: full range of motion of all extremities. No redness, no swelling. NEURO: alert and oriented x 3, no focal deficits, full range of motion of all extremities. PYSCH: appropriate mood, affect. Patient is cooperative. SKIN: pink, warm, dry, no rash. Course - Re-evaluation Re-evalutation: 03/07/20 23:48 Patient nontoxic-appearing stable vitals. Here with complaints of nausea, vomiting, diarrhea and loss of taste and smell. The patient has been seen and evaluated for this multiple times in the past. Patient had a negative Covid swab 3 days ago. Patient looks well. He has no focal tenderness. Vitals are stable. Was given a dose of Zofran ODT and was prescribed Zofran to go home. Follow-up with primary care the next day of appointment. Follow-up sooner for any worsening symptoms or any further concerns. The patient's emergency department workup and current diagnosis were explained to the patient and or family. Follow-up instructions were provided. Medications if prescribed were discussed. Instructions for when to return to the emergency department including specific worrisome symptoms were discussed with the patient and/or family. - Vital Signs Vital signs: Temp Pulse Resp BP Pulse Ox 99.3 F 102 H 16 142/79 H 100 03/07/20 23:02 03/07/20 23:02 03/07/20 23:02 03/07/20 23:02 03/07/20 23:02 - Laboratory Results Critical Laboratory Results Reviewed: No Critical Results - Radiology Results Critical Radiology Results Reviewed: No Critical Results Discharge - Discharge Clinical Impression: Nausea vomiting and diarrhea Condition: Stable Disposition: HOME, SELF-CARE Instructions: Diarrhea, Nonspecific ([facility]), Vomiting ([facility]) Additional Instructions: Take medication as prescribed. Drink plenty fluids. Follow-up with primary care the next available appointment. Follow-up sooner for any worsening symptoms or any further concerns. Prescriptions: Ondansetron [Zofran Odt 4 mg Tablet] 1 - 2 tab PO Q4H PRN #15 tab.rapdis PRN Reason: For Nausea/Vomiting Referrals: [facility] [Provider Group] - Follow up as needed
== END 2020-03-07 23:47 | disposition home or self-care (01) ==
LOC: ER 22:57
DX: R06.00 Dyspnea, unspecified (principal); R11.2 Nausea with vomiting, unspecified; R51.9 Headache, unspecified; R19.7 Diarrhea, unspecified; R43.8 Other disturbances of smell and taste; F17.200 Nicotine dependence, unspecified, uncomplicated
CPT/HCPCS: 99283; S0119

== ENCOUNTER 2020-03-09 22:42 | Emergency (ER) | payer SELFPAY ==
[2020-03-09 22:50] VITALS: BP 143/92
[2020-03-09] MEDS ORDERED: FAMOTIDINE 20 MG TABLET PO ONE (23:19)
[2020-03-09] MEDS ORDERED: ONDANSETRON ODT 4 MG TAB (6 TAB/ER DISP) PO PRN (23:20)
--- NOTE | 2020-03-09 23:24 | ER Document Report ---
HPI - HPI Pain Level: Denies Context: Patient is a 25-year-old male who presents emergency department with a chief complaint of nausea and vomiting, all which for the same complaints he had 2 days ago. He states that it is the same nausea and vomiting. Patient has a history of GERD, but does not take any medications. States that they "make him sick." According to his medical record, it does not look like he has had any of his medications filled this year. Patient is homeless. - CONSTITUTIONAL Constitutional: DENIES: Fever, Chills - EENT EENT: DENIES: Sore Throat, Ear Pain, Eye problems - NEURO Neurology: DENIES: Headache, Weakness, Vision blurred, Dizzinesss / Vertigo - CARDIOVASCULAR Cardiovascular: REPORTS: Chest pain - RESPIRATORY Respiratory: DENIES: Trouble Breathing, Coughing - GASTROINTESTINAL Gastrointestinal: REPORTS: Abdominal Pain. DENIES: Black / Bloody Stools - URINARY Urinary: DENIES: Dysuria, Urgency, Frequency - REPRODUCTIVE Reproductive: DENIES: : - MUSCULOSKELETAL Musculoskeletal: DENIES: Extremity pain - DERM Skin Color: Normal Skin Problems: None Past Medical History - Social History Smoking Status: Current Every Day Smoker Chew tobacco use (# tins/day): No Frequency of alcohol use: None Drug Abuse: Bath salts Family History: Reviewed & Not Pertinent Patient has homicidal ideation: No Pulmonary Medical History: Reports: Hx Asthma - Immunizations Immunizations up to date: Yes Hx Diphtheria, Pertussis, Tetanus Vaccination: Yes Vertical Provider Document - CONSTITUTIONAL Agree With Documented VS: Yes Exam Limitations: No Limitations General Appearance: No Apparent Distress - INFECTION CONTROL TRAVEL OUTSIDE OF THE [place] IN LAST 30 DAYS: No - HEENT HEENT: Atraumatic, Normocephalic, PERRLA - NECK Neck: Normal Inspection - RESPIRATORY Respiratory: Breath Sounds Normal, No Respiratory Distress - CARDIOVASCULAR Cardiovascular: Regular Rate, Regular Rhythm - GI/ABDOMEN Gastrointestinal: Abdomen Soft, Abdomen Non-Tender - MUSCULOSKELETAL/EXTREMETIES Musculoskeletal/Extremeties: FROM - NEURO Level of Consciousness: Awake, Alert, Appropriate Motor/Sensory: No Motor Deficit, No Sensory Deficit - DERM Integumentary: Warm, Dry, No Rash Course - Re-evaluation Re-evalutation: 03/09/20 23:25 Patient states that the medications, "make him sick." I looked up his medication history and he has not had any medications filled in the past year. I told him that it was important that he take Pepcid for his GERD. Abdomen is soft and tender. Have a low suspicion for any life-threatening etiology at this time. Placed a caseworker consult, as the patient has had multiple visits this past year. Follow-up precautions were given. Verbal discharge instructions were given to the patient. They verbalized understanding. They are stable for discharge. - Vital Signs Vital signs: Temp Pulse Resp BP Pulse Ox 99.3 F 122 H 12 143/92 H 99 03/09/20 23:16 03/09/20 22:48 03/09/20 22:48 03/09/20 22:48 03/09/20 22:48 - Laboratory Results Critical Laboratory Results Reviewed: No Critical Results - Radiology Results Critical Radiology Results Reviewed: No Critical Results Discharge - Discharge Clinical Impression: Nausea & vomiting Qualifiers: Vomiting type: unspecified Vomiting Intractability: unspecified Qualified Code(s): R11.2 - Nausea with vomiting, unspecified GERD (gastroesophageal reflux disease) Qualifiers: Esophagitis presence: without esophagitis Qualified Code(s): K21.9 - Gastro- esophageal reflux disease without esophagitis Condition: Stable Disposition: HOME, SELF-CARE Instructions: Antinausea Medication ([facility]) Additional Instructions: Please take your medications as prescribed. You can also buy this medication over the counter if you can not afford it in the prescription form. You can take the zofran, nausea medication, 1 tablet every 4-6 hours as needed for nausea/vomiting. Also, stop smoking. Prescriptions: Famotidine [Pepcid 20 mg Tablet] 40 mg PO BID #30 tablet Referrals: [facility] [Provider Group] - Follow up as needed [facility] [Provider Group] - Follow up as needed
== END 2020-03-09 23:31 | disposition home or self-care (01) ==
LOC: ER 22:42
DX: R11.2 Nausea with vomiting, unspecified (principal); K21.9 Gastro-esophageal reflux disease without esophagitis; R07.9 Chest pain, unspecified; R10.9 Unspecified abdominal pain; Z59.0 Homelessness; F17.200 Nicotine dependence, unspecified, uncomplicated
CPT/HCPCS: 99283

== ENCOUNTER 2020-03-11 00:41 | Emergency (ER) | payer SELFPAY ==
[2020-03-11 00:50] VITALS: BP 138/90
--- NOTE | 2020-03-11 00:55 | ER Document Report ---
HPI - HPI Time Seen by Provider: 03/11/20 00:47 Context: Patient is a 25-year-old male, well-known to this emergency department who presents to the ED with complaints of yesterday he is leaving he has a bottle of Zofran in the lobby of the emergency department and did not take it with him. States that his symptoms are nausea, vomiting, and chest pain. States that this is the same feeling that he had yesterday and the previous times before. He was prescribed Pepcid and was told that he can even buy this medication from the [facility], but he has not brought this medication or taken it. Patient has a history of GERD. States that he took "a medication like Tums." States that it did not help him. Patient's Covid test was negative on 04 March. - ROS Systems Reviewed and Negative: Yes All other systems reviewed and negative - CONSTITUTIONAL Constitutional: DENIES: Fever, Chills - NEURO Neurology: DENIES: Headache, Weakness - CARDIOVASCULAR Cardiovascular: REPORTS: Chest pain - RESPIRATORY Respiratory: DENIES: Trouble Breathing, Coughing - GASTROINTESTINAL Gastrointestinal: REPORTS: Nausea, Patient vomiting - REPRODUCTIVE Reproductive: DENIES: : - MUSCULOSKELETAL Musculoskeletal: DENIES: Extremity pain - DERM Skin Color: Normal Skin Problems: None Past Medical History - General Information source: Patient - Social History Smoking Status: Former Smoker Family History: Reviewed & Not Pertinent Pulmonary Medical History: Reports: Hx Asthma - Immunizations Immunizations up to date: Yes Hx Diphtheria, Pertussis, Tetanus Vaccination: Yes Vertical Provider Document - CONSTITUTIONAL Agree With Documented VS: Yes Exam Limitations: No Limitations General Appearance: No Apparent Distress - INFECTION CONTROL TRAVEL OUTSIDE OF THE [place] IN LAST 30 DAYS: No - HEENT HEENT: Atraumatic, Normocephalic, PERRLA - RESPIRATORY Respiratory: Breath Sounds Normal, No Respiratory Distress - CARDIOVASCULAR Cardiovascular: Regular Rate, Regular Rhythm - GI/ABDOMEN Gastrointestinal: Abdomen Soft, Abdomen Non-Tender - BACK Back: Normal Inspection, Abnormal Inspection - MUSCULOSKELETAL/EXTREMETIES Musculoskeletal/Extremeties: FROM - NEURO Level of Consciousness: Awake, Alert, Appropriate Motor/Sensory: No Motor Deficit, No Sensory Deficit - DERM Integumentary: Warm, Dry, No Rash Course - Re-evaluation Re-evalutation: 03/11/20 01:02 The bottle of Zofran was still here in the emergency department right next to the charge nurse. The bottle was given to him and he was instructed to take the medication. I also instructed him to get the Pepcid to help with his GERD. He is in agreement with this plan. I have a low suspicion for any life-threatening etiology at this time. Abdomen is soft and nontender. Have a low suspicion for appendicitis, gastric ulcer, or any other abdominal etiology. Have a low suspicion for ACS. Still awaiting caser up consult. Follow-up precautions were given. Verbal discharge instructions were given to the patient. They verbalized understanding. They are stable for discharge. - Vital Signs Vital signs: Temp Pulse Resp BP Pulse Ox 97.6 F 90 18 138/90 H 100 03/11/20 00:48 03/11/20 00:48 03/11/20 00:48 03/11/20 00:48 03/11/20 00:48 - Laboratory Results Critical Laboratory Results Reviewed: No Critical Results - Radiology Results Critical Radiology Results Reviewed: No Critical Results Discharge - Discharge Clinical Impression: Nausea & vomiting Qualifiers: Vomiting type: unspecified Vomiting Intractability: unspecified Qualified Code(s): R11.2 - Nausea with vomiting, unspecified GERD (gastroesophageal reflux disease) Qualifiers: Esophagitis presence: esophagitis presence not specified Qualified Code(s): K21.9 - Gastro-esophageal reflux disease without esophagitis Condition: Stable Disposition: HOME, SELF-CARE Additional Instructions: Please get your medications filled. Again you can take that Zofran, 1 tablet every 4-6 hours for any nausea vomiting.
== END 2020-03-11 00:59 | disposition home or self-care (01) ==
LOC: ER 00:41
DX: K21.9 Gastro-esophageal reflux disease without esophagitis (principal); R11.2 Nausea with vomiting, unspecified; R07.9 Chest pain, unspecified; Z87.891 Personal history of nicotine dependence; J45.909 Unspecified asthma, uncomplicated
CPT/HCPCS: 99282

== ENCOUNTER 2020-03-12 23:20 | Emergency (ER) | payer SELFPAY ==
--- NOTE | 2020-03-13 01:05 | ER Document Report ---
HPI - HPI Patient complains to provider of: Vomiting blood Time Seen by Provider: 03/12/20 23:47 Pain Level: Denies Context: 25-year-old male well-known to the emergency room for multiple visits presents to the emergency room tonight stating that he had one episode of hematemesis about 30 minutes prior to arrival. States it was dark blood. Denied having anything to eat or drink that was red. No fevers. No shortness of breath, no difficulty breathing. No ill contacts. No TB exposure. Associated Symptoms: None Exacerbated by: Denies Relieved by: Denies Similar symptoms previously: No Recently seen / treated by doctor: No - ROS Systems Reviewed and Negative: Yes All other systems reviewed and negative - CONSTITUTIONAL Constitutional: DENIES: Fever - EENT EENT: DENIES: Sore Throat, Congestion - CARDIOVASCULAR Cardiovascular: DENIES: Chest pain - RESPIRATORY Respiratory: DENIES: Trouble Breathing, Coughing - GASTROINTESTINAL Gastrointestinal: REPORTS: Patient vomiting - 1 episode of hematemesis. DENIES: Abdominal Pain, Nausea - REPRODUCTIVE Reproductive: DENIES: : - DERM Skin Color: Normal, [place] Skin Problems: None Past Medical History - General Information source: Patient - Social History Smoking Status: Former Smoker Frequency of alcohol use: None Drug Abuse: None Family History: Reviewed & Not Pertinent Pulmonary Medical History: Reports: Hx Asthma - Immunizations Immunizations up to date: Yes Hx Diphtheria, Pertussis, Tetanus Vaccination: Yes Vertical Provider Document - CONSTITUTIONAL Agree With Documented VS: Yes Exam Limitations: No Limitations General Appearance: No Apparent Distress Notes: GENERAL: Mild acute distress, non-toxic appearance. HEAD: Normal with no signs of head trauma. EYES: PERRLA, EOMI, conjunctiva normal, no discharge. EARS: Hearing grossly intact. NOSE: Normal. THROAT: Oropharynx is normal. NECK: Normal range of motion, no tenderness, supple, no lymphadenopathy, No adenopathy, no JVD. CHEST: Clear breath sounds bilaterally. No wheezes, rales, or rhonchi. CARDIAC: Regular rate and rhythm. S1 and S2, without murmurs, gallops, or rubs. VASCULAR: No Edema. Peripheral pulses normal and equal in all extremities. ABDOMEN: Normal and soft with no tenderness, no masses or pulsatile masses. No organomegaly. Positive bowel sounds x4. No CVA tenderness noted bilaterally. GASTROINTESTINAL: Bowel sounds normal LYMPATHTIC: No lymphadenopathy noted. MUSCULOSKELETAL: Good range of motion of all major joints. Extremities without clubbing, cyanosis or edema. NEUROLOGICAL: Alert and oriented x 3. No focal sensory or strength deficits. Speech normal. Follows commands appropriately. PSYCHIATRIC: Normal Affect, judgement and mood. SKIN: Normal appearance with no rashes or lesions. - INFECTION CONTROL TRAVEL OUTSIDE OF THE [place] IN LAST 30 DAYS: No Course - Re-evaluation Re-evalutation: 03/13/20 01:02 Patient is resting comfortably in no acute distress. No vomiting since arrival to the emergency room. Reviewed negative chest x-ray results with patient. Case was staffed with ED attending Dr. Lee who reviewed the chest x-ray as it was not read by radiologist as of yet. No acute findings on chest x-ray. Patient stable to be discharged home. Counseled on outpatient follow-up as needed. Patient was given strict return to the emergency room guidelines. Return for any new or worsening symptoms. All questions were answered. Patient verbalized understanding and agrees with plan of care. - Vital Signs Vital signs: Temp Pulse Resp BP Pulse Ox 99.0 F 102 H 18 144/92 H 100 03/12/20 23:24 03/12/20 23:24 03/12/20 23:24 03/12/20 23:24 03/12/20 23:24 - Laboratory Results Critical Laboratory Results Reviewed: No Critical Results - Radiology Results Critical Radiology Results Reviewed: No Critical Results Discharge - Discharge Clinical Impression: Hematemesis of unknown cause Condition: Stable Disposition: HOME, SELF-CARE Instructions: Vomiting ([facility]) Additional Instructions: Your chest x-ray shows no acute findings. Outpatient follow-up with primary care physician as needed. Return to the emergency room for any new or worsening symptoms.
[2020-03-13 01:09] VITALS: BP 138/76
--- NOTE | 2020-03-13 01:11 | RADIOLOGY REPORT (SQ) ---
EXAM: CHEST 2 VIEWS CLINICAL INDICATION: 25-year-old male with chest pain. Hematemesis. TECHNIQUE: Two-view, PA and lateral projections of the chest were obtained. COMPARISON: 02/10/2020. FINDINGS: Unremarkable cardiac and mediastinal silhouette. Heart size is normal. Lungs are clear without focal opacity, pneumothorax or pleural effusions. The visualized bones are within normal limits. IMPRESSION: No acute cardiopulmonary abnormalities.
== END 2020-03-13 01:08 | disposition home or self-care (01) ==
LOC: ER 23:20
DX: K92.0 Hematemesis (principal); J45.909 Unspecified asthma, uncomplicated; Z87.891 Personal history of nicotine dependence
CPT/HCPCS: 71046; 99283

== ENCOUNTER 2020-03-13 23:38 | Emergency (ER) | payer SELFPAY ==
--- NOTE | 2020-03-14 07:30 | ER Document Report ---
HPI - HPI Time Seen by Provider: 03/14/20 05:57 Pain Level: 4 Notes: 25-year-old male presenting to the emergency department with complaints of nausea. Patient reports he has been Covid tested several times this is always come up negative. He denies any fever, chills, vomiting or diarrhea. - ROS Systems Reviewed and Negative: Yes All other systems reviewed and negative - CONSTITUTIONAL Constitutional: DENIES: Fever, Chills - NEURO Neurology: REPORTS: Headache. DENIES: Weakness, Vision blurred, Dizzinesss / Vertigo - RESPIRATORY Respiratory: DENIES: Trouble Breathing, Coughing - GASTROINTESTINAL Gastrointestinal: REPORTS: Nausea. DENIES: Abdominal Pain, Black / Bloody Stools - REPRODUCTIVE Reproductive: DENIES: : Past Medical History - General Information source: Patient - Social History Smoking Status: Never Smoker Frequency of alcohol use: None Drug Abuse: None Family History: Reviewed & Not Pertinent Pulmonary Medical History: Reports: Hx Asthma - Immunizations Immunizations up to date: Yes Hx Diphtheria, Pertussis, Tetanus Vaccination: Yes Vertical Provider Document - CONSTITUTIONAL Notes: PHYSICAL EXAMINATION: GENERAL: Well-appearing, well-nourished and in no acute distress. HEAD: Atraumatic, normocephalic. EYES: Pupils equal round extraocular movements intact, conjunctiva are normal. ENT: Nares patent NECK: Normal range of motion LUNGS: No respiratory distress Musculoskeletal: Normal range of motion NEUROLOGICAL: Normal speech, normal gait. PSYCH: Normal mood, normal affect. SKIN: Warm, Dry, normal turgor, no rashes or lesions noted. - INFECTION CONTROL TRAVEL OUTSIDE OF THE [place] IN LAST 30 DAYS: No Course - Re-evaluation Re-evalutation: Patient appears well, nontoxic, has had no episodes of vomiting in the emergency department. Patient reports he feels well enough for discharge. The patient's emergency department workup and current diagnosis were explained to the patient and or family. Follow-up instructions were provided. Medications if prescribed were discussed. Instructions for when to return to the emergency department including specific worrisome symptoms were discussed with the patient and/or family. - Vital Signs Vital signs: Temp Pulse Resp BP Pulse Ox 97.5 F 85 18 118/66 99 03/14/20 06:29 03/14/20 06:29 03/14/20 06:29 03/14/20 06:29 03/14/20 06:29 - Laboratory Results Critical Laboratory Results Reviewed: No Critical Results - Radiology Results Critical Radiology Results Reviewed: No Critical Results Discharge - Discharge Clinical Impression: Encounter for medical screening examination Condition: Stable Disposition: HOME, SELF-CARE Referrals: [facility] [Outside] - Follow up as needed
[2020-03-14 08:18] VITALS: BP 140/76
--- NOTE | 2020-03-14 09:26 | EKG REPORT ---
SEVERITY:- OTHERWISE NORMAL ECG - SINUS TACHYCARDIA : Confirmed by: Florentin Park MD 14-Mar-2020 09:25:34
== END 2020-03-14 08:18 | disposition home or self-care (01) ==
LOC: ER 23:38
DX: R11.0 Nausea (principal); R51.9 Headache, unspecified; J45.909 Unspecified asthma, uncomplicated
CPT/HCPCS: 93005; 93010; 99283

== ENCOUNTER 2020-03-14 23:15 | Emergency (ER) | payer SELFPAY ==
[2020-03-14] MEDS ORDERED: IBUPROFEN 800 MG TABLET PO ONE (23:44)
--- NOTE | 2020-03-14 23:46 | ER Document Report ---
HPI - HPI Onset: Yesterday Onset/Duration: Gradual Quality of pain: Achy Pain Level: 5 Context: Patient presents complaining of of back pain that radiates to right lower extremity since yesterday. Patient also reports that he had had chest pain that radiated to his back although denies any chest pain at this time. Patient only complains of back pain. Patient has been seen multiple times this week for this pain complaint. Patient states that he returned tonight because he was not given any medicine at his prior visit. Patient states that he does not have money to buy [id number] medications. Associated Symptoms: Chest pain. denies: Nonproductive cough, Productive cough, Nausea, Vomiting Exacerbated by: Movement Relieved by: Denies Similar symptoms previously: Yes Recently seen / treated by doctor: Yes - ROS ROS below otherwise negative: Yes Systems Reviewed and Negative: Yes All other systems reviewed and negative - CONSTITUTIONAL Constitutional: DENIES: Fever, Chills - NEURO Neurology: DENIES: Weakness - CARDIOVASCULAR Cardiovascular: DENIES: Chest pain - RESPIRATORY Respiratory: DENIES: Trouble Breathing, Coughing - GASTROINTESTINAL Gastrointestinal: DENIES: Nausea, Patient vomiting - REPRODUCTIVE Reproductive: DENIES: : - MUSCULOSKELETAL Musculoskeletal: REPORTS: Extremity pain, Back Pain. DENIES: Neck Pain - DERM Skin Color: Normal Skin Problems: None <REBECCA SANDERS - Last Filed: 03/15/20 00:54> <DONAL MARIE - Last Filed: 03/15/20 02:14> - HPI Time Seen by Provider: 03/14/20 23:37 Past Medical History - General Information source: Patient - Social History Smoking Status: Former Smoker Frequency of alcohol use: None Drug Abuse: None Occupation: None Lives with: Homeless Family History: Reviewed & Not Pertinent Pulmonary Medical History: Reports: Hx Asthma Surgical Hx: Negative - Immunizations Immunizations up to date: Yes Hx Diphtheria, Pertussis, Tetanus Vaccination: Yes <REBECCA SANDERS - Last Filed: 03/15/20 00:54> Vertical Provider Document - CONSTITUTIONAL Agree With Documented VS: Yes Exam Limitations: No Limitations General Appearance: WD/WN, No Apparent Distress - INFECTION CONTROL TRAVEL OUTSIDE OF THE [place] IN LAST 30 DAYS: No - HEENT HEENT: Atraumatic, Normocephalic - NECK Neck: Normal Inspection, Supple - RESPIRATORY Respiratory: Breath Sounds Normal, No Respiratory Distress, Chest Non-Tender - CARDIOVASCULAR Cardiovascular: Regular Rate, Regular Rhythm, No Murmur - BACK Back: Abnormal Inspection - Thoracic midline tenderness T7 area, right lower lumbar paraspinal tenderness, right SI joint tenderness - MUSCULOSKELETAL/EXTREMETIES Musculoskeletal/Extremeties: ARMANDO MCCLURE Notes: Normal gait, no foot drop, no saddle anesthesia - NEURO Level of Consciousness: Awake, Alert, Appropriate Motor/Sensory: No Motor Deficit - DERM Integumentary: Warm, Dry, No Rash <REBECCA SANDERS - Last Filed: 03/15/20 00:54> Course - Re-evaluation Re-evalutation: 03/15/20 00:54 Report and handoff given to Leanna Marie NP - Vital Signs Vital signs: Temp Pulse Resp BP Pulse Ox 98.2 F 103 H 18 125/84 100 03/14/20 23:25 03/14/20 23:25 03/14/20 23:25 03/14/20 23:25 03/14/20 23:25 - EKG Interpretation by Tn EKG shows normal: Sinus rhythm Rate: Normal Rhythm: NSR Additional EKG results interpreted by me: 03/15/20 00:07 Sinus rhythm with a rate of 97, QTc 417, no acute ischemic changes <REBECCA SANDERS - Last Filed: 03/15/20 00:54> - Re-evaluation Re-evalutation: 03/15/20 00:54 Assumed care of patient from off going nurse practitioner Rebecca Sanders. 03/15/20 01:49 Patient is resting comfortably he is currently pain-free. Chest pain and back pain have resolved. Reviewed EKG and chest x-ray results with patient. No acute findings. No significant changes from previous x-ray and EKGs. Patient was counseled take [id number] Tylenol and or Motrin as needed for his pain. Follow-up with the clinic as discussed. Patient was given strict return to the emergency room guidelines. Return for any new or worsening symptoms. All questions were answered. Patient verbalized understanding and agrees with plan of care. - Vital Signs Vital signs: Temp Pulse Resp BP Pulse Ox 98.2 F 103 H 18 125/84 100 03/14/20 23:25 03/14/20 23:25 03/14/20 23:25 03/14/20 23:25 03/14/20 23:25 - Laboratory Results Critical Laboratory Results Reviewed: No Critical Results - Radiology Results Critical Radiology Results Reviewed: No Critical Results <DONAL MARIE - Last Filed: 03/15/20 02:14> Discharge <REBECCA SANDERS - Last Filed: 03/15/20 00:54> <DONAL MARIE - Last Filed: 03/15/20 02:14> - Discharge Clinical Impression: Upper back pain Sciatica Qualifiers: Laterality: right Qualified Code(s): M54.31 - Sciatica, right side Chest pain Qualifiers: Chest pain type: unspecified Qualified Code(s): R07.9 - Chest pain, unspecified Condition: Stable Disposition: HOME, SELF-CARE Instructions: Chest Pain of Unclear Cause ([facility]), Muscle Strain ([facility]) Additional Instructions: Take Tylenol and or Motrin as needed for pain. Follow-up with clinic. Return to emergency room for any new or worsening symptoms.
--- NOTE | 2020-03-15 01:44 | RADIOLOGY REPORT (SQ) ---
EXAM: CHEST SINGLE VIEW CLINICAL INDICATION: 25-year-old male with upper back pain. TECHNIQUE: Single view, AP portable chest was obtained. COMPARISON: 03/13/2020. FINDINGS: Unremarkable cardiac and mediastinal silhouette. Heart size is normal. Low lung volumes grossly clear without focal opacity, pneumothorax or pleural effusions. The visualized bones are within normal limits. IMPRESSION: No acute cardiopulmonary abnormalities.
[2020-03-15 02:01] VITALS: BP 134/72
--- NOTE | 2020-03-15 15:05 | EKG REPORT ---
SEVERITY:- NORMAL ECG - SINUS RHYTHM : Confirmed by: Florentin Park MD 15-Mar-2020 15:04:45
== END 2020-03-15 02:00 | disposition home or self-care (01) ==
LOC: ER 23:15
DX: M54.31 Sciatica, right side (principal); R07.9 Chest pain, unspecified; M54.6 Pain in thoracic spine; Z59.0 Homelessness
CPT/HCPCS: 71045; 93005; 93010; 99284

== ENCOUNTER 2020-03-16 22:59 | Emergency (ER) | payer SELFPAY ==
[2020-03-16 23:45] VITALS: BP 154/79
[2020-03-17] MEDS ORDERED: ACETAMINOPHEN 325 MG TABLET PO ONE (01:11)
--- NOTE | 2020-03-17 01:13 | ER Document Report ---
HPI - HPI Time Seen by Provider: 03/17/20 01:04 Notes: Otherwise healthy 25-year-old male presenting to the emergency department with complaints of right leg pain. Patient reports pain behind his right knee. He states pain ongoing for the last 3 to 4 days. He denies any recent trauma or injury. He has no history of DVT, he has not had any recent travel. - ROS Systems Reviewed and Negative: Yes All other systems reviewed and negative - REPRODUCTIVE Reproductive: DENIES: : - MUSCULOSKELETAL Musculoskeletal: REPORTS: Extremity pain Past Medical History - General Information source: Patient - Social History Smoking Status: Never Smoker Frequency of alcohol use: None Drug Abuse: None Family History: Reviewed & Not Pertinent Pulmonary Medical History: Reports: Hx Asthma - Immunizations Immunizations up to date: Yes Hx Diphtheria, Pertussis, Tetanus Vaccination: Yes Vertical Provider Document - CONSTITUTIONAL Notes: PHYSICAL EXAMINATION: GENERAL: Well-appearing, well-nourished and in no acute distress. HEAD: Atraumatic, normocephalic. EYES: Pupils equal round extraocular movements intact, conjunctiva are normal. ENT: Nares patent NECK: Normal range of motion LUNGS: No respiratory distress Musculoskeletal: Normal range of motion to bilateral legs. No unilateral leg swelling. No erythema. NEUROLOGICAL: Normal speech, normal gait. PSYCH: Normal mood, normal affect. SKIN: Warm, Dry, normal turgor, no rashes or lesions noted. - INFECTION CONTROL TRAVEL OUTSIDE OF THE [place] IN LAST 30 DAYS: No Course - Re-evaluation Re-evalutation: Patient has a very low likelihood of having a DVT. He is a non-smoker, he has never had a DVT, he has had no recent travel, He has no unilateral leg swelling. There is a possibility that he may have a Garcia's cyst behind his right knee. This was discussed with the patient. The patient's emergency department workup and current diagnosis were explained to the patient and or family. Follow-up instructions were provided. Medications if prescribed were discussed. Instructions for when to return to the emergency department including specific worrisome symptoms were discussed with the patient and/or family. - Vital Signs Vital signs: Temp Pulse Resp BP Pulse Ox 98.5 F 98 18 154/79 H 100 03/16/20 23:44 03/16/20 23:44 03/16/20 23:44 03/16/20 23:44 03/16/20 23:44 - Laboratory Results Critical Laboratory Results Reviewed: No Critical Results - Radiology Results Critical Radiology Results Reviewed: No Critical Results Discharge - Discharge Clinical Impression: Leg pain Qualifiers: Laterality: right Qualified Code(s): M79.604 - Pain in right leg Condition: Stable Disposition: HOME, SELF-CARE Additional Instructions: Your exam is reassuring today. I do not believe you have a blood clot in your leg as you have no swelling and have no risk factors for this. I do believe you may have a Garcia's cyst behind the right knee. This will need to be confirmed with an ultrasound. Please return if any new or worsening concerns.
[2020-03-17] MEDS ORDERED: ACETAMINOPHEN 325 MG TABLET ONE (01:19)
== END 2020-03-17 01:20 | disposition home or self-care (01) ==
LOC: ER 22:59
DX: M79.661 Pain in right lower leg (principal); J45.909 Unspecified asthma, uncomplicated
CPT/HCPCS: 99282